=== PATIENT | male | born 1945 | race Caucasian/White ===

== ENCOUNTER 2017-10-09 13:45 | Outpatient (POV) | payer MEDICARE, OTHER, SELFPAY | END 2017-10-09 15:44 | disposition home or self-care (01) | PROVIDERS: Family Provider Family Medicine; PCP Family Medicine; Visit Provider Urology | DX: C61 Malignant neoplasm of prostate (principal) | CPT/HCPCS: 99213 ==

== ENCOUNTER → 2017-10-16 08:42 | Outpatient (CLI) | payer MEDICARE, OTHER, SELFPAY ==
[2017-10-16 09:21] LABS: Blood Urea Nitrogen 13 mg/dL (7-18); Creatinine,Serum 1.31 mg/dL (0.70-1.30); Estimated Glomerular Filt Rate 54 ml/min (>60); GFR (African American) > 60 ML/MIN (>60)
--- NOTE | 2017-10-16 09:49 | CT_ITS ---
CT ABDOMEN PELVIS W CON INDICATION: ITS.REASON: PROSTATE CANCER ORDERING PHYSICIAN: Ricardo Ortega MD PATIENT AGE: 72 years COMPARISON: 03/09/2015 TECHNIQUE: Axial images are obtained with contrast. Sagittal and coronal reformatted images are reviewed as well. FINDINGS: No acute finding in the lung bases. There has been a prior cholecystectomy. No biliary dilatation. No focal liver lesion. Spleen, adrenal glands, and pancreas have an unremarkable appearance. No obstructing renal or ureteral calculi. There is a 6 mm left renal cyst. No hydronephrosis. There is a fusiform infrarenal abdominal aortic aneurysm measuring up to 3.9 cm transverse and 3.2 cm in maximum AP dimension containing some mural thrombus beginning nearly 6 cm below the level the renal arteries and ending just above the bifurcation. No acute retroperitoneal hemorrhage evident. Compared to the previous study of aneurysm or a slightly larger previously measuring up to 3.7 cm transverse and 3 cm AP with slight increase in the amount of mural thrombus on today's exam. Prostate is slightly enlarged measuring 5.3 x 4 cm. No pelvic adenopathy. Urinary bladder has an unremarkable appearance. No acute bony anomalies. No obvious lytic or blastic lesions. IMPRESSION: 1. Mildly enlarged prostate. No definite evidence of metastasis. 2. Fusiform abdominal aortic aneurysm for a slightly larger compared to the previous study measured 3.9 cm transverse previously 3.7 cm with some increase in intramural thrombus.
--- NOTE | 2017-10-16 10:13 | XR_ITS ---
XR chest 2V HISTORY: ITS.REASON: PROSTATE CA ORDERING PHYSICIAN: Ricardo Ortega MD PATIENT AGE: 72 years COMPARISON: 12/28/2014 FINDINGS: There has been a prior median sternotomy. The cardiovascular structures are unremarkable. Surgical clips are present in the left hilar region.. The lungs are clear without infiltrates, suspicious nodules, or pleural effusions. No acute bony abnormalities. No obvious lytic or blastic bony lesions evident IMPRESSION: No change with no acute finding
== END ==
PROVIDERS: PCP Urology; Visit Provider Urology
DX: C61 Malignant neoplasm of prostate (principal)
CPT/HCPCS: 36415; 71046; 74177; 82565; 84520; Q9967

== ENCOUNTER → 2017-10-17 11:03 | Outpatient (CLI) | payer MEDICARE, OTHER, SELFPAY ==
--- NOTE | 2017-10-17 11:06 | NM_ITS ---
NM bone scan whole body CLINICAL INDICATION: ITS.REASON: PROSTATE CANCER ORDERING PHYSICIAN: Ricardo Ortega MD PATIENT AGE: 72 years DOSE: 26.3 mCi technetium MDP COMPARISON: None FINDINGS: Delayed Whole-body images obtained following the intravenous administration of 26.3 mCi technetium MDP. Degenerative activity noted in the knees and shoulders and sternoclavicular joints. There is slight decrease activity on the right at the costovertebral junction at T9, T10, and T11 likely osteoarthritic. Prominent osteophytes present at this region on the CT scan. Small focal area of increased activity is present involving the right parasymphyseal region of the mandible which may be due to prior tooth extraction or caries IMPRESSION: 1. No convincing evidence of metastatic disease. 2. Degenerative/arthritic changes
== END ==
PROVIDERS: Family Provider Family Medicine; PCP Family Medicine; Visit Provider Urology
DX: C61 Malignant neoplasm of prostate (principal)
CPT/HCPCS: 78306; A9503

== ENCOUNTER → 2017-11-26 08:40 | Outpatient (CLI) | payer MEDICARE, OTHER, SELFPAY ==
[2017-11-26 09:25] LABS: Basophils # 0.1 K/mm3 (0-0.2); Basophils % 0.6 % (0.1-2.0); Eosinophils # 0.4 K/mm3 (0.0-0.4); Eosinophils % 4.1 % (0.1-12.0); Hematocrit 46.4 % (42.0-52.0); Hemoglobin 15.8 g/dL (14.1-18.0); Lymphocytes # 2.4 K/mm3 (0.7-4.5); Lymphocytes % 26.3 K/mm3 (10-50); Mean Corpuscular HGB Conc 34.1 g/dL (31.8-35.4); Mean Corpuscular Hemoglobin 30.4 pg (27.0-31.2); Mean Corpuscular Volume 89.2 fl (80-94); Mean Platelet Volume 6.7 fl (7.4-10.4); Monocytes # 0.4 K/mm3 (0.1-1.0); Monocytes % 4.9 % (1.7-9.3); Neutrophils # 5.8 K/mm3 (1.8-7.8); Neutrophils % 64.1 % (37.0-80.0); Platelet Count 246 K/mm3 (142-424); Red Blood Count 5.21 M/mm3 (4.60-6.20); Red Cell Distribution Width 12.3 % (11.5-17.5)
[2017-11-26 10:20] LABS: Albumin Level 3.6 gm/dL (3.4-5.0); Anion Gap 11.3 mEq/L (5-15); Blood Urea Nitrogen 16 mg/dL (7-18); Calcium 9.1 mg/dL (8.5-10.1); Carbon Dioxide 33 mmol/L (21.0-32.0); Chloride 102 mmol/L (98-107); Creatinine,Serum 1.36 mg/dL (0.70-1.30); Estimated Glomerular Filt Rate 52 ml/min (>60); GFR (African American) 63 ML/MIN (>60); Glucose 143 mg/dL (74-106); Phosphorous 3.5 mg/dL (2.4-4.9); Potassium 3.3 mmoL/L (3.5-5.1); Sodium 143 mmol/L (136-145)
[2017-11-26 13:25] LABS: Appearance,Urine CLEAR (Clear); Bilirubin,Urine Negative (Negative); Blood, Urine Negative (Negative); Color,Urine YELLOW (Yellow); Glucose,Urine (UA) Negative (Negative); Ketones,Urine Negative (Negative); Leukocyte Esterase,Urine Negative (Negative); Nitrate,Urine Negative (Negative); PH,Urine 5.5 (5.0-8.5); Protein,Urine Negative (Negative); Specific Gravity, Urine >= 1.030 (1.005-1.030); Urobilinogen,Urine 0.2 EU/dl (0.2)
[2017-11-26 13:44] LABS: Bacteria,Urine Trace /lpf; Squamous Epithelial Cell,Urine Occasional #/hpf (0-5)
[2017-11-26 14:01] LABS: Creatinine,Urine Random 209 mg/dL (20-320); Total Protein,Urine Random 18.2 mg/dL (0.0-11.9)
[2017-11-26 14:12] LABS: Microscopic, Urine URINE MICROSCOPIC (MICROSCOPIC)
[2017-11-30 12:13] LABS: Parathyroid Hormone Intact 38 pg/mL (15-65); Vitamin D 25 Hydroxy 28.3 ng/mL (30.0-100.0)
== END ==
PROVIDERS: PCP Family Medicine; Visit Provider Internal Medicine Nephrology
DX: N18.3 Chronic kidney disease, stage 3 (moderate) (principal)
CPT/HCPCS: 36415; 80069; 81001; 82570; 82652; 83970; 84155; 85025

== ENCOUNTER → 2017-12-03 14:13 | Outpatient (POV) | payer MEDICARE, OTHER, SELFPAY | PROVIDERS: Family Provider Family Medicine; PCP Family Medicine; Visit Provider Internal Medicine Nephrology | DX: Z00.00 Encounter for general adult medical examination without abnormal findings (principal) ==

== ENCOUNTER 2018-03-04 09:30 | Outpatient (RCR) | payer MEDICARE, OTHER, SELFPAY ==
--- NOTE | 2018-02-21 08:35 | HMH.PTOPEV ---
Rehab Outpatient Evaluation Rehab OP Evaluation Start: 02/21/18 08:17 Freq: Status: Active Protocol: Document 02/21/18 08:17 DAYPEACE (Rec: 02/21/18 08:35 GENO [id number]) Electronically Signed By New Das, TONJA 02/21/18 08:17 Outpatient Therapy Subjective History Subjective History This is the initial Physical Therapy evaluation for Alex Stephens. PT is a 72 y/o male referred toPTf or c/o LBP and R hip, flank,thigh pain. Pt reports pain began ~ 2-3 months ago after visit to chiropractor. Chief Complaint Pain Stiff Symptom Type Ache Sharp Dull Stabbing Symptoms Relieved By Rest/Positioning Heat Ice OTC Meds Symptoms Aggravated By Sitting Standing Physical Activity Walking Prior Functional Limitations None Current Functional Limitations Housework Standing Sitting Recreation Activity Walking Level of pain today (0-10) 2 Pain scale - at its best (0-10) 2 Pain scale - at its worst (0-10) 10 Lumbopelvic Eval Posture Thoracic Spine Posture Standing Position Increased Kyphosis Lumbar Spine Posture Standing Position Flattened Assistive device Assistive Devices None / NA Palapation tenderness right thoracic spinal tenderness Yes: TTP T12 lumbar spinal tenderness Yes: TTP L1-5 paraspinal tenderness Yes Accessory Movement T12 right L2 right Range of Motion Lumbar Spine Active Flexion Range of 90 Motion (degrees) Lumbar Spine Active Extension Range of 10 w/ pain Motion (degrees) Left Lumbar Spine Lateral Flexion Active 5 w/ pain Range of Motion (degrees) Right Lumbar Spine Lateral Flexion 15 Active Range of Motion (degrees) Lumbar Spine ROM Limitations Pain Special Tests Lumbar Spine Screen Positive Forward Bending Test- Standing Negative Right Forward Bending Test- Sitting Negative Right Unilateral Straight Leg Raise (Lasegue) Positive Right Test Lumbar Spine Spring Test pos. for pain Lumbar [place] Distraction Test/Manual Positive T
== END 2018-03-04 09:31 | disposition home or self-care (01) ==
LOC: PT 09:30
PROVIDERS: Family Provider Family Medicine; PCP Family Medicine; Visit Provider Family Medicine
DX: M51.16 Intervertebral disc disorders with radiculopathy, lumbar region (principal)
CPT/HCPCS: 97010; 97012; 97014; 97110; 97163; G0283

== ENCOUNTER → 2018-03-25 08:41 | Outpatient (CLI) | payer MEDICARE, OTHER, SELFPAY ==
--- NOTE | 2018-03-25 08:42 | US_ITS ---
US aorta HISTORY: Follow-up aneurysm ITS.REASON: follow up on abdominal aortic aneurysm COMPARISON: 09/19/2017 FINDINGS: Fusiform lower abdominal aortic and there is once again noted measuring 4 cm in AP dimension with a mild amount of intramural thrombus.. Iliac arteries are unremarkable. IMPRESSION: No change 4 cm abdominal aortic aneurysm
== END ==
PROVIDERS: Family Provider Family Medicine; PCP Family Medicine; Visit Provider Internal Medicine
DX: I71.4 Abdominal aortic aneurysm, without rupture (principal)
CPT/HCPCS: 76770

== ENCOUNTER → 2018-05-08 08:03 | Outpatient (CLI) | payer MEDICARE, OTHER, SELFPAY ==
[2018-05-08 08:54] LABS: Hemoglobin A1C 6.2 % (0.0-7.0)
[2018-05-08 09:08] LABS: Alanine Aminotransferase 24 U/L (12-78); Albumin Level 3.6 gm/dL (3.4-5.0); Alkaline Phosphatase 64 U/L (46-116); Anion Gap 9.3 mEq/L (5-15); Aspartate Amino Transferase 16 U/L (15-37); Bilirubin,Direct 0.1 mg/dL (0.0-0.2); Bilirubin,Indirect 0.5 mg/dL (0.0-0.9); Bilirubin,Total 0.6 mg/dL (0.2-1.0); Blood Urea Nitrogen 17 mg/dL (7-18); Calcium 9.1 mg/dL (8.5-10.1); Carbon Dioxide 31 mmol/L (21.0-32.0); Chloride 107 mmol/L (98-107); Chol/HDL Ratio 3.4 (1-3.5); Cholesterol 155 mg/dL (140-200); Creatinine,Serum 1.37 mg/dL (0.70-1.30); Estimated Glomerular Filt Rate 51 ml/min (>60); GFR (African American) 62 ML/MIN (>60); Glucose 151 mg/dL (74-106); HDL Cholesterol 46 mg/dL (27-67); LDL Cholesterol 84 mg/dL (0-130); Potassium 4.3 mmoL/L (3.5-5.1); Sodium 143 mmol/L (136-145); Total Protein,Serum 6.7 gm/dL (6.4-8.2); Triglycerides 126 mg/dL (30-200); VLDL Cholesterol 25 mg/dL (0-40)
[2018-05-10 06:36] LABS: PSA, Free 0.61 ng/mL; Prostate Specific Ag 2.9 ng/mL (0.0-4.0)
== END ==
PROVIDERS: Visit Provider Physician Assistant
DX: Z79.899 Other long term (current) drug therapy (principal); N28.9 Disorder of kidney and ureter, unspecified; R73.03 Prediabetes; E78.5 Hyperlipidemia, unspecified; Z85.46 Personal history of malignant neoplasm of prostate
CPT/HCPCS: 36415; 80048; 80061; 80076; 83036; 84153; 84154

== ENCOUNTER → 2018-06-17 08:17 | Outpatient (CLI) | payer MEDICARE, OTHER, SELFPAY ==
[2018-06-17 08:21] LABS: Microscopic, Urine URINE MICROSCOPIC (MICROSCOPIC)
[2018-06-17 08:39] LABS: Basophils # 0.1 K/mm3 (0-0.2); Basophils % 0.9 % (0.1-2.0); Eosinophils # 0.3 K/mm3 (0.0-0.4); Eosinophils % 4.4 % (0.1-12.0); Hematocrit 46.7 % (42.0-52.0); Hemoglobin 15.5 g/dL (14.1-18.0); Lymphocytes # 1.9 K/mm3 (0.7-4.5); Lymphocytes % 24.4 K/mm3 (10-50); Mean Corpuscular HGB Conc 33.1 g/dL (31.8-35.4); Mean Corpuscular Hemoglobin 30.2 pg (27.0-31.2); Mean Platelet Volume 6.7 fl (7.4-10.4); Monocytes # 0.4 K/mm3 (0.1-1.0); Monocytes % 5.4 % (1.7-9.3); Neutrophils # 4.9 K/mm3 (1.8-7.8); Neutrophils % 64.9 % (37.0-80.0); Platelet Count 253 K/mm3 (142-424); Red Blood Count 5.13 M/mm3 (4.60-6.20); Red Cell Distribution Width 12.8 % (11.5-17.5); White Blood Count 7.6 K/mm3 (4.8-10.8)
[2018-06-17 08:43] LABS: Appearance,Urine CLEAR (Clear); Bilirubin,Urine Negative (Negative); Blood, Urine Negative (Negative); Color,Urine YELLOW (Yellow); Glucose,Urine (UA) Negative (Negative); Ketones,Urine Negative (Negative); Leukocyte Esterase,Urine Negative (Negative); Nitrate,Urine Negative (Negative); Protein,Urine Negative (Negative); Specific Gravity, Urine 1.025 (1.005-1.030); Urobilinogen,Urine 0.2 EU/dl (0.2)
[2018-06-17 09:29] LABS: Creatinine,Urine Random 159 mg/dL (20-320); Total Protein,Urine Random 16.8 mg/dL (0.0-11.9)
[2018-06-17 09:39] LABS: Bacteria,Urine Trace /lpf; Hyaline Casts,Urine Occasional #/lpf (0); Squamous Epithelial Cell,Urine Occasional #/hpf (0-5); WBC,Urine Occasional #/hpf (0-3)
[2018-06-17 09:54] LABS: Albumin Level 3.8 gm/dL (3.4-5.0); Anion Gap 11.9 mEq/L (5-15); Blood Urea Nitrogen 15 mg/dL (7-18); Calcium 9.2 mg/dL (8.5-10.1); Carbon Dioxide 33 mmol/L (21.0-32.0); Chloride 104 mmol/L (98-107); Creatinine,Serum 1.38 mg/dL (0.70-1.30); Estimated Glomerular Filt Rate 51 ml/min (>60); GFR (African American) 61 ML/MIN (>60); Glucose 141 mg/dL (74-106); Phosphorous 3.3 mg/dL (2.4-4.9); Potassium 3.9 mmoL/L (3.5-5.1); Sodium 145 mmol/L (136-145); Uric Acid 7.9 mg/dL (2.6-7.2)
[2018-06-19 10:24] LABS: Microalbumin, Urine <3.0 ug/mL (Not Estab.)
== END ==
PROVIDERS: PCP Family Medicine; Visit Provider Internal Medicine Nephrology
DX: N18.3 Chronic kidney disease, stage 3 (moderate) (principal)
CPT/HCPCS: 36415; 80069; 81001; 82043; 82570; 84155; 84550; 85025

== ENCOUNTER → 2018-06-20 13:37 | Outpatient (POV) | payer MEDICARE, OTHER, SELFPAY | PROVIDERS: Family Provider Family Medicine; PCP Family Medicine; Visit Provider Internal Medicine Nephrology | DX: Z00.00 Encounter for general adult medical examination without abnormal findings (principal) ==

== ENCOUNTER → 2018-08-07 12:19 | Outpatient (CLI) | payer MEDICARE, OTHER, SELFPAY ==
[2018-08-09 06:44] LABS: PSA, Free 0.33 ng/mL; Prostate Specific Ag 2.2 ng/mL (0.0-4.0)
== END ==
PROVIDERS: PCP Family Medicine; Visit Provider Urology
DX: C61 Malignant neoplasm of prostate (principal)
CPT/HCPCS: 36415; 84153; 84154

== ENCOUNTER → 2018-09-25 07:48 | Outpatient (CLI) | payer MEDICARE, OTHER, SELFPAY ==
--- NOTE | 2018-09-25 07:49 | US_ITS ---
US abd. aorta screening HISTORY: Follow-up abdominal aortic aneurysm ITS.REASON: z ORDERING PHYSICIAN: Jonah Cabello MD PATIENT AGE: 73 years Comparison: 10/16/2017 FINDINGS: The aorta at the level is fluid has an unremarkable appearance at 2 cm. 4 cm below the xiphoid there is fusiform dilatation of the abdominal aorta at 3.5 x 3 cm. Just proximal to the aortic bifurcation the aorta measures up to 4 cm. The proximal common iliacs are approximately 1 cm. IMPRESSION: Mid and lower abdominal aortic aneurysm measuring up to 4 cm. Previously this measured 3.2 cm. Enlarging aneurysm is considered and may be better evaluated for true enlargement with CT angiography
== END ==
PROVIDERS: PCP Family Medicine; Visit Provider Internal Medicine
DX: I71.4 Abdominal aortic aneurysm, without rupture (principal)
CPT/HCPCS: 76705

== ENCOUNTER → 2018-11-05 08:20 | Outpatient (CLI) | payer MEDICARE, OTHER, SELFPAY ==
[2018-11-06 09:33] LABS: PSA, Free 0.83 ng/mL; Prostate Specific Ag 3.1 ng/mL (0.0-4.0)
== END ==
PROVIDERS: Visit Provider Urology
DX: R97.20 Elevated prostate specific antigen [PSA] (principal)
CPT/HCPCS: 36415; 84153; 84154

== ENCOUNTER 2018-12-01 19:13 | Observation (INO) ==
--- NOTE | 2018-12-01 19:33 | Emergency Department Note ---
ED Disposition Clinical Impression: Precordial chest pain Disposition: Admitted as Observation Condition on Discharge: Good Referrals: Duncan Eastman MD [Primary Care Provider] - - Critical Care Critical Care Time: No Attestation: On , the high probability of a clinically significant, sudden or life t hreatening deterioration of the following system(s) required my full and direct attention, intervention and personal management. The time I documented below is in addition to time spent performing reported procedures but includes the following listed in this critical care notation. Medical Decision Making - [place] Inquiry Pt receiving controlled substance: No Vital Signs: 12/01/18 19:14 Temperature 99.5 F Temperature Source Oral Pulse Rate [Right Brachial] 90 Respiratory Rate 17 Blood Pressure [Right Arm] 203/101 H Blood Pressure Mean [Right Arm] 135 Blood Pressure Source [Right Arm] Automatic Cuff Blood Pressure Position [Right Arm] Sitting 02 Sat by Pulse Oximetry 97 Oxygen Delivery Method Room Air - Lab Data Lab Results 12/01/18 19:22: WBC 10.5, RBC 5.28, Hgb 16.4, Hct 47.9, MCV 90.6, MCH 31.1, MCHC 34.3, RDW 12.8, Plt Count 243, MPV 6.3 L, Neut % (Auto) 81.6 H, Lymph % (Auto) 10.4, Armstrong % (Auto) 4.7, Eos % (Auto) 2.7, Baso % (Auto) 0.5, Neut # (Auto) 8.5 H, Lymph # (Auto) 1.1, Armstrong # (Auto) 0.5, Eos # (Auto) 0.3, Baso # (Auto) 0.1 12/01/18 19:22: Sodium 139, Potassium 3.4 L, Chloride 98, Carbon Dioxide 33 H, Anion Gap 11.4, BUN 15, Creatinine 1.33 H, Estimated Creat Clear 63, Estimated GFR 53 L, Est GFR ( Amer) 64, Glucose 112 H, Calcium 9.7, Total Bilirubin 0.6, AST 26, ALT 34, Alkaline Phosphatase 70, Troponin I < 0.02, Total Protein 8.6 H D, Albumin 4.3, Globulin 4.3 H, Albumin/Globulin Ratio 1.0 L Result diagrams: 12/01/18 19:22 12/01/18 19:22 Orders (Tests/Meds): ED MEDICATIONS Generic Name Dose Route Start Last Admin Trade Name Freq PRN Reason Stop Dose Admin Sodium Chloride 10 ml 12/01/18 19:26 Saline Flush 10ml Syringe IV 12/31/18 19:25 NEEDED PRN Maintain IV Site Discontinued Medications Generic Name Dose Route Start Last Admin Trade Name Freq PRN Reason Stop Dose Admin Aspirin 324 mg 12/01/18 19:44 12/01/18 19:47 Aspirin 81mg Chewable Tablet PO 12/01/18 19:45 Not Given ONCE ONE Aspirin 243 mg 12/01/18 19:45 12/01/18 19:47 Aspirin 81mg Chewable Tablet PO 12/01/18 19:46 243 mg ONCE ONE Administration ORDERS Category Date Time Status XR chest 2V Stat Exams 12/01/18 19:25 Taken - ECG Data Tracing #1 EKG interpreted by Terrance Pham MD: Rhythm: sinus Rate: 88 [place]: normal Ectopy: none Conduction: normal ST Segment Changes: none T Wave Changes: none Q Waves: none No evidence of acute ischemia or injury Prior electrocardiagrams reviewed. No change from prior tracings. - Physician Consults Physician Consulted: Abdirahman Eastman Time: 19:57 Reason -: Admission Comment/Response: Agrees to admit the patient to the hospital. We discussed the patient's clinical information, including history, exam, laboratory and radiology results and ED course. Per hospital procedure, I will write temporary bridge inpatient orders on the patient. Specific orders requested by the admitt ing physician: Serial cardiac enzymes, cardiology consult, cardiac echo General Adult HPI - General Chief complaint: Weakness Stated complaint: bp high pain in shoulder Time Seen by Provider: 12/01/18 19:45 Mode of Arrival: Ambulatory Limitations: No Limitations Description of Symptoms (Recalled from ER Triage Doc. by RN): Woke up this morning coughing and took medication. Reports hx of HTN. States his BP is elevated 190/105, 170/100. - History of Present Illness HPI narrative: States that he awoke this morning with a runny nose. He also had some coughing. He took some Sinutab and also a generic equivalent. He used some Chloraseptic spray and his cough eventually stopped. He developed chest pain and pain in his back between his shoulder blades at about 4 PM. Nothing seems to make the pain better or worse. Says that his chest right now just feels like somebody is pushing on it. Denies shortness of breath, nausea, diaphoresis, radiation of discomfort other than his back. He has a history of coronary artery disease. Coronary artery bypass surgery in the distant past. He says he has had Dr. Cabello for an angiogram and stent placement twice in the past 4 years. Last stent was about 2 years ago. Took his blood pressure better ago and it was high. Pain is similar to his previous cardiac pain. - Related Data Home Medications Medication Instructions Recorded Confirmed aspirin 81 mg tablet,delayed 81 mg PO DAILY tab 01/22/18 12/01/18 release carvedilol 12.5 mg tablet 12.5 mg PO BID 01/22/18 12/01/18 coenzyme Q10 100 mg capsule 300 mg PO DAILY cap 01/22/18 12/01/18 omeprazole 20 mg capsule,delayed 20 mg PO DAILY cap 01/22/18 12/01/18 release vitamin B complex with vitamin C 150 mg PO DAILY 05/14/18 12/01/18 no.4 150 mg tablet Ezetimibe/Simvastatin 1 tab PO DAILY 12/01/18 12/01/18 [Ezetimibe-Simvastatin 10-40 mg] Lisinopril/Hydrochlorothiazide 1 tab PO BID 12/01/18 12/01/18 [Lisinopril-Hctz 20-12.5 mg Tab] Allergies Allergy/AdvReac Type Severity Reaction Status Date / Time prednisone Allergy Intermediate I-RASH Verified 12/01/18 19:23 azithromycin [AZITHROMYCIN] Allergy Unknown Verified 12/01/18 19:23 NSAIDS (Non-Steroidal Allergy Unknown Verified 12/01/18 19:23 Anti-Inflamma [NSAIDS (NON-STEROIDAL ANTI-INFLAMMA] nabumetone AdvReac Intermediate IRREGULAR Verified 12/01/18 19:23 HEART BEAT indomethacin AdvReac Mild DIZZINESS Verified 12/01/18 19:23 [facility] History - Hepatitis A Screen Drug use history?: No High risk sexual behaviors?: No History of sexually transmitted infection?: No Currently employed?: No Childcare worker?: No Do you have indoor plumbing?: Yes Do you have electricity?: Yes Attestation statement:: This patient has been screened for Hepatitis A risk factors. I have reviewed the patient's past medical history: Yes Medical History: Reports:: Cancer, Coronary Artery Disease, Hyperlipidemia, Hypertension, Myocardial Infarction Denies:: Diabetes Mellitus Type 1, Diabetes Mellitus Type 2, MRSA Other Medical History: Reports: Anemia, Arthritis Comment: abnormal psa,prostate biopsy,sexual dysfunction Laterality Cases: Bilateral: Other Other Surgeries: Yes: Angioplasty, Cardiac Catheterization, Cardiac Surgery, Cholecystectomy, Colostomy Amputation: No Fractures: No Comment: vasectomy,prostate biopsy,microlaryngoscopy - Social History Smoking Status: Former smoker Alcohol Intake: never Alcohol Intake Frequency:: other Substance Use Type: denies use Occupational Status: employed Household Members: spouse - Psychiatric History Expresses thoughts of harming self/others: None Suicide Plan Description: No Plan Family Hx:: No significant family history ROS Obtained: Yes All systems reviewed & no additional complaints - Constitutional Constitutional: Denies fever(s) - ENT Ears, Nose, Mouth, and Throat: Reports nasal discharge - Cardiovascular Cardiovascular: Reports chest pain, Denies diaphoresis - Respiratory Respiratory: Yes cough - Gastrointestinal Gastrointestingal: Denies: abdominal pain, vomiting Physical Exam - General General appearance: alert, in no apparent distress - Head Head exam: atraumatic, normocephalic - Eye Eye exam: Present: normal appearance, PERRL, EOMI - ENT ENT exam: Present: mucous membranes moist - Neck Neck exam: Present: normal inspection, trachea midline - Chest Chest inspection: Present: normal inspection, symmetric chest wall rise. Absent: tenderness - Respiratory Respiratory exam: Present: normal lung sounds bilaterally. Absent: respiratory distress - Cardiovascular Cardiovascular exam: Present: regular rate, normal rhythm, normal heart sounds - Abdominal Exam Abdominal exam: Present: soft. Absent: distention, tenderness, guarding - Extremities Exam Extremities exam: Present: normal inspection, full ROM. Absent: calf tenderness - Back Exam Back exam: Present: normal inspection. Absent: tenderness - Neurological Exam Neurological exam: Present: alert, oriented X3, CN II-XII intact. Absent: motor sensory deficit - Psychiatric Psychiatric exam: Present: normal affect, normal mood - Skin Skin exam: Present: warm, dry
[2018-12-01 19:36] LABS: Basophils # 0.1 K/mm3 (0-0.2); Basophils % 0.5 % (0.1-2.0); Eosinophils # 0.3 K/mm3 (0.0-0.4); Eosinophils % 2.7 % (0.1-12.0); Hematocrit 47.9 % (42.0-52.0); Hemoglobin 16.4 g/dL (14.1-18.0); Lymphocytes # 1.1 K/mm3 (0.7-4.5); Lymphocytes % 10.4 % (10-50); Mean Corpuscular HGB Conc 34.3 g/dL (31.8-35.4); Mean Corpuscular Hemoglobin 31.1 pg (27.0-31.2); Mean Corpuscular Volume 90.6 fl (80-94); Mean Platelet Volume 6.3 fl (7.4-10.4); Monocytes # 0.5 K/mm3 (0.1-1.0); Monocytes % 4.7 % (1.7-9.3); Neutrophils # 8.5 K/mm3 (1.8-7.8); Neutrophils % 81.6 % (37.0-80.0); Platelet Count 243 K/mm3 (142-424); Red Blood Count 5.28 M/mm3 (4.60-6.20); Red Cell Distribution Width 12.8 % (11.5-17.5); White Blood Count 10.5 K/mm3 (4.8-10.8)
[2018-12-01 19:48] LABS: Alanine Aminotransferase 34 U/L (12-78); Albumin Level 4.3 gm/dL (3.4-5.0); Alkaline Phosphatase 70 U/L (46-116); Anion Gap 11.4 mEq/L (5-15); Aspartate Amino Transferase 26 U/L (15-37); Bilirubin,Total 0.6 mg/dL (0.2-1.0); Blood Urea Nitrogen 15 mg/dL (7-18); Calcium 9.7 mg/dL (8.5-10.1); Carbon Dioxide 33 mmol/L (21.0-32.0); Chloride 98 mmol/L (98-107); Globulin 4.3 gm/dl (1.3-3.2); Glucose 112 mg/dL (74-106); Potassium 3.4 mmoL/L (3.5-5.1); Sodium 139 mmol/L (136-145); Total Protein,Serum 8.6 gm/dL (6.4-8.2)
--- NOTE | 2018-12-02 07:20 | H&P/Discharge Summary ---
General - General Admission date:: 12/01/18 Discharge date: 12/02/18 *Admission Date: 12/01/18 *Chief complaint: Headache/high blood pressure *History of present illness: 73-year-old male with history of coronary artery disease presented to the emergency department after developing a headache and identifying significant elevation of blood pressure at home. Patient awoke yesterday morning with symptoms of URI being the nose and my elevation of his temperature to 19.7. He is single sprays and [id number] sinus medicines to relieve his symptoms. As the afternoon progressed patient developed a headache. This triggered him to check his blood pressure which was elevated to 190 systolic. He monitor his blood pressure over a couple of hours and when it did not see coming down, nor did his headaches seem to be improving he sought treatment at the emergency department. By this time the patient had developed some discomfort in between his shoulder blades and admits he also felt a pressure-like sensation within his chest. The pressure he describes as someone pushing on his chest. It seems slightly worse with deep breathing and cough and he attributed this discomfort to his coughing. Patient was worked up in the emergency department and initial workup was negative for any acute ischemia. Patient's blood pressure was severely elevated on presentation but came down. Despite his blood pressure coming down his headache did not resolve. He tells me this morning he was about to leave AMA when his headache finally treated with some Tylenol which improved discomfort for about 2 hours. This morning his biggest complaint is his headache as his chest and back pain have both resolved. He is to the headache however [facility] History I have reviewed the patient's past medical history: Yes Medical History: Reports:: Cancer (PROSTATE), Coronary Artery Disease, Hyperlipidemia, Hypertension, Myocardial Infarction Denies:: Diabetes Mellitus Type 1, Diabetes Mellitus Type 2, MRSA *Have you ever received a pneumonia vaccine?: Yes *Have you received a flu vaccine this season?: Yes Other Medical History: Reports: Anemia, Arthritis Laterality Cases: Bilateral: Other Other Surgeries: Yes: Angioplasty, Cardiac Catheterization, Cardiac Surgery, Cholecystectomy, Colonoscopy, Colostomy, Coronary Stent Amputation: No Fractures: No - *Social History Educational Level: Completed High School Smoking Status: Former smoker Alcohol Intake: former Alcohol Intake Frequency:: a few times a week Substance Use Type: denies use *Occupational Status:: employed Housing: house Household Members: spouse *Travel in the last 8 weeks: None - Psychiatric History Expresses thoughts of harming self/others: None Suicide Plan Description: No Plan Family Hx:: No significant family history Review of Systems - Review of Systems Review of systems:: pertinent systems reviewed and negative unless documented below Exam Vital signs and Labs for Last 24 Hours: Temp Pulse Resp BP Pulse Ox 98.6 F 80 20 127/65 92 L 12/02/18 03:56 12/02/18 04:00 12/02/18 03:56 12/02/18 03:56 12/02/18 03:56 Laboratory Results - last 24 hr 12/01/18 19:22: WBC 10.5, RBC 5.28, Hgb 16.4, Hct 47.9, MCV 90.6, MCH 31.1, MCHC 34.3, RDW 12.8, Plt Count 243, MPV 6.3 L, Neut % (Auto) 81.6 H, Lymph % (Auto) 10.4, Fisher % (Auto) 4.7, Eos % (Auto) 2.7, Baso % (Auto) 0.5, Neut # (Auto) 8.5 H, Lymph # (Auto) 1.1, Fisher # (Auto) 0.5, Eos # (Auto) 0.3, Baso # (Auto) 0.1 12/01/18 19:22: Sodium 139, Potassium 3.4 L, Chloride 98, Carbon Dioxide 33 H, Anion Gap 11.4, BUN 15, Creatinine 1.33 H, Estimated Creat Clear 63, Estimated GFR 53 L, Est GFR ( Amer) 64, Glucose 112 H, Calcium 9.7, Total Bilirubin 0.6, AST 26, ALT 34, Alkaline Phosphatase 70, Troponin I < 0.02, Total Protein 8.6 H D, Albumin 4.3, Globulin 4.3 H, Albumin/Globulin Ratio 1.0 L 12/01/18 23:20: Troponin I < 0.02 12/02/18 02:15: Troponin I < 0.02 I & O for Last 24 hours: Intake & Output 11/29/18 11/30/18 12/01/18 12/02/18 11:59 11:59 11:59 11:59 Intake Total 360 / 360 Balance 360 / 360 Weight 196 lb 3 oz Narrative: Patient is awake and alert sitting up in the chair and eat breakfast. ENT exam is unremarkable. Nose without lymphadenopathy or carotid bruits. Lungs are clear to auscultation. Heart has a regular rate and rhythm. Abdomen is soft and nontender. Extremities are without edema. Neurologically there is no deficit. Hospital Course Hospital Course: Patient was admitted and ruled out for PA with serial enzymes. Chest and back discomfort had resolved prior to the patient being admitted to the floor. Headache persisted and responded intermittently to Tylenol. Headache is likely associated with a URI. On the morning of the patient was given an intravenous dose of Toradol for his headache. Cardiology had been constant by the ER. Please see their note for full details. Patient's blood pressure had returned to normal. He was discharged to home. Results Labs on day of discharge: Labs from last 24 hours 12/02/18 12/01/18 12/01/18 02:15 23:20 19:22 WBC RBC Hgb Hct MCV MCH MCHC RDW Plt Count MPV Neut % (Auto) Lymph % (Auto) Fisher % (Auto) Eos % (Auto) Baso % (Auto) Neut # (Auto) Lymph # (Auto) Fisher # (Auto) Eos # (Auto) Baso # (Auto) Sodium 139 Potassium 3.4 L Chloride 98 Carbon Dioxide 33 H Anion Gap 11.4 BUN 15 Creatinine 1.33 H Estimated Creat Clear 63 Estimated GFR 53 L Est GFR ( Amer) 64 Glucose 112 H Calcium 9.7 Total Bilirubin 0.6 AST 26 ALT 34 Alkaline Phosphatase 70 Troponin I < 0.02 < 0.02 < 0.02 Total Protein 8.6 H D Albumin 4.3 Globulin 4.3 H Albumin/Globulin Ratio 1.0 L 12/01/18 19:22 WBC 10.5 RBC 5.28 Hgb 16.4 Hct 47.9 MCV 90.6 MCH 31.1 MCHC 34.3 RDW 12.8 Plt Count 243 MPV 6.3 L Neut % (Auto) 81.6 H Lymph % (Auto) 10.4 Fisher % (Auto) 4.7 Eos % (Auto) 2.7 Baso % (Auto) 0.5 Neut # (Auto) 8.5 H Lymph # (Auto) 1.1 Fisher # (Auto) 0.5 Eos # (Auto) 0.3 Baso # (Auto) 0.1 Sodium Potassium Chloride Carbon Dioxide Anion Gap BUN Creatinine Estimated Creat Clear Estimated GFR Est GFR ( Amer) Glucose Calcium Total Bilirubin AST ALT Alkaline Phosphatase Troponin I Total Protein Albumin Globulin Albumin/Globulin Ratio DS: Diagnosis - Discharge Diagnosis (1) Upper respiratory infection Status: Acute (2) Headache Status: Acute (3) HHD (hypertensive heart disease) Status: Chronic (4) Atypical chest pain Status: Acute Discharge Medications - Medications for Discharge Home Medication List at Discharge: Continue carvedilol 12.5 mg tablet 12.5 mg PO BID aspirin 81 mg tablet,delayed release 81 mg PO DAILY tab omeprazole 20 mg capsule,delayed release 20 mg PO DAILY cap vitamin B complex with vitamin C no.4 150 mg tablet 150 mg PO DAILY coenzyme Q10 100 mg capsule 300 mg PO DAILY cap Lisinopril/Hydrochlorothiazide [Lisinopril-Hctz 20-12.5 mg Tab] 1 tab PO BID Ezetimibe/Simvastatin [Ezetimibe-Simvastatin 10-40 mg] 1 tab PO DAILY Disposition Disposition: Home, Self-Care
--- NOTE | 2018-12-02 07:21 | Pharmacy Consult Notes ---
[facility] Pharmacy VTE Monitoring - Patient Demographics Admission date: 12/01/18 Report Date: 12/02/18 Time: 07:21 Allergies/Adverse Reactions: Patient Allergies prednisone Allergy (Intermediate, Verified 12/01/18 19:23) I-RASH azithromycin [AZITHROMYCIN] Allergy (Unknown, Verified 12/01/18 19:23) NSAIDS (Non-Steroidal Anti-Inflamma [NSAIDS (NON-STEROIDAL ANTI-INFLAMMA] Allergy (Unknown, Verified 12/01/18 19:23) nabumetone Adverse Reaction (Intermediate, Verified 12/01/18 19:23) IRREGULAR HEART BEAT indomethacin Adverse Reaction (Mild, Verified 12/01/18 19:23) DIZZINESS Height: 1.75 m Weight: 88.989 kg Patient Problems: Current Active Problems Precordial chest pain (Acute) - VTE Risk Labs: VTE Related Lab Results Hgb 16.4 g/dL (14.1-18.0) 12/01/18 19:22 Hct 47.9 % (42.0-52.0) 12/01/18 19:22 Plt Count 243 K/mm3 (142-424) 12/01/18 19:22 BUN 15 mg/dL (7-18) 12/01/18 19:22 Creatinine 1.33 mg/dL (0.70-1.30) H 12/01/18 19:22 Estimated Creat Clear 63 mL/min (50-200) 12/01/18 19:22 Was VTE Risk Assessment Performed: Yes VTE Risk Level: Very Low Risk - Prophylaxis VTE Prophylaxis Ordered?: Yes Types of VTE Prophylaxis: TEDS Knee High Location of Applied Device: Bilateral Lower Extremeties - VTE Diagnosis Confirmed Treatment or plan recommended: Continue Current Treatment
== END 2018-12-02 10:20 | disposition home or self-care (01) ==
LOC: 2ND 19:13 → ER 19:13 → 2ND 20:33
PROVIDERS: ADMIT Emergency Medicine; ATTEND Family Medicine
DX: E78.5 Hyperlipidemia, unspecified; Z79.899 Other long term (current) drug therapy; Z85.9 Personal history of malignant neoplasm, unspecified; I25.2 Old myocardial infarction; I25.10 Atherosclerotic heart disease of native coronary artery without angina pectoris; Z88.8 Allergy status to other drugs, medicaments and biological substances; R51 Headache; R53.1 Weakness; J06.9 Acute upper respiratory infection, unspecified; I11.9 Hypertensive heart disease without heart failure; Z88.6 Allergy status to analgesic agent; R07.2 Precordial pain; Z86.79 Personal history of other diseases of the circulatory system; Z79.82 Long term (current) use of aspirin
CPT/HCPCS: 36415; 71020; 71046; 80053; 84484; 85025; 93005; 93306; 99284; G0378

== ENCOUNTER → 2019-01-24 11:39 | Outpatient (CLI) | payer MEDICARE, OTHER, SELFPAY ==
--- NOTE | 2019-01-24 11:45 | XR_ITS ---
XR hip RT 2-3V w/pelvis HISTORY: ITS.REASON: RT HIP PAIN ORDERING PHYSICIAN: Duncan Eastman MD PATIENT AGE: 73 years COMPARISON: None FINDINGS: An AP view of the pelvis shows mild osteoarthritic changes of both hips. No fracture or dislocation. No lytic or blastic change. Vascular calcifications are present. Metallic densities are present over the symphysis pubis and may be due to prostate seed implants. IMPRESSION: Mild osteoarthritis of the hips
--- NOTE | 2019-01-24 11:45 | XR_ITS ---
EXAM: XR lumbar spine min 4V HISTORY: Low back pain and right hip pain ITS.REASON: RT HIP PAIN ORDERING PHYSICIAN: Duncan Eastman MD PATIENT AGE: 73 years COMPARISON: None FINDINGS: There is normal alignment. No acute fracture or dislocation is evident. There is multilevel degenerative disc disease more prominent in the lower thoracic spine and at L5-S1. Multilevel anterior osteophytes are present. There is reversal of the thoracolumbar lordosis with mild wedging involving L1 and T12. This is chronic having been present on CT scan of 10/16/2017. There is an abdominal aortic aneurysm at the L4 level measuring approximately 3.8 cm in AP dimension. There is minimal retrolisthesis of L3 on L4 4 mm. Mild facet arthritic changes are present at L4-L5 and S1. IMPRESSION: 1. 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 2. 3.7 cm abdominal aortic aneurysm
== END ==
PROVIDERS: PCP Family Medicine; Visit Provider Family Medicine
DX: M54.5 Low back pain (principal); M25.551 Pain in right hip
CPT/HCPCS: 72110; 73502

== ENCOUNTER → 2019-02-03 12:19 | Outpatient (CLI) | payer MEDICARE, OTHER, SELFPAY ==
[2019-02-03 14:51] LABS: Prostate Specific Ag, Diagnost 1.17 ng/mL (0.0-4.0)
== END ==
PROVIDERS: Visit Provider Urology
DX: R97.20 Elevated prostate specific antigen [PSA] (principal)
CPT/HCPCS: 36415; 84153

== ENCOUNTER → 2019-02-27 06:08 | Outpatient (CLI) | payer MEDICARE, OTHER, SELFPAY ==
--- NOTE | 2019-02-27 06:10 | CI_ITS ---
Cerebrovascular Exam Indications: 780.2 Syncope and collapse. IMPRESSIONS 1. The bilateral vertebral arteries are patent with normal antegrade flow. 2. Study suggests 20-49% stenosis involving the right internal carotid artery and the left internal carotid artery. Carotid duplex study. Complete study and Doppler flow study including spectral analysis, color and leal scale imaging. Height: Height: 175.3cm. Height: 69in. Weight: Weight: 88.5kg. Weight: 194.6lb. Body mass index: BMI: 28.8kg/m^2. Body surface area: BSA: 2.1m^2. Location: Vascular laboratory. Patient status: Outpatient. Tables: Arterial flow: + +--------+--------+ Location V sys V ed + +--------+--------+ Right CCA - proximal 82.5cm/s 19.6cm/s + +--------+--------+ Right CCA - distal 70.7cm/s 22.8cm/s + +--------+--------+ Right ECA 106cm/s -------- + +--------+--------+ Right ICA - proximal 109cm/s 37.1cm/s + +--------+--------+ Right ICA - mid 116cm/s 41.5cm/s + +--------+--------+ Right ICA - distal 114cm/s 44cm/s + +--------+--------+ Right vertebral 45.8cm/s -------- + +--------+--------+ Left CCA - proximal 103cm/s 32.7cm/s + +--------+--------+ Left CCA - distal 76.1cm/s 24.5cm/s + +--------+--------+ Left ECA 124cm/s -------- + +--------+--------+ Left ICA - proximal 93.7cm/s 35.2cm/s + +--------+--------+ Left ICA - mid 130cm/s 47.1cm/s + +--------+--------+ Left ICA - distal 121cm/s 48.4cm/s + +--------+--------+ Left vertebral 82.3cm/s -------- + +--------+--------+ Velocity ratios: + + + + + + Right, V sys Right, V ed Left, V sys Left, V ed + + + + + + Max ICA/dist CCA 1.64 1.93 1.71 1.98 + + + + + + (Report amended ) Electronically signed by: Calos Tracy [id number]
--- NOTE | 2019-02-27 06:19 | US_ITS ---
US aorta HISTORY: Follow-up aortic aneurysm ITS.REASON: AAA COMPARISON: 03/25/2018 FINDINGS: There is a mid abdominal aortic aneurysm once again noted measuring approximately 3.5 cm AP and transverse. Not significant significantly changed. There is mild amount of mural thrombus. Proximal common iliacs are unremarkable. IMPRESSION: Overall no significant change 3.5 cm infrarenal abdominal aortic aneurysm with mural thrombus
--- NOTE | 2019-02-27 06:19 | NM_ITS ---
CARDIOLITE SPECT MYOCARDIAL PERFUSION LEXISCAN, REST AND STRESS: History: History of [place], bypass surgery, hypertension, hyperlipidemia, family history, shortness of breath Procedure: Patient received a 0.4 mg of intravenous Lexiscan, resting heart rate was 53 bpm resting blood pressure 161/87, with Lexiscan maximum heart rate achieved was 71 bpm which is less than 85% of the maximum predicted heart rate and a blood pressure was 153/81. With Lexiscan patient complained of headache and jaw discomfort. Electrocardiogram: Resting electrocardiogram showed sinus bradycardia, nonspecific ST-T changes, with Lexiscan there is less than 1.5 ST segment depression noted from the baseline EKG. The EKG portion of the Lexiscan Myoview is nondiagnostic. Cardiac stress and resting SPECT images: Cardiac stress and resting SPECT images were obtained using technetium 99 Myoview 30.2 mCi at stress and 10.3 mCi at rest. Gated SPECT further analysis of segmental wall motion and calculation of the ejection fraction also done. Cardiac stress and resting SPECT images show a mild fixed defect inferolaterally likely secondary to soft tissue correlation, no reversible ischemia seen, computer derived ejection fraction is over 65% with no regional wall motion abnormality, right ventricle is normal size. Conclusion: 1. The EKG portion of the Lexiscan Myoview is nondiagnostic. 2. No scintigraphic evidence of reversible ischemia seen, computer derived ejection fraction is over 65% with no regional wall motion abnormality, right ventricle is normal size and contractility. 3. Normal Lexiscan Myoview study.
--- NOTE | 2019-02-27 08:42 | HMH.ITSHM ---
Current Home Medications as stated by this patient Jurgen Stephens or c s s representative. [] ASA COREG LISINOPRIL/HCTZ PRILOSEC
== END ==
PROVIDERS: PCP Family Medicine; Visit Provider Urology
DX: R55 Syncope and collapse (principal); I11.9 Hypertensive heart disease without heart failure; I25.10 Atherosclerotic heart disease of native coronary artery without angina pectoris; R06.01 Orthopnea; R06.02 Shortness of breath; I71.4 Abdominal aortic aneurysm, without rupture
CPT/HCPCS: 76770; 78452; 93017; 93880; A9502; J2785

== ENCOUNTER → 2019-04-01 10:12 | Outpatient (POV) | payer MEDICARE, OTHER, SELFPAY ==
[2019-04-01 10:39] VITALS: BP 155/78; PULSE 64; RESP 18; O2SAT 98; BMI 28.8
--- NOTE | 2019-04-01 11:47 | HMH.PMCON ---
Assessment and Plan (1) Degenerative disc disease Current visit: Yes Status: Chronic Qualifiers: Spinal region: lumbar Qualified Code(s): M51.36 - Other intervertebral disc degeneration, lumbar region Category: Medical (2) Sacroiliitis Current visit: Yes Status: Chronic Category: Medical Code(s): M46.1 - Sacroiliitis, not elsewhere classified - Assessment and plan all Dx Assessment and Plan for all problems:: We will plan a right SI joint injection for the patient. I believe it would be beneficial for him given his symptomology. Therapy. He is also on anti-inflammatories and gabapentin. Patient's been instructed to call the office if he has any issues prior to his next appointment. Dr. Couch has reviewed this note and agrees with this plan of care. This note was dictated using voice recognition software and may contain errors or omissions HPI - Data of Consult Consult date: 04/01/19 Requesting Physician: Aimee Mitchell APRN Primary Care Provider: Duncan Eastman MD - Consult Narrative Reason for consult: Right hip pain History of present illness: Mr. Stephens is a 74 year old male who presents today for consultation in regards to his right hip pain. Patient also has low back pain which started in early 1999's. Patient's been seen by his PCP recently who started him on gabapentin. He states it works quite well. He is also in physical therapy and starting dry needling tomorrow. He rates his pain a 5 out of 10. Patient has extreme point tenderness over his right SI joint. 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 Patient is interested in potential injective therapy. CC: Aimee Mitchell APRN [facility] History I have reviewed the patient's past medical history: Yes Medical History: Reports:: Cancer, Coronary Artery Disease, Hyperlipidemia, Hypertension, Myocardial Infarction Denies:: Diabetes Mellitus Type 1, Diabetes Mellitus Type 2, MRSA *Have you ever received a pneumonia vaccine?: No *Have you received a flu vaccine this season?: No Other Medical History: Reports: Anemia, Arthritis Laterality Cases: Bilateral: Other Other Surgeries: Yes: Angioplasty, Cardiac Catheterization, Cardiac Surgery, Cholecystectomy, Colonoscopy, Colostomy, Coronary Stent Amputation: No Fractures: No - *Social History Smoking Status: Never smoker Alcohol Intake: never Alcohol Intake Frequency:: a few times a week Substance Use Type: denies use *Occupational Status:: other Housing: house Household Members: spouse *Travel in the last 8 weeks: None - Psychiatric History Expresses thoughts of harming self/others: None Suicide Plan Description: No Plan Family Hx:: No significant family history Review of Systems - Review of Systems ROS General: no recent weight change, no fever, no sleep disturbances Respiratory: no cough, no shortness of air, no recurring pulmonary infections Cardiovascular/Peripheral Vascular: No chest pain, No palpitations, no edema, no shortness of breath. Gastrointestinal: no incontinence, normal bowel movements reported Genitourinary: no incontinence Musculoskeletal: Right SI joint pain Psychiatric: normal mood/ affect Neurological: [denies weakness in extremities], [denies balance issues] Meds Home Medications Medication Instructions Recorded Confirmed Type aspirin 81 mg tablet,delayed 81 mg PO DAILY tab 01/22/18 03/12/19 History release carvedilol 12.5 mg tablet 12.5 mg PO BID 01/22/18 03/12/19 History coenzyme Q10 100 mg capsule 300 mg PO DAILY cap 01/22/18 03/12/19 History vitamin B complex with vitamin C 150 mg PO DAILY 05/14/18 03/12/19 History no.4 150 mg tablet Ezetimibe/Simvastatin 1 tab PO DAILY 12/01/18 03/12/19 History [Ezetimibe-Simvastatin 10-40 mg] Lisinopril/Hydrochlorothiazide 1 tab PO BID 12/01/18 03/12/19 History [Lisinopril-Hctz 20-12.5 mg Tab] omeprazole 20 mg capsule,delayed 40 mg PO DAILY cap 02/18/19
--- NOTE | 2019-04-01 11:50 | P.CONS_ITS ---
Assessment and Plan (1) Degenerative disc disease Current visit: Yes Status: Chronic Qualifiers: Spinal region: lumbar Qualified Code(s): M51.36 - Other intervertebral disc degeneration, lumbar region Category: Medical (2) Sacroiliitis Current visit: Yes Status: Chronic Category: Medical Code(s): M46.1 - Sacroiliitis, not elsewhere classified - Assessment and plan all Dx Assessment and Plan for all problems:: We will plan a right SI joint injection for the patient. I believe it would be beneficial for him given his symptomology. Therapy. He is also on anti- inflammatories and gabapentin. Patient's been instructed to call the office if he has any issues prior to his next appointment. Dr. Couch has reviewed this note and agrees with this plan of care. This note was dictated using voice recognition software and may contain errors or omissions HPI - Data of Consult Consult date: 04/01/19 Requesting Physician: Aimee Mitchell APRN Primary Care Provider: Duncan Eastman MD - Consult Narrative Reason for consult: Right hip pain History of present illness: Mr. Stephens is a 74 year old male who presents today for consultation in regards to his right hip pain. Patient also has low back pain which started in early 1999's. Patient's been seen by his PCP recently who started him on gabapentin. He states it works quite well. He is also in physical therapy and starting dry needling tomorrow. He rates his pain a 5 out of 10. Patient has extreme point tenderness over his right SI joint. 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 Patient is interested in potential injective therapy. CC: Aimee Mitchell APRN [facility] History I have reviewed the patient's past medical history: Yes Medical History: Reports:: Cancer, Coronary Artery Disease, Hyperlipidemia, Hypertension, Myocardial Infarction Denies:: Diabetes Mellitus Type 1, Diabetes Mellitus Type 2, MRSA *Have you ever received a pneumonia vaccine?: No *Have you received a flu vaccine this season?: No Other Medical History: Reports: Anemia, Arthritis Laterality Cases: Bilateral: Other Other Surgeries: Yes: Angioplasty, Cardiac Catheterization, Cardiac Surgery, Cholecystectomy, Colonoscopy, Colostomy, Coronary Stent Amputation: No Fractures: No - *Social History Smoking Status: Never smoker Alcohol Intake: never Alcohol Intake Frequency:: a few times a week Substance Use Type: denies use *Occupational Status:: other Housing: house Household Members: spouse *Travel in the last 8 weeks: None - Psychiatric History Expresses thoughts of harming self/others: None Suicide Plan Description: No Plan Family Hx:: No significant family history Review of Systems - Review of Systems ROS General: no recent weight change, no fever, no sleep disturbances Respiratory: no cough, no shortness of air, no recurring pulmonary infections Cardiovascular/Peripheral Vascular: No chest pain, No palpitations, no edema, no shortness of breath. Gastrointestinal: no incontinence, normal bowel movements reported Genitourinary: no incontinence Musculoskeletal: Right SI joint pain Psychiatric: normal mood/ affect Neurological: [denies weakness in extremities], [denies balance issues] Meds Home Medications Medication Instructions Recorded Confirmed Type aspirin 81 mg tablet,delayed 81 mg PO DAILY tab 01/22/18 03/12/19 History release carvedilol 12.5 mg tablet 12.5
== END ==
PROVIDERS: PCP Family Medicine; Visit Provider Clinical Nurse Specialist Family Health
DX: M51.36 Other intervertebral disc degeneration, lumbar region (principal); M46.1 Sacroiliitis, not elsewhere classified
CPT/HCPCS: 99202

== ENCOUNTER 2019-04-04 14:11 | Day surgery (SDC) | payer MEDICARE, OTHER, SELFPAY ==
[2019-04-04 14:34] VITALS: BP 131/73; PULSE 66; RESP 16; O2SAT 95; BMI 28.8
[2019-04-04 14:40] VITALS: BP 179/80; RESP 18; O2SAT 98
--- NOTE | 2019-04-04 14:42 | P.PCN_ITS ---
- Procedure Date: 04/04/19 Time: 14:40 Anesthesiologist:: Hesham Couch MD Complications:: None Pre-procedure Diagnosis:: Sacroiliitis Post-procedure Diagnosis:: Same Indications for Procedure:: This patient is a pleasant 74-year-old white male who we are treating for low back pain and right-sided hip pain. He is tender over the right SI joint. He does have a positive SI joint compression test. He also has a positive Abbey's test on the right side. We will plan on a right SI joint injection under fluoroscopy today. Procedure Details:: Right SI joint injection under fluoroscopy Informed consent was obtained and the risks and benefits of the procedure was going to the patient. Patient was taken to the procedure room. Patient was placed prone on the procedure table. The right hip was prepped using ChloraPrep. The skin and subcutaneous tissues were anesthetized using lidocaine. I placed a 22-gauge spinal needle into the inferior aspect of the r ight SI joint. Needle placement was confirmed with dye. After this we injected 5 mL bupivacaine 0.25% and Depo-Medrol 40 mg into the right SI joint. The patient tolerated the procedure well with no complication. Plan and Disposition:: We will follow-up with him in 2 weeks. Will reevaluate symptoms at that time.
[2019-04-04 14:47] VITALS: BP 174/78; PULSE 67; RESP 18; O2SAT 98
[2019-04-04 14:55] VITALS: BP 163/88; PULSE 64; RESP 18; O2SAT 95
== END 2019-04-04 14:55 | disposition home health service (06) ==
LOC: SC.PAINP 14:12
PROVIDERS: PCP Family Medicine; Visit Provider Anesthesiology
DX: M46.1 Sacroiliitis, not elsewhere classified (principal)
CPT/HCPCS: 27096; G0260; J1040; Q9966

== ENCOUNTER → 2019-04-28 13:38 | Outpatient (POV) | payer MEDICARE, OTHER, SELFPAY ==
[2019-04-28 13:55] VITALS: BP 139/91; PULSE 66; RESP 18; O2SAT 98; BMI 28.8
--- NOTE | 2019-04-28 14:31 | HMH.PAINSOAP ---
[facility] Pain Management SOAP Note Subjective:: Patient is a pleasant 74-year-old white male who presents today for follow-up after right SI joint injection. Patient says he had 80% relief with the injection. He rates his pain a 2 out of 10 today. He does feel as though the pain is starting to return however, to his right groin area and into his right buttock. Patient is continuing a home stretching program, along with anti-inflammatories. He would like to proceed with another right SI joint injection. 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 He feels as though this is what has increased his pain after the injection. Review of Systems General: No recent weight changes, no fever, no sleep disturbances Respiratory: No cough, no shortness of air, no recurring pulmonary infections Cardiovascular/peripheral vascular: No chest pain, no palpitations, no edema, no shortness of breath Gastrointestinal: No new onset incontinence, normal bowel movements reported Genitourinary: No new onset incontinence Musculoskeletal: Right buttock pain, right groin pain Psychiatric: Normal mood/affect Neurological: [Denies weakness in extremities], [denies balance issues] Objective:: Physical exam General: Alert and oriented x3, no acute distress, pleasant and cooperative, Lungs: Respirations even and unlabored, symmetrical chest expansion Eyes: PERRL Musculoskeletal: Movement of right buttock and right groin somewhat guarded secondary to pain, deep tendon reflexes normal, strength in upper and lower extremities [5/5], [abnormal gait noted], positive human's test, positive Abbey's test, positive distraction test Neurological: Speech clear, corn 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 The patient will continue a home stretching program, along with anti-inflammatories. We will see him back after the procedure and reassess his symptoms at that time. He is been instructed to call the office if he has any concerns prior to his next appointment. Dr. Couch has reviewed this note and agrees with this plan of care. This note was dictated using voice recognition software and make contain errors or omissions.
--- NOTE | 2019-04-28 14:34 | P.CONS_ITS ---
[facility] Pain Management SOAP Note Subjective:: Patient is a pleasant 74-year-old white male who presents today for follow-up after right SI joint injection. Patient says he had 80% relief with the injection. He rates his pain a 2 out of 10 today. He does feel as though the pain is starting to return however, to his right groin area and into his right buttock. Patient is continuing a home stretching program, along with anti- inflammatories. He would like to proceed with another right SI joint injection. 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 He feels as though this is what has increased his pain after the injection. Review of Systems General: No recent weight changes, no fever, no sleep disturbances Respiratory: No cough, no shortness of air, no recurring pulmonary infections Cardiovascular/peripheral vascular: No chest pain, no palpitations, no edema, no shortness of breath Gastrointestinal: No new onset incontinence, normal bowel movements reported Genitourinary: No new onset incontinence Musculoskeletal: Right buttock pain, right groin pain Psychiatric: Normal mood/affect Neurological: [Denies weakness in extremities], [denies balance issues] Objective:: Physical exam General: Alert and oriented x3, no acute distress, pleasant and cooperative, Lungs: Respirations even and unlabored, symmetrical chest expansion Eyes: PERRL Musculoskeletal: Movement of right buttock and right groin somewhat guarded secondary to pain, deep tendon reflexes normal, strength in upper and lower extremities [5/5], [abnormal gait noted], positive human's test, positive Abbey's test, positive distraction test Neurological: 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 The patient will continue a home stretching program, along with anti-inflammatories. We will see him back after the procedure and reassess his symptoms at that time. He is been instructed to call the office if he has any concerns prior to his next appointment. Dr. Couch has reviewed this note and agrees with this plan of care. This note was dictated using voice recognition software and make contain errors or omissions.
== END ==
PROVIDERS: PCP Family Medicine; Visit Provider Clinical Nurse Specialist Family Health
DX: M46.1 Sacroiliitis, not elsewhere classified (principal)
CPT/HCPCS: 99212

== ENCOUNTER 2019-04-30 08:30 | Outpatient (RCR) | payer MEDICARE, OTHER, SELFPAY ==
--- NOTE | 2019-03-31 14:54 | HMH.PTOPEV ---
PT Outpatient Evaluation Rehab PT Outpatient Evaluation Start: 03/31/19 13:47 Freq: Status: Active Protocol: Document 03/31/19 14:01 DAYPEACE (Rec: 03/31/19 14:54 GENO [id number]) Electronically Signed By New Das, TONJA 03/31/19 14:01 Outpatient Therapy Subjective History Subjective History This is the initial Physical Therapy evaluation for Jurgen Stephens. Pt is a 74 y/o male referred to PT for c/o LBP and B hip pain. Pt has long history of LBP, but reports 6 weeks ago insidious significant increase in pain. Pt reports pain began into B hips. Pt reports he does not take pain pills but has noticed gabapentin has helped pain. Chief Complaint Pain,Stiff Symptom Type Ache,Throb,Sharp,Dull,Shooting Symptoms Relieved By Ice,Brace/Support,OTC Meds, Prescription Meds Symptoms Aggravated By Sitting,Physical Activity, Walking Prior Functional Limitations None Current Functional Limitations Housework,Sleeping,Standing, Recreation Activity,Walking Symptom Description Intermittent Level of pain today (0-10) 2 Pain scale - at its best (0-10) 0 Pain scale - at its worst (0-10) 9 Lumbopelvic Eval Posture Thoracic Spine Posture Standing Position Increased Kyphosis Lumbar Spine Posture Standing Position Flattened Assistive device Assistive Devices None / NA Gait Observation General Gait Pattern Observation Shuffling Step Palapation tenderness bilateral lumbar spinal tenderness Yes paraspinal tenderness Yes Lumbar/Sacral Palpation Findings Tenderness,Trigger Point, Muscle Guarding Accessory Movement T-spine Vertebrae Accessory Movements Central P/A [place] that Elicit Symptoms T11 bilateral T12 bilateral L-spine Vertebrae Accessory Movements Central P/A [place] that Elicit Symptoms L2 bilateral L3 bilateral L4 bilateral L5 bilateral Range of Motion Lumbar Spine Active Flexion Range of 40 Motion (degrees) Lumbar Spine Active Extension Range of 0 Motion (degrees) Left Lumbar Spine Lateral Flexion Active 10 Range of Motion (degrees) Right Lumbar Spine Lateral Flexion 10 Active Range of Motion
== END 2019-04-30 08:35 | disposition home or self-care (01) ==
LOC: PT 08:30
PROVIDERS: Visit Provider Family Medicine
DX: M54.16 Radiculopathy, lumbar region (principal); M48.061 Spinal stenosis, lumbar region without neurogenic claudication; M47.816 Spondylosis without myelopathy or radiculopathy, lumbar region
CPT/HCPCS: 97010; 97014; 97110; 97163; G0283

== ENCOUNTER → 2019-09-02 13:23 | Outpatient (CLI) | payer MEDICARE, OTHER, SELFPAY ==
[2019-09-02 15:53] LABS: Prostate Specific Ag, Diagnost 1.15 ng/mL (0.0-4.0)
== END ==
PROVIDERS: Visit Provider Urology
DX: C61 Malignant neoplasm of prostate (principal)
CPT/HCPCS: 36415; 84153

== ENCOUNTER → 2019-09-15 07:55 | Outpatient (CLI) | payer MEDICARE, OTHER, SELFPAY ==
--- NOTE | 2019-09-15 07:57 | US_ITS ---
PROCEDURE: US AORTA CLINICAL INDICATION: AAA 6 month follow up COMPARISON: AORTA US aorta from 02/27/2019 FINDINGS: Mid abdominal aortic aneurysm once again noted measuring approximately 3.6 x 3.2 cm. This appears similar compared to the previous exam. This could be more accurately demonstrated with CT if clinically desired. There is a mild amount of mural thrombus suspected. Proximal common iliacs are unremarkable. IMPRESSION: No change sonographically in the 3.6 x 3.2 cm mid abdominal aortic aneurysm Dictated by: Calos Tracy MD 09/16/2019 08:26 Electronically signed by Calos Tracy MD in [place] 09/16/2019 08:26
--- NOTE | 2019-09-15 08:28 | CA_ITS ---
APPROVED REPORT Supply Chain Planner: THOMAS Laterality: Bilateral Study Quality: Good Indications: stenosis Doppler Spectral Velocity Analysis dICA (R) 111.50/41.20 cm/s dICA (L) 108.00/35.30 cm/s Kristin (R) 103.30/37.40 cm/s Kristin (L) 147.60/34.20 cm/s pICA (R) 110.70/34.40 cm/s pICA (L) 154.00/43.80 cm/s dCCA (R) 66.30/18.70 cm/s dCCA (L) 71.80/18.00 cm/s pCCA (R) 82.90/20.90 cm/s pCCA (L) 66.60/14.20 cm/s Vert (R) 41.90/7.50 cm/s Vert (L) 55.60/17.10 cm/s ICA/CCA 1.68 ICA/CCA 2.14 Conclusion Duplex evaluation demonstrates stenosis of the right proximal internal carotid artery in the range of 20-49% with PSV <140 cm/sec, EDV <100 cm/sec, and IC/CC Ratio <4.0.Duplex evaluation demonstrates stenosis of the left proximal internal carotid artery in the range of 20-49% with PSV <140 cm/sec, EDV <100 cm/sec, and IC/CC Ratio <4.0.Antegrade flow seen bilateral vertebral arteries. No significant change from study of 02/27/19 Electronically signed by : Calos Tracy MD 09/17/2019 18:43:34
== END ==
PROVIDERS: PCP Family Medicine; Visit Provider Physician Assistant
DX: I71.4 Abdominal aortic aneurysm, without rupture (principal); R09.89 Other specified symptoms and signs involving the circulatory and respiratory systems; I65.23 Occlusion and stenosis of bilateral carotid arteries
CPT/HCPCS: 76770; 93880

== ENCOUNTER → 2019-12-01 07:46 | Outpatient (CLI) | payer MEDICARE, OTHER, SELFPAY ==
--- NOTE | 2019-12-01 07:49 | MR_ITS ---
PROCEDURE: MR LUMBAR SPINE WO CON CLINICAL INDICATION: RIGHT LUMBAR RADICULOPATHY COMPARISON: No exams were available for comparison TECHNIQUE: Standard multiplanar multiecho sequences are performed without contrast. 3-D MIP and myelographic images are also rendered and reviewed FINDINGS: There is no acute fracture or dislocation. Slight decreased anterior vertebral body height at L1 is noted with loss of less than 1/4 of the height. No malignant bone marrow signal is apparent. There is desiccation of all intervertebral discs from T12-L1 to L5-S1. At L1-2 there is mild disc bulge with mild extradural mass effect on the thecal sac. At L2-3 there is disc bulge with ligamentum flavum and facet hypertrophy. There is mild mass effect on the thecal sac without central canal stenosis. Slight encroachment of left neural foramen without high-grade stenosis is apparent. At L3-4 there is mild disc bulge with mild mass effect on the thecal sac and encroachment of bilateral neural foramina. At L4-5 there is broad-based disc bulge with ligamentum flavum and facet hypertrophy with mild mass effect on the thecal sac and mild bilateral foraminal stenosis. At L5-S1 there is disc bulge with marginal osteophyte with bilateral foraminal stenoses right greater than left. Impingement of the right L5 nerve root sleeve should be considered clinically and this may be responsible for the patient's clinical findings. No herniated disc is evident. IMPRESSION: Multilevel degenerative disc and facet disease with greatest neural impingement appearing to be right foraminal stenosis at L5-S1 with probable impingement right L5 nerve root sleeve. Dictated by: Enzo Sylvester 12/01/2019 10:29 Electronically signed by Enzo Sylvester in [place] 12/01/2019 10:29
== END ==
PROVIDERS: PCP Family Medicine; Visit Provider Family Medicine
DX: M54.16 Radiculopathy, lumbar region (principal); M53.3 Sacrococcygeal disorders, not elsewhere classified
CPT/HCPCS: 72148; 76376

== ENCOUNTER → 2019-12-08 14:32 | Outpatient (POV) | payer MEDICARE, OTHER, SELFPAY ==
[2019-12-08 15:26] VITALS: BP 151/92; PULSE 77; RESP 18; O2SAT 98; BMI 29.5
--- NOTE | 2019-12-09 09:00 | HMH.PAINSOAP ---
[facility] Pain Management SOAP Note Subjective:: Patient is a pleasant 74-year-old white male who presents today for a follow-up. Patient had SI joint injections in the past and did well with this however his symptoms have evolved into a new set of symptoms. Patient has a lot of difficulty with standing and walking he has noted that he has to lean forward to get relief. Patient has tried and failed physical therapy, gabapentin, chiropractors, massage therapy. He is done this religiously for several months with no real relief. Patient also has obvious right SI joint dysfunction with a positive Kristine sign SI joint compression test and Elan's test on the right side. Patient has an updated MRI showing ligamentum flavum hypertrophy. We discussed an epidural and an epidurogram to begin with he is interested in pursuing this. He is not on any anticoagulation therapy. He is complete continuing his physical therapy and chiropractic therapy. He rates his pain today a 8 out of 10 ROS General: no recent weight change, no fever, no sleep disturbances Respiratory: no cough, no shortness of air, no recurring pulmonary infections Cardiovascular/Peripheral Vascular: No chest pain, No palpitations, no edema, no shortness of breath. Gastrointestinal: no new onset incontinence, normal bowel movements reported Genitourinary: no new onset incontinence Musculoskeletal: Back pain, leg pain Psychiatric: normal mood/ affect, Neurological: Leg weakness when standing and walking [denies new onset balance issues] Objective:: Physical Exam General: Alert and oriented x3, no acute distress, pleasant and cooperative, [on room air] Lungs: Resps E/U, Symmetrical chest expansion, Eyes: PERRL Musculoskeletal: Flexion and extension of lumbar spine somewhat guarded secondary to pain, deep tendon reflexes normal, strength in upper and lower extremities [5/5], antalgic gait noted Neurological: speech clear, shearing machine feeder equal, no gross sensory deficits Assessment:: Degenerative disc disease lumbar spine with lumbar radiculopathy, ligamentum flavum hypertrophy, spinal stenosis with neurogenic claudication, sacroiliitis Plan:: We will schedule a L4-L5 lumbar epidurogram and epidural injection. I believe this will help with both his symptomology and determine if he is a mild candidate. We will then start working on his SI joint hip after a mild procedure if he is a candidate. Patient's been instructed to call the office if he has any issues prior to his next appointment. Dr. Couch has reviewed this note and agrees with this plan of care. This note was dictated using voice recognition software and may contain errors or omissions [facility] History I have reviewed the patient's past medical history: Yes Medical History: Reports:: Cancer, Coronary Artery Disease, Hyperlipidemia, Hypertension, Myocardial Infarction Denies:: Diabetes Mellitus Type 1, Diabetes Mellitus Type 2, MRSA *Have you ever received a pneumonia vaccine?: Yes *Have you received a flu vaccine this season?: Yes Other Medical History: Reports: Anemia, Arthritis Laterality Cases: Bilateral: Other Other Surgeries: Yes: Angioplasty, Cardiac Catheterization, Cardiac Surgery, Cholecystectomy, Colonoscopy, Colostomy, Coronary Stent Amputation: No Fractures: No - *Social History Smoking Status: Never smoker Alcohol Intake: never Alcohol Intake Frequency:: a few times a week Substance Use Type: denies use *Occupational Status:: other Housing: house Household Members: spouse *Travel in the last 8 weeks: None Family Hx:: No significant family history
== END ==
PROVIDERS: PCP Family Medicine; Visit Provider Clinical Nurse Specialist Family Health
DX: M51.16 Intervertebral disc disorders with radiculopathy, lumbar region (principal); M46.06 Spinal enthesopathy, lumbar region; M48.062 Spinal stenosis, lumbar region with neurogenic claudication; M46.1 Sacroiliitis, not elsewhere classified
CPT/HCPCS: 99212

== ENCOUNTER → 2020-02-16 09:01 | Outpatient (CLI) | payer MEDICARE, OTHER, SELFPAY ==
[2020-02-16 09:53] LABS: Basophils # 0.1 K/mm3 (0-0.2); Basophils % 0.9 % (0.1-2.0); Eosinophils # 0.4 K/mm3 (0.0-0.4); Hematocrit 39.6 % (42.0-52.0); Lymphocytes # 1.9 K/mm3 (0.7-4.5); Lymphocytes % 25.1 % (10-50); Mean Corpuscular HGB Conc 35.4 g/dL (31.8-35.4); Mean Corpuscular Hemoglobin 31.7 pg (27.0-31.2); Mean Corpuscular Volume 89.8 fl (80-94); Mean Platelet Volume 7.4 fl (7.4-10.4); Monocytes # 0.5 K/mm3 (0.1-1.0); Monocytes % 6.4 % (1.7-9.3); Neutrophils # 4.7 K/mm3 (1.8-7.8); Neutrophils % 62.7 % (37.0-80.0); Platelet Count 249 K/mm3 (142-424); Red Blood Count 4.41 M/mm3 (4.60-6.20); Red Cell Distribution Width 13.2 % (11.5-17.5); White Blood Count 7.5 K/mm3 (4.8-10.8)
[2020-02-16 10:41] LABS: Anion Gap 10.4 mEq/L (5-15); Blood Urea Nitrogen 13 mg/dl (9-20); Calcium 9.7 mg/dl (8.4-10.2); Carbon Dioxide 32 mmol/L (22.0-30.0); Chloride 97 mmol/L (98-107); Estimated Glomerular Filt Rate 66 ml/min (>60); GFR (African American) 79 ML/MIN (>60); Glucose 196 mg/dl (74-100); Potassium 3.4 mmoL/L (3.5-5.1); Sodium 136 mmol/L (136-145)
[2020-02-17 08:58] LABS: Covid-19 Nasal PCR Sendout Lex NOT DETECTED
--- NOTE | 2020-02-17 09:47 | PC.NURSE ---
Notified pt of negative covid results. MARIANN Sherman notified in surgery department.
== END ==
PROVIDERS: Visit Provider Anesthesiology
DX: Z01.818 Encounter for other preprocedural examination (principal)
CPT/HCPCS: 36415; 80048; 85025; U0003

== ENCOUNTER 2020-02-18 06:09 | Day surgery (SDC) | payer MEDICARE, OTHER, SELFPAY ==
--- NOTE | 2020-02-13 13:33 | SUR.PREOP ---
02/13/20 @ 7360--PHONE CALL MADE TO PATIENT. PATIENT UNDERSTANDS THAT LAB WORK AND COVID-19 TESTING NEEDS TO BE COMPLETED @ 0900 ON 02/16/20. PATIENT UNDERSTANDS IF LAB WORK AND COVID-19 TESTS ARE NOT COMPLETED BY 12PM ON THAT DATE, THE SURGERY SCHEDULED WILL BE CANCELLED AND RESCHEDULED FOR ANOTHER TIME.
[2020-02-17 10:10] VITALS: BMI 29.5
[2020-02-18 06:27] VITALS: BP 164/76; PULSE 65; RESP 18; TEMP 36.3; O2SAT 98
--- NOTE | 2020-02-18 07:02 | P.PN_ITS ---
[facility] Anesthesia Checklist - Patient Identification Patient Identification: Arm Band, Verbal (Name & ) - Structural Data Admitted From: Home Planned Operative Procedure/s: Minimally invasive lumbar decompression L3-5 Consent for Planned Operative Procedure(s) Verified: Yes Verified Documents: Surgical Consent, History and Physical - NPO Status Verified Time NPO: 00:00 - Chart Verification Results Verified: CBC, BMP (Negative Covid-19) - Additional verifications Anesthesia Reactions: No Hx Blood Transfusions: No Blood Transfusion Reaction: No - Airway Assessment C-Spine Mobility Assessed: Yes TMJ Mobility Assessed: Yes Dentition: Good Dentition (missing posterior tooth) - Neurological Assessment Level of Consciousness: Awake, Alert, Appropriate, Follows Commands Hx Seizures: No Numbness or tingling in extremities: Yes (Right leg) - Anesthesia Plan Anesthesia Risk discussed: Yes Anesthesia Plan: Verified ASA Class: III Anesthesia Type: MAC [facility] History I have reviewed the patient's past medical history: Yes Medical History: Reports:: Cancer (prostate 2018), Coronary Artery Disease, Gastroesophageal Reflux Disease(GERD) (uncontrolled), Hyperlipidemia, Hypertension, Myocardial Infarction Denies:: Diabetes Mellitus Type 1, Diabetes Mellitus Type 2, Internal Pacemaker, MRSA, Seizures *Have you ever received a pneumonia vaccine?: Yes *Have you received a flu vaccine this season?: Yes Other Medical History: Reports: Anemia, Arthritis. Denies: Blood Transfusion Reaction Comment:: CBP, right leg neuropathy Anesthesia experience/problems:: no prior complications Laterality Cases: Bilateral: Other Other Surgeries: Yes: Angioplasty, Cardiac Catheterization, Cardiac Surgery, Cholecystectomy, Colonoscopy, Colostomy, Coronary Stent. No: Pacemaker Amputation: No Fractures: No - *Social History Educational Level: Attended College Smoking Status: Never smoker Alcohol Intake: never Alcohol Intake Frequency:: a few times a week Substance Use Type: denies use *Occupational Status:: retired Housing: house Household Members: spouse *Travel in the last 8 weeks: None Family Hx:: No significant family history
--- NOTE | 2020-02-18 08:10 | HMH.OPNOTE ---
Date of procedure: 02/18/20 Pre-op Diagnosis:: Degenerative disc disease of lumbar spine with lumbar radiculopathy symptoms and spinal stenosis with neurogenic claudication symptoms Post-op Diagnosis:: Same Procedure performed:: Minimally invasive lumbar decompression of L3-L4 and L4-L5 bilaterally Surgeon:: Hesham Couch MD [employer] PRECASTER:: Michael Jim Anesthesia: MAC Estimated blood loss (mL): 5 Clinical Note:: This patient is a pleasant 74-year-old white male who we are treating for low back pain with lumbar radicular symptoms and spinal stenosis with neurogenic claudication symptoms. He does have significant pain while standing and walking. Most of his pain is down his right side. He did get some benefit from epidural steroid injections however has increased pain with increased activity standing and walking. He cannot stand very long or walk very far. He says he can only stand a couple minutes and then can only walk approximately 15 to 20 feet. He does have ligamentum flavum hypertrophy based on MRI at L3-L4 and L4-L5. We will do minimally invasive lumbar decompression of L3-4 and L4-L5 today. Operative findings:: None Operative note:: Informed consent was obtained and the risk and benefits of the procedure was explained to the patient. The patient was taken to the operating room and placed prone on the procedure table. The patient was prepped and draped in sterile fashion. C-arm fluoroscopy was used to view the lumbar spine. Lines were drawn at the spinous process and medial border of the pedicles bilaterally. The skin and subcutaneous tissues were anesthetized using lidocaine. A epidural needle was inserted and advanced into the through L3-L4 interspace. After confirmation of needle placement in the epidural space, dye was injected. There was an epidurogram seen at L3-L4 and L4-L5. Significant stenosis was seen at L3-L4 and L4-L5. Most of this patient's symptoms were on the right. The skin and subcutaneous tissues again were anesthetized using lidocaine. An incision was made and a access trocar was inserted and advanced to contact at the superior aspect of the L4 lamina on the left side. And a contralateral oblique view the side was viewed. Using a bone rongeur and tissue sculptor we debulked bone from the L3-L4 and L4-L5 interspace on the left side. We then used the tissue sculptor to debulk ligament at the L3-L4 and L4-L5 interspace on the left side. We then moved over to the right side and debulked bone and ligament from L3-L4 and L4-L5 on the right side. A total of 3 mL's of dye was used. There is good spread of dye above and below this level as well. The epidural needle was removed and dressings were placed. This encounter for exam is for normal comparison and control in a clinical research program Patient was taken to recovery in stable condition. Patient was discharged home neurologically intact and with good relief of pain symptoms. Plan and disposition: We will follow-up with this patient in 2 weeks. Will reevaluate symptoms at that time. Condition: stable Disposition: PACU Complications:: None
--- NOTE | 2020-02-18 09:11 | XR_ITS ---
PROCEDURE: XR LUMBAR SPINE 2-3V CLINICAL INDICATION: LUMBAR DECOMPRESSION COMPARISON: [id number] XR lumbar spine min 4V from 01/24/2019 FINDINGS: Fluoroscopy time: 8 minutes and 58 seconds A single images submitted showing a needle in place overlying the mid aspect of the L4 vertebral body IMPRESSION: Fluoro utilized for lumbar procedure Dictated by: Calos Tracy MD 02/18/2020 19:05 Electronically signed by Calos Tracy MD in [place] 02/18/2020 19:05
[2020-02-18 09:15] VITALS: BP 140/78; PULSE 71; RESP 16; TEMP 36.2; O2SAT 92
[2020-02-18 09:30] VITALS: BP 152/79; PULSE 69; RESP 16; O2SAT 96
[2020-02-18 09:45] VITALS: BP 147/81; PULSE 70; RESP 16; O2SAT 96
[2020-02-18 10:00] VITALS: BP 139/70; PULSE 67; RESP 16; O2SAT 97
[2020-02-18 10:15] VITALS: BP 142/87; PULSE 70; RESP 16; O2SAT 96
== END 2020-02-18 10:15 | disposition home or self-care (01) ==
LOC: OR 06:11
PROVIDERS: PCP Family Medicine; Visit Provider Anesthesiology
DX: M48.062 Spinal stenosis, lumbar region with neurogenic claudication (principal); Z00.6 Encounter for examination for normal comparison and control in clinical research program; M51.16 Intervertebral disc disorders with radiculopathy, lumbar region
CPT/HCPCS: 0275T; 72100; 76000; 96372; 96374; C1889; J1040; J3370; Q9967

== ENCOUNTER → 2020-03-09 08:54 | Outpatient (POV) | payer MEDICARE, OTHER, SELFPAY ==
[2020-03-09 09:16] VITALS: BP 133/70; PULSE 66; RESP 18; TEMP 36.8; BMI 29.5
--- NOTE | 2020-03-09 12:23 | HMH.PAINSOAP ---
[facility] Pain Management SOAP Note Subjective:: Patient is a pleasant 75-year-old white male who presents today for follow-up after his minimally invasive lumbar decompression of L3-L4 L4-L5 bilaterally. He is doing extremely well rating his pain a 0 out of 10. Patient states he is able to stand longer and stand up straight and walk better. Patient is not having to take any of his gabapentin anymore. He is continuing physical therapy at home however it was all doing extremely well ROS General: no recent weight change, no fever, no sleep disturbances Respiratory: no cough, no shortness of air, no recurring pulmonary infections Cardiovascular/Peripheral Vascular: No chest pain, No palpitations, no edema, no shortness of breath. Gastrointestinal: no new onset incontinence, normal bowel movements reported Genitourinary: no new onset incontinence Musculoskeletal: Back pain, leg pain at times Psychiatric: normal mood/ affect Neurological: [denies new onset weakness in extremities], [denies new onset balance issues] Objective:: Physical Exam General: Alert and oriented x3, no acute distress, pleasant and cooperative, [on room air] Lungs: Resps E/U, Symmetrical chest expansion, Eyes: PERRL Musculoskeletal: Flexion and extension of lumbar spine somewhat guarded secondary to pain, deep tendon reflexes normal, strength in upper and lower extremities [5/5], normal gait noted Neurological: speech clear, long wall mining machine tender equal, no gross sensory deficits Assessment:: Spinal stenosis with neurogenic claudication Plan:: We will see the patient back in 2 months reassess his symptoms at that time he has been instructed to call the office if he has any issues prior to his next appointment. Dr. Couch has reviewed this note and agrees with this plan of care. This note was dictated using voice recognition software and may contain errors or omissions [facility] History I have reviewed the patient's past medical history: Yes Medical History: Reports:: Cancer (prostate 2018), Coronary Artery Disease, Gastroesophageal Reflux Disease(GERD) (uncontrolled), Hyperlipidemia, Hypertension, Myocardial Infarction Denies:: Diabetes Mellitus Type 1, Diabetes Mellitus Type 2, Internal Pacemaker, MRSA, Seizures *Have you ever received a pneumonia vaccine?: Yes *Have you received a flu vaccine this season?: Yes Other Medical History: Reports: Anemia, Arthritis. Denies: Blood Transfusion Reaction Laterality Cases: Bilateral: Other Other Surgeries: Yes: Angioplasty, Cardiac Catheterization, Cardiac Surgery, Cholecystectomy, Colonoscopy, Colostomy, Coronary Stent. No: Pacemaker Amputation: No Fractures: No - *Social History Smoking Status: Never smoker Alcohol Intake: never Alcohol Intake Frequency:: a few times a week Substance Use Type: denies use *Occupational Status:: other Housing: house Household Members: spouse *Travel in the last 8 weeks: None Family Hx:: No significant family history
== END ==
PROVIDERS: PCP Family Medicine; Visit Provider Clinical Nurse Specialist Family Health
DX: M48.062 Spinal stenosis, lumbar region with neurogenic claudication (principal)
CPT/HCPCS: 99212

== ENCOUNTER → 2020-04-01 07:39 | Outpatient (CLI) | payer MEDICARE, OTHER, SELFPAY ==
--- NOTE | 2020-04-01 07:39 | US_ITS ---
PROCEDURE: US ABD. AORTA SCREENING CLINICAL INDICATION: aaa Follow-up aneurysm COMPARISON: AAA US abd. aorta screening from 09/25/2018 FINDINGS: Focal fusiform dilatation involves the abdominal aorta near the level of the umbilicus measuring up to 3.4 cm. There is mild dilatation of proximal common iliacs at 1.41.6 cm. IMPRESSION: No change 3.4 cm abdominal aortic aneurysm Dictated by: Calos Tracy MD 04/01/2020 17:59 Electronically signed by Calos Tracy MD in [place] 04/01/2020 17:59
--- NOTE | 2020-04-01 08:06 | CA_ITS ---
APPROVED REPORT Laser Beam Machine Operator: NANCY Laterality: Bilateral Indications: emani Risk Factors Hypertension: Hyperlipidemia CAD, Doppler Spectral Velocity Analysis ECA (R) 171.70/26.90 cm/s ECA (L) 198.10/24.00 cm/s dICA (R) 118.20/44.60 cm/s dICA (L) 92.00/34.20 cm/s Kristin (R) 119.10/46.30 cm/s Kristin (L) 177.10/36.00 cm/s pICA (R) 96.00/29.10 cm/s pICA (L) 220.60/58.10 cm/s dCCA (R) 80.30/25.70 cm/s dCCA (L) 82.30/16.30 cm/s pCCA (R) 98.20/19.90 cm/s pCCA (L) 118.20/37.70 cm/s Vert (R) 54.80/14.60 cm/s Vert (L) 58.30/19.70 cm/s ICA/CCA 1.48 ICA/CCA 2.68 Findings Duplex evaluation demonstrates stenosis of the right proximal internal carotid artery in the range of 20-49% with PSV <140 cm/sec, EDV <100 cm/sec, and IC/CC Ratio <4.0. Duplex evaluation demonstrates stenosis of the left proximal internal carotid artery in the range of 50-69% with PSV =140 cm/sec, EDV <100 cm/sec, and IC/CC Ratio <4.0(disease progression since last exam 09/15/19) Conclusion Duplex evaluation demonstrates stenosis of the right proximal internal carotid artery in the range of 20-49% with PSV <140 cm/sec, EDV <100 cm/sec, and IC/CC Ratio <4.0. Duplex evaluation demonstrates stenosis of the left proximal internal carotid artery in the range of 50-69% with PSV =140 cm/sec, EDV <100 cm/sec, and IC/CC Ratio <4.0(disease progression since last exam 09/15/19) Electronically signed by : Calos Tracy MD 04/02/2020 08:54:29
== END ==
PROVIDERS: PCP Family Medicine; Visit Provider Urology
DX: E78.5 Hyperlipidemia, unspecified (principal); I11.9 Hypertensive heart disease without heart failure; I25.10 Atherosclerotic heart disease of native coronary artery without angina pectoris; I71.4 Abdominal aortic aneurysm, without rupture; R09.89 Other specified symptoms and signs involving the circulatory and respiratory systems; I65.23 Occlusion and stenosis of bilateral carotid arteries
CPT/HCPCS: 76705; 93306; 93880

== ENCOUNTER 2020-04-05 09:23 | Emergency (ER) | payer MEDICARE, OTHER, SELFPAY ==
[2020-04-05 09:25] VITALS: BP 159/89; PULSE 59; RESP 16; TEMP 36.8; O2SAT 98; BMI 33.3
--- NOTE | 2020-04-05 09:36 | ECG_ITS ---
APPROVED REPORT Exam: Resting ECG HR:67 bpm ECG Measurements Heart Rate 67 AXES IN 172 P 28 QRSd 94 QRS -17 QT 398 T 17 QTc 420 <Conclusion> Sinus rhythm with fusion complexes Low voltage QRS Incomplete right bundle branch block Inferior infarct, age undetermined ST & T wave abnormality, consider anterior ischemia Abnormal ECG Electronically signed by : Duncan Thomson, 04/05/2020 17:26:58
[2020-04-05 09:38] VITALS: BMI 33.3
--- NOTE | 2020-04-05 09:40 | CT_ITS ---
PROCEDURE: CT ANGIO CHEST CLINCIAL INDICATION: numbness L arm COMPARISON: No exams were available for comparison TECHNIQUE: IV Contrast: 70ML OPTIRAY 350 Axial images obtained with sagittal and coronal reformats. All CT scans at the facility use one or more dose reduction, viz: automated exposure control, ma/kV adjustment per patient size (including targeted exams where dose is matched to indication, i.e. head), or iterative reconstruction technique. FINDINGS: Patient is status post CABG. Tracheobronchial tree is intact and the lung logan are clear. There are coronary artery calcifications. There is no significant mediastinal adenopathy. There is no CT evidence of pulmonary emboli. Partially visualized thyroid is unremarkable. There is a small hiatal hernia. Adrenal glands, soft tissues, and the bony structures are unremarkable. IMPRESSION: Status post CABG, no CT evidence of pulmonary emboli Dictated by: Sam Plata 04/05/2020 11:44 Electronically signed by Sam Plata in [place] 04/05/2020 11:44
--- NOTE | 2020-04-05 09:40 | CT_ITS ---
PROCEDURE: CT HEAD/BRAIN WO CON CLINICAL INDICATION: numbness L arm COMPARISON: No exams were available for comparison TECHNIQUE: Axial images obtained. All CT scans at the facility use one or more dose reduction, viz: automated exposure control, ma/kV adjustment per patient size (including targeted exams where dose is matched to indication, i.e. head), or iterative reconstruction technique. FINDINGS: The brain parenchyma and ventricles are unremarkable for mass lesions, hemorrhage, or stroke. There are dense vascular calcifications. Mild cortical atrophy is present. The sinuses are intact. There is a partially lytic defect within the left frontal calvarium. There is no prior history of surgery. IMPRESSION: Cortical atrophy, lytic left frontal calvarial defect. No: If a subtle CVA is suspected an MR scan recommended. Dictated by: Sam Plata 04/05/2020 11:51 Electronically signed by Sam Plata in [place] 04/05/2020 11:51
[2020-04-05 09:49] LABS: Basophils # 0.1 K/mm3 (0-0.2); Basophils % 0.7 % (0.1-2.0); Eosinophils # 0.4 K/mm3 (0.0-0.4); Hematocrit 41.7 % (42.0-52.0); Hemoglobin 15.1 g/dL (14.1-18.0); Lymphocytes % 27.7 % (10-50); Mean Corpuscular HGB Conc 36.3 g/dL (31.8-35.4); Mean Corpuscular Hemoglobin 33.3 pg (27.0-31.2); Mean Corpuscular Volume 91.7 fl (80-94); Mean Platelet Volume 7.2 fl (7.4-10.4); Monocytes # 0.3 K/mm3 (0.1-1.0); Monocytes % 4.5 % (1.7-9.3); Neutrophils # 4.5 K/mm3 (1.8-7.8); Platelet Count 260 K/mm3 (142-424); Red Blood Count 4.55 M/mm3 (4.60-6.20); Red Cell Distribution Width 13.3 % (11.5-17.5); White Blood Count 7.3 K/mm3 (4.8-10.8)
[2020-04-05 09:52] LABS: Chloride 99 mmol/L (98-107); Sodium 138 mmol/L (136-145)
[2020-04-05 09:53] LABS: Potassium 3.3 mmoL/L (3.5-5.1)
[2020-04-05 09:55] LABS: Blood Urea Nitrogen 13 mg/dl (9-20); Creatinine Clearance Estimated 69 mL/min (50-200); Estimated Glomerular Filt Rate 59 ml/min (>60); GFR (African American) 72 ML/MIN (>60)
[2020-04-05 09:56] LABS: Anion Gap 9.3 mEq/L (5-15); Carbon Dioxide 33 mmol/L (22.0-30.0); Glucose 191 mg/dl (74-100)
[2020-04-05 10:11] LABS: Troponin I < 0.01 ng/ml (0.00-0.034)
[2020-04-05 10:25] VITALS: BP 115/74; PULSE 74; RESP 20; O2SAT 97
--- NOTE | 2020-04-05 11:29 | PC.NURSE ---
pt is in CT
[2020-04-05 11:49] LABS: Microscopic, Urine URINE MICROSCOPIC (MICROSCOPIC)
[2020-04-05 11:50] LABS: Appearance,Urine CLEAR (Clear); Bilirubin,Urine Negative (Negative); Blood, Urine Negative (Negative); Color,Urine YELLOW (Yellow); Glucose,Urine (UA) Negative (Negative); Ketones,Urine Negative (Negative); Leukocyte Esterase,Urine Negative (Negative); Nitrate,Urine Negative (Negative); Protein,Urine Negative (Negative); Urobilinogen,Urine 0.2 EU/dl (0.2)
[2020-04-05 11:58] VITALS: BP 100/65; PULSE 68; RESP 20; O2SAT 98
--- NOTE | 2020-04-05 12:54 | MR_ITS ---
PROCEDURE: MR HEAD/BRAIN WO CON CLINICAL INDICATION: STROKE COMPARISON: CT HEAD/BRAIN WO CON from 04/05/2020 TECHNIQUE: Standard unenhanced MRI brain protocol FINDINGS: There is no restricted diffusion abnormalities. Mild cortical atrophy is noted. The basilar vascular flow voids, 7th and 8th nerves, orbits and sinuses are unremarkable. There are scattered foci of T2 prolongation within the subcortical and periventricular white matter. There is no definite hemorrhage. There is a thin-walled cystic lesion within the suprasellar cistern extending into the hypothalamus and base of the 3rd ventricle measuring height of 16.9 millimeters, width 10.8 millimeters, AP diameter of 14.4 millimeters. IMPRESSION: Mild cortical atrophy, supratentorial micro ischemia, suprasellar/hypothalamic cystic lesion. 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 Enhanced MRI brain and pituitary protocol recommended. Dictated by: Sam Plata 04/05/2020 14:12 Electronically signed by Sam Plata in [facility] 04/05/2020 14:12
--- NOTE | 2020-04-05 12:55 | PC.NURSE ---
Pt left for MRI
[2020-04-05 14:03] VITALS: BP 109/71; PULSE 60; RESP 18; O2SAT 98
--- NOTE | 2020-04-05 14:05 | PC.NURSE ---
pt still gone to mri
--- NOTE | 2020-04-05 14:12 | PC.NURSE ---
pt sitting in chair
[2020-04-05 14:30] VITALS: BP 110/67; PULSE 59; RESP 18; O2SAT 96
--- NOTE | 2020-04-05 14:53 | HMH.EDEXTP ---
ED Disposition Clinical Impression: TIA (transient ischemic attack) Disposition: Home, Self-Care Condition on Discharge: Good Referrals: Duncan Eastman MD [Primary Care Provider] - - Critical Care Critical Care Time: No Attestation: On 04/05/20, the high probability of a clinically significant, sudden or life threatening deterioration of the following system(s) required my full and direct attention, intervention and personal management. The time I documented below is in addition to time spent performing reported procedures but includes the following listed in this critical care notation. Medical Decision Making - Medical Records Medical records reviewed: Yes: I reviewed the patient's medical records. - [place] Inquiry Pt receiving controlled substance: No Vital Signs: 04/05/20 09:25 04/05/20 10:25 04/05/20 11:58 Temperature 98.2 F Temperature Source Oral Pulse Rate [Left Radial] 59 L 74 68 Respiratory Rate 16 20 20 Blood Pressure [Right Arm] 159/89 H 115/74 100/65 L Blood Pressure Mean [Right Arm] 112 87 76 Blood Pressure Source [Right Arm] Automatic Cuff Automatic Cuff Blood Pressure Position [Right Arm] Sitting Sitting Sitting 02 Sat by Pulse Oximetry 98 97 98 Oxygen Delivery Method Room Air Room Air Room Air 04/05/20 14:03 04/05/20 14:30 Temperature Temperature Source Pulse Rate [Left Radial] 60 59 L Respiratory Rate 18 18 Blood Pressure [Right Arm] 109/71 L 110/67 Blood Pressure Mean [Right Arm] 83 81 Blood Pressure Source [Right Arm] Automatic Cuff Automatic Cuff Blood Pressure Position [Right Arm] Supine Sitting 02 Sat by Pulse Oximetry 98 96 Oxygen Delivery Method Room Air - Lab Data Lab results reviewed: Yes: I reviewed the patient's lab results. Lab Results 04/05/20 09:40: WBC 7.3, RBC 4.55 L, Hgb 15.1, Hct 41.7 L, MCV 91.7, MCH 33.3 H, MCHC 36.3 H, RDW 13.3, Plt Count 260, MPV 7.2 L, Neut % (Auto) 62.0, Lymph % (Auto) 27.7, [place] % (Auto) 4.5, Eos % (Auto) 5.0, Baso % (Auto) 0.7, Neut # (Auto) 4.5, Lymph # (Auto) 2.0, [place] # (Auto) 0.3, Eos # (Auto) 0.4, Baso # (Auto) 0.1 04/05/20 09:40: Troponin I < 0.01 04/05/20 09:40: Sodium 138, Potassium 3.3 L, Chloride 99, Carbon Dioxide 33 H, Anion Gap 9.3, BUN 13, Creatinine 1.20, Estimated Creat Clear 69, Estimated GFR 59, Est GFR ( Amer) 72, Glucose 191 H, Calcium 9.0 04/05/20 11:40: Urine Color Yellow, Urine Appearance Clear, Urine pH 6.0, Ur Specific [place] 1.020, Urine Protein Negative, Urine Glucose (UA) Negative, Urine Ketones Negative, Urine Blood Negative, Urine Nitrate Negative, Urine Bilirubin Negative, Urine Urobilinogen 0.2, Ur Leukocyte Esterase Negative, Urine RBC None, Urine WBC 3-5, Ur Squamous Epith Cells None, Urine Bacteria None Result diagrams: 04/05/20 09:40 04/05/20 09:40 Orders (Tests/Meds): ED MEDICATIONS Discontinued Medications Generic Name Dose Route Start Last Admin Trade Name Vaughn PRN Reason Stop Dose Admin Aspirin 243 mg 04/05/20 09:39 04/05/20 09:41 Aspirin 81mg Chewable Tablet PO 04/05/20 09:40 243 mg ONCE ONE Administration Enoxaparin Sodium 90 mg 04/05/20 12:49 04/05/20 12:51 Lovenox 100mg/Ml Syringe SQ 04/05/20 12:50 90 mg ONCE ONE Administration Sodium Chloride 1,000 mls @ 999 mls/hr 04/05/20 12:15 04/05/20 12:14 Sod Chlor 0.9% 1000ml Bag IV 04/05/20 13:15 999 mls/hr .Q1H1M PAMELA Administration Ioversol 70 ml 04/05/20 11:29 04/05/20 11:30 Rad-Optiray 350 100ml Vial IV 04/05/20 11:30 70 ml ONCE ONE Administration Protocol Nitroglycerin 0.5 gm 04/05/20 09:43 04/05/20 09:48 Nitroglycerin 1 Inch Oint Udp TD 04/05/20 09:44 0.5 gm ONCE ONE Administration Sodium Chloride 50 ml 04/05/20 11:29 04/05/20 11:30 Rad-Ns 50ml Vial IV 04/05/20 11:30 50 ml ONCE ONE Administration Sodium Chloride 10 ml 04/05/20 11:29 04/05/20 11:30 Rad-Saline Flush 10ml Syringe IV 04/05/20 11:30 10 ml ONCE ONE Administration OR
[2020-04-05 15:28] LABS: Troponin I < 0.01 ng/ml (0.00-0.034)
[2020-04-05 16:02] VITALS: BP 109/74; PULSE 78; RESP 16; TEMP 36.6; O2SAT 98
== END 2020-04-05 16:04 | disposition home or self-care (01) ==
PROVIDERS: Emergency Provider Family Medicine; PCP Family Medicine
DX: G45.8 Other transient cerebral ischemic attacks and related syndromes (principal); K21.9 Gastro-esophageal reflux disease without esophagitis; E78.5 Hyperlipidemia, unspecified; I10 Essential (primary) hypertension; I25.2 Old myocardial infarction; I25.10 Atherosclerotic heart disease of native coronary artery without angina pectoris; Z85.46 Personal history of malignant neoplasm of prostate; Z88.1 Allergy status to other antibiotic agents; Z88.8 Allergy status to other drugs, medicaments and biological substances
CPT/HCPCS: 36415; 70450; 70551; 71275; 80048; 81001; 84484; 85025; 93005; 96365; 99284; Q9967

== ENCOUNTER → 2020-05-10 10:09 | Outpatient (POV) | payer MEDICARE, OTHER, SELFPAY ==
--- NOTE | 2020-05-10 10:28 | HMH.PAINSOAP ---
[facility] Pain Management SOAP Note Subjective:: Patient is a pleasant 75-year-old white male who presents today for follow-up after a minimally invasive lumbar decompression procedure at L3-L4 L4-L5 bilaterally. Patient rates his pain a 0 out of 10 to his lower extremities. He says this is helped a great deal with his heaviness and weakness in his lower extremities. He is complaining, however, of tenderness to his bilateral SI joints. He says that they feel bruised area. He also has positive Kristine, Abbey's, distraction test. Patient would like to schedule bilateral SI injections to see if he gets relief. He does say physical therapy has helped him in the past. Is currently taking Aleve and Tylenol when his pain is worse throughout the day. Says his pain is primarily in his low back radiating into bilateral hips. Review of Systems General: No recent weight changes, no fever, no sleep disturbances Respiratory: No cough, no shortness of air, no recurring pulmonary infections Cardiovascular/peripheral vascular: No chest pain, no palpitations, no edema, no shortness of breath Gastrointestinal: No new onset incontinence, normal bowel movements reported Genitourinary: No new onset incontinence Musculoskeletal: Low back pain, bilateral hip pain Psychiatric: Normal mood/affect Neurological: [Denies weakness in extremities], [denies balance issues] Objective:: Physical exam General: Alert and oriented x3, no acute distress, pleasant and cooperative, [on room air] Lungs: Respirations even and unlabored, symmetrical chest expansion Eyes: PERRL Musculoskeletal: Flexion and extension of lumbar spine somewhat guarded secondary to pain, deep tendon reflexes normal, strength in upper and lower extremities [5/5], [abnormal gait noted], positive Brocton's test, positive Abbey's test, positive distraction test Neurological: Speech clear, entertainment lawyer equal, no gross sensory deficit Assessment:: Degenerative disc disease lumbar spine with lumbar radiculopathy symptoms, spinal stenosis with neurogenic claudication symptoms, bilateral sacroiliitis Plan:: Overall, the patient has improved with his lower extremity heaviness and weakness. He is having some SI joint issues at this time. We will schedule him for bilateral SI joint injections. He is got tenderness over his bilateral SI joints as well as a positive Kristine, Abbey's, distraction test. We will send him for physical therapy and we will proceed with SI injections. We will see him back in the clinic after his injections to reassess his symptoms. Patient has been instructed to contact the clinic if he has any concerns before his next appointment. Virus education and [facility] History I have reviewed the patient's past medical history: Yes Medical History: Reports:: Cancer, Coronary Artery Disease, Gastroesophageal Reflux Disease(GERD), Hyperlipidemia, Hypertension, Myocardial Infarction, Transient Ischemic Attacks (TIA) Denies:: Diabetes Mellitus Type 1, Diabetes Mellitus Type 2, Internal Pacemaker, MRSA, Seizures *Have you ever received a pneumonia vaccine?: No *Have you received a flu vaccine this season?: Yes Other Medical History: Reports: Anemia, Arthritis. Denies: Blood Transfusion Reaction Laterality Cases: Bilateral: Other Other Surgeries: Yes: Angioplasty, Cardiac Catheterization, Cardiac Surgery, Cholecystectomy, Colonoscopy, Colostomy, Coronary Stent. No: Pacemaker Amputation: No Fractures: No - *Social History Smoking Status: Never smoker Alcohol Intake: never Alcohol Intake Frequency:: a few times a week Substance Use Type: denies use *Occupational Status:: other Housing: other Household Members: other *Travel in the last 8 weeks: Inside the [facility] Family Hx:: No significant family history
[2020-05-10 10:32] VITALS: BP 142/88; PULSE 79; RESP 18; TEMP 36.6; O2SAT 98; BMI 29.5
== END ==
PROVIDERS: PCP Family Medicine; Visit Provider Clinical Nurse Specialist Family Health
DX: M51.16 Intervertebral disc disorders with radiculopathy, lumbar region (principal); M48.062 Spinal stenosis, lumbar region with neurogenic claudication; M46.1 Sacroiliitis, not elsewhere classified
CPT/HCPCS: 99212

== ENCOUNTER 2020-05-17 09:41 | Outpatient (RCR) | payer MEDICARE, OTHER, SELFPAY ==
--- NOTE | 2020-05-17 10:50 | HMH.PTOPEV ---
PT Outpatient Evaluation Rehab PT Outpatient Evaluation Start: 05/17/20 09:54 Freq: Status: Active Protocol: Document 05/17/20 10:11 GERHARD (Rec: 05/17/20 10:49 GERHARD [id number]) Electronically Signed By Jigar Aguilera, PT 05/17/20 10:11 Outpatient Therapy Subjective History Subjective History Pt reports h/o chronic LBP since . Pt reports imaging studies of lumbar spine have revealed 'issues at every level'. Pt reports midline LBP with intermittent R sacral/ glu area referred pain. Pt reports previous skilled P.T. sessions 'have not been successful'. Chief Complaint Pain,Stiff Symptom Type Ache,Sharp,Dull Symptoms Relieved By Rest/Positioning,Heat Symptoms Aggravated By Standing,Walking Prior Functional Limitations Standing,Walking Current Functional Limitations Standing,Walking Symptom Description Constant but Variable Level of pain today (0-10) 4 Pain scale - at its best (0-10) 3 Pain scale - at its worst (0-10) 8 Lumbopelvic Eval Posture Thoracic Spine Posture Standing Position Flattened Lumbar Spine Posture Standing Position Flattened Assistive device Assistive Devices None / NA Palapation tenderness bilateral lumbar spinal tenderness Yes: 2/4 paraspinal tenderness Yes: 3/4 buttock tenderness Yes: 2-3/4 Lumbar/Sacral Palpation Findings Tenderness Accessory Movement T-spine Vertebrae Accessory Movements Central P/A [place] that Elicit Symptoms T12 bilateral L-spine Vertebrae Accessory Movements Central P/A [place] that [place]it Symptoms L2 bilateral L3 bilateral Range of Motion Lumbar Spine Active Flexion Range of 0-10 Motion (degrees) Lumbar Spine Active Extension Range of 0-15 Motion (degrees) Left Lumbar Spine Lateral Flexion Active 0-20 Range of Motion (degrees) Right Lumbar Spine Lateral Flexion 0-20 Active Range of Motion (degrees) Lumbar Spine ROM Limitations Soft Tissue Tightness,Pain Manual Muscle Test Bilateral Knee Extension Strength Grade 4 Good Knee Flexion Strength Grade 4 Good Hip Flexion Strength Grade 4 Good Extensor Hallucis Longus Strength Grade 5 Normal Ankle Dorsiflexion Strength Grade 5 Normal Gastronemius/Soleus Strength Grade 5 Normal DTR Rt Patellar 1+ Lt Patellar 1+ Rt Gastroc/Soleus 1+ Lt Gastroc/Soleus 1+
== END 2020-05-17 10:56 | disposition home or self-care (01) ==
LOC: PT 09:41
PROVIDERS: PCP Family Medicine; Visit Provider Clinical Nurse Specialist Family Health
DX: M54.5 Low back pain (principal); M79.605 Pain in left leg; M79.604 Pain in right leg
CPT/HCPCS: 97010; 97012; 97014; 97163; G0283

== ENCOUNTER 2020-05-28 13:06 | Day surgery (SDC) | payer MEDICARE, OTHER, SELFPAY ==
[2020-05-28 13:37] VITALS: BP 153/87; PULSE 74; RESP 18; TEMP 36.7; O2SAT 97; BMI 29.5
[2020-05-28 14:19] VITALS: BP 141/78; PULSE 85; RESP 18
[2020-05-28 14:20] VITALS: BP 147/79; PULSE 85; RESP 18; O2SAT 99
--- NOTE | 2020-05-28 14:24 | HMH.PMPROC ---
- Procedure Date: 05/28/20 Time: 14:24 Anesthesiologist:: Hesham Couch MD Complications:: None Pre-procedure Diagnosis:: Sacroiliitis Post-procedure Diagnosis:: Same Indications for Procedure:: This patient is a pleasant 35-year-old white male who we are treating for bilateral hip pain. He is tender over both SI joints. Is positive Abbey's test bilaterally. He is positive Kristine test bilaterally. Is positive SI joint compression test bilaterally. We will do bilateral SI joint injections today to help him with his pain symptoms. Procedure Details:: B/L SI joint injection under fluoroscopy Informed consent was obtained and the risks and benefits of the procedure was explained to the patient. The patient was taken to the procedure room and placed prone on the procedure table. The patient was prepped using ChloraPrep. The skin and subcutaneous tissues overlying the SI joints were anesthetized using lidocaine. I placed a 22-gauge needle first in the left SI joint and second in the right SI joint. Needle placement was confirmed with dye. After this we injected 5 mL bupivacaine 0.25% and Depo-Medrol 40 mg into each SI joint. Patient tolerated the procedure well with no complication. Plan and Disposition:: We will follow-up with him in 2 weeks. Will reevaluate symptoms at that time.
[2020-05-28 14:32] VITALS: BP 166/81; PULSE 59; RESP 18; O2SAT 97
== END 2020-05-28 14:33 | disposition home or self-care (01) ==
LOC: SC.PAINP 13:07
PROVIDERS: PCP Family Medicine; Visit Provider Anesthesiology
DX: M46.1 Sacroiliitis, not elsewhere classified (principal); E78.5 Hyperlipidemia, unspecified; I25.10 Atherosclerotic heart disease of native coronary artery without angina pectoris; I10 Essential (primary) hypertension; I71.4 Abdominal aortic aneurysm, without rupture; G45.9 Transient cerebral ischemic attack, unspecified; I65.29 Occlusion and stenosis of unspecified carotid artery; Z88.1 Allergy status to other antibiotic agents; Z88.8 Allergy status to other drugs, medicaments and biological substances; Z79.82 Long term (current) use of aspirin; Z79.899 Other long term (current) drug therapy
CPT/HCPCS: 27096; G0260; J1030; Q9966

== ENCOUNTER → 2020-06-17 10:51 | Outpatient (POV) | payer MEDICARE, OTHER, SELFPAY ==
[2020-06-17 11:34] VITALS: BP 136/77; PULSE 63; RESP 18; TEMP 36.8; O2SAT 98; BMI 29.5
--- NOTE | 2020-06-17 12:33 | HMH.PAINSOAP ---
[facility] Pain Management SOAP Note Subjective:: Patient is a pleasant 75-year-old white male who presents today for follow-up after bilateral SI joint injections. Patient does have chronic low back pain with radiation into bilateral hips. Patient says that he did not get much relief after the injections. He says he got approximately 30% relief for about 2 to 3 days. Patient says that his pain is worse with standing and walking as well as with prolonged sitting. He says he does have to reposition often. He also says he has difficulty laying flat in the bed. He does take [id number] Aleve with Tylenol which she says does give him relief. Patient says he does not tolerate prednisone or worse steroids very well. He says he ends up feeling worse after taking steroid injections. At this time, patient says he would like to continue with his [id number]-yndsoea medications and follow-up with us in 3 months to see how he is doing. Does rate his pain a 6 out of 10 today. Review of Systems General: No recent weight changes, no fever, no sleep disturbances Respiratory: No cough, no shortness of air, no recurring pulmonary infections Cardiovascular/peripheral vascular: No chest pain, no palpitations, no edema, no shortness of breath Gastrointestinal: No new onset incontinence, normal bowel movements reported Genitourinary: No new onset incontinence Musculoskeletal: Low back pain, bilateral hip pain Psychiatric: Normal mood/affect Neurological: [Denies weakness in extremities], [denies balance issues] Objective:: Physical exam General: Alert and oriented x3, no acute distress, pleasant and cooperative, [on room air] Lungs: Respirations even and unlabored, symmetrical chest expansion Eyes: PERRL Musculoskeletal: Flexion and extension of lumbar spine somewhat guarded secondary to pain, deep tendon reflexes normal, strength in upper and lower extremities [5/5], [abnormal gait noted] Neurological: Speech clear, counter supply worker equal, no gross sensory deficit Assessment:: Sacroiliitis, low back pain, bilateral hip pain Plan:: Patient would like to follow-up with us in 3 months. For now he will continue with his oral medications [id number]. He has not gotten any relief with the injections. Patient says his pain is tolerable at this time. He says that he may change his mind and may want to undergo therapy in the future. We will follow-up with him in 3 months to reassess his symptoms. He has been instructed to contact clinic if he has any concerns before his next appointment. The patient and I specifically discussed risk factors for COVID19. These risks include, but are not limited to age greater than 60, heart or lung disease, diabetes, immunosuppression, and travel. We also discussed NSAIDs may worsen COVID19 infection or symptoms. Patient should not use NSAIDs to treat COVID19 signs or symptoms. Patient was also informed that any type of corticosteroid of any form (oral or injection) will decrease the patient's immune system response and may increase the likelihood of COVID19 infection [address] symptoms[address] Couch has reviewed this note and agrees with this plan of care. This note was dictated using voice recognition software and make contain errors or omissions. [facility] History I have reviewed the patient's past medical history: Yes Medical History: Reports:: Cancer ([place]), Coronary Artery Disease, Gastroesophageal Reflux Disease(GERD), Hyperlipidemia, Hypertension, Myocardial Infarction, Transient Ischemic Attacks (TIA) Denies:: Diabetes Mellitus Type 1, Diabetes Mellitus Type 2, Internal Pacemaker, MRSA, Seizures *Have you ever received a pneumonia vaccine?: Yes *Have you received a flu vaccine this season?: Yes Other Medical History: Reports: Anemia, Arthritis. Denies: Blood Transfusion Reaction Laterality Cases: Bilateral: Other Other Surgeries: Yes: Angioplasty, Cardiac Catheterization, Cardiac Surgery, Cholecystectomy, Colonoscopy, Colostomy,
== END ==
PROVIDERS: PCP Family Medicine; Visit Provider Clinical Nurse Specialist Family Health
DX: M46.1 Sacroiliitis, not elsewhere classified (principal); M54.5 Low back pain; M25.551 Pain in right hip; M25.552 Pain in left hip
CPT/HCPCS: 99212

== ENCOUNTER → 2020-08-05 11:34 | Outpatient (CLI) | payer MEDICARE, OTHER, SELFPAY ==
[2020-08-05 13:48] LABS: Chloride 95 mmol/L (98-107); Potassium 3.8 mmoL/L (3.5-5.1); Sodium 140 mmol/L (136-145)
[2020-08-05 13:50] LABS: Alanine Aminotransferase 47 U/L (12-78); Anion Gap 13.8 mEq/L (5-15); Aspartate Amino Transferase 48 U/L (17-59); Bilirubin,Unconjugated 0.5 mg/dL (0.0-1.1); Blood Urea Nitrogen 13 mg/dl (9-20); Carbon Dioxide 35 mmol/L (22.0-30.0); Estimated Glomerular Filt Rate 65 ml/min (>60); GFR (African American) 79 ML/MIN (>60)
[2020-08-05 13:51] LABS: Albumin Level 4.7 g/dl (3.5-5.0); Alkaline Phosphatase 50 U/L (38-126); Bilirubin,Indirect 0.6 mg/dL (0.0-0.9); Bilirubin,Total 0.6 mg/dl (0.2-1.3); Calcium 10.3 mg/dl (8.4-10.2); Chol/HDL Ratio 3.5 (1-3.5); Cholesterol 180 mg/dl (140-200); Glucose 143 mg/dl (74-100); HDL Cholesterol 51 mg/dl (40-60); Total Protein,Serum 7.6 g/dl (6.3-8.2); Triglycerides 241 mg/dl (30-150); VLDL Cholesterol 48 mg/dL (0-40)
[2020-08-05 13:59] LABS: NT Pro Brain Natriuretic Pep. 69.4 pg/mL (0-125)
== END ==
PROVIDERS: Visit Provider Internal Medicine Cardiovascular Disease
DX: R06.00 Dyspnea, unspecified; E78.5 Hyperlipidemia, unspecified; G45.9 Transient cerebral ischemic attack, unspecified; I11.9 Hypertensive heart disease without heart failure; I25.10 Atherosclerotic heart disease of native coronary artery without angina pectoris; I71.4 Abdominal aortic aneurysm, without rupture
CPT/HCPCS: 36415; 80048; 80061; 80076; 83880

== ENCOUNTER → 2020-09-16 10:59 | Outpatient (POV) | payer MEDICARE, OTHER, SELFPAY ==
[2020-09-16 11:24] VITALS: BP 132/72; PULSE 74; RESP 18; TEMP 36.8; O2SAT 98; BMI 29.5
--- NOTE | 2020-09-16 11:40 | HMH.PAINSOAP ---
[facility] Pain Management SOAP Note Subjective:: Patient is a 75-year-old white male who presents today for her follow-up after bilateral SI joint injections. Patient says that he has 0 out of 10 pain to his bilateral SI joints since having the injection. He is still continuing to get relief since the injection. Patient complains of bilateral foot pain, however. He says he has had chronic foot pain for many years. He has tried many modalities of therapy. He says he has pain from the balls of the foot to all toes . He says the pain is worse with standing and walking on the feet. He also says that he has a history of gout into the right foot. He says that he feels this pain is different than to pain. He has seen podiatry in the past as well as massage therapy and physical therapy. He did not get any long-term relief with these therapies. He denies any trauma to his feet. Patient says that he is wondering if the pain could be coming from his back. He does report a history of bulging disks of his lumbar spine. Patient was prescribed gabapentin in the past by his primary care provider. He has stopped taking that in November, however, he does have some leftover gabapentin that he is taking 100 mg 1 tablet p.o. 3 times daily. Patient has asked if he can try taking this medication for relief. Patient says from what he can remember he did get relief of his foot pain bilaterally when he was taking gabapentin. Review of Systems General: No recent weight changes, no fever, no sleep disturbances Respiratory: No cough, no shortness of air, no recurring pulmonary infections Cardiovascular/peripheral vascular: No chest pain, no palpitations, no edema, no shortness of breath Gastrointestinal: No new onset incontinence, normal bowel movements reported Genitourinary: No new onset incontinence Musculoskeletal: Bilateral foot pain Psychiatric: Normal mood/affect Neurological: [Denies weakness in extremities], [denies balance issues] Objective:: Physical exam General: Alert and oriented x3, no acute distress, pleasant and cooperative, [on room air] Lungs: Respirations even and unlabored, symmetrical chest expansion Eyes: PERRL Musculoskeletal: Flexion and extension of bilateral feet somewhat guarded secondary to pain, deep tendon reflexes normal, strength in upper and lower extremities [5/5], [abnormal gait noted] Neurological: Speech clear, medical accounting clerk equal, no gross sensory deficit Assessment:: Bilateral foot pain Plan:: Patient and I did discuss that his bilateral foot pain could be radicular pain from his lumbar spine. He will start taking the gabapentin again on the medicine that he currently has and see if this gives him relief If it does give him relief., He will continue with gabapentin. If it does not give him any relief, he and will discuss possible injection therapy to his lumbar spine. We will see him back in 2 weeks to reassess his symptoms. He has been instructed to contact clinic if he has any concerns before his next appointment. The patient and I specifically discussed risk factors for COVID19. These risks include, but are not limited to age greater than 60, heart or lung disease, diabetes, immunosuppression, and travel. We also discussed NSAIDs may worsen COVID19 infection or symptoms. Patient should not use NSAIDs to treat COVID19 signs or symptoms. Patient was also informed that any type of corticosteroid of any form (oral or injection) will decrease the patient's immune system response and may increase the likelihood of COVID19 [address] Couch has reviewed this note and agrees with this plan of care. This note was dictated using voice recognition software and make contain errors or omissions. [facility] History I have reviewed the patient's past medical history: Yes Medical History: Reports:: Cancer ([place]), Coronary Artery Disease, Gastroesophageal Reflux Disease(GERD), Hyperlipidemia, Hypertension, Myocardi
== END ==
PROVIDERS: Visit Provider Clinical Nurse Specialist Family Health
DX: M79.672 Pain in left foot; M79.671 Pain in right foot
CPT/HCPCS: 99212

== ENCOUNTER → 2020-09-27 09:19 | Outpatient (POV) | payer MEDICARE, OTHER, SELFPAY ==
[2020-09-27 10:06] VITALS: BP 162/92; PULSE 60; RESP 18; TEMP 36.8; O2SAT 98; BMI 29.5
--- NOTE | 2020-09-27 10:15 | P.CONS_ITS ---
[facility] Pain Management SOAP Note Subjective:: Pleasant 75-year-old white male who presents today for follow-up. Patient is doing very well rating his back pain a 0 out of 10 his only pain is in his feet which is alleviated by [id number]-[id number] Aleve. Patient would like to just move forward with taking his Aleve at this time. ROS General: no recent weight change, no fever, no sleep disturbances Respiratory: no cough, no shortness of air, no recurring pulmonary infections Cardiovascular/Peripheral Vascular: No chest pain, No palpitations, no edema, no shortness of breath. Gastrointestinal: no new onset incontinence, normal bowel movements reported Genitourinary: no new onset incontinence Musculoskeletal: Back pain at times, foot pain Psychiatric: normal mood/ affect, [denies depression], [denies anxiety] Neurological: [denies new onset weakness in extremities], [denies new onset balance issues] Objective:: Physical Exam General: Alert and oriented x3, no acute distress, pleasant and cooperative, [on room air] Lungs: Resps E/U, Symmetrical chest expansion, Eyes: PERRL Musculoskeletal: Flexion and extension of lumbar spine somewhat guarded secondary to pain, deep tendon reflexes normal, strength in upper and lower extremities [5/5], slightly antalgic gait noted Neurological: speech clear, pest control service technician equal, no gross sensory deficits Assessment:: Bilateral foot pain, back pain Plan:: Follow-up with the patient in 2 months reassess his symptoms at that time he has been instructed to call the office if he has any issues prior to his next appointment. Dr. Couch has reviewed this note and agrees with this plan of care. This note was dictated using voice recognition software and may contain errors or omissions [facility] History I have reviewed the patient's past medical history: Yes Medical History: Reports:: Cancer ([place]), Coronary Artery Disease, Gastroesophageal Reflux Disease(GERD), Hyperlipidemia, Hypertension, Myocardial Infarction, Transient Ischemic Attacks (TIA) Denies:: Diabetes Mellitus Type 1, Diabetes Mellitus Type 2, Internal Pacemaker, MRSA, Seizures *Have you ever received a pneumonia vaccine?: Yes *Have you received a flu vaccine this season?: Yes Other Medical History: Reports: Anemia, Arthritis. Denies: Blood Transfusion Reaction Laterality Cases: Bilateral: Other Other Surgeries: Yes: Angioplasty, Cardiac Catheterization, Cardiac Surgery, Cholecystectomy, Colonoscopy, Colostomy, Coronary Stent. No: Pacemaker Amputation: No Fractures: No - *Social History Smoking Status: Never smoker Alcohol Intake: never Alcohol Intake Frequency:: a few times a week Substance Use Type: denies use *Occupational Status:: other Housing: other Household Members: other *Travel in the last 8 weeks: None Family Hx:: No significant family history
== END ==
PROVIDERS: PCP Family Medicine; Visit Provider Clinical Nurse Specialist Family Health
DX: M54.9 Dorsalgia, unspecified (principal); M79.671 Pain in right foot; M79.672 Pain in left foot
CPT/HCPCS: 99212

== ENCOUNTER → 2021-01-06 14:03 | Outpatient (CLI) | payer MEDICARE, OTHER, SELFPAY ==
--- NOTE | 2021-01-06 14:40 | XR_ITS ---
PROCEDURE: XR FOOT WT BEARING LT 3V CLINICAL INDICATION: foot pain COMPARISON: No exams were available for comparison FINDINGS: No fracture or dislocation. No lytic or blastic change. There is normal mineralization. There are minimal osteoarthritic changes at the 1st metatarsophalangeal joint. There is mild pes planus. Vascular calcification is also noted in there is a small calcaneal spur. Other findings:None. 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 Dictated by: Calos Tracy MD 01/06/2021 16:46 Calos Tracy MD in [place] 01/06/2021 16:46
--- NOTE | 2021-01-06 14:40 | XR_ITS ---
PROCEDURE: XR FOOT WT BEARING RT 3V CLINICAL INDICATION: pain COMPARISON: CR FTR3 FOOT-RT-3 VIEWS from 11/02/2015 CR FTL3 FOOT-LT-3 VIEWS from 06/12/2017 CR FTR3 FOOT-RT-3 VIEWS from 06/12/2017 FINDINGS: No fracture or dislocation. No lytic or blastic change. There is normal mineralization. There are mild osteoarthritic changes at the 1st MTP joint with bony hypertrophy consistent bunion formation at the distal aspect of the 1st metatarsal. Overall no significant change from 06/12/2017. Other findings:None. IMPRESSION: Mild osteoarthritis with bony hypertrophy at the 1st metatarsophalangeal Dictated by: Calos Tracy MD 01/06/2021 16:47 Calos Tracy MD in [place] 01/06/2021 16:47
[2021-01-06 14:41] LABS: Basophils # 0.1 K/mm3 (0-0.2); Basophils % 0.9 % (0.1-2.0); Eosinophils # 0.4 K/mm3 (0.0-0.4); Eosinophils % 4.9 % (0.1-12.0); Hematocrit 41.5 % (42.0-52.0); Hemoglobin 14.4 g/dL (14.1-18.0); Lymphocytes # 2.9 K/mm3 (0.7-4.5); Lymphocytes % 34.1 % (10-50); Mean Corpuscular HGB Conc 34.8 g/dL (31.8-35.4); Mean Corpuscular Hemoglobin 31.3 pg (27.0-31.2); Mean Corpuscular Volume 89.9 fl (80-94); Mean Platelet Volume 7.2 fl (7.4-10.4); Monocytes # 0.5 K/mm3 (0.1-1.0); Monocytes % 5.5 % (1.7-9.3); Neutrophils # 4.7 K/mm3 (1.8-7.8); Neutrophils % 54.6 % (37.0-80.0); Platelet Count 281 K/mm3 (142-424); Red Blood Count 4.62 M/mm3 (4.60-6.20); Red Cell Distribution Width 13.2 % (11.5-17.5); White Blood Count 8.5 K/mm3 (4.8-10.8)
[2021-01-06 14:52] LABS: Hemoglobin A1C 7.5 % (4.0-6.0)
[2021-01-06 15:11] LABS: Erythrocyte Sedimentation Rate 20 mm/hr (0-20)
[2021-01-06 15:36] LABS: Chol/HDL Ratio 4.2 (1-3.5); Cholesterol 194 mg/dl (140-200); HDL Cholesterol 46 mg/dl (40-60); Uric Acid 7.6 mg/dl (3.5-8.5)
[2021-01-06 15:45] LABS: Triglycerides 414 mg/dl (30-150)
[2021-01-06 15:47] LABS: C-Reactive Protein 5.3 mg/L (0-4); Direct LDL Cholesterol 98.09 mg/dL (100-129)
== END ==
PROVIDERS: PCP Family Medicine; Visit Provider Nurse Practitioner
DX: E11.9 Type 2 diabetes mellitus without complications (principal); G45.9 Transient cerebral ischemic attack, unspecified; M79.672 Pain in left foot; M79.671 Pain in right foot
CPT/HCPCS: 36415; 73630; 80061; 83036; 84550; 85025; 85651; 86140

== ENCOUNTER → 2021-02-03 09:15 | Outpatient (CLI) | payer MEDICARE, OTHER, SELFPAY ==
--- NOTE | 2021-02-03 09:16 | US_ITS ---
PROCEDURE: US ABD. AORTA SCREENING CLINICAL INDICATION: aaa Follow-up abdominal aortic aneurysm COMPARISON: US US ABD. AORTA SCREENING from 04/01/[address] ANGIO CHEST from 04/05/2020 FINDINGS: Mid abdominal aortic aneurysm is present fusiform in nature measuring 3 cm in maximum AP dimension and 3 cm transverse. This appears similar compared to the previous exam. Proximal common iliacs are unremarkable. IMPRESSION: No change 3 cm abdominal aortic aneurysm Dictated by: Calos Tracy MD 02/03/2021 16:40 Calos Tracy MD in [place] 02/03/2021 16:40
--- NOTE | 2021-02-03 09:41 | CA_ITS ---
APPROVED REPORT Rn Interventional: Marilyn Bunch RVT Laterality: Bilateral Study Quality: Good Indications: Carotid stenosis Risk Factors Hypertension: Hyperlipidemia CAD Doppler Spectral Velocity Analysis ECA (R) 161.50/24.60 cm/s ECA (L) 211.90/19.30 cm/s dICA (R) 117.60/39.60 cm/s dICA (L) 129.10/44.30 cm/s Kristin (R) 110.10/35.30 cm/s Kristin (L) 175.30/48.20 cm/s pICA (R) 109.10/32.10 cm/s pICA (L) 287.00/80.90 cm/s dCCA (R) 75.90/19.20 cm/s dCCA (L) 72.70/20.30 cm/s pCCA (R) 77.70/17.20 cm/s pCCA (L) 94.10/18.20 cm/s Vert (R) 42.80/11.80 cm/s Vert (L) 55.10/14.10 cm/s ICA/CCA 1.55 ICA/CCA 3.95 Findings Study 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 Study [id number]% stenosis of the left internal cartoid artery. Antegrade flow seen bilateral vertebral arteries. 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 Antegrade flow seen bilateral vertebral arteries. Electronically signed by : Calos Tracy MD 02/03/2021 16:58:42
== END ==
PROVIDERS: PCP Family Medicine; Visit Provider Urology
DX: I25.10 Atherosclerotic heart disease of native coronary artery without angina pectoris; I71.4 Abdominal aortic aneurysm, without rupture; I11.9 Hypertensive heart disease without heart failure; I65.23 Occlusion and stenosis of bilateral carotid arteries; E78.5 Hyperlipidemia, unspecified
CPT/HCPCS: 76705; 93880

== ENCOUNTER → 2021-02-07 07:15 | Outpatient (CLI) | payer MEDICARE, OTHER, SELFPAY ==
--- NOTE | 2021-02-07 07:16 | NM_ITS ---
APPROVED REPORT Exam: Nuclear Stress Test Indication: CAD, Hx of DC, CABG, HTN, High cholesterol, Family history, Chest pain, Fatigue Patient Location: Outpatient Stress Tech: Jocelyn Loyola [place] Tech:Elizabeth Shea, ARRT, RT (R)(N) Ht: 5 ft 9 in Wt: 200 lbs HR: 60 bpm BP: 141/68 mmHg BSA: 2.07 m2 BMI: 29.5 History: CAD, Hx of DC, CABG, HTN, High cholesterol, Family history, Chest pain, Fatigue Procedure: Patient received a 0.4 mg of intravenous Lexiscan, resting heart rate 60 bpm, resting blood pressure 141/68 mmHg, with Lexiscan maximum heart rate achived was 72 bpm which is Less than 85 % of the maximum predicted heart rate and blood pressure was 114/63 mmHg. With Lexiscan, patient denied any complaint of chest pain. Electrocardiogram Resting electrocardiogram showed sinus rhythm right ventricular conduction delay, with Lexiscan there is less than 1.[address] segment depression noted from the baseline EKG. The EKG portion of the Lexiscan is nondiagnostic. Cardiac Stress and Resting SPECT Images: Cardiac Stress and Resting SPECT images were obtained using technetium 99m Myoview 30.7 mCi stress and 10.11 mCi at rest. Gated SPECT for analysis of segmental wall motion and calculation of the ejection fraction also done, prone images were also obtained. Cardiac stress and resting SPECT images show uniform myocardial activity without segmental perfusion abnormality, computer derived ejection fraction is 61% with no regional wall motion abnormality, right ventricle is normal size and contractility. Conclusion: 1. The EKG portion of the Lexiscan is nondiagnostic. 2. No scintigraphic evidence of reversible ischemia seen, computer derived ejection fraction is 61% with no regional wall motion abnormality, right ventricle is normal size and contractility. 3. Normal Lexiscan Myoview study. Electronically signed by : Ethan Durán, 02/07/2021 19:30:58
--- NOTE | 2021-02-07 09:20 | HMH.ITSHM ---
Current Home Medications as stated by this patient Jurgen Stephens or circulation representative. []ROSUVASTATIN OMEPRAZOLE LISINOPRIL CARVEDILOL ASA
--- NOTE | 2021-02-07 10:37 | CA_ITS ---
APPROVED REPORT Exam: Pharmacologic Technologist: Floyd Marshall, Ht: 5 ft 9 in Wt: 200 lbs BSA: 2.07 m2 HR: 60 bpm BP: 141/68 mmHg Medical History Medications: Aspirin,,,,, Carvedilol,,,,, Crestor,,,,, OmeprazLE,,,,, Lisinopri/HCTZ,,,,, Stress Test Details Test: LEXISCAN HR Resting HR: 60 bpm Max Heart Rate (APMHR): 146 bpm Max HR Achieved: 72 bpm Target HR (85% APMHR): 124 bpm % of APMHR: 49 Recovery HR: 69 bpm BP Resting BP: 141/68 mmHg Max BP: 141/68 mmHg Recovery BP: 128.0/67.0 mmHg ECG Clinical Exercise duration: 04:02 min Highest Stage Achieved: Exercise capacity: 1.0 METs Stress ECG Conclusion Symptoms: None Arrythmias/Ectopy: None ST-T Changes: <1.5mm ST segment changes. Electronically signed by : Ethan Durán, 02/07/2021 19:24:25
== END ==
PROVIDERS: PCP Family Medicine; Visit Provider Urology
DX: I71.4 Abdominal aortic aneurysm, without rupture; I25.10 Atherosclerotic heart disease of native coronary artery without angina pectoris; I11.9 Hypertensive heart disease without heart failure; E78.5 Hyperlipidemia, unspecified; G45.9 Transient cerebral ischemic attack, unspecified
CPT/HCPCS: 78452; 93017; A9502; J2785

== ENCOUNTER → 2021-07-22 09:34 | Outpatient (CLI) | payer MEDICARE, OTHER, SELFPAY ==
--- NOTE | 2021-07-22 09:37 | US_ITS ---
PROCEDURE: US ABDOMEN COMPLETE CLINICAL INDICATION: WEIGHT LOSS,EARLY SATIETY COMPARISON: US US ABD. AORTA SCREENING from 02/03/2021 FINDINGS: PANCREAS: Unremarkable. No obvious mass or abnormal fluid collection. No ductal dilatation LIVER: No focal liver lesions demonstrated. Homogeneous echogenicity. No intrahepatic biliary ductal dilatation evident. There is appropriate direction of blood flow within a non dilated portal vein RIGHT KIDNEY: Mild cortical thinning. No hydronephrosis or mass LEFT KIDNEY: Mild cortical thinning. No hydronephrosis or mass. There is a small left renal cyst at 9 mm. GALLBLADDER: Prior cholecystectomy. No biliary dilatation. Common bile duct measures 3 mm. AORTA: Mild dilatation the mid to lower abdominal aorta at 3 cm. SPLEEN: Unremarkable. Normal size and echogenicity ASCITES: None demonstrated. IMPRESSION: No acute finding. Prior cholecystectomy without biliary dilatation. Small left renal cyst with mild bilateral renal cortical thinning. Dictated by: Calos Tracy MD 07/25/2021 09:40 Calos Tracy MD in OV 07/25/2021 09:40
== END ==
PROVIDERS: PCP Family Medicine; Visit Provider Family Medicine
DX: R63.4 Abnormal weight loss (principal); R68.81 Early satiety; Z68.28 Body mass index [BMI] 28.0-28.9, adult
CPT/HCPCS: 76700

== ENCOUNTER → 2022-01-11 12:00 | Outpatient (CLI) | payer MEDICARE, OTHER, SELFPAY ==
[2022-01-11 13:12] LABS: Blood Urea Nitrogen 17 mg/dl (9-20); Estimated Glomerular Filt Rate 54 ml/min (>60); GFR (African American) 65 ML/MIN (>60)
== END ==
PROVIDERS: PCP Nurse Practitioner Family; Visit Provider Physician Assistant
DX: I25.10 Atherosclerotic heart disease of native coronary artery without angina pectoris; I11.9 Hypertensive heart disease without heart failure; E78.49 Other hyperlipidemia; I65.23 Occlusion and stenosis of bilateral carotid arteries; I71.4 Abdominal aortic aneurysm, without rupture
CPT/HCPCS: 36415; 82565; 84520

== ENCOUNTER → 2022-01-17 08:12 | Outpatient (CLI) | payer MEDICARE, OTHER, SELFPAY ==
--- NOTE | 2022-01-17 08:13 | US_ITS ---
FINAL REPORT CLINICAL HISTORY: history of aaa 3 cm COMPARISON: February 03, 2021 FINDINGS: Sonographic images were obtained of the abdominal aorta. The abdominal aorta measures up to 3.3 cm in greatest dimensions. The common iliac arteries are within normal limits. IMPRESSION: Mild ectasia of the abdominal aorta at 3.3 cm. This is visually not significantly changed from the prior exam. Reviewed, Interpreted and Dictated by Willy Kellogg III, MD Transcribed by Jorge Washington Authenticated by Willy Kellogg III, MD on 01/17/2022 10:38:[address] [facility]
--- NOTE | 2022-01-17 08:42 | CA_ITS ---
FINAL REPORT TECHNIQUE: Color Doppler, duplex Doppler and leal scale sonography of the bilateral neck arterial vasculature was performed. Velocities were measured in the carotid arteries. Stenosis evaluation based on the validated velocity criteria. CLINICAL HISTORY: emani/ Left endarterectomy 06/05 FINDINGS: The peak systolic velocity of the right common carotid artery is 57 cm/s. The peak systolic velocity of the right internal carotid artery is 86 cm/s and end diastolic velocity 32 cm/s. The ICA/CCA ratio is 1.9. A small amount of plaque is present. The right external carotid artery is patent. The right vertebral artery is patent with antegrade flow. The peak systolic velocity of the left common carotid artery is 119 cm/s. The peak systolic velocity of the left internal carotid artery is 103 cm/s and end diastolic velocity 41 cm/s. The ICA/CCA ratio is 1.2. A small amount of plaque is present. The left external carotid artery is patent.The left vertebral artery is patent with antegrade flow. IMPRESSION: Less than 50% bilateral carotid stenoses. Bilateral patent vertebral arteries with antegrade flow. If indicated, CTA or MRA could further evaluate. Reviewed, Interpreted and Dictated by Willy Kellogg III, MD Transcribed by Delaney Watters Authenticated by Willy Kellogg III, MD on 01/17/2022 11:29:[address] [facility]
== END ==
PROVIDERS: PCP Nurse Practitioner Family; Visit Provider Physician Assistant
DX: E78.5 Hyperlipidemia, unspecified (principal); I11.9 Hypertensive heart disease without heart failure; I20.8 Other forms of angina pectoris; I65.29 Occlusion and stenosis of unspecified carotid artery; I71.4 Abdominal aortic aneurysm, without rupture; R06.00 Dyspnea, unspecified; R09.89 Other specified symptoms and signs involving the circulatory and respiratory systems
CPT/HCPCS: 76705; 93880

== ENCOUNTER → 2022-01-19 09:08 | Outpatient (CLI) | payer MEDICARE, OTHER, SELFPAY ==
--- NOTE | 2022-01-19 09:09 | MR_ITS ---
FINAL REPORT CLINICAL HISTORY: dizziness. [id number] ago headache lasted 3days. dizziness during headache. hx prostate cancer. 17ml prohance given. COMPARISON: 04/05/2020 FINDINGS: Multiplanar MR imaging of the brain was performed without and with contrast. There is mild age-appropriate atrophy. Scattered foci of increased T2 signal are seen in the cerebral white matter that have a nonspecific appearance but likely represent mild chronic ischemic/gliotic changes. There is no evidence of intracranial hemorrhage. No abnormal ventricular dilatation is identified. There is no evidence of shift of the midline structures. No abnormal extra-axial fluid collection is seen. No area of abnormal restricted diffusion is identified. The posterior fossa and brainstem have an unremarkable appearance. Normal major vessel vascular flow voids are seen. There is significant interval improvement in in the cystic lesion centered in the suprasellar region/pituitary infundibulum which now measures 4 mm, previously measured 14 mm. No new mass or abnormal contrast enhancement is identified. IMPRESSION: Mild atrophy and chronic ischemic/gliotic changes. Interval improvement in the cystic lesion, may represent with represent Rathke's cleft cyst or other cystic mass. Reviewed, Interpreted and Dictated by Willy Kellogg III, MD Transcribed by Delaney Watters Authenticated by Willy Kellogg III, MD on 01/19/2022 12:15:21 PM [facility]
== END ==
PROVIDERS: PCP Nurse Practitioner Family; Visit Provider Physician Assistant
DX: R42 Dizziness and giddiness
CPT/HCPCS: 70553; A9576

== ENCOUNTER → 2022-04-19 13:06 | Outpatient (CLI) | payer MEDICARE, OTHER, SELFPAY ==
[2022-04-19 15:26] LABS: Prostate Specific Ag, Diagnost 0.338 ng/ml (0.0-4.0)
== END ==
PROVIDERS: PCP Nurse Practitioner Family; Visit Provider Urology
DX: C61 Malignant neoplasm of prostate (principal)
CPT/HCPCS: 36415; 84153

== ENCOUNTER 2022-07-27 08:10 | Emergency (ER) | payer MEDICARE, OTHER, SELFPAY ==
[2022-07-27 08:11] VITALS: BP 139/89; PULSE 72; RESP 18; TEMP 36.9; O2SAT 98; BMI 27.7
--- NOTE | 2022-07-27 08:32 | PC.NURSE ---
DR. DOMINGUEZ AT BEDSIDE FOR EVALUATION
--- NOTE | 2022-07-27 08:36 | ECG_ITS ---
APPROVED REPORT Exam: Resting ECG HR:57 bpm ECG Measurements Heart Rate 57 AXES NH 166 P 122 QRSd 94 QRS -14 QT 416 T 14 QTc 411 Conclusion SINUS BRADYCARDIA INDETERMINATE AXIS LOW QRS VOLTAGE IN PRECORDIAL LEADS [QRS DEFLECTION < 1.0 mV IN CHEST LEADS] INCOMPLETE RIGHT BUNDLE BRANCH BLOCK [90+ ms QRS DURATION, TERMINAL R IN V1/V2, 40+ ms S IN I/aVL/V4/V5/V6] POSSIBLE ANTERIOR MYOCARDIAL INFARCTION , OF INDETERMINATE AGE [30 ms Q WAVE IN V3/V4, OR R < 0.2 mV IN V4] ABNORMAL ECG UNCONFIRMED REPORT Electronically signed by : Duncan Thomson MD 07/27/2022 20:05:31
--- NOTE | 2022-07-27 08:36 | CT_ITS ---
FINAL REPORT TECHNIQUE: Axial CT images were performed through the head. Coronal reformatted images were submitted. This study was performed with techniques to keep radiation doses as low as reasonably achievable (ALARA). Individualized dose reduction techniques using automated exposure control or adjustment of mA and/or kV according to the patient's size were employed. CLINICAL HISTORY: c/o tingling of left arm FINDINGS: Moderate atrophy. Minimal physiologic calcification in the basal ganglia. The ventricles are normal in size. There is no evidence of hemorrhage. There is no mass or edema identified. There is no abnormal extra-axial fluid seen. The sinuses are well aerated. IMPRESSION: No acute intracranial process. Reviewed, Interpreted and Dictated by Everton Berman MD Transcribed by Jorge Washington Authenticated and [facility]
--- NOTE | 2022-07-27 08:39 | HMH.EDGENADL ---
Discharge Plan Disposition Patient Disposition: Home, Self-Care Condition: Good Prescriptions Prescriptions: New prednisone 20 mg tablet 20 mg PO DAILY 3 Days Qty: 5 0RF No Action coenzyme Q10 100 mg capsule 300 mg PO DAILY cholecalciferol (vitamin D3) 50 mcg (2,000 unit) capsule 50 mcg PO DAILY aspirin [Adult Low Dose Aspirin] 81 mg tablet,delayed release (DR/EC) 81 mg PO DAILY omeprazole 20 mg capsule,delayed release(DR/EC) 40 mg PO DAILY fexofenadine [Fernanda Allergy] 60 mg tablet 60 mg PO DAILY PRN rosuvastatin [Crestor] 20 mg tablet 20 mg PO DAILY Qty: 90 3RF clopidogrel [Plavix] 75 mg tablet 75 mg PO DAILY Qty: 90 3RF carvedilol 12.5 mg tablet 12.5 mg PO BID Qty: 180 3RF lisinopril-hydrochlorothiazide 20-12.5 mg tablet 1 tab PO BID Qty: 180 2RF Referrals Follow up/Referrals: Jeanette Au APRN [Primary Care Provider] - See instructions Activity Restrictions/Add. Instructions Additional Instructions/Restrictions: Follow-up with your primary care provider if symptoms do not resolve for consideration of outpatient physical therapy Clinical Impressions Clinical Impression: Cervical radiculopathy due to degenerative joint disease of spine Discharge ED Provider: Juan Carlos Chatterjee General Adult HPI General Chief complaint: Extremity Problem,Nontraumatic Stated complaint: LT arm pain Time Seen by Provider: 07/27/22 08:31 Mode of Arrival: Wheelchair Source of Information: Patient Limitations: No Limitations Description of Symptoms (Recalled from ER Triage Doc. by RN): PT REPORTS INTERMITTENT NUMBNESS AND TINGLING TO LEFT ARM THIS WEEK. History of Present Illness HPI narrative: Patient presents complaining of left arm tingling with which he woke at approximately 530 this morning. He describes symptoms as moderate and without exacerbating or alleviating factors. He denies numbness or weakness to the remainder of the extremities as well as to the trunk. He states that similar symptoms a few years ago at which time he believes he may have had a TIA. He denies headache or chest pain at this time. Related Data Home Medications Medication Instructions Recorded Confirmed aspirin 81 mg tablet,delayed 81 mg PO DAILY heart 01/22/18 04/25/22 release (Adult Low Dose Aspirin) omeprazole 20 mg capsule,delayed 40 mg PO DAILY GERD 05/07/19 07/12/22 release fexofenadine 60 mg tablet (Fernanda 60 mg PO DAILY PRN 01/10/22 04/25/22 Allergy) cholecalciferol (vitamin D3) 50 50 mcg PO DAILY 04/25/22 04/25/22 mcg (2,000 unit) capsule coenzyme Q10 100 mg capsule 300 mg PO DAILY 04/25/22 04/25/22 Previous Rx's Medication Instructions Recorded rosuvastatin 20 mg tablet (Crestor) 20 mg PO DAILY #90 tabs 01/16/22 clopidogrel 75 mg tablet (Plavix) 75 mg PO DAILY #90 tabs 04/10/22 carvedilol 12.5 mg tablet 12.5 mg PO BID High blood pressure 05/24/22 #180 tabs lisinopril 20 1 tab PO BID #180 tabs 07/07/22 mg-hydrochlorothiazide 12.5 mg tablet prednisone 20 mg tablet 20 mg PO DAILY 3 days #5 tabs 07/27/22 Allergies Allergy/AdvReac Type Severity Reaction Status Date / Time prednisone Allergy Intermediate I-RASH Verified 04/25/22 13:41 azithromycin [AZITHROMYCIN] Allergy Unknown Verified 04/25/22 13:41 NSAIDS (Non-Steroidal Allergy Unknown Verified 04/25/22 13:41 Anti-Inflamma [NSAIDS (NON-STEROIDAL ANTI-INFLAMMA] nabumetone AdvReac Intermediate IRREGULAR Verified 04/25/22 13:41 HEART BEAT indomethacin AdvReac Mild DIZZINESS Verified 04/25/22 13:41 [facility] Medical History (Updated 07/27/22 @ 13:43 by Juan Carlos Chatterjee MD) AAA (abdominal aortic aneurysm) Atypical angina CAD (coronary artery disease) Dyspnea Encounter for pre-operative cardiovascular clearance HHD (hypertensive heart disease) HLD (hyperlipidemia) Surgical History (Updated 07/27/22 @ 08:35 by Sussy Burt RN) H/O carotid endarterectomy History
--- NOTE | 2022-07-27 08:54 | CT_ITS ---
FINAL REPORT TECHNIQUE: Axial images were obtained of the cervical spine by computed tomography. Coronal and sagittal reconstruction process performed. This study was performed with techniques to keep radiation doses as low as reasonably achievable (ALARA). Individualized dose reduction techniques using automated exposure control or adjustment of mA and/or kV according to the patient''s size were employed. CLINICAL HISTORY: c/o tingling of left arm FINDINGS: Cervical vertebrae show normal height. [id number] anterior osteophyte formation at C4-5, C5-6, and C6-7. Posterior osteophytes at C5-6 with mild compromise on the spinal canal. There is no malalignment. The facets are properly aligned. IMPRESSION: No fracture. Posterior osteophytes at C5-6 result in mild compromise on the spinal canal. Reviewed, Interpreted and Dictated by Everton Berman MD Transcribed by Jorge Washington Authenticated and [facility]
--- NOTE | 2022-07-27 08:56 | PC.NURSE ---
PT TO CT AT THIS TIME
[2022-07-27 09:07] LABS: Basophils # 0.1 K/mm3 (0-0.2); Basophils % 1.4 % (0.1-2.0); Eosinophils # 0.4 K/mm3 (0.0-0.4); Eosinophils % 5.1 % (0.1-12.0); Hematocrit 43.5 % (42.0-52.0); Hemoglobin 14.7 g/dL (14.1-18.0); Lymphocytes % 25.7 % (10-50); Mean Corpuscular HGB Conc 33.8 g/dL (31.8-35.4); Mean Corpuscular Hemoglobin 31.5 pg (27.0-31.2); Mean Corpuscular Volume 93.4 fl (80-94); Mean Platelet Volume 7.3 fl (7.4-10.4); Monocytes # 0.4 K/mm3 (0.1-1.0); Monocytes % 5.5 % (1.7-9.3); Neutrophils # 4.9 K/mm3 (1.8-7.8); Neutrophils % 62.3 % (37.0-80.0); Platelet Count 278 K/mm3 (142-424); Red Blood Count 4.66 M/mm3 (4.60-6.20); Red Cell Distribution Width 12.9 % (11.5-17.5); White Blood Count 7.9 K/mm3 (4.8-10.8)
--- NOTE | 2022-07-27 09:16 | PC.NURSE ---
PT RETURNED FROM CT
[2022-07-27 09:27] LABS: Chloride 93 mmol/L (98-107); Potassium 4.2 mmoL/L (3.5-5.1); Sodium 137 mmol/L (136-145)
[2022-07-27 09:30] LABS: Alanine Aminotransferase 26 U/L (12-78); Albumin Level 4.5 g/dl (3.5-5.0); Albumin/Globulin Ratio 1.5 (1.1-1.8); Alkaline Phosphatase 47 U/L (38-126); Anion Gap 12.2 mEq/L (5-15); Aspartate Amino Transferase 47 U/L (17-59); Bilirubin,Total 0.7 mg/dl (0.2-1.3); Blood Urea Nitrogen 14 mg/dl (9-20); Carbon Dioxide 36 mmol/L (22.0-30.0); Creatinine Clearance Estimated 63 mL/min (50-200); Estimated Glomerular Filt Rate 59 ml/min (>60); GFR (African American) 71 ML/MIN (>60); Globulin 3.1 g/dL (1.3-3.2); INR 0.97 (0.9-1.1); Prothrombin Time 10.5 seconds (10.1-12.5); Total Protein,Serum 7.6 g/dl (6.3-8.2)
[2022-07-27 09:31] LABS: Glucose 174 mg/dl (74-100)
--- NOTE | 2022-07-27 09:54 | PC.NURSE ---
SPOKE WITH SYL IN CARE MANAGEMENT , SHE SAID WE WERE GOOD FOR THE MRI . SPOKE DEVAN IN MRI THEY ARE AWARE WILL BE HERE IN APPROX 30 MIN TO GET PT
--- NOTE | 2022-07-27 09:58 | MR_ITS ---
FINAL REPORT CLINICAL HISTORY: RULE OUT STROKE. tingling left arm FINDINGS: Multi planar MR imaging was obtained through the brain without contrast. There is a 1.3 cm rounded signal abnormality in the 3rd ventricle favoring a colloid cyst. There is no evidence of Chiari malformation. On T2 and flair axial images there are small scattered foci of abnormal signal in the deep white matter bilaterally. On diffusion-weighted images there is no evidence of restricted diffusion. The visualized paranasal sinuses demonstrate normal signal voids. The seventh and eighth nerve root complexes are intact. IMPRESSION: No acute intracranial process. [id number] changes of chronic microvascular ischemia. 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 Reviewed, Interpreted and Dictated by Everton Berman MD Transcribed by Jorge Washington Authenticated and [facility]
--- NOTE | 2022-07-27 10:04 | PC.NURSE ---
dietary notified for breakfast tray
--- NOTE | 2022-07-27 10:11 | PC.NURSE ---
REGULAR BREAKFAST TRAY SET-UP FOR PT, NO FURTHER NEEDS AT THIS TIME
--- NOTE | 2022-07-27 10:28 | PC.NURSE ---
Pt to MRI via wheelchair.
--- NOTE | 2022-07-27 11:17 | PC.NURSE ---
Pt returned from MRI.
[2022-07-27 11:20] VITALS: BP 127/95; PULSE 61; O2SAT 98
--- NOTE | 2022-07-27 11:20 | PC.NURSE ---
Provided pt with warm blanket. No needs voiced at this time.
[2022-07-27 11:30] VITALS: BP 113/62; PULSE 60; RESP 18; O2SAT 97
[2022-07-27 12:00] VITALS: BP 104/61; PULSE 61; RESP 20; O2SAT 98
--- NOTE | 2022-07-27 12:30 | PC.NURSE ---
PT UPDATED ON POC, AWAITING MRI RESULTS. NO NEEDS AT THIS TIME
[2022-07-27 13:54] VITALS: BP 155/74; PULSE 62; RESP 18; TEMP 36.7; O2SAT 98
== END 2022-07-27 13:55 | disposition home or self-care (01) ==
PROVIDERS: Emergency Provider Emergency Medicine; PCP Nurse Practitioner Family
DX: M50.10 Cervical disc disorder with radiculopathy, unspecified cervical region (principal); Z79.82 Long term (current) use of aspirin; Z79.899 Other long term (current) drug therapy; K21.9 Gastro-esophageal reflux disease without esophagitis; I25.10 Atherosclerotic heart disease of native coronary artery without angina pectoris; E78.5 Hyperlipidemia, unspecified; I10 Essential (primary) hypertension; I71.40 Abdominal aortic aneurysm, without rupture, unspecified; Z95.5 Presence of coronary angioplasty implant and graft; I65.29 Occlusion and stenosis of unspecified carotid artery
CPT/HCPCS: 70450; 70551; 72125; 80053; 85025; 85610; 93005; 99285

== ENCOUNTER 2022-08-03 12:49 | Outpatient (RCR) | payer MEDICARE, OTHER, SELFPAY | END 2022-08-03 12:50 | disposition home or self-care (01) | LOC: PT 12:49 | PROVIDERS: PCP Nurse Practitioner Family; Visit Provider Nurse Practitioner Family | DX: M54.50 Low back pain, unspecified (principal); M54.9 Dorsalgia, unspecified; M25.512 Pain in left shoulder | CPT/HCPCS: 97010; 97012; 97014; 97163; G0283 ==

== ENCOUNTER → 2023-02-06 07:50 | Outpatient (CLI) | payer MEDICARE, OTHER, SELFPAY ==
--- NOTE | 2023-02-06 07:50 | US_ITS ---
FINAL REPORT CLINICAL HISTORY: AAA COMPARISON: 02/03/2021 FINDINGS: Limited sonographic images were obtained of the abdomen to evaluate the abdominal aorta and iliac arteries. The abdominal aorta measures up to 2.6 cm in greatest dimension and previously measured 3 cm. Differences are likely due to imaging/measuring variation. The iliac arteries are within normal limits. IMPRESSION: 2.6 cm abdominal aorta. Reviewed, Interpreted and Dictated by Willy Kellogg III, MD Transcribed by Maryanne Taylor Authenticated and [facility]
--- NOTE | 2023-02-06 08:17 | CA_ITS ---
FINAL REPORT CLINICAL HISTORY: FARIHA, HTN, HLD, TIA, Left April 2021 FINDINGS: An ultrasound of the carotid arteries was performed. Duplex Doppler evaluation with spectral analysis was performed. The peak systolic velocity of the right common carotid artery is 70 cm/s. The peak systolic velocity of the right internal carotid artery is 133 cm/s and end diastolic velocity 42 cm/s. A mild amount of plaque is present. The right external carotid artery is patent. The right vertebral artery is patent with antegrade flow. ICA/CCA ratio: 2.1 The peak systolic velocity of the left common carotid artery is 98 cm/s. The peak systolic velocity of the left internal carotid artery is 117 cm/s and end diastolic velocity 38 cm/s. A mild amount of plaque is present. The left external carotid artery is patent. The left vertebral artery is patent with antegrade flow. ICA/CCA ratio: 1.5 Bilateral patent vertebral arteries with antegrade flow. IMPRESSION: Less than 50% bilateral carotid stenosis. Reviewed, Interpreted and Dictated by Willy Kellogg III, MD Transcribed by Jorge Washington Authenticated and [facility]
== END ==
PROVIDERS: PCP Nurse Practitioner Family; Visit Provider Physician Assistant
DX: I11.9 Hypertensive heart disease without heart failure; I25.10 Atherosclerotic heart disease of native coronary artery without angina pectoris; R09.89 Other specified symptoms and signs involving the circulatory and respiratory systems; E78.49 Other hyperlipidemia; I65.23 Occlusion and stenosis of bilateral carotid arteries; I71.40 Abdominal aortic aneurysm, without rupture, unspecified
CPT/HCPCS: 76770; 93880

== ENCOUNTER → 2023-08-16 13:55 | Outpatient (CLI) | payer MEDICARE, OTHER, SELFPAY ==
--- NOTE | 2023-08-16 13:55 | CA_ITS ---
APPROVED REPORT EXAM: Comprehensive 2D, Doppler, and color-flow Echocardiogram Pie Icer Machine: Jane Mckeon RCS, RVS Ht: 5 ft 9 in Wt: 193lbs BSA: 2.03 BP: 131/104 mmHg Rhythm: Bradycardia Indications: CABGx 2, CAD, AAA, ABN EKG Echo Enhancing Agent Comments: Limited apical windows due to body habitus-OHS 2D Dimensions Aortic Root 3.52 cm Left Atrium 3.24 cm LVOT 1.93 cm (M/F) 1.5-2.5 M-Mode Dimensions RVDd 2.64 cm (0.9-2.6) LA Diam 4.35 cm (1.9-4.0) LVDd 4.64 cm (3.5-5.7) Ao Diam 3.51 cm (2.0-3.7) LVDs 2.91 cm (3.5-5.7) IVSd 1.00 cm (0.6-1.1) PWd 0.87 cm (0.6-1.1) EF (Teich) 67.30% EPSs 1.14 cm FS 37.30% EDV (Teich) 99.30 mL TAPSE 2.13 (<1.7) ESV (Teich) 32.50 mL LV Diastology E Decel Time 203.00 (160-240 msec) E/A Ratio 0.83 MED E' 5.20 (< 7 cm/sec) MED A' 6.90 cm/s E'/MED E' Ratio 15.92 (>14) LAT E' 5.80 (<10 cm/sec) LAT A' 8.30 cm/s E/LAT E' Ratio 14.28 (>14) Aortic Valve LVOT Max 80.00 (70-110 cm/s) LVOT VTI 16.97 cm AoV Peak Chase. 107.00 (50-130 cm/s) AO Peak GR. 4.60 mmHg AO Mean GR. 2.30 (<5 mmHg) AO VTI 23.89 (18-25 cm) ASHLEY (VTI) 2.08 (2.5-4.5 cm2) Mitral Valve MV A Velocity 100.00 (40-130 cm/s) E/A Ratio 0.83 MV Decel. Time 203.00 (160-240 ms) Pulmonary Valve UT End VMAX 178.00 cm/s Tricuspid Valve TR P. Velocity 227.00 cm/s RAP Estimate 10.00 mmHg RVSP 30.50 mmHg Left Ventricle The left ventricle is normal size. The left ventricular systolic function is normal. The left ventricular ejection fraction is within the normal range. There is increased LV wall thickness. There is normal LV segmental wall motion. The left ventricular diastolic function is normal. LVEF is 60%. Right Ventricle The right ventricle is normal size. The right ventricular systolic function is normal. Atria The left atrium size is normal. The right atrium size is normal. There is no Doppler evidence of interatrial shunt. Aortic Valve The aortic valve is mildly thickened. There is no aortic valvular stenosis. Trace aortic regurgitation. Mitral Valve The mitral valve leaflets are mildly thickened. Trace mitral regurgitation. Tricuspid Valve The tricuspid valve leaflets are thin and pliable. Mild tricuspid regurgitation. RVSP is 20-25 mmHg. Pulmonic Valve The pulmonary valve is normal in structure. Mild pulmonic regurgitation. Great Vessels The aortic root is normal in size. The ascending aorta is normal in size. IVC is normal in size and collapses >50% with inspiration. Pericardium There is no pericardial effusion. Other Information Study Quality: Fair Conclusion Normal biventricular systolic function. No significant valvular stenosis or regurgitation. Electronically signed by : Piper Qureshi MD 08/19/2023 21:30:28
== END ==
PROVIDERS: PCP Nurse Practitioner Psychiatric/Mental Health; Visit Provider Physician Assistant
DX: I11.9 Hypertensive heart disease without heart failure (principal); I25.10 Atherosclerotic heart disease of native coronary artery without angina pectoris; E78.5 Hyperlipidemia, unspecified; Z87.891 Personal history of nicotine dependence
CPT/HCPCS: 93306

== ENCOUNTER → 2023-08-24 23:54 | Outpatient (CLI) | payer MEDICARE, OTHER, SELFPAY ==
[2023-08-24 12:46] LABS: Basophils # 0.1 K/mm3 (0-0.2); Basophils % 0.7 % (0.1-2.0); Eosinophils # 0.6 K/mm3 (0.0-0.4); Eosinophils % 5.7 % (0.1-12.0); Hematocrit 42.5 % (42.0-52.0); Hemoglobin 15.1 g/dL (14.1-18.0); Lymphocytes # 2.2 K/mm3 (0.7-4.5); Lymphocytes % 22.8 % (10-50); Mean Corpuscular HGB Conc 35.4 g/dL (31.8-35.4); Mean Corpuscular Hemoglobin 33.1 pg (27.0-31.2); Mean Corpuscular Volume 93.3 fl (80-94); Mean Platelet Volume 7.6 fl (7.4-10.4); Monocytes # 0.6 K/mm3 (0.1-1.0); Monocytes % 6.3 % (1.7-9.3); Neutrophils # 6.2 K/mm3 (1.8-7.8); Neutrophils % 64.5 % (37.0-80.0); Platelet Count 284 K/mm3 (142-424); Red Blood Count 4.56 M/mm3 (4.60-6.20); Red Cell Distribution Width 13.1 % (11.5-17.5); White Blood Count 9.6 K/mm3 (4.8-10.8)
[2023-08-24 13:03] LABS: Alanine Aminotransferase 28 U/L (12-78); Albumin Level 4.6 g/dl (3.5-5.0); Albumin/Globulin Ratio 1.6 (1.1-1.8); Alkaline Phosphatase 45 U/L (38-126); Anion Gap 14.5 mEq/L (5-15); Aspartate Amino Transferase 42 U/L (17-59); Bilirubin,Total 0.8 mg/dl (0.2-1.3); Blood Urea Nitrogen 13 mg/dl (9-20); Calcium 9.8 mg/dl (8.4-10.2); Carbon Dioxide 33 mmol/L (22.0-30.0); Chloride 88 mmol/L (98-107); Cholesterol 171 mg/dl (140-200); Estimated Glomerular Filt Rate 65 ml/min (>60); GFR (African American) 79 ML/MIN (>60); Globulin 2.9 g/dL (1.3-3.2); Glucose 138 mg/dl (74-100); HDL Cholesterol 43 mg/dl (40-60); Potassium 4.5 mmoL/L (3.5-5.1); Sodium 131 mmol/L (136-145); Total Protein,Serum 7.5 g/dl (6.3-8.2); Triglycerides 198 mg/dl (30-150); VLDL Cholesterol 40 mg/dL (0-40)
[2023-08-24 13:15] LABS: C-Reactive Protein 2.5 mg/L (0-4); Direct LDL Cholesterol 95.43 mg/dL (100-129)
[2023-08-24 13:35] LABS: Prostate Specific Ag, Diagnost 0.213 ng/ml (0.0-4.0); Thyroid Stimulating Hormone 1.21 uIU/mL (0.465-4.68)
[2023-08-24 13:38] LABS: Erythrocyte Sedimentation Rate 17 mm/hr (0-20)
== END ==
PROVIDERS: PCP Nurse Practitioner Family; Visit Provider Nurse Practitioner Family
DX: E78.5 Hyperlipidemia, unspecified (principal); R51.9 Headache, unspecified; C61 Malignant neoplasm of prostate; I65.23 Occlusion and stenosis of bilateral carotid arteries; R60.0 Localized edema
CPT/HCPCS: 80053; 80061; 84153; 84443; 85025; 85651; 86140

== ENCOUNTER → 2023-09-20 12:00 | Outpatient (CLI) | payer MEDICARE, OTHER, SELFPAY ==
--- NOTE | 2023-09-20 12:00 | MR_ITS ---
FINAL REPORT CLINICAL HISTORY: recurrent temporal headaches COMPARISON: 07/27/2022 FINDINGS: Multiplanar MR imaging of the brain was performed without contrast. There is moderate age-appropriate atrophy. There are scattered foci of increased T2 signal in the cerebral white matter that have a nonspecific appearance but likely represent moderate chronic ischemic/gliotic changes. There is a colloid cyst in the anterior aspect of the third ventricle seen on the prior MRI. The colloid cyst has enlarged slightly since the prior exam, now measuring 16 x 14 mm, was 13 x 12 mm. No abnormal ventricular dilatation is identified. No abnormal extra-axial fluid collection is seen. No abnormality is seen on the diffusion weighted images. The posterior fossa and brainstem are unremarkable. Normal major vessel vascular flow voids are seen. IMPRESSION: Previously identified colloid cyst in the anterior aspect of the third ventricle has enlarged slightly since the prior MRI examination of July 2022. The colloid cyst now measures 16 x 14 mm in size, was previously 13 x 12 mm in size. No significant ventricular enlargement is seen. Moderate changes of atrophy and ischemic microvascular disease, stable. Reviewed, Interpreted and Dictated by Willy Kellogg III, MD Transcribed by Sonya Barker Authenticated and [facility]
== END ==
PROVIDERS: PCP Nurse Practitioner Family; Visit Provider Nurse Practitioner Family
DX: R51.9 Headache, unspecified (principal)
CPT/HCPCS: 70551

== ENCOUNTER 2023-11-27 14:37 | Outpatient (POV) | payer MEDICARE, OTHER, SELFPAY | END 2023-11-27 23:59 | disposition home or self-care (01) | LOC: SC 14:37 | PROVIDERS: PCP Nurse Practitioner Family; Visit Provider Dermatology | DX: Z00.00 Encounter for general adult medical examination without abnormal findings (principal) ==

== ENCOUNTER 2024-03-14 12:39 | Outpatient (CLI) | payer MEDICARE, OTHER, SELFPAY ==
[2024-03-14 13:08] LABS: Basophils # 0.1 K/mm3 (0-0.2); Basophils % 0.9 % (0.1-2.0); Eosinophils # 0.5 K/mm3 (0.0-0.4); Eosinophils % 4.8 % (0.1-12.0); Hematocrit 42.9 % (42.0-52.0); Hemoglobin 14.8 g/dL (14.1-18.0); Lymphocytes # 2.4 K/mm3 (0.7-4.5); Lymphocytes % 24.6 % (10-50); Mean Corpuscular HGB Conc 34.5 g/dL (31.8-35.4); Mean Corpuscular Hemoglobin 31.7 pg (27.0-31.2); Mean Corpuscular Volume 91.7 fl (80-94); Mean Platelet Volume 7.4 fl (7.4-10.4); Monocytes # 0.5 K/mm3 (0.1-1.0); Monocytes % 5.6 % (1.7-9.3); Neutrophils # 6.2 K/mm3 (1.8-7.8); Neutrophils % 64.1 % (37.0-80.0); Platelet Count 355 K/mm3 (142-424); Red Blood Count 4.68 M/mm3 (4.60-6.20); Red Cell Distribution Width 13.3 % (11.5-17.5); White Blood Count 9.7 K/mm3 (4.8-10.8)
[2024-03-14 13:57] LABS: Alanine Aminotransferase 23 U/L (12-78); Albumin Level 4.6 g/dl (3.5-5.0); Albumin/Globulin Ratio 1.4 (1.1-1.8); Alkaline Phosphatase 47 U/L (38-126); Anion Gap 16.2 mEq/L (5-15); Aspartate Amino Transferase 41 U/L (17-59); Bilirubin,Total 0.9 mg/dl (0.2-1.3); Blood Urea Nitrogen 15 mg/dl (9-20); Calcium 10.1 mg/dl (8.4-10.2); Carbon Dioxide 34 mmol/L (22.0-30.0); Chloride 87 mmol/L (98-107); Cholesterol 189 mg/dl (140-200); Estimated Glomerular Filt Rate 65 ml/min (>60); GFR (African American) 78 ML/MIN (>60); Globulin 3.2 g/dL (1.3-3.2); Glucose 143 mg/dl (74-100); HDL Cholesterol 62 mg/dl (40-60); Potassium 4.2 mmoL/L (3.5-5.1); Sodium 133 mmol/L (136-145); Total Protein,Serum 7.8 g/dl (6.3-8.2); Triglycerides 305 mg/dl (30-150); VLDL Cholesterol 61 mg/dL (0-40)
[2024-03-14 14:08] LABS: Direct LDL Cholesterol 98.94 mg/dL (100-129)
[2024-03-14 14:15] LABS: 25-OH Vitamin D, Total 54.1 ng/mL (30-100)
[2024-03-14 14:27] LABS: Thyroid Stimulating Hormone 1.24 uIU/mL (0.465-4.68)
[2024-03-14 14:46] LABS: Vitamin B12 485 pg/mL (239-931)
[2024-03-14 15:12] LABS: Ferritin 63.3 ng/ml (17.9-464)
== END 2024-03-14 23:59 | disposition home or self-care (01) ==
LOC: LAB.DROPOF 12:43
PROVIDERS: PCP Nurse Practitioner Family; Visit Provider Nurse Practitioner Family
DX: I11.9 Hypertensive heart disease without heart failure; E55.9 Vitamin D deficiency, unspecified; R79.89 Other specified abnormal findings of blood chemistry; D64.9 Anemia, unspecified; R53.83 Other fatigue; E78.5 Hyperlipidemia, unspecified; E78.49 Other hyperlipidemia; Z79.899 Other long term (current) drug therapy
CPT/HCPCS: 80053; 80061; 82306; 82607; 82728; 84443; 85025

== ENCOUNTER 2024-03-27 06:21 | Emergency (ER) | payer MEDICARE, OTHER, SELFPAY ==
[2024-03-27 06:22] VITALS: BP 220/100; PULSE 68; RESP 20; TEMP 36.6; O2SAT 97; BMI 27.4
--- NOTE | 2024-03-27 06:34 | XR_ITS ---
FINAL REPORT CLINICAL HISTORY: hypertension COMPARISON: None FINDINGS: A single portable view of the chest was obtained. The heart size and pulmonary vascularity are within normal limits. Prior median sternotomy. No acute pulmonary abnormality is identified. The bony thorax is intact. IMPRESSION: No active cardiopulmonary disease. Reviewed, Interpreted and Dictated by Willy Kellogg III, MD Transcribed by Miroslava Vieyra Authenticated and [facility]
--- NOTE | 2024-03-27 06:37 | ED_ITS ---
Discharge Plan Disposition Chief Complaint: Recheck/Abnormal Lab/Rx Prescriptions Prescriptions: No Action carvedilol 12.5 mg tablet 12.5 mg PO BID Patient Comments: TAKE 1 TABLET BY MOUTH TWICE DAILY FOR HIGH BLOOD PRESSURE clopidogrel 75 mg tablet 75 mg PO DAILY omeprazole 20 mg capsule,delayed release(DR/EC) 40 mg PO DAILY Patient Comments: TAKE 2 CAPSULES BY MOUTH DAILY FOR GERD rosuvastatin 20 mg tablet 20 mg PO DAILY Patient Comments: TAKE 1 TABLET BY MOUTH DAILY lisinopril 10 mg tablet 10 mg PO DAILY Patient Comments: TAKE 1 TABLET BY MOUTH DAILY hydrochlorothiazide 12.5 mg Tablet 12.5 mg PO DAILY aspirin 81 mg Tablet 81 mg PO DAILY cholecalciferol (vitamin D3) 50 mcg (2,000 unit) Tablet 50 mcg PO DAILY coenzyme Q10 400 mg Capsule 400 mg PO DAILY Referrals Follow up/Referrals: Jeanette Au APRN [Primary Care Provider] - See instructions Discharge ED Provider: Sharona [facility] HPI General Chief complaint: Recheck/Abnormal Lab/Rx Stated complaint: high bp 191/110 Time Seen by Provider: 03/27/24 06:34 History of Present Illness HPI narrative: Patient is a 79-year-old male with past medical history CAD status post PCI on Plavix, hyperlipidemia, AAA, depression presenting with hypertension. Patient states that 2 weeks ago he was seen by his primary care provider and was concerned about low blood pressure and they therefore discontinued the HCTZ he was taking in half to his lisinopril but since that time feels like his blood pressure has kept freezing and felt like his feet and legs have been swelling. He saw his PCP yesterday and they added back the lisinopril HCTZ at half the dose he had originally been taking but this morning when he awoke he noted some mild headache which he has had over the past week and his blood pressure was 192 systolic prompting his presentation. He denies any chest pain, shortness of breath, abdominal pain, nausea, vomiting, numbness, tingling, weakness. Related Data Home Medications Medication Instructions Recorded Confirmed aspirin 81 mg tablet 81 mg PO DAILY 03/27/24 03/27/24 carvedilol 12.5 mg tablet 12.5 mg PO BID 03/27/24 03/27/24 cholecalciferol (vitamin D3) 50 50 mcg PO DAILY 03/27/24 03/27/24 mcg (2,000 unit) tablet clopidogrel 75 mg tablet 75 mg PO DAILY 03/27/24 03/27/24 coenzyme Q10 400 mg capsule 400 mg PO DAILY 03/27/24 03/27/24 hydrochlorothiazide 12.5 mg tablet 12.5 mg PO DAILY 03/27/24 03/27/24 lisinopril 10 mg tablet 10 mg PO DAILY 03/27/24 03/27/24 omeprazole 20 mg capsule,delayed 40 mg PO DAILY 03/27/24 03/27/24 release rosuvastatin 20 mg tablet 20 mg PO DAILY 03/27/24 03/27/24 Allergies Allergy/AdvReac Type Severity Reaction Status Date / Time prednisone Allergy Intermediate I-RASH Verified 03/26/24 11:19 azithromycin [AZITHROMYCIN] Allergy Unknown Verified 03/26/24 11:19 NSAIDS (Non-Steroidal Allergy Unknown Verified 03/26/24 11:19 Anti-Inflamma [NSAIDS (NON-STEROIDAL ANTI-INFLAMMA] nabumetone AdvReac Intermediate IRREGULAR Verified 03/26/24 11:19 HEART BEAT indomethacin AdvReac Mild DIZZINESS Verified 03/26/24 11:19 [facility] Disclaimer: The information contained in this section may have been updated after the patient was seen, as this information can be updated by other users. Medical History Major depressive disorder Encounter for pre-operative cardiovascular clearance Dyspnea Atypical angina HLD (hyperlipidemia) HHD (hypertensive heart disease) CAD (coronary artery disease) AAA (abdominal aortic aneurysm) Surgical History H/O carotid endarterectomy Hx of cardiac cath S/P CABG x 2 History of cholecystectomy Family History Other No significant family history Social History Smoking Status: Never smoker alcohol intake: never substance use type: denies use current occupational status: other Travel in the last 8 weeks: None household members: other housing: other current occupational exposures/hazards: No caffeine: Yes ROS Obtained: Yes Systems reviewed as appropriate & no additional complaints except as documented Physical Exam General General appearance: alert and in no apparent distress Head Head exam: atraumatic and normocephalic Neck Neck exam: Present normal inspection Chest Chest inspection: Present normal inspection and symmetric chest wall rise Respiratory Respiratory exam: Present normal lung sounds bilaterally; Absent respiratory distress Cardiovascular Cardiovascular exam: Present regular rate, normal rhythm and other (pulses equal BUE, trace pitting edema bilateral ankles) Abdominal Exam Abdominal exam: Present soft; Absent tenderness Extremities Exam Extremities exam: Present normal inspection Neurological Exam Neurological exam: Present alert and oriented X3 Skin Skin exam: Present warm and dry Medical Decision Making Medical Records Medical records reviewed: Yes I reviewed the patient's medical records. Cody Inquiry Pt receiving controlled substance: No Vital Signs: 03/27/24 06:22 Temperature 97.8 F Temperature Source Oral Pulse Rate [Right Radial] 68 Respiratory Rate 20 Blood Pressure [Left Arm] 220/100 H Blood Pressure Mean [Left Arm] 140 Blood Pressure Source [Left Arm] Automatic Cuff Blood Pressure Position [Left Arm] Sitting 02 Sat by Pulse Oximetry 97 Oxygen Delivery Method Room Air Lab Data Lab Results 03/27/24 06:44: WBC 6.2, RBC 4.67, Hgb 14.5, Hct 44.6, MCV 95.4 H, MCH 31.1, MCHC 32.6, RDW 13.4, Plt Count 262, MPV 7.3 L, Neut % (Auto) 52.0, Lymph % (Auto) 32.2, O'Brien % (Auto) 5.6, Eos % (Auto) 8.6, Baso % (Auto) 1.6, Neut # (Auto) 3.2, Lymph # (Auto) 2.0, O'Brien # (Auto) 0.4, Eos # (Auto) 0.5 H, Baso # (Auto) 0.1, Sodium 136, Potassium 3.9, Chloride 97 L, Carbon Dioxide 33 H, Anion Gap 9.9, BUN 9, Creatinine 1.10, Estimated Creat Clear 66, Estimated GFR 65, Est GFR ( Amer) 78, Glucose 147 H, Calcium 9.9, Total Bilirubin 0.6, AST 36, ALT 24, Alkaline Phosphatase 45, Total Protein 7.7, Albumin 4.4, Globulin 3.3 H, Albumin/Globulin Ratio 1.3 03/27/24 06:44 03/27/24 06:44 Orders (Tests/Meds): ED MEDICATIONS Generic Name Dose Route Start Last Admin Trade Name Vaughn PRN Reason Stop Dose Admin Sodium Chloride 10 ml 03/27/24 06:34 Sodium Chloride 0.9% 10ml Flush Syringe IV 04/26/24 06:33 NEEDED PRN Maintain IV Site Discontinued Medications Generic Name Dose Route Start Last Admin Trade Name Vaughn PRN Reason Stop Dose Admin Acetaminophen 1,000 mg 03/27/24 06:36 Acetaminophen 500mg Tab PO 03/27/24 06:37 ONCE ONE ORDERS Category Date Time Status XR chest portable Stat Exams 03/27/24 06:34 Taken Complete Blood Count Auto Diff Stat Lab 03/27/24 06:44 Completed Comprehensive Metabolic Panel Stat Lab 03/27/24 06:44 Results Troponin I Q3H Lab 03/27/24 09:45 Ordered Troponin I Q3H Lab 03/27/24 12:45 Ordered Troponin I Stat Lab 03/27/24 06:44 Results ECG Data Tracing #1: I reviewed this ECG and interpreted as documented below: EKG without acute ischemia or infarction showing sinus bradycardia with normal intervals ECG initial impression date: 03/27/24 ECG initial impression time: 06:46 Medical Decision Narrative: Patient is a 79-year-old male with past medical history anemia, depression, CAD status post PCI on Plavix, hyperlipidemia, hypertension, AAA presenting with high blood pressure. Has recently had medication adjustments including discontinuation of HCTZ and halfing dose of lisinopril though he does continue to take Coreg daily now with hypertension worsening with some associated headache that he has had intermittently over the past week. He did not take his blood pressure medications immediately prior to arrival after taking his blood pressure this morning and this did include 10 mg of lisinopril and 12.5 mg HCTZ. He does have a history of a AAA that has been stable and monitored every 6 months and he has no complaint of abdominal pain, no pulsatile abdominal mass and no new weakness, numbness or tingling. His blood pressure is equal in the bilateral upper extremities though hypertensive to 220s. Otherwise hemodynamically stable. Will obtain blood work and continue to monitor blood pressure and if blood pressure does not begin to lower once patient settled in room will give antihypertensive medications. EKG was without acute ischemia or infarction. Blood pressure did notably decrease on repeat to 183, will defer antihypertensive medication administration at this time. Lab work is pending and patient care transferred to [facility] physician Dr. Jade. Critical Care Critical Care Time Critical Care Time: No
--- NOTE | 2024-03-27 06:42 | ECG_ITS ---
APPROVED REPORT Exam: Resting ECG HR:59 bpm ECG Measurements Heart Rate 59 AXES [place] 202 P 37 QRSd 91 QRS -62 QT 434 T 71 QTc 432 Conclusion SINUS BRADYCARDIA LOW QRS VOLTAGE IN PRECORDIAL LEADS INCOMPLETE RIGHT BUNDLE BRANCH BLOCK ANTERIOR MYOCARDIAL INFARCTION , PROBABLY OLD INFERIOR MYOCARDIAL INFARCTION , PROBABLY OLD Electronically signed by : JENNA COSME, 03/27/2024 06:48:35
--- NOTE | 2024-03-27 06:53 | PC.NURSE ---
pt refused tylenol at this time
[2024-03-27 06:58] LABS: Basophils # 0.1 K/mm3 (0-0.2); Basophils % 1.6 % (0.1-2.0); Chloride 97 mmol/L (98-107); Eosinophils # 0.5 K/mm3 (0.0-0.4); Eosinophils % 8.6 % (0.1-12.0); Hematocrit 44.6 % (42.0-52.0); Hemoglobin 14.5 g/dL (14.1-18.0); Lymphocytes % 32.2 % (10-50); Mean Corpuscular HGB Conc 32.6 g/dL (31.8-35.4); Mean Corpuscular Hemoglobin 31.1 pg (27.0-31.2); Mean Corpuscular Volume 95.4 fl (80-94); Mean Platelet Volume 7.3 fl (7.4-10.4); Monocytes # 0.4 K/mm3 (0.1-1.0); Monocytes % 5.6 % (1.7-9.3); Neutrophils # 3.2 K/mm3 (1.8-7.8); Platelet Count 262 K/mm3 (142-424); Potassium 3.9 mmoL/L (3.5-5.1); Red Blood Count 4.67 M/mm3 (4.60-6.20); Red Cell Distribution Width 13.4 % (11.5-17.5); Sodium 136 mmol/L (136-145); White Blood Count 6.2 K/mm3 (4.8-10.8)
[2024-03-27 07:00] VITALS: BP 183/89; PULSE 59; RESP 16; O2SAT 96
[2024-03-27 07:01] LABS: Alanine Aminotransferase 24 U/L (12-78); Albumin Level 4.4 g/dl (3.5-5.0); Albumin/Globulin Ratio 1.3 (1.1-1.8); Alkaline Phosphatase 45 U/L (38-126); Anion Gap 9.9 mEq/L (5-15); Aspartate Amino Transferase 36 U/L (17-59); Bilirubin,Total 0.6 mg/dl (0.2-1.3); Blood Urea Nitrogen 9 mg/dl (9-20); Carbon Dioxide 33 mmol/L (22.0-30.0); Creatinine Clearance Estimated 66 mL/min (50-200); Estimated Glomerular Filt Rate 65 ml/min (>60); GFR (African American) 78 ML/MIN (>60); Globulin 3.3 g/dL (1.3-3.2); Total Protein,Serum 7.7 g/dl (6.3-8.2)
[2024-03-27 07:02] LABS: Calcium 9.9 mg/dl (8.4-10.2); Glucose 147 mg/dl (74-100)
[2024-03-27 07:15] LABS: Troponin I < 0.01 ng/ml (0.00-0.034)
--- NOTE | 2024-03-27 07:32 | PC.NURSE ---
Assisted patient to Restroom at this time.
[2024-03-27 07:36] VITALS: BP 195/93; PULSE 63; O2SAT 95
[2024-03-27 08:00] VITALS: BP 191/88; PULSE 56; RESP 18; O2SAT 97
[2024-03-27 08:24] VITALS: BP 191/88; PULSE 56; RESP 18; TEMP 36.6
== END 2024-03-27 08:25 | disposition home or self-care (01) ==
PROVIDERS: Emergency Provider Emergency Medicine; PCP Nurse Practitioner Family
DX: R51.9 Headache, unspecified (principal); I11.9 Hypertensive heart disease without heart failure; R00.1 Bradycardia, unspecified; E78.5 Hyperlipidemia, unspecified; I25.119 Atherosclerotic heart disease of native coronary artery with unspecified angina pectoris; Z95.1 Presence of aortocoronary bypass graft; Z79.01 Long term (current) use of anticoagulants
CPT/HCPCS: 71045; 80053; 84484; 85025; 93005; 99284

== ENCOUNTER 2024-04-04 10:29 | Outpatient (CLI) | payer MEDICARE, OTHER, SELFPAY ==
[2024-04-04 17:21] LABS: Basophils # 0.1 K/mm3 (0-0.2); Basophils % 1.1 % (0.1-2.0); Eosinophils # 0.4 K/mm3 (0.0-0.4); Eosinophils % 4.9 % (0.1-12.0); Hematocrit 40.9 % (42.0-52.0); Hemoglobin 14.1 g/dL (14.1-18.0); Lymphocytes # 3.2 K/mm3 (0.7-4.5); Lymphocytes % 35.4 % (10-50); Mean Corpuscular HGB Conc 34.6 g/dL (31.8-35.4); Mean Corpuscular Hemoglobin 32.4 pg (27.0-31.2); Mean Corpuscular Volume 93.7 fl (80-94); Mean Platelet Volume 7.6 fl (7.4-10.4); Monocytes # 0.7 K/mm3 (0.1-1.0); Monocytes % 7.9 % (1.7-9.3); Neutrophils # 4.6 K/mm3 (1.8-7.8); Neutrophils % 50.7 % (37.0-80.0); Platelet Count 329 K/mm3 (142-424); Red Blood Count 4.36 M/mm3 (4.60-6.20); Red Cell Distribution Width 13.6 % (11.5-17.5)
[2024-04-04 17:51] LABS: Alanine Aminotransferase 26 U/L (12-78); Albumin Level 5.1 g/dl (3.5-5.0); Albumin/Globulin Ratio 1.5 (1.1-1.8); Alkaline Phosphatase 48 U/L (38-126); Anion Gap 15.7 mEq/L (5-15); Aspartate Amino Transferase 42 U/L (17-59); Bilirubin,Total 0.7 mg/dl (0.2-1.3); Blood Urea Nitrogen 18 mg/dl (9-20); Calcium 10.3 mg/dl (8.4-10.2); Carbon Dioxide 34 mmol/L (22.0-30.0); Chloride 89 mmol/L (98-107); Estimated Glomerular Filt Rate 59 ml/min (>60); GFR (African American) 71 ML/MIN (>60); Globulin 3.4 g/dL (1.3-3.2); Glucose 104 mg/dl (74-100); Magnesium 1.8 mg/dl (1.6-2.3); Potassium 3.7 mmoL/L (3.5-5.1); Sodium 135 mmol/L (136-145); Total Protein,Serum 8.5 g/dl (6.3-8.2)
== END 2024-04-04 23:59 | disposition home or self-care (01) ==
LOC: LAB.DROPOF 04-07 10:29
PROVIDERS: PCP Nurse Practitioner Family; Visit Provider Nurse Practitioner Family
DX: I10 Essential (primary) hypertension; R26.81 Unsteadiness on feet; E78.49 Other hyperlipidemia
CPT/HCPCS: 80053; 83735; 84443; 85025

== ENCOUNTER 2024-04-09 07:51 | Outpatient (CLI) | payer MEDICARE, OTHER, SELFPAY ==
--- NOTE | 2024-04-09 07:52 | CT_ITS ---
FINAL REPORT TECHNIQUE: Axial CT of the abdomen and pelvis, without and with IV contrast. Coronal and sagittal reformats were obtained and reviewed. This study was performed with techniques to keep radiation doses as low as reasonably achievable, (ALARA). Individualized dose reduction techniques using automated exposure control or adjustment of mA and/or kV according to the patient's size were employed. CLINICAL HISTORY: AAA, no appetite, weight loss- unintentional COMPARISON: None FINDINGS: Abdomen: Lung bases are clear. Liver has an unremarkable CT appearance. The spleen, pancreas and adrenal glands are unremarkable. Status postcholecystectomy. An infrarenal abdominal aortic aneurysm is noted measuring up to 37 mm terminating at the aortic bifurcation. However, dense calcified plaque disease at the aortic bifurcation likely resulting in bilateral common iliac artery stenoses. Precontrast imaging shows no renal stone disease. Postcontrast imaging of the kidneys shows a few hypodense lesions in both kidneys, probably representing cyst. Size limits characterization of these lesions. No bowel obstruction or fluid collection is seen. Pelvis: The appendix is normal. Pelvic bowel loops are unremarkable. There is no free fluid. Mild prostate enlargement. Small bilateral inguinal hernias containing fat are noted. IMPRESSION: Infrarenal abdominal aortic aneurysm measuring up to 3.7 cm with calcified plaque disease resulting in bilateral common iliac artery stenoses. No acute findings. Reviewed, Interpreted and Dictated by Torrey Batista MD Transcribed by Miroslava Vieyra Authenticated and [facility]
--- NOTE | 2024-04-09 07:52 | CT_ITS ---
FINAL REPORT TECHNIQUE: The patient was injected with IV contrast. Axial images were obtained of the chest by computed tomography. Precontrast images were also obtained. This study was performed with techniques to keep radiation doses as low as reasonably achievable (ALARA). Individualized dose reduction techniques using automated exposure control or adjustment of mA and/or kV according to the patient's size were employed. CLINICAL HISTORY: AAA, no appetite, weight loss- unintentional COMPARISON: CTA chest 04/05/2020 FINDINGS: CT OF THE CHEST WITH AND WITHOUT CONTRAST: There is no axillary adenopathy. There is no mediastinal or hilar adenopathy. Heart size is normal. The thoracic aorta demonstrates no evidence of dissection or aneurysm. Major branch vessels are widely patent. There are scattered calcified plaque disease of the coronary vessels. There is no pericardial or pleural effusion identified. There is no suspicious pulmonary nodule or infiltrate identified. IMPRESSION: No acute findings. Reviewed, Interpreted and Dictated by Torrey Batista MD Transcribed by Miroslava Vieyra Authenticated and [facility]
[2024-04-09] MEDS: IOPAMIDOL-370 (76%);100ML BOTTLE 75 ML IV (08:34)
[2024-04-09] MEDS: SODIUM CHLORIDE 0.9% 10ML SYR (RAD ONLY) 10 ML IV (08:34)
== END 2024-04-09 23:59 | disposition home or self-care (01) ==
LOC: RAD 07:52
PROVIDERS: PCP Nurse Practitioner Family; Visit Provider Physician Assistant
DX: R63.4 Abnormal weight loss (principal); R63.0 Anorexia; I71.40 Abdominal aortic aneurysm, without rupture, unspecified; Z68.26 Body mass index [BMI] 26.0-26.9, adult
CPT/HCPCS: 71270; 74178; Q9967

== ENCOUNTER 2024-04-25 06:38 | Emergency (ER) | payer MEDICARE, OTHER, SELFPAY ==
[2024-04-25] VITALS (11 sets, daily range): BP systolic 100–191; BP diastolic 50–98; PULSE 57–70; RESP 16–20; TEMP 36.6; O2SAT 90–97; BMI 24.3
--- NOTE | 2024-04-25 06:41 | CT_ITS ---
FINAL REPORT CLINICAL HISTORY: posterior CARROLL, HTN COMPARISON: 07/27/2022 FINDINGS: Axial images of the head were obtained without contrast. Coronal reformatted images were also obtained. This study was performed with techniques to keep radiation doses as low as reasonably achievable (ALARA). Individualized dose reduction techniques using automated exposure control or adjustment of mA and/or kV according to the patient's size were employed. There is generalized age-appropriate atrophy. Periventricular low-attenuation areas are seen consistent with mild chronic ischemic changes. There is no evidence of intracranial hemorrhage or mass. There is no evidence of acute infarct. There is no evidence of shift of the midline structures. There are postoperative changes in the left frontal skull. IMPRESSION: Atrophy and mild periventricular chronic ischemic changes. No acute intracranial abnormality identified. Reviewed, Interpreted and Dictated by Willy Kellogg III, MD Transcribed by Delaney Watters Authenticated and [facility]
--- NOTE | 2024-04-25 06:47 | ED_ITS ---
Discharge Plan Prescriptions Prescriptions: No Action lisinopril 10 mg tablet 10 mg PO DAILY Qty: 90 3RF lisinopril-hydrochlorothiazide 10-12.5 mg tablet 1 tab PO DAILY Qty: 30 3RF carvedilol 12.5 mg tablet 12.5 mg PO BID Patient Comments: TAKE 1 TABLET BY MOUTH TWICE DAILY FOR HIGH BLOOD PRESSURE clopidogrel 75 mg tablet 75 mg PO DAILY omeprazole 20 mg capsule,delayed release(DR/EC) 40 mg PO DAILY Patient Comments: TAKE 2 CAPSULES BY MOUTH DAILY FOR GERD rosuvastatin 20 mg tablet 20 mg PO DAILY Patient Comments: TAKE 1 TABLET BY MOUTH DAILY aspirin 81 mg Tablet 81 mg PO DAILY cholecalciferol (vitamin D3) 50 mcg (2,000 unit) Tablet 50 mcg PO DAILY coenzyme Q10 400 mg Capsule 400 mg PO DAILY Referrals Follow up/Referrals: Jeanette Au APRN [Primary Care Provider] - See instructions Discharge ED Provider: Jennyfer [facility] Adult HPI General Stated complaint: high bp, dryheaving, lynn Time Seen by Provider: 04/25/24 06:41 History of Present Illness HPI narrative: 79-year-old male with a history of hypertension, known AAA, previous prostate cancer, hyperlipidemia, CAD presents to the ER for concerns of headache, nausea, high blood pressure. Patient states he had headache overnight and this morning started having nausea and dry heaving. He states this morning he woke up and took his blood pressure medications like he normally would. Around that time he took his blood pressure at home and it was 195. Patient reports he had an appointment with cardiology yesterday. I reviewed this note which demonstrates they plan to repeat imaging on his AAA in 4 months. Patient does report increased unsteadiness and headaches recently. He denies any chest pain or shor tness of breath associated with his symptoms today. He denies any abdominal pain. No fevers but does report feeling cold. Related Data Home Medications Medication Instructions Recorded Confirmed aspirin 81 mg tablet 81 mg PO DAILY 03/27/24 04/24/24 carvedilol 12.5 mg tablet 12.5 mg PO BID 03/27/24 04/24/24 cholecalciferol (vitamin D3) 50 50 mcg PO DAILY 03/27/24 04/24/24 mcg (2,000 unit) tablet clopidogrel 75 mg tablet 75 mg PO DAILY 03/27/24 04/24/24 coenzyme Q10 400 mg capsule 400 mg PO DAILY 03/27/24 04/24/24 omeprazole 20 mg capsule,delayed 40 mg PO DAILY 03/27/24 04/24/24 release rosuvastatin 20 mg tablet 20 mg PO DAILY 03/27/24 04/24/24 Previous Rx's Medication Instructions Recorded lisinopril 10 mg tablet 10 mg PO DAILY #90 tabs 04/24/24 lisinopril 10 1 tab PO DAILY #30 tabs 04/24/24 mg-hydrochlorothiazide 12.5 mg tablet Allergies Allergy/AdvReac Type Severity Reaction Status Date / Time prednisone Allergy Intermediate I-RASH Verified 04/24/24 14:49 azithromycin [AZITHROMYCIN] Allergy Unknown Verified 04/24/24 14:49 NSAIDS (Non-Steroidal Allergy Unknown Verified 04/24/24 14:49 Anti-Inflamma [NSAIDS (NON-STEROIDAL ANTI-INFLAMMA] nabumetone AdvReac Intermediate IRREGULAR Verified 04/24/24 14:49 HEART BEAT indomethacin AdvReac Mild DIZZINESS Verified 04/24/24 14:49 PFSH PFS Disclaimer: The information contained in this section may have been updated after the patient was seen, as this information can be updated by other users. Medical History (Updated 04/24/24 @ 15:08 by Carie Anand RN) Infrarenal abdominal aortic aneurysm (AAA) without rupture Weight loss, unintentional No appetite Major depressive disorder Encounter for pre-operative cardiovascular clearance Dyspnea Atypical angina HLD (hyperlipidemia) HHD (hypertensive heart disease) CAD (coronary artery disease) AAA (abdominal aortic aneurysm) Surgical History H/O carotid endarterectomy Hx of cardiac cath S/P CABG x 2 History of cholecystectomy Family History Other No significant family history Social History Smoking Status: Never smoker alcohol intake: never substance use type: denies use current occupational status: other Travel in the last 8 weeks: None household members: other housing: other current occupational exposures/hazards: No caffeine: Yes ROS Obtained: Yes All systems reviewed & no additional complaints except as documented Constitutional Constitutional: Reports chills, Denies fever(s), Reports headache(s) and Denies weakness Eyes Eyes: Denies change in vision ENT Ears, Nose, Mouth, and Throat: Reports dizziness (Described as unsteadiness), Reports headache(s), Denies nasal congestion and Denies sore throat Cardiovascular Cardiovascular: Denies chest pain, Denies dyspnea and Denies leg edema Respiratory Respiratory: Denies cough and Denies dyspnea Gastrointestinal Gastrointestingal: Reports nausea; Denies abdominal pain, constipation, diarrhea or vomiting Genitourinary Male Genitourinary: Denies difficulty urinating Musculoskeletal Musculoskeletal: Denies arthralgias, Denies myalgias, Denies numbness and Denies tingling Integumentary/Breasts Skin/Breast: Denies change in pigmentation Neurologic Neurologic: Reports dizziness (Described as unsteadiness), Reports headache(s), Denies numbness, Denies tingling and Denies weakness Physical Exam General General appearance: alert and in no apparent distress Head Head exam: atraumatic and normocephalic Eye Eye exam: Present PERRL and EOMI; Absent nystagmus ENT ENT exam: Present mucous membranes moist Neck Neck exam: Present normal inspection and full ROM Chest Chest inspection: Present symmetric chest wall rise Respiratory Respiratory exam: Present normal lung sounds bilaterally; Absent respiratory distress, wheezes or stridor Cardiovascular Cardiovascular exam: Present regular rate and normal rhythm Abdominal Exam Abdominal exam: Present soft; Absent distention, tenderness, guarding or rebound Extremities Exam Extremities exam: Present full ROM Neurological Exam Neurological exam: Present alert, oriented X3, normal gait (Gait is slow but not wide-based or specifically unsteady) and other (Normal finger-nose and [id number]); Absent CN II-XII intact or motor sensory deficit Psychiatric Psychiatric exam: Present normal affect and normal mood Skin Skin exam: Present warm and dry Medical Decision Making Medical Records Medical records reviewed: Yes I reviewed the patient's medical records. MR Comment: See HPI Cody Inquiry Pt receiving controlled substance: No Orders (Tests/Meds): ORDERS Category Date Time Status CT abdomen pelvis w con Stat Cat Scan 04/25/24 06:[address] head/brain wo con Stat Cat Scan 04/25/24 06:41 Ordered CBC w/Auto Diff [Complete Blood Count Auto Diff] Stat Lab 04/25/24 06:41 Ordered CMP [Comprehensive Metabolic Panel] Stat Lab 04/25/24 06:41 Ordered PT INR [Prothrombin Time INR] Stat Lab 04/25/24 06:41 Ordered Trop I [Troponin I] Stat Lab 04/25/24 06:41 Ordered Troponin I Q3H Lab 04/25/24 09:45 Ordered Troponin I Q3H Lab 04/25/24 12:45 Ordered Medical Decision Narrative: In summary, this 79-year-old male presents to the emergency department today with headache, unsteadiness, dry heaves, hypertension. On initial evaluation patient is hypertensive however his blood pressure here is improved compared to what he reported from home, he has had dry heaves but no vomiting in the ER, abdomen is soft, nontender, nondistended, GCS 15, no localizing neurologic deficits, no nystagmus, ambulatory on arrival. Differential diagnosis includes but is not limited to viral syndrome, headache, migraine, hypertensive urgency/emergency, organ dysfunction, I have low suspicion for ACS though I did consider this, change in abdominal aortic aneurysm. Based on these concerns, I ordered broad workup including CT angiography and serum labs. ECG personally interpreted demonstrates first-degree AV block with slightly prolonged CA interval, rate 62, normal axis, incomplete bundle branch block, no STEMI. Stable compared to previous ECG which I also reviewed. Patient received Zofran for treatment. At this time I am not administering antihypertensives given his blood pressure has already improved significantly since he took his home medications. Patient handed off to Dr. Escalante at physician shift change for further management disposition pending laboratory and imaging workup. Critical Care Critical Care Time Critical Care Time: No
--- NOTE | 2024-04-25 06:48 | ECG_ITS ---
APPROVED REPORT Exam: Resting ECG HR:62 bpm ECG Measurements Heart Rate 62 AXES [place] 207 P 76 QRSd 97 QRS -62 QT 403 T 62 QTc 409 Conclusion SINUS RHYTHM INCOMPLETE RIGHT BUNDLE BRANCH BLOCK [90+ ms QRS DURATION, TERMINAL R IN V1/V2, 40+ ms S IN I/aVL/V4/V5/V6] INFERIOR MYOCARDIAL INFARCTION , PROBABLY OLD [40+ ms Q WAVE AND/OR ST/T ABNORMALITY IN II/aVF] ABNORMAL ECG UNCONFIRMED REPORT Electronically signed by : ELIEL HILLIARD, 04/25/2024 16:26:53
--- NOTE | 2024-04-25 06:51 | CT_ITS ---
FINAL REPORT TECHNIQUE: Thin section axial CT with IV contrast supplemented with multiplanar reconstruction under CT angiogram protocol. 3-D reconstructions were performed. This study was performed with techniques to keep radiation doses as low as reasonably achievable (ALARA). Individualized dose reduction techniques using automated exposure control or adjustment of mA and/or kV according to the patient''s size were employed. CLINICAL HISTORY: unsteadiness, CARROLL FINDINGS: The distal vertebral, basilar and distal internal carotid arteries have an unremarkable appearance. No aneurysm is seen. Major intracranial vessels are patent without significant stenosis. IMPRESSION: No evidence of aneurysm or major branch occlusion. Reviewed, Interpreted and Dictated by Willy Kellogg III, MD Transcribed by Delaney Watters Authenticated and [facility]
--- NOTE | 2024-04-25 06:51 | CT_ITS ---
FINAL REPORT TECHNIQUE: Thin section axial CT with IV contrast supplemented with multiplanar reconstruction under CT angiogram protocol. This study was performed with techniques to keep radiation doses as low as reasonably achievable (ALARA). Individualized dose reduction techniques using automated exposure control or adjustment of mA and/or kV according to the patient''s size were employed. NASCET criteria was utilized during interpretation. CLINICAL HISTORY: unsteadiness, CARROLL FINDINGS: Aortic arch: There is mild stenosis at the origin of the brachiocephalic artery. Right carotid: There is calcified plaque at the right carotid bulb without significant stenosis. Left carotid: No significant stenosis is seen of the cervical common or internal carotid artery. There are postoperative changes at the left neck. Vertebral: Left vertebral artery is dominant. No significant stenosis is present. IMPRESSION: No evidence of significant stenosis. Reviewed, Interpreted and Dictated by Willy Kellogg III, MD Transcribed by Delaney Watters Authenticated and [facility]
--- NOTE | 2024-04-25 06:55 | CT_ITS ---
FINAL REPORT CLINICAL HISTORY: nausea, HTN, known AAA COMPARISON: CT chest dated 04/09/2024 FINDINGS: Thin section axial CT images of the chest were obtained with contrast. 3D reformatted images were also obtained. This study was performed with techniques to keep radiation doses as low as reasonably achievable (ALARA). Individualized dose reduction techniques using automated exposure control or adjustment of mA and/or kV according to the patient's size were employed. The patient has undergone a prior midline sternotomy. There is no evidence of pulmonary embolism. There is no evidence of thoracic aortic aneurysm or dissection. There is no evidence of mediastinal or hilar mass or adenopathy. There is no evidence of pulmonary mass or nodule. No localized inflammatory process is seen within the lungs. Mild changes of emphysema are present as well as mild atelectasis. IMPRESSION: No evidence of pulmonary embolism, thoracic aortic aneurysm, or thoracic dissection. Mild changes of emphysema and mild atelectasis. Reviewed, Interpreted and Dictated by Willy Kellogg III, MD Transcribed by Sonya Bakrer Authenticated and [facility]
--- NOTE | 2024-04-25 06:55 | CT_ITS ---
FINAL REPORT TECHNIQUE: Pre-and postcontrast images of the abdomen and pelvis were performed by computed tomography. Extensive 3-D reconstruction images were performed. A CTA was performed. This study was performed with techniques to keep radiation doses as low as reasonably achievable (ALARA). Individualized dose reduction techniques using automated exposure control or adjustment of mA and/or kV according to the patient's size were employed. CLINICAL HISTORY: nausea, HTN, known AAA COMPARISON: CT abdomen and pelvis dated 04/09/2024 FINDINGS: ABDOMEN: Precontrast images demonstrate no evidence of nephrolithiasis. No adrenal masses are identified. The liver, spleen and pancreas are unremarkable. Multiple small renal cysts are present, as well as left renal parapelvic cysts. The gallbladder has been surgically resected. The appendix is normal in appearance. There is a small umbilical hernia containing fat. CTA: There is ectasia of the upper abdominal aorta. The infrarenal abdominal aorta is 38 mm in greatest diameter, with moderate mural thrombus, and extends to the iliac bifurcation, stable when compared to the prior exam of April 09. No evidence of dissection is seen. The SMA, celiac axis, and LISET are patent. There is less than 50% stenosis of the origin of the superior mesenteric artery. The renal arteries are patent bilaterally. There is significant plaque at the origin of the common iliac arteries, more prominent on the left side than the right. There is probable moderate approximately 50% stenosis of the left common iliac origin. The common and internal iliac arteries are patent to the level of the common femoral arteries bilaterally. IMPRESSION: The infrarenal abdominal aorta is 38 mm in greatest diameter, with moderate mural thrombus, and extends to the iliac bifurcation, stable when compared to the prior CT of April 09. Less than 50% stenosis of the origin of the superior mesenteric artery with a normal-appearing celiac axis and a patent LISET. Significant plaque at the origin of the common iliac arteries, more prominent on the left than on the right as described above. No significant stenosis is0 noted in the single renal arteries bilaterally. Reviewed, Interpreted and Dictated by Willy Kellogg III, MD Transcribed by Sonya Barker Authenticated and [facility]
[2024-04-25] MEDS: ACETAMINOPHEN 1,000MG/100ML VIAL 1000 MG IV (07:00)
[2024-04-25] MEDS: ONDANSETRON 4MG/2ML VIAL 4 MG IV (07:01)
[2024-04-25 07:03] LABS: Basophils # 0.1 K/mm3 (0-0.2); Basophils % 1.3 % (0.1-2.0); Eosinophils # 0.4 K/mm3 (0.0-0.4); Eosinophils % 5.5 % (0.1-12.0); Hematocrit 42.6 % (42.0-52.0); Hemoglobin 14.5 g/dL (14.1-18.0); Lymphocytes # 2.7 K/mm3 (0.7-4.5); Lymphocytes % 35.6 % (10-50); Mean Corpuscular HGB Conc 34.1 g/dL (31.8-35.4); Mean Corpuscular Hemoglobin 31.6 pg (27.0-31.2); Mean Corpuscular Volume 92.5 fl (80-94); Mean Platelet Volume 6.9 fl (7.4-10.4); Monocytes # 0.4 K/mm3 (0.1-1.0); Monocytes % 5.2 % (1.7-9.3); Neutrophils # 3.9 K/mm3 (1.8-7.8); Neutrophils % 52.3 % (37.0-80.0); Platelet Count 315 K/mm3 (142-424); Red Cell Distribution Width 13.2 % (11.5-17.5); White Blood Count 7.5 K/mm3 (4.8-10.8)
[2024-04-25 07:20] LABS: Alanine Aminotransferase 24 U/L (12-78); Albumin Level 4.6 g/dl (3.5-5.0); Albumin/Globulin Ratio 1.4 (1.1-1.8); Alkaline Phosphatase 48 U/L (38-126); Anion Gap 10.7 mEq/L (5-15); Aspartate Amino Transferase 39 U/L (17-59); Bilirubin,Total 0.7 mg/dl (0.2-1.3); Blood Urea Nitrogen 14 mg/dl (9-20); Carbon Dioxide 35 mmol/L (22.0-30.0); Chloride 91 mmol/L (98-107); Creatinine Clearance Estimated 64 mL/min (50-200); Estimated Glomerular Filt Rate 72 ml/min (>60); GFR (African American) 87 ML/MIN (>60); Globulin 3.4 g/dL (1.3-3.2); Glucose 162 mg/dl (74-100); INR 0.93 (0.9-1.1); Potassium 3.7 mmoL/L (3.5-5.1); Prothrombin Time 10.5 seconds (10.1-12.5); Sodium 133 mmol/L (136-145)
[2024-04-25 07:53] LABS: Troponin I < 0.01 ng/ml (0.00-0.034)
--- NOTE | 2024-04-25 07:53 | PC.NURSE ---
Called lab to check on status of CMP, states it is complete and they will result shortly
--- NOTE | 2024-04-25 07:55 | PC.NURSE ---
Called radiology to let them know the chemistry has resulted and is ready for CT scan
--- NOTE | 2024-04-25 08:04 | PC.NURSE ---
Pt is reporting that his headache is unchanged and states I thought they were going to give me something else for it . I notified Dr. corrales of this, states he is waitin for ct scans to be completed before giving anything else.
--- NOTE | 2024-04-25 08:07 | PC.NURSE ---
patient gone to CT at this time.
[2024-04-25] MEDS: 0.9 % SODIUM CHLORIDE 50 ML VIAL 100 ML IV (08:15)
[2024-04-25] MEDS: IOPAMIDOL-370 (76%);100ML BOTTLE 200 ML IV (08:15)
[2024-04-25] MEDS: SODIUM CHLORIDE 0.9% 10ML SYR (RAD ONLY) 10 ML IV (08:15)
--- NOTE | 2024-04-25 08:21 | PC.NURSE ---
pt back to room from ct scans
--- NOTE | 2024-04-25 08:35 | PC.NURSE ---
Rounded on Patient, warm blanket given at this time.
[2024-04-25] MEDS: KETOROLAC 30MG/ML VIAL 15 MG IV (09:24)
== END 2024-04-25 10:35 | disposition home or self-care (01) ==
PROVIDERS: Emergency Medicine; Emergency Provider Emergency Medicine; PCP Nurse Practitioner Family
DX: R51.9 Headache, unspecified (principal); I10 Essential (primary) hypertension; R11.0 Nausea; I44.0 Atrioventricular block, first degree; I11.9 Hypertensive heart disease without heart failure; I25.119 Atherosclerotic heart disease of native coronary artery with unspecified angina pectoris; E78.5 Hyperlipidemia, unspecified; Z95.1 Presence of aortocoronary bypass graft; I71.43 Infrarenal abdominal aortic aneurysm, without rupture
CPT/HCPCS: 70450; 70496; 70498; 71275; 74174; 80053; 84484; 85025; 85610; 93005; 96374; 96375; 99285; J0131; J1885; J2405; Q9967

== ENCOUNTER 2024-06-02 15:58 | Outpatient (CLI) | payer MEDICARE, OTHER, SELFPAY ==
[2024-06-02 17:40] LABS: Hemoglobin A1C 6.5 % (4.0-6.0)
[2024-06-02 17:50] LABS: Alanine Aminotransferase 19 U/L (12-78); Albumin Level 4.2 g/dl (3.5-5.0); Albumin/Globulin Ratio 1.2 (1.1-1.8); Alkaline Phosphatase 53 U/L (38-126); Anion Gap 9.9 mEq/L (5-15); Aspartate Amino Transferase 35 U/L (17-59); Bilirubin,Total 0.5 mg/dl (0.2-1.3); Blood Urea Nitrogen 11 mg/dl (9-20); Calcium 9.8 mg/dl (8.4-10.2); Carbon Dioxide 35 mmol/L (22.0-30.0); Chloride 94 mmol/L (98-107); Cholesterol 184 mg/dl (140-200); Estimated Glomerular Filt Rate 72 ml/min (>60); GFR (African American) 87 ML/MIN (>60); Globulin 3.4 g/dL (1.3-3.2); Glucose 119 mg/dl (74-100); HDL Cholesterol 46 mg/dl (40-60); Potassium 3.9 mmoL/L (3.5-5.1); Sodium 135 mmol/L (136-145); Total Protein,Serum 7.6 g/dl (6.3-8.2); Triglycerides 271 mg/dl (30-150); VLDL Cholesterol 54 mg/dL (0-40)
[2024-06-02 18:02] LABS: Direct LDL Cholesterol 94.78 mg/dL (100-129)
[2024-06-02 18:21] LABS: Prostate Specific Ag Screen < 0.1 ng/ml (0.0-4.0)
[2024-06-02 18:24] LABS: Thyroid Stimulating Hormone 1.57 uIU/mL (0.465-4.68)
== END 2024-06-02 23:59 | disposition home or self-care (01) ==
LOC: LAB.DROPOF 06-03 09:02
PROVIDERS: PCP Nurse Practitioner Family; Visit Provider Nurse Practitioner Family
DX: Z12.5 Encounter for screening for malignant neoplasm of prostate (principal); R63.4 Abnormal weight loss; I25.10 Atherosclerotic heart disease of native coronary artery without angina pectoris; R73.09 Other abnormal glucose; R11.0 Nausea; Z68.26 Body mass index [BMI] 26.0-26.9, adult; E78.49 Other hyperlipidemia
CPT/HCPCS: 80053; 80061; 83036; 84443; G0103

== ENCOUNTER 2024-06-24 14:19 | Outpatient (POV) | payer MEDICARE, OTHER, SELFPAY | END 2024-06-24 23:59 | disposition home or self-care (01) | LOC: SC 14:19 | PROVIDERS: PCP Nurse Practitioner Family; Visit Provider Dermatology | DX: Z00.00 Encounter for general adult medical examination without abnormal findings (principal) ==

== ENCOUNTER 2024-08-01 12:15 | Outpatient (CLI) | payer MEDICARE, OTHER, SELFPAY ==
[2024-08-01 12:32] LABS: Basophils # 0.1 K/mm3 (0-0.2); Basophils % 1.3 % (0.1-2.0); Eosinophils # 0.7 K/mm3 (0.0-0.4); Eosinophils % 8.5 % (0.1-12.0); Hematocrit 39.6 % (42.0-52.0); Hemoglobin 14.1 g/dL (14.1-18.0); Lymphocytes # 2.2 K/mm3 (0.7-4.5); Mean Corpuscular HGB Conc 35.5 g/dL (31.8-35.4); Mean Corpuscular Hemoglobin 31.4 pg (27.0-31.2); Mean Corpuscular Volume 88.3 fl (80-94); Mean Platelet Volume 7.2 fl (7.4-10.4); Monocytes # 0.4 K/mm3 (0.1-1.0); Monocytes % 5.2 % (1.7-9.3); Neutrophils # 4.5 K/mm3 (1.8-7.8); Neutrophils % 56.9 % (37.0-80.0); Platelet Count 257 K/mm3 (142-424); Red Blood Count 4.49 M/mm3 (4.60-6.20); Red Cell Distribution Width 13.2 % (11.5-17.5); White Blood Count 7.9 K/mm3 (4.8-10.8)
[2024-08-01 13:30] LABS: Albumin Level 4.4 g/dl (3.5-5.0)
[2024-08-01 13:32] LABS: Alanine Aminotransferase 20 U/L (12-78); Albumin/Globulin Ratio 1.5 (1.1-1.8); Alkaline Phosphatase 37 U/L (38-126); Aspartate Amino Transferase 36 U/L (17-59); Bilirubin,Total 0.7 mg/dl (0.2-1.3); Blood Urea Nitrogen 13 mg/dl (9-20); Chloride 100 mmol/L (98-107); Estimated Glomerular Filt Rate 72 ml/min (>60); GFR (African American) 87 ML/MIN (>60); Globulin 2.9 g/dL (1.3-3.2); Glucose 108 mg/dl (74-100); Potassium 4.2 mmoL/L (3.5-5.1); Sodium 139 mmol/L (136-145); Total Protein,Serum 7.3 g/dl (6.3-8.2); Uric Acid 3.7 mg/dl (3.5-8.5)
[2024-08-01 13:33] LABS: Anion Gap 8.2 mEq/L (5-15); Carbon Dioxide 35 mmol/L (22.0-30.0)
== END 2024-08-01 23:59 | disposition home or self-care (01) ==
LOC: LAB 12:16
PROVIDERS: PCP Nurse Practitioner Family; Visit Provider Nurse Practitioner Family
DX: I10 Essential (primary) hypertension (principal); R60.9 Edema, unspecified; M10.9 Gout, unspecified
CPT/HCPCS: 36415; 80053; 84550; 85025

== ENCOUNTER 2024-08-06 13:17 | Outpatient (CLI) | payer MEDICARE, OTHER, SELFPAY ==
--- NOTE | 2024-08-06 13:22 | XR_ITS ---
PROCEDURE INFORMATION: Exam: XR Cervical Spine Exam date and time: 08/06/2024 1:30 PM Age: 79 years old Clinical indication: Neck pain; Patient HX: Limited range of motion; Additional info: Cervical neck pain, unsteadiness with hyperextension TECHNIQUE: Imaging protocol: Radiologic exam of the cervical spine. Views: 4 or 5 views. COMPARISON: CT CERVICAL SPINE WO CON 07/27/2022 8:54 AM FINDINGS: Bones/joints: No acute fracture of the cervical spine. No subluxation or dislocation of the cervical spine. Intervertebral disc space narrowing C5 through C7 may represent degenerative disc disease.. Anterior osteophyte formation C5 through C7. Posterior osteophyte formation C5 through C7. Degenerative changes in the facets at multiple levels. Degenerative changes at C1/C2 Soft tissues: Unremarkable. IMPRESSION: 1. No acute fracture of the cervical spine. 2. No subluxation or dislocation of the cervical spine. 3. Intervertebral disc space narrowing C5 through C7 may represent degenerative disc disease..
== END 2024-08-06 23:59 | disposition home or self-care (01) ==
LOC: RAD 13:17
PROVIDERS: PCP Nurse Practitioner Family; Visit Provider Nurse Practitioner Family
DX: M54.2 Cervicalgia (principal); R26.81 Unsteadiness on feet
CPT/HCPCS: 72050

== ENCOUNTER 2024-08-11 08:04 | Outpatient (CLI) | payer MEDICARE, OTHER, SELFPAY ==
--- NOTE | 2024-08-11 08:04 | MR_ITS ---
PROCEDURE INFORMATION: Exam: MR Cervical Spine Without Contrast Exam date and time: 08/11/2024 8:30 AM Age: 79 years old Clinical indication: Neck pain; Additional info: Neck pain, unsteadiness with hyperextension of nec TECHNIQUE: Imaging protocol: Magnetic resonance imaging of the cervical spine without contrast. COMPARISON: CT CERVICAL SPINE WO CON 07/27/2022 8:54 AM FINDINGS: Bones/joints: Anatomic alignment. No acute fracture seen. Spinal cord: Normal signal. Disc desiccation throughout. Disc height loss and spondylosis is mild at C5-C6. Mild spondylosis elsewhere without disc height loss. No evidence of epidural hematoma. C2-C3: A subtle central disc protrusion does not contribute to central spinal canal stenosis. Mild left uncovertebral and facet arthropathy not contributing to significant central spinal canal stenosis. C3-C4: A 4-5 mm central disc protrusion abuts the ventral cord. No cord myelopathy. Central spinal canal stenosis is mild. Uncovertebral and facet arthropathy causing mild bilateral neural foraminal stenoses. C4-C5: Mild disc osteophyte complex and ligamentum flavum buckling. Central spinal canal stenosis is mild. Uncovertebral and facet arthropathy causing moderate left and mild right neural foraminal stenosis. C5-C6: Mild disc osteophyte complex and ligamentum flavum buckling. A 2 mm central disc protrusion. Central spinal canal stenosis is mild. Uncovertebral and facet arthropathy causing moderate left and mild right neural foraminal stenoses. C6-C7: A 2 mm central disc protrusion and mild ligamentum flavum buckling. The central spinal canal remains patent. Uncovertebral and facet arthropathy causing mild bilateral neural foraminal stenoses. C7-T1: Moderate left and [id number] right facet arthropathy. The central spinal canal remains patent. Mild bilateral neural foraminal stenoses. Soft tissues: No discrete full-thickness ligamentous injury identified. There is trace prevertebral fluid around C4-C5 level. A subtle partial tear or strain of the anterior longitudinal ligament is possible (or healing subacute strain/tear). Please note, if the patient has sustained a neck injury and this imaging is not performed in the acute stage, sensitivity of the study for detection of ligamentous injuries is limited. Pharynx: An 8-9 mm circumscribed T2 hyperintense lesion in the posteroinferior left vallecular space, probably a mucosal retention cyst. Vasculature: Not well assessed on this protocol. IMPRESSION: 1. Trace prevertebral edema around C4-C5 level. If there is history of trauma, a subtle ligamentous tear is possible. 2. Fglp-[id number] stenoses are detailed above.
== END 2024-08-11 23:59 | disposition home or self-care (01) ==
LOC: RAD 08:04
PROVIDERS: PCP Nurse Practitioner Family; Visit Provider Nurse Practitioner Family
DX: M54.2 Cervicalgia (principal); R26.81 Unsteadiness on feet
CPT/HCPCS: 72141

== ENCOUNTER 2024-09-02 14:00 | Outpatient (RCR) | payer MEDICARE, OTHER, SELFPAY ==
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
== END 2024-09-02 23:59 | disposition home or self-care (01) ==
LOC: PT 14:00
PROVIDERS: Visit Provider Nurse Practitioner Family
DX: M54.2 Cervicalgia (principal); R26.81 Unsteadiness on feet
CPT/HCPCS: 97014; 97110; 97140; 97163; G0283

== ENCOUNTER 2024-09-05 12:53 | Outpatient (CLI) | payer MEDICARE, OTHER, SELFPAY ==
[2024-09-05 13:07] LABS: Basophils # 0.1 K/mm3 (0-0.2); Basophils % 1.3 % (0.1-2.0); Eosinophils # 0.4 K/mm3 (0.0-0.4); Eosinophils % 6.2 % (0.1-12.0); Hemoglobin 14.2 g/dL (14.1-18.0); Lymphocytes % 31.3 % (10-50); Mean Corpuscular HGB Conc 35.5 g/dL (31.8-35.4); Mean Corpuscular Hemoglobin 31.3 pg (27.0-31.2); Mean Corpuscular Volume 88.3 fl (80-94); Mean Platelet Volume 6.6 fl (7.4-10.4); Monocytes # 0.4 K/mm3 (0.1-1.0); Monocytes % 5.6 % (1.7-9.3); Neutrophils # 3.6 K/mm3 (1.8-7.8); Neutrophils % 55.7 % (37.0-80.0); Platelet Count 252 K/mm3 (142-424); Red Blood Count 4.53 M/mm3 (4.60-6.20); Red Cell Distribution Width 13.1 % (11.5-17.5); White Blood Count 6.4 K/mm3 (4.8-10.8)
[2024-09-05 13:47] LABS: Alanine Aminotransferase 16 U/L (12-78); Albumin Level 4.5 g/dl (3.5-5.0); Albumin/Globulin Ratio 1.6 (1.1-1.8); Alkaline Phosphatase 36 U/L (38-126); Amylase 126 U/L (30-110); Anion Gap 11.5 mEq/L (5-15); Aspartate Amino Transferase 37 U/L (17-59); Bilirubin,Total 0.8 mg/dl (0.2-1.3); Blood Urea Nitrogen 9 mg/dl (9-20); Calcium 9.6 mg/dl (8.4-10.2); Carbon Dioxide 34 mmol/L (22.0-30.0); Chloride 93 mmol/L (98-107); Estimated Glomerular Filt Rate 82 ml/min (>60); GFR (African American) 99 ML/MIN (>60); Globulin 2.9 g/dL (1.3-3.2); Glucose 103 mg/dl (74-100); Lipase 539 U/L (23-300); Magnesium 1.8 mg/dl (1.6-2.3); Potassium 4.5 mmoL/L (3.5-5.1); Sodium 134 mmol/L (136-145); Total Protein,Serum 7.4 g/dl (6.3-8.2)
[2024-09-05 14:37] LABS: Vitamin B12 535 pg/mL (239-931)
== END 2024-09-05 23:59 | disposition home or self-care (01) ==
LOC: LAB.DROPOF 12:54
PROVIDERS: PCP Nurse Practitioner Family; Visit Provider Nurse Practitioner Family
DX: R63.0 Anorexia (principal); R79.89 Other specified abnormal findings of blood chemistry; E55.9 Vitamin D deficiency, unspecified; R11.2 Nausea with vomiting, unspecified; R26.89 Other abnormalities of gait and mobility
CPT/HCPCS: 80053; 82150; 82306; 82607; 83690; 83735; 85025

== ENCOUNTER 2024-09-12 08:06 | Outpatient (CLI) | payer MEDICARE, OTHER, SELFPAY ==
--- NOTE | 2024-09-12 08:08 | CT_ITS ---
FINAL REPORT TECHNIQUE: Thin section axial images were obtained through the abdomen after intravenous contrast. Reconstruction images were obtained from the axial data. Exam was performed using dose reduction techniques. CLINICAL HISTORY: Elevated lipase, nausea and vomiting x 3 weeks COMPARISON: 04/09/2024 FINDINGS: There is a 4 mm right lower lobe pulmonary nodule, unchanged from prior chest CT in April. There is fatty infiltration of the liver. The gallbladder is absent. The spleen, adrenal glands, and pancreas are unremarkable. Infrarenal abdominal aortic aneurysm measures 4.1 cm, unchanged. There is a left renal cyst. There are very small bilateral hypodense lesions which are stable but too small to characterize. Abdominal GI tract is without acute abnormality. There is no abdominal lymphadenopathy or ascites. The pelvic solid organs are unremarkable. There is a moderate amount of retained stool throughout the colon. Bilateral fat-containing inguinal hernias are identified. Radiation markers are seen in the prostate. The pelvic portions of the GI tract, including the appendix, are without acute abnormality. There is no pelvic lymphadenopathy or ascites. No acute osseous abnormalities identified. IMPRESSION: No acute abnormality in the abdomen or pelvis. Stable chronic findings. Reviewed, Interpreted and Dictated by Dunia Car MD Transcribed by Delaney Watters Authenticated and . [facility]
[2024-09-12] MEDS: SODIUM CHLORIDE 0.9% 10ML SYR (RAD ONLY) 10 ML IV (08:58)
[2024-09-12] MEDS: IOPAMIDOL-370 (76%);100ML BOTTLE 75 ML IV (08:58)
== END 2024-09-12 23:59 | disposition home or self-care (01) ==
LOC: RAD 08:08
PROVIDERS: PCP Nurse Practitioner Family; Visit Provider Nurse Practitioner Family
DX: R11.2 Nausea with vomiting, unspecified (principal); R74.8 Abnormal levels of other serum enzymes
CPT/HCPCS: 74177; Q9967

== ENCOUNTER 2024-11-20 13:51 | Outpatient (CLI) | payer MEDICARE, OTHER, SELFPAY ==
--- NOTE | 2024-11-20 13:57 | XR_ITS ---
FINAL REPORT CLINICAL HISTORY: right shoulder pain COMPARISON: None FINDINGS: RIGHT SHOULDER 2 views demonstrate no acute fracture or dislocation. The visualized joint spaces are normally aligned. The soft tissues are unremarkable. IMPRESSION: No acute bony abnormality. Reviewed, Interpreted and Dictated by Everton Berman MD Transcribed by Cheryl Cordero Authenticated and [facility]
--- NOTE | 2024-11-20 13:57 | XR_ITS ---
FINAL REPORT CLINICAL HISTORY: left shoulder pain COMPARISON: None FINDINGS: LEFT SHOULDER 2 views of the left shoulder were obtained. There is no acute fracture or dislocation. Visualized joint spaces are normally aligned. Soft tissues are unremarkable. IMPRESSION: No acute bony abnormality. Reviewed, Interpreted and Dictated by Everton Berman MD Transcribed by Cheryl Cordero Authenticated and [facility]
== END 2024-11-20 23:59 | disposition home or self-care (01) ==
LOC: RAD 13:53
PROVIDERS: PCP Nurse Practitioner Family; Visit Provider Physician Assistant
DX: M25.512 Pain in left shoulder (principal); M25.511 Pain in right shoulder
CPT/HCPCS: 73030

== ENCOUNTER 2024-12-09 08:00 | Outpatient (RCR) | payer MEDICARE, OTHER, SELFPAY ==
--- NOTE | 2024-11-28 09:03 | HMH.PTOPEV ---
PT Outpatient Evaluation Rehab PT Outpatient Evaluation Start: 11/28/24 08:45 Freq: Status: Active Protocol: Document 11/28/24 08:45 EMMANUEL (Rec: 11/28/24 09:03 EMMANUEL [id number]) E-signed By Addi Samuel, PT Outpatient Therapy Subjective History Subjective History Pt is a 79 yom who is referred to [facility] outpatient Physical Therapy with complaints of neck pain, mid-low back pain and balance issues. The pt reports that he has been having neck and back pain for 10-15 years, which has not changed much in that time frame. He reports that his neck pain is mostly an ache and his neck feels stiff into almost all directions. He reports that his back pain is the worst when he straightens up. He reports that he is only able to stand for a couple of minutes at a time before he is required to sit down due to the pain. He reports that he is incapable of lying on his back. He also reports that his balance has gotten significantly worse in the past year. He reports that he has had 7 falls in the past 2 months. He reports that he sometimes uses a cane for mobility. Medical History: Major depressive disorder, Encounter for pre-operative cardiovascular clearance, Dyspnea, Atypical angina, HLD (hyperlipidemia), HHD ( hypertensive heart disease), CAD (coronary artery disease), AAA (abdominal aortic aneurysm), lumbar decompression surgery in 2019 New diagnosis of cancer in past 12 No months? Chief Complaint Pain,Weakness Symptom Type Ache Symptoms Relieved By Heat,OTC Meds,Prescription Meds Symptoms Aggravated By Supine,Standing,Walking Prior Functional Limitations None Current Functional Limitations Lifting,Housework,Dressing, Driving,Sleeping,Standing, Sitting,Squatting,Walking, Stairs,Balance Symptom Description Constant but Variable Level of pain today (0-10) 1 Pain scale - at its best (0-10) 1 Pain scale - at its worst (0-10) 6 Cervical Eval Palpation Cervical Muscles R Cervical Paraspinal,L Cervical Paraspinal,R Upper Trapezius,L Upper Trapezius Posture Head/C-Spine Posture Sitting Position Neutral Position Head/C-Spine Posture Standing Position Neutral Position Flexibility Deficits Upper Trapezius Muscle Length (R) Moderate Tightness,(L) Moderate Tightness AROM Cervical Spine Extension Active Range of 30 Motion (degrees) Cervical Spine Flexion Active Range of 15 Motion (degrees) Cervical Spine Right Lateral Flexion 15 Active Range of Motion (degrees) Cervical Spine Left Lateral Flexion 25 Active Range of Motion (degrees) MMT Bilateral Deltoid (C5) 2+ Poor+ Biceps Brachii Strength Grade 4 Good Wrist Extension Strength Grade 4 Good Triceps Brachii Strength Grade 4 Good Wrist Flexion Strength Grade 5 Normal Extensor Pollicis Longus Strength Grade 5 Normal Finger Abduction Strength Grade 5 Normal DTR Rt Biceps 2+ Lt Biceps 2+ Rt Brachioradialis 2+ Lt Brachioradialis 2+ Rt Triceps 1+ Lt Triceps 1+ Special Test C-Spine Foraminal Compression ([place]) Negative Left,Negative Right Test C-spine Verterbral Accessory Movements Central P/A [place] that Elicit Symptoms Lumbopelvic Eval Posture Thoracic Spine Posture Standing Position Increased Kyphosis Lumbar Spine Posture Standing Position Flattened Assistive device Assistive Devices None / NA Palapation tenderness bilateral lumbar spinal tenderness Yes: 3/4 to with central PAs to L1-L3 Accessory Movement L-spine Vertebrae Accessory Movements Central P/A [place] that Elicit Symptoms L2 bilateral L3 bilateral L4 bilateral Manual Muscle Test Bilateral Knee Extension Strength Grade 4 Good Knee Flexion Strength Grade 4 Good Hip Flexion Strength Grade 2+ Poor+ Hip Abduction Strength Grade 2+ Poor+ Hip Adduction Strength Grade 2+ Poor+ Hip Extension Strength Grade 3- Fair- Ankle Dorsiflexion Strength Grade 5 Normal DTR Rt Patellar 2+ Lt Patellar 2+ Rt Gastroc/Soleus 1+ Lt Gastroc/Soleus 1+ Dynamic Gait Index Test Protocol Gait Level Surface Moderate Impairement Query Text: Instructions: Walk at your normal speed from here to the next susanne (20'). Grading: Susanne the lowest category that applies. Change in Gait Speed Moderate Impairment Query Text: Instructions: Begin walking at your normal pace (for 5'), when I tell you go , walk as fast as you can (for 5'). When I tell you slow , walk as slowly as you can (for 5'). Grading: Susanne the lowest category that applies. Gait with Horizontal Head Turns Moderate Impairment Query Text: Instructions: Begin walking at your normal pace. When I tell you to look right , keep walking straight, but turn you head to the right. Keep looking to the right unit I tell you look left , then keep walking straight and turn your head to the left. Keep your head to the left until I tell you look straight , then keep walking straight, but return you head to the center. Grading: Susanne the lowest category that applies. Gait with Vertical Head Turns Moderate Impairment Query Text: Instructions: Begin walking at your normal pace. When I tell you to look up , keep walking staight, but tip your head up. Keep looking up until I tell you to look down , then keep walking straight and tip your head down. Keep your head down until I tell you look straight , then keep walking straight, but return your head to the center. Grading: Susanne the lowest category that applies. Gait and Pivot Turn Moderate Impairment Query Text: Instructions: Begin walking at your normal pace. When I tell you turn and stop , turn as quickly as you can to face the opposite direction and stop. Grading: Susanne the lowest category that applies. Step Over Obstacle Moderate Impairment Query Text: Instructions: Begin walking at your normal speed. When you come to the shoebox, step over it, not around it and keep walking. Grading: Susanne the lowest category that applies. Step Around Obstacles Mild Impairment Query Text: Instructions: Begin walking at normal speed. When you come to the first cone (about 6' away), walk around the right side of it. When you come to the second cone (6' past first cone), walk around it to the left. Grading: Susanne the lowest category that applies. Steps Moderate Impairment Query Text: Instructions: Walk up these stairs as you would at home. At the top, turn around and walk down. Grading: Susanne the lowest category that applies. Scoring Dynamic Gait Index Score 9 Neck Disability Index Neck Disability Index Section 1: Pain Intensity The pain is moderate at the moment Section 2: Personal Care (washing, I can look after myself dressing, etc.) normally without causing extra pain Section 3: Lifting I cannot lift or carry anything Section 4: Reading I can read as much as I want to with no pain in my neck Section 5: Headaches I have moderate headaches, which come infrequently Section 6: Concentration I can concentrate fully when I want to with slight difficulty Section 7: Work I cannot do my usual work Section 8: Driving I can drive my car without any neck pain Section 9: Sleeping My sleep is greatly disturbed (3-5 hrs sleepless) Section 10: Recreation I can hardly do any recreation activities because of pain in my neck NDI Score 21 Miscellaneous Dx PT Eval Objective Objective TUs Outpatient Therapy Assessment Impairments Problems/Impairmments Palpation Tenderness,Impaired Range of Motion,Impaired Strength,Impaired Gait Pattern ,Impaired Walking,Impaired Standing,Impaired Lifting, Impaired Household Care, Impaired Squatting,Impaired Balance,Impaired DGI Score, Impaired TUG Time,Subjective C /O Pain Prognosis Rehab Potential Fair Comment w HEP compliance Clinical Impression Consistent with Diagnosis Yes Consistent with General Weakness Additional details: The pt presents with both neck and low back pain, presently. However, the pt is a significant fall risk at this time, evidenced by above TUG time, DGI score, LE strength and reported falls. The pt would benefit from skilled PT to address his above impairments, prevent further falls/injury and to return to his PLOF. Short Term Goals Number of Weeks 4 Decreased Palpation Tenderness Yes: 1-2/4 to TTP assessment above Increase Range of Motion Yes: 50-75% WNL of active CROM Increase Strength Yes: 4/5 to B shoulders Increase Ability to Stand Yes: 10 minutes without increasing pain Increase DGI Score Yes: to 14 Improve Neck Disability Index Score Yes: to 16 Decrease TUG Time Yes: 18s Decrease Subjective C/O Pain Yes: 3-10 with above activities Patient to be Ind w/ HEP Yes Tow Motor Mechanic Goals Number of Weeks 8 Decreased Palpation Tenderness Yes: 0-1/4 to TTP assessment above Increase Range of Motion Yes: 75-100% WNL active CROM Increase Strength Yes: 4/5 to B hips/knees Increase Ability to Stand Yes: 20 minutes without increasing pain Increase DGI Score Yes: to 19 Improve Neck Disability Index Score Yes: to 11 Decrease TUG Time Yes: 14s Decrease Subjective C/O Pain Yes: 1-11/24 with above activities Patient to be Ind w/ Advanced HEP Yes Outpatient Therapy Plan of Care Treatment Plan May Include Therapeutic Exercise Including Home Yes Exercise Program Manual Therapy Techniques Yes Neuromuscular Re-education Yes Therapeutic Activities to Return to Yes Previous Functional/Work Level Gait Training Yes ADL/Self Care Education Yes Mechanical Traction Yes Dry Needling Yes Thermal Modalities Yes Electrical Stimulation Yes Ultrasound/Phonophoresis Yes Manual Lymphatic Drainage Yes Eval/Re-Eval Yes Frequency Times per week 2 Duration Number of Weeks 8 Addendums This patient is a candidate for social No or vocational rehab? Patient/Guardian verbally acknowledges Yes understanding of treatment program and consents to further treatment? Patient/Guardian verbally acknowledges Yes understanding of diagnosis, prognosis and goals for treatment? Eval Complexity PT Charges 32932 - High Complexity Shoulder/Elbow Eval Shoulder Objective Measurements Elbow Objective Measurements PHYSICIAN CERTIFICATION: I certify the specified therapy services for Jurgen Stephens are required, authorized, and reviewed every 30 days.
== END 2024-12-09 23:59 | disposition home or self-care (01) ==
LOC: PT 08:00
PROVIDERS: PCP Nurse Practitioner Family; Visit Provider Nurse Practitioner Family
DX: M19.071 Primary osteoarthritis, right ankle and foot (principal); M47.22 Other spondylosis with radiculopathy, cervical region; M51.369 Other intervertebral disc degeneration, lumbar region without mention of lumbar back pain or lower extremity pain; R26.81 Unsteadiness on feet
CPT/HCPCS: 97110; 97163; 97530

== ENCOUNTER 2024-12-18 09:00 | Outpatient (RCR) | payer MEDICARE, OTHER, SELFPAY | END 2024-12-18 23:59 | disposition home or self-care (01) | LOC: PT 09:00 | PROVIDERS: PCP Nurse Practitioner Family; Visit Provider Nurse Practitioner Family | DX: R26.81 Unsteadiness on feet (principal); M51.369 Other intervertebral disc degeneration, lumbar region without mention of lumbar back pain or lower extremity pain; M19.071 Primary osteoarthritis, right ankle and foot; M47.22 Other spondylosis with radiculopathy, cervical region | CPT/HCPCS: 97110; 97530 ==

== ENCOUNTER 2024-12-24 06:24 | Outpatient (CLI) | payer MEDICARE, OTHER, SELFPAY ==
--- NOTE | 2024-12-24 | CA_ITS ---
APPROVED REPORT Exam: Pharmacologic Technologist: Jocelyn Loyola Ht: 5 ft 9 in Wt: 176 lbs BSA: 1.96 m2 HR: 52 bpm BP: 192/92 mmHg Medical History Medical History: HTN, Hyperlipidemia, Smoking Medications: Aspirin, Carvedilol, Vit D3, Clopidogrel, Coenzyme Q10, Lisinopril, Lisinopril-Hydrochlorothiazide, Multivitamin, Ondansetron, Rosuvastatin Allergies: Prednisone, Azithromycin, NSAIDS, Nabumetone, Indomethacin Cardiac Risk Factors: HTN, Hyperlipidemia, Smoking Stress Test Details Test: Lexiscan HR Resting HR: 52 bpm Max Heart Rate (APMHR): 142 bpm Target HR (85% APMHR): 121 bpm Recovery HR: 66 bpm BP Resting BP: 192.0/92.0 mmHg Max BP: 192.0/92.0 mmHg Recovery BP: 129.0/84.0 mmHg ECG Stress ECG Conclusion Pt had chest pressure and nausea Occasional PAC, PVC EKG non diagnostic - Lexiscan Electronically signed by : Piper Qureshi MD 12/28/2024 20:49:19
--- NOTE | 2024-12-24 06:28 | NM_ITS ---
APPROVED REPORT Exam: Nuclear Stress Test Indication: cad, htn, hyperlipidemia, fm hx., fatigue, abn. ekg Patient Location: Outpatient Stress Tech: Jocelyn Loyola ME Tech:Carie Alberto OMARI RT (R)(N)(M) Ht: 5 ft 7 in Wt: 170 lbs HR: 52 bpm BP: 192/96 mmHg BSA: 1.89 m2 TID: 1.16 BMI: 26.6 History: cad, htn, hyperlipidemia, fm hx., fatigue, abn. ekg Patient could not lay on stomach for prone images. Procedure: Patient received 0.4 mg of intravenous Lexiscan, resting heart rate 52 bpm, resting blood pressure 192/96 mmHg, with Lexiscan maximum heart rate achieved was 64 bpm which is % of the maximum predicted heart rate and blood pressure was 123/65 mmHg. Patient had chest pressure with lexiscan. Cardiac Stress and Resting SPECT Images: Cardiac Stress and Resting SPECT images were obtained using technetium 99m Myoview 31.2 mCi stress and 10.39 mCi at rest. The patient was unable to lie on his abdomen. Therefore, prone stress imaging could not be performed. This may affect the diagnostic interpretation of the study findings. Resting and stress imaging in supine positions demonstrate a medium sized, moderate, partially reversible perfusion defect in the basal inferior and inferolateral LV wall. Gated imaging demonstrates normal global LV systolic function. There is mild hypokinesis of the basal inferior LV wall. LVEF is calculated at 57%. Conclusion: Medium sized, moderate, partially reversible perfusion defect in the basal inferior and inferolateral LV wall. Findings are suggestive of partial reversible ischemia. Gated imaging demonstrates normal global LV systolic function. There is mild hypokinesis of the basal inferior LV wall. LVEF is calculated at 57%. Electronically signed by : Piper Qureshi MD 12/28/2024 19:27:21
[2024-12-24] MEDS: SODIUM CHLORIDE 0.9% 10ML SYR (RAD ONLY) 10 ML IV ×2 (06:40→08:30)
--- NOTE | 2024-12-24 07:48 | CA_ITS ---
FINAL REPORT TECHNIQUE: Color Doppler, duplex Doppler and leal scale sonography of the bilateral neck vasculature was performed. Velocities were measured in the carotid arteries. Stenosis evaluation based on velocity criteria. CLINICAL HISTORY: FARIHA Hx- Left CEA COMPARISON: 02/06/2023 FINDINGS: The peak systolic velocity of the right common carotid artery is 40 cm/sec and internal carotid artery 113 cm/sec. The diastolic velocity in the internal carotid artery is 29 cm/sec. The ICA/CCA ratio is 3.4. Visually, a moderate amount of plaque is seen. These findings are consistent with less than 50% stenosis. The external carotid artery is patent. The right vertebral artery is patent with antegrade flow. The peak systolic velocity of the left common carotid artery is 57 cm/sec and internal carotid artery 100 cm/sec. The diastolic velocity in the internal carotid artery is 29 cm/sec. The ICA/CCA ratio is 1.7. Visually, no significant plaque is seen. These findings are consistent with less than 50% stenosis. The external carotid artery is patent. The left vertebral artery is patent with antegrade flow. IMPRESSION: No evidence of significant carotid stenosis. Bilateral patent vertebral arteries. If indicated, CTA or MRA could further evaluate. Reviewed, Interpreted and Dictated by Everton Berman MD Transcribed by Sonya Barker Authenticated and [facility]
[2024-12-24] MEDS: REGADENOSON 0.4MG/5ML SYRINGE 0.4 MG IV (08:30)
[2024-12-24] MEDS: ISOTOPE MYOVIEW (PER STUDY) 1 DOSE IV (09:58)
== END 2024-12-24 23:59 | disposition home or self-care (01) ==
LOC: RAD 06:25
PROVIDERS: PCP Nurse Practitioner Family; Visit Provider Physician Assistant
DX: R94.31 Abnormal electrocardiogram [ECG] [EKG] (principal); I10 Essential (primary) hypertension; I71.43 Infrarenal abdominal aortic aneurysm, without rupture; I65.23 Occlusion and stenosis of bilateral carotid arteries; I11.9 Hypertensive heart disease without heart failure; I25.10 Atherosclerotic heart disease of native coronary artery without angina pectoris
CPT/HCPCS: 78452; 93017; 93018; 93880; A9502; J2785

== ENCOUNTER 2025-01-01 08:26 | Day surgery (SDC) | payer MEDICARE, OTHER, SELFPAY ==
[2024-12-31 15:52] VITALS: BMI 26.6
[2025-01-01 09:21] VITALS: BP 174/92; PULSE 52; RESP 18; TEMP 36.1; O2SAT 98
[2025-01-01] MEDS: LACTATED RINGERS 1000ML 1,000 ML 50 ML IV (09:39)
--- NOTE | 2025-01-01 09:43 | EXP.ANES.CKL ---
[facility] Disclaimer: The information contained in this section may have been updated after the patient was seen, as this information can be updated by other users. Medical History Infrarenal abdominal aortic aneurysm (AAA) without rupture Weight loss, unintentional No appetite Major depressive disorder Encounter for pre-operative cardiovascular clearance Dyspnea Atypical angina HLD (hyperlipidemia) HHD (hypertensive heart disease) CAD (coronary artery disease) AAA (abdominal aortic aneurysm) Surgical History H/O carotid endarterectomy Hx of cardiac cath S/P CABG x 2 History of cholecystectomy Family History Other No significant family history Social History Smoking Status: Former smoker alcohol intake: never substance use type: denies use current occupational status: retired Travel in the last 8 weeks: None housing: other current occupational exposures/hazards: No caffeine: Yes Have you lived/traveled outside [place] in past 30 days?: No Contact w/someone who lives/traveled outside [place] past 30 days?: No Exposure to someone with infectious disease in past 14 days?: No Do you have a fever (greater than 100.4 F or 38 C)?: No Have you tested positive for COVID-19: No Exposed to someone with COVID-19 in past 14 days?: No Do you have a sore throat?: No Do you have a cough?: No Do you have any weakness?: No Do you have any diarrhea?: No Are you experiencing any unusual bleeding?: No Do you have any muscle aches/pain?: No Do you have any abdominal pain?: No Are you experiencing loss of taste or smell?: No [facility] Anesthesia Checklist Patient Identification Patient Identification: Arm Band Structural Data Admitted From: Home Planned Operative Procedure/s: EGD Consent for Planned Operative Procedure(s) Verified: Yes Verified Documents: Surgical Consent and History and Physical NPO Status Verified Time NPO: 00:00 Additional verifications Anesthesia Reactions: No Hx Blood Transfusions: No Blood Transfusion Reaction: No Airway Assessment Mallampati Score:: Class II C-Spine Mobility Assessed: Yes TMJ Mobility Assessed: Yes Dentition: Good Dentition Neurological Assessment Level of Consciousness: Awake, Alert and Appropriate Anesthesia Plan Anesthesia Risk discussed: Yes Anesthesia Plan: Verified ASA Class: III Anesthesia Type: MAC
--- NOTE | 2025-01-01 09:55 | EXP.HP ---
History of Present Illness *Admission Date: 01/01/25 *Reason for visit:: Intractable constipation/30 pound weight loss *History of present illness: Mr. Stephens is a 79-year-old gentleman who is here for diagnostic colonoscopy secondary to intractable constipation requiring manual disimpaction at least once. He also has had nausea, loss of appetite and weight loss. The examination is deemed medically necessary for diagnostic colonoscopy. The patient has been seen, interviewed and examined prior to the procedure by both myself and the anesthesia provider. [facility] Disclaimer: The information contained in this section may have been updated after the patient was seen, as this information can be updated by other users. Medical History Infrarenal abdominal aortic aneurysm (AAA) without rupture Weight loss, unintentional No appetite Major depressive disorder Encounter for pre-operative cardiovascular clearance Dyspnea Atypical angina HLD (hyperlipidemia) HHD (hypertensive heart disease) CAD (coronary artery disease) AAA (abdominal aortic aneurysm) Surgical History H/O carotid endarterectomy Hx of cardiac cath S/P CABG x 2 History of cholecystectomy Family History Other No significant family history Social History Smoking Status: Former smoker alcohol intake: never substance use type: denies use current occupational status: retired Travel in the last 8 weeks: None housing: other current occupational exposures/hazards: No caffeine: Yes Have you lived/traveled outside [place] in past 30 days?: No Contact w/someone who lives/traveled outside [place] past 30 days?: No Exposure to someone with infectious disease in past 14 days?: No Do you have a fever (greater than 100.4 F or 38 C)?: No Have you tested positive for COVID-19: No Exposed to someone with COVID-19 in past 14 days?: No Do you have a sore throat?: No Do you have a cough?: No Do you have any weakness?: No Do you have any diarrhea?: No Are you experiencing any unusual bleeding?: No Do you have any muscle aches/pain?: No Do you have any abdominal pain?: No Are you experiencing loss of taste or smell?: No Other Medical History Have you received the Flu Vaccine for this season: Yes Have you received the Pneumonia Vaccine: No Review of Systems Review of Systems Review of systems (narrative): Negative *Cardiovascular Comments: Negative *Gastrointestinal Comments: Negative *Genitourinary Comments: Negative *Musculoskeletal Comments: Negative *Neurologic Comments: Negative Meds Home Medications and Allergies Home Medications ?Medication ?Instructions ?Recorded ?Confirmed ?Type aspirin 81 mg tablet 81 mg PO DAILY 03/27/24 12/29/24 History cholecalciferol (vitamin D3) 50 50 mcg PO DAILY 03/27/24 12/29/24 History mcg (2,000 unit) tablet clopidogrel 75 mg tablet 75 mg PO DAILY 03/27/24 12/29/24 History coenzyme Q10 400 mg capsule 400 mg PO DAILY 03/27/24 12/29/24 History rosuvastatin 20 mg tablet 20 mg PO DAILY 03/27/24 12/29/24 History lisinopril 10 mg tablet 10 mg PO HS #90 tabs 07/08/24 12/29/24 Rx multivitamin 1 tab PO DAILY 11/17/24 12/29/24 History carvedilol 12.5 mg tablet 12.5 mg PO BID #180 tabs 12/02/24 12/29/24 Rx lisinopril 20 See Rx Instructions .Route 12/15/24 12/29/24 Rx mg-hydrochlorothiazide 12.5 mg .COMPLEX #180 tabs tablet dicyclomine 20 mg tablet 20 mg PO TID PRN abdominal 12/26/24 12/29/24 Rx pain/cramps #30 tabs ondansetron 4 mg disintegrating 8 mg (2 x 4 mg) PO Q8H PRN nausea 12/26/24 12/29/24 Rx tablet and vomiting #30 tabs New Prescriptions to Start Prescriptions: Allergies Allergy/AdvReac Type Severity Reaction Status Date / Time prednisone Allergy Intermediate I-RASH Verified 01/01/25 09:17 azithromycin (AZITHROMYCIN) Allergy Unknown Rash Verified 01/01/25 09:17 NSAIDS (Non-Steroidal Allergy Unknown Rash Verified 01/01/25 09:17 Anti-Inflamma (NSAIDS (NON-STEROIDAL ANTI-INFLAMMA) nabumetone AdvReac Intermediate IRREGULAR Verified 01/01/25 09:17 HEART BEAT indomethacin AdvReac Mild DIZZINESS Verified 01/01/25 09:17 Exam Data for Last 24 hours Vital signs and Labs for Last 24 Hours: Temp Pulse Resp BP Pulse Ox O2 Del Method 97.0 F L 52 L 18 174/92 H 98 Room Air 01/01/25 09:21 01/01/25 09:21 01/01/25 09:21 01/01/25 09:21 01/01/25 09:21 01/01/25 09:21 I & O for Last 24 hours: Intake & Output 12/29/24 12/30/24 12/31/24 01/01/25 23:59 23:59 23:59 23:59 Weight 170 lb *Routine HEENT Exam Head: Present normocephalic Eye: Present EOMI and PERRL ENT: Present mucous membranes moist *Routine Neck Exam Neck: Present supple *Routine Respiratory Exam Respiratory: Present CTA bilaterally *Routine Cardiovascular Exam Cardiovascular: Present RRR *Routine Abdominal Exam Abdominal: Present soft and normoactive bowel sounds; Absent tenderness *Routine Rectal Exam Rectal:: deferred *Routine Genitalia Exam Genitalia:: deferred *Routine Extremities Exam Extremities: Absent cyanosis, clubbing or edema *Routine Skin Exam Skin: Present warm; Absent rash *Routine Neurological Exam Neurological: Present alert and oriented X3 Assessment and Plan *Assessment and plan (1) Weight loss: Status: Acute Category: Medical Code(s): R63.4 - Abnormal weight loss (2) Constipation: Status: Acute Category: Medical Code(s): K59.00 - Constipation, unspecified (3) Change in bowel habits: Status: Acute Category: Medical Code(s): R19.4 - Change in bowel habit Plan A/P: 1. Change in bowel habits with intractable constipation and weight loss is the preprocedural diagnosis. The patient will be anesthetized/sedated using MAC sedation. The patient has been seen and examined. Cardiac and lung assessment prior to the examination is stable. Proceed with planned diagnostic colonoscopy
[2025-01-01 10:05] VITALS: O2SAT 100
--- NOTE | 2025-01-01 10:20 | HMH.PROCNOTE ---
[facility] Procedure Note Date: 01/01/25 Time: 10:20 Procedure Note:: Upper Endoscopy Procedure Report: Esophagogastroduodenoscopy with cold biopsies Endoscopost: Mark Cee II, MD Referring Physician: YAN Conteh Date of Procedure: January 01, 2025 Equipment: Olympus GIF 190 standard upper endoscope Sedation: MAC sedation Indications: Mr. Stephens is a 79-year-old gentleman who is here for diagnostic upper endoscopy secondary to loss of appetite, nausea and 30 pound weight loss. He has lost energy. He has been struggling with constipation for the last few months and has had to manually disimpact himself. He was using Metamucil and Colace but nothing was helping. He has improved with the addition of MiraLAX to Metamucil. He did have a colonoscopy with dc in 2016 and had 6 polyps removed. He had a repeat colonoscopy in [place] in 2021 and no polyps were identified. He did have a CAT scan of the abdomen and pelvis in August with fecal retention but no other abnormalities. The patient did have an elevated lipase level of 539 but no findings of pancreatitis on imaging. He is not having any significant abdominal pain. He reports no bloating, gassiness, belching or early satiety. He reports no dysphagia. His last EGD was more than 10 years ago. Procedure: Prior to the procedure, a history and physical exam was performed, and patient's medications and allergies were reviewed. The risks, benefits and alternatives of the sedation and procedure were discussed with the patient. All questions were answered and informed consent was obtained. The patient was brought to the procedure room. Patient identification and proposed procedure were verified by the physician and the nurse. The patient was placed in a left lateral decubitus position and the scope was passed under direct vision. Throughout the procedure, the patient's blood pressure, pulse, and oxygen saturations were monitored continuously. The upper GI endoscopy was accomplished without difficulty. The patient tolerated the procedure well. Findings: The scope was passed directly into the upper esophagus and advanced to the third portion of the duodenum. The post bulbar duodenum, ampulla and duodenal bulb were normal with normal mucosa and conniventes. The scope was withdrawn through a normal duodenal bulb and pylorus into the stomach. There was some linear gastropathy with erosion of the antrum. There was mild atrophy of the body and fundus. Biopsies were taken from the antrum and body of the stomach. Upon retroflexion there was a small 2 cm hiatal hernia. The scope was then withdrawn into the esophagus. There was no evidence of reflux esophagitis or Singh's. The remainder of the esophageal mucosa was normal. Impression: 1. Mild linear gastropathy of prepyloric antrum 2. Mild gastric atrophy 3. Small sliding 2 cm hiatal hernia Plan: I will follow-up the biopsies. Given his marked weight loss, I would consider an interval imaging study/CAT scan of the abdomen pelvis especially with his prior mild escalation of pancreatic enzymes/lipase. We will discuss additional treatment options and possibly even an appetite stimulant.
[2025-01-01 10:23] VITALS: BP 164/80; PULSE 57; RESP 16; TEMP 36.1; O2SAT 99
[2025-01-01 10:33] VITALS: BP 140/76; PULSE 56; RESP 18; O2SAT 98
[2025-01-01 10:43] VITALS: BP 140/84; PULSE 56; RESP 18; O2SAT 99
[2025-01-01 10:53] VITALS: BP 164/67; PULSE 57; RESP 18; O2SAT 99
== END 2025-01-01 11:00 | disposition home or self-care (01) ==
PROVIDERS: PCP Nurse Practitioner Family; Visit Provider Internal Medicine Gastroenterology
PROC: 0DJ08ZZ Inspection of Upper Intestinal Tract, Via Natural or Artificial Opening Endoscopic (ICD-10-PCS; CPT 43239; principal; 2025-01-01 10:00)
DX: K31.9 Disease of stomach and duodenum, unspecified (principal); K44.9 Diaphragmatic hernia without obstruction or gangrene; K29.40 Chronic atrophic gastritis without bleeding; R63.4 Abnormal weight loss; K59.00 Constipation, unspecified; Z86.0100 Personal history of colon polyps, unspecified
CPT/HCPCS: 43239; J7120

== ENCOUNTER 2025-01-20 08:01 | Day surgery (SDC) | payer MEDICARE, OTHER, SELFPAY ==
[2025-01-20] VITALS (18 sets, daily range): BP systolic 142–202; BP diastolic 45–100; PULSE 57–80; RESP 16–18; O2SAT 90–98; BMI 25.8
--- NOTE | 2025-01-20 07:05 | IR_ITS ---
APPROVED REPORT Patient Location: Outpatient PROCEDURES Left heart catheterization Left ventriculogram Selective coronary angiogram Left internal mammary angiography Selective engagement of the saphenous vein graft to the right coronary artery Bilateral selective renal angiography INDICATION Coronary artery disease, History of coronary bypass surgery, Abnormal Myoview, Worsening angina pectoris, Suspected renal artery stenosis with poorly controlled hypertension, Renovascular hypertension Informed consent was obtained prior to the procedure. COMPLICATIONS NONE Estimated Blood Loss: LESS THAN 10 ML TECHNIQUE One percent lidocaine used to anesthetize the right groin. The right femoral artery was accessed via the Seldinger technique and a 5 Yakut sheath was placed in the right femoral artery. A JL 4, JR4 catheter were used to perform left heart catheterization, left ventriculogram selective coronary angiography as well as selective engagement of the solitary vein graft supplying the right coronary artery and the left internal mammary artery. Because of patient's poorly controlled blood pressure and angina with Martha vascular disease the JR4 catheter was used to perform bilateral selective renal angiography at the end of the procedure the patient was transferred to the postop holding area in stable condition for sheath removal. ANGIOGRAPHIC RESULTS The left main artery Normal The left anterior descending artery Is proximally patent with a 30% stenosis and gives rise to a medium sized first diagonal artery which has diffuse proximal and mid vessel 50 and 70% stenoses. The vessel is less than 2 mm in diameter. The LAD is then occluded after septal strategic communications manager The circumflex artery Small nondominant and proximally subtotally occluded The right coronary artery Proximally occluded The LIMON ventriculogram reveals Normal 65% The left ventricular end-diastolic pressure 10 mmHg CHAUHAN to LAD patent Saphenous to large posterior descending artery patent Left renal artery singular has a proximal 30% concentric stenosis Right renal artery singular normal IMPRESSION Coronary artery disease as described above Poorly controlled hypertension which is likely contributing to patient's angina Normal ejection fraction Normal LVEDP Nonflow limiting left renal artery stenosis PLAN 1. Recommend tighter control of hypertension 2. Risk factor modification 3. Maximize antianginal medications Electronically signed by : Jonah Cabello MD 01/20/2025 13:20:40
[2025-01-20 08:37] LABS: Basophils # 0.1 K/mm3 (0-0.2); Basophils % 0.7 % (0.1-2.0); Eosinophils # 0.5 K/mm3 (0.0-0.4); Eosinophils % 7.1 % (0.1-12.0); Hematocrit 40.9 % (42.0-52.0); Hemoglobin 14.6 g/dL (14.1-18.0); Lymphocytes # 2.4 K/mm3 (0.7-4.5); Lymphocytes % 34.1 % (10-50); Mean Corpuscular HGB Conc 35.7 g/dL (31.8-35.4); Mean Corpuscular Hemoglobin 31.4 pg (27.0-31.2); Mean Platelet Volume 8.3 fl (7.4-10.4); Monocytes # 0.5 K/mm3 (0.1-1.0); Monocytes % 6.8 % (1.7-9.3); Neutrophils # 3.6 K/mm3 (1.8-7.8); Neutrophils % 51.2 % (37.0-80.0); Platelet Count 229 K/mm3 (142-424); Red Blood Count 4.65 M/mm3 (4.60-6.20); Red Cell Distribution Width 12.2 % (11.5-17.5)
[2025-01-20 09:17] LABS: Chloride 92 mmol/L (98-107); Potassium 3.7 mmoL/L (3.5-5.1); Sodium 134 mmol/L (136-145)
[2025-01-20 09:19] LABS: Blood Urea Nitrogen 9 mg/dl (9-20); Creatinine Clearance Estimated 68 mL/min (50-200); Estimated Glomerular Filt Rate 82 ml/min (>60); GFR (African American) 99 ML/MIN (>60)
[2025-01-20 09:20] LABS: Anion Gap 11.7 mEq/L (5-15); Calcium 9.5 mg/dl (8.4-10.2); Carbon Dioxide 34 mmol/L (22.0-30.0); Glucose 128 mg/dl (74-100)
[2025-01-20] MEDS: diphenhydrAMINE 50MG/ML VIAL 50 MG IV (10:39)
[2025-01-20] MEDS: LIDOCAINE 1% 10ML MDV 20 ML IJ (10:40)
[2025-01-20] MEDS: HEPARIN 1,000 UNITS/500ML NS (CATH LAB) 3000 UNIT IV (10:40)
[2025-01-20] MEDS: 0.9 % SODIUM CHLORIDE 500 ML 25 ML IV (10:40)
[2025-01-20] MEDS: FENTANYL 100MCG/2ML VIAL 50 MCG IV (11:01)
[2025-01-20] MEDS: MIDAZOLAM HCL 1MG/ML 5ML VIAL 1 MG IV (11:01)
[2025-01-20] MEDS: LABETALOL 20MG/4ML SYRINGE 20 MG IV (11:03)
[2025-01-20] MEDS: IOPAMIDOL-370 (76%);100ML BOTTLE 60 ML IV (13:53)
== END 2025-01-20 14:25 | disposition home or self-care (01) ==
LOC: CATHLAB 08:02
PROVIDERS: PCP Nurse Practitioner Family; Visit Provider Internal Medicine
DX: I25.118 Atherosclerotic heart disease of native coronary artery with other forms of angina pectoris (principal); R94.39 Abnormal result of other cardiovascular function study; R94.31 Abnormal electrocardiogram [ECG] [EKG]; R07.89 Other chest pain; E78.5 Hyperlipidemia, unspecified; I10 Essential (primary) hypertension; Z95.1 Presence of aortocoronary bypass graft; I70.1 Atherosclerosis of renal artery; I15.0 Renovascular hypertension; Z87.891 Personal history of nicotine dependence; I71.40 Abdominal aortic aneurysm, without rupture, unspecified; I65.23 Occlusion and stenosis of bilateral carotid arteries; Z79.899 Other long term (current) drug therapy
CPT/HCPCS: 36252; 80048; 85025; 93459; 99152; C1725; C1769; C1894; J1200; J1644; J1920; J3010; Q9967

== ENCOUNTER 2025-02-11 08:53 | Emergency (ER) | payer MEDICARE, OTHER, SELFPAY ==
[2025-02-11 08:58] VITALS: BP 129/77; PULSE 63; O2SAT 98
[2025-02-11 09:00] VITALS: BP 137/83; PULSE 62; O2SAT 98
[2025-02-11 09:03] VITALS: BP 129/77; PULSE 61; RESP 18; TEMP 36.6; O2SAT 98; BMI 25.9
--- NOTE | 2025-02-11 09:14 | XR_ITS ---
FINAL REPORT CLINICAL HISTORY: Fall, posteromedial chest wall pain with swelling Fall Sunday, c/o posterior right sided pain COMPARISON: None FINDINGS: RIGHT RIBS WITH CHEST A single PA view of the chest and three views of the right ribs were obtained. The heart is within normal limits. Multiple median sternotomy wires are noted. The lungs are clear. There is no pneumothorax. There is no acute displaced rib fracture. IMPRESSION: No acute cardiopulmonary process. No displaced rib fracture with no pneumothorax Reviewed, Interpreted and Dictated by Everton Berman MD Transcribed by Cheryl Cordero Authenticated and [facility]
--- NOTE | 2025-02-11 09:17 | ED_ITS ---
Discharge Plan Disposition Patient Disposition: Home, Self-Care Prescriptions Prescriptions: No Action carvedilol 12.5 mg tablet 12.5 mg PO BID Qty: 180 3RF multivitamin Tablet 1 tab PO DAILY lisinopril-hydrochlorothiazide 20-12.5 mg tablet 1 tab PO DAILY omeprazole 40 mg capsule,delayed release(DR/EC) 40 mg PO DAILY lisinopril 10 mg tablet 10 mg PO HS dicyclomine 20 mg tablet 20 mg PO TID PRN (Reason: abdominal pain/cramps) Qty: 30 1RF ondansetron 4 mg tablet,disintegrating 8 mg PO Q8H PRN (Reason: nausea and vomiting) Qty: 30 1RF Rx Instructions: 1-2 tablets as needed for nausea rosuvastatin 20 mg tablet 20 mg PO DAILY Qty: 90 3RF clopidogrel 75 mg tablet 75 mg PO DAILY aspirin 81 mg Tablet 81 mg PO DAILY cholecalciferol (vitamin D3) 50 mcg (2,000 unit) Tablet 50 mcg PO DAILY coenzyme Q10 400 mg Capsule 400 mg PO DAILY amlodipine [Norvasc] 5 mg Tablet 5 mg PO DAILY Qty: 30 3RF Referrals Follow up/Referrals: Jeanette Au APRN [Primary Care Provider] - See instructions Activity Restrictions/Add. Instructions Additional Instructions/Restrictions: Call your family doctor to establish care for this visit to the emergency department and schedule follow-up within 48 hours to ensure improvement. If you have any worsening of your condition or any other concerning signs or symptoms, return to the emergency department or your primary care doctor for further evaluation. Take Tylenol 1000 mg every 6 hours (4 times daily) and ibuprofen 400 mg every 6 hours (4 times daily) as needed with food and water to prevent GI upset and kidney damage. Clinical Impressions Clinical Impression: Back pain Instructions Patient Instructions: DI for Low Back Pain Print Language Print Language: Tuvaluan Discharge ED Provider: Juan Carlos Gray General Adult HPI General Chief complaint: Back Pain/Injury Stated complaint: AO-02/06/25-Fall, Pain and knot middle back Time Seen by Provider: 02/11/25 09:05 Mode of Arrival: Ambulatory Source of Information: Patient Description of Symptoms (Recalled from ER Triage Doc. by RN): patient states he has been falling often latley, on tuesday 02/06 he fell off last step and landed on grass landing on his right side, he reports after he fell he developed a knot on his right side of middle back that was bothering him causing a dull pain 5/10. he reports a history of chronic back pain History of Present Illness HPI narrative: Please note that above description of symptoms, in this electronic medical record under categorization of recalled from ER triage doctor by RN are reflective of an initial nursing assessment, however, is not reflective of my full history and physical exam that was personally taken and clarified. Consequentially, this preceding description of symptoms, which may include the patient's categorized chief complaint in the EMR, do not reflect my personal clinical impression, and the ultimate description of history of present illness and patient stated complaints should be deferred to this section of the note. Unless stated otherwise or congruent with this section of the note, additional signs, symptoms, or incongruence should be interpreted as inaccurate with my clinical impression. Related Data Home Medications ?Medication ?Instructions ?Recorded ?Confirmed aspirin 81 mg tablet 81 mg PO DAILY 03/27/24 01/27/25 cholecalciferol (vitamin D3) 50 50 mcg PO DAILY 03/27/24 01/27/25 mcg (2,000 unit) tablet clopidogrel 75 mg tablet 75 mg PO DAILY 03/27/24 01/27/25 coenzyme Q10 400 mg capsule 400 mg PO DAILY 03/27/24 01/27/25 multivitamin 1 tab PO DAILY 11/17/24 01/27/25 lisinopril 10 mg tablet 10 mg PO HS 01/27/25 01/27/25 lisinopril 20 1 tab PO DAILY 01/27/25 01/27/25 mg-hydrochlorothiazide 12.5 mg tablet omeprazole 40 mg capsule,delayed 40 mg PO DAILY 01/27/25 01/27/25 release Previous Rx's ?Medication ?Instructions ?Recorded carvedilol 12.5 mg tablet 12.5 mg PO BID #180 tabs 12/02/24 dicyclomine 20 mg tablet 20 mg PO TID PRN abdominal 12/26/24 pain/cramps #30 tabs ondansetron 4 mg disintegrating 8 mg (2 x 4 mg) PO Q8H PRN nausea 12/26/24 tablet and vomiting #30 tabs amlodipine 5 mg tablet (Norvasc) 5 mg PO DAILY #30 tabs 01/20/25 rosuvastatin 20 mg tablet 20 mg PO DAILY #90 tabs 01/23/25 Allergies Allergy/AdvReac Type Severity Reaction Status Date / Time prednisone Allergy Intermediate I-RASH Verified 01/27/25 09:57 azithromycin (AZITHROMYCIN) Allergy Unknown Rash Verified 01/27/25 09:57 NSAIDS (Non-Steroidal Allergy Unknown Rash Verified 01/27/25 09:57 Anti-Inflamma (NSAIDS (NON-STEROIDAL ANTI-INFLAMMA) nabumetone AdvReac Intermediate IRREGULAR Verified 01/27/25 09:57 HEART BEAT indomethacin AdvReac Mild DIZZINESS Verified 01/27/25 09:57 PFSH [facility] Disclaimer: The information contained in this section may have been updated after the patient was seen, as this information can be updated by other users. Medical History Infrarenal abdominal aortic aneurysm (AAA) without rupture Weight loss, unintentional No appetite Major depressive disorder Encounter for pre-operative cardiovascular clearance Dyspnea Atypical angina HLD (hyperlipidemia) HHD (hypertensive heart disease) CAD (coronary artery disease) AAA (abdominal aortic aneurysm) Surgical History H/O carotid endarterectomy Hx of cardiac cath S/P CABG x 2 History of cholecystectomy Family History Other No significant family history Social History Smoking Status: Never smoker alcohol intake: never substance use type: denies use current occupational status: retired Travel in the last 8 weeks?: Inside the [place] housing: other current occupational exposures/hazards: No caffeine: Yes Have you lived/traveled outside US in past 30 days?: No Contact w/someone who lives/traveled outside US past 30 days?: No Exposure to someone with infectious disease in past 14 days?: No Do you have a fever (greater than 100.4 F or 38 C)?: No Have you tested positive for COVID-19?: No Exposed to someone with COVID-19 in past 14 days?: No Do you have a sore throat?: No Do you have a cough?: No Do you have any weakness?: No Do you have any diarrhea?: No Are you experiencing any unusual bleeding?: No Do you have any muscle aches/pain?: No Do you have any abdominal pain?: No Are you experiencing loss of taste or smell?: No Other Medical History Have you received the Flu Vaccine for this season: Yes Have you received the Pneumonia Vaccine: No ROS Obtained: Yes All systems reviewed & no additional complaints except as documented Physical Exam General General appearance: alert and in no apparent distress Head Head exam: atraumatic and normocephalic Eye Eye exam: Present normal appearance, PERRL and EOMI Neck Neck exam: Present normal inspection, full ROM and trachea midline Chest Chest inspection: Present tenderness (Posterolateral chest wall on the right) Respiratory Respiratory exam: Absent respiratory distress, wheezes, stridor, accessory muscle use or prolonged expiratory phase Cardiovascular Cardiovascular exam: Present other (Pulses equal symmetric in upper and lower extremities) Abdominal Exam Abdominal exam: Present soft; Absent distention, tenderness or pulsatile mass Extremities Exam Extremities exam: Absent edema Back Exam Back 1 view image: 2 1. swelling, pain Neurological Exam Neurological exam: Present alert, oriented X3 and CN II-XII intact; Absent motor sensory deficit Skin Skin exam: Present warm and dry; Absent diaphoresis or erythema Medical Decision Making Medical Records Medical records reviewed: Yes I reviewed the patient's medical records. Screening: Per USPSTF and CDC recommendations, given the prevalence of disease in our region, it is our hospital?s policy to screen for HIV and viral Hepatitis for all patients aged 18 and over and those with ongoing risk factors. Cody Inquiry Pt receiving controlled substance: No Cody was queried for this patient: No Vital Signs: 02/11/25 08:58 02/11/25 09:00 02/11/25 09:03 Temperature 98 F Temperature Source Oral Pulse Rate 63 62 Pulse Rate [Right Radial] 61 Respiratory Rate 18 Blood Pressure 129/77 137/83 Blood Pressure [Right Arm] 129/77 Blood Pressure Mean [Right Arm] 94 Blood Pressure Source [Right Arm] Automatic Cuff Blood Pressure Position [Right Arm] Sitting 02 Sat by Pulse Oximetry 98 98 98 Oxygen Delivery Method Room Air Room Air Room Air 02/11/25 10:01 Temperature Temperature Source Pulse Rate 51 L Pulse Rate [Right Radial] Respiratory Rate Blood Pressure 104/63 L Blood Pressure [Right Arm] Blood Pressure Mean [Right Arm] Blood Pressure Source [Right Arm] Blood Pressure Position [Right Arm] 02 Sat by Pulse Oximetry 95 Oxygen Delivery Method Room Air Orders (Tests/Meds): ED MEDICATIONS Discontinued Medications Generic Name Dose Route Start Last Admin Trade Name Vaughn PRN Reason Stop Dose Admin Lidocaine 1 each 02/11/25 09:14 02/11/25 09:21 Lidocaine 5% Transdermal Patch TD 02/11/25 09:15 1 each ONCE ONE Administration ORDERS Category Date Time Status XR ribs RT min 3V w CXR1V Stat Exams 02/11/25 09:14 Taken HIV Combo Stat Lab 02/11/25 09:12 Ordered Hepatitis C Ab Qual. W/ RFX Stat Lab 02/11/25 09:12 Ordered Medical Decision Narrative: This is a 79-year-old male presenting with back/posterior chest wall pain. He states that Sunday, approximately 5 days prior to this, he fell. States that he fell directly onto his right side while holding a basket. Did not lose consciousness. Since that time, he has had a knot, in his back that he noticed more yesterday, 02/10 when he was massaging himself with a hand-held massager. Because he had point tenderness over that 1 spot that was also swollen, per his , he came in for further evaluation. Has been taking Tylenol and Motrin, this seems to help quite a bit. Minimal pain unless putting direct pressure on it. History obtained with patient. On arrival, very clinically well. He does have swelling and area of point tenderness overlying ribs on the right just inferior to his scapula. Bilateral breath sounds are normal. No outward signs of redness or warmth. Differential includes fracture muscle spasm, knot, benign growth, cancerous growth, among others. Patient was given lidocaine patch. Rib series ordered. On independent interpretation, no acute bony abnormality, no pneumothorax. Because patient at baseline without signs or symptoms of clinical decompensation, deemed appropriate for discharge. Results were relayed to patient who voiced understanding and were agreeable to outpatient management and follow up. I discussed my clinical impression with patient and answered all questions. At this time, the evidence for any other entities in the differential is insufficient to warrant any further testing or ED observation. This was explained as well. Advisory was given that persistent or worsening symptoms require further evaluation. I confirmed the understanding of this discussion. Unemployment Inspector disclaimer Much of this encounter note is an electronic watch crystal grinder spoken language to printed text. Electronic watch crystal grinder of the spoken language may permit errors. Although I have reviewed the note, some errors may still exist. Critical Care Critical Care Time Critical Care Time: No
[2025-02-11] MEDS: LIDOCAINE 5% TRANSDERMAL PATCH 1 EACH TD (09:21)
[2025-02-11 10:01] VITALS: BP 104/63; PULSE 51; O2SAT 95
[2025-02-11 11:11] VITALS: BP 115/72; PULSE 64; RESP 17; TEMP 36.7; O2SAT 98
== END 2025-02-11 11:13 | disposition home or self-care (01) ==
PROVIDERS: Emergency Provider Emergency Medicine; PCP Nurse Practitioner Family
DX: M54.6 Pain in thoracic spine (principal); W10.8XXA Fall (on) (from) other stairs and steps, initial encounter
CPT/HCPCS: 71101; 99283

== ENCOUNTER 2025-02-18 06:40 | Outpatient (CLI) | payer MEDICARE, OTHER, SELFPAY ==
--- NOTE | 2025-02-18 07:00 | CT_ITS ---
FINAL REPORT TECHNIQUE: Thin section axial images were obtained through the abdomen and pelvis after contrast injection per CT angiogram protocol. Multiplanar reconstruction images were obtained from the axial data. This exam was performed with techniques to keep radiation dose as low as reasonably achievable. This includes automated exposure control, adjustment of the MA and KVP, and iterative reconstruction technique. CLINICAL HISTORY: Look at AAA COMPARISON: 09/12/2024 FINDINGS: CTA: An infrarenal abdominal aortic aneurysm is once again noted, measuring 40 mm in diameter, was previously 41 mm, stable. 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 The inferior mesenteric artery and renal arteries are patent without significant stenosis. The stenoses and calcification of the origin of the common iliac arteries bilaterally remain present, and are not significantly changed since the prior CT. The internal and external iliac arteries are patent bilaterally. NONVASCULAR: The gallbladder has been surgically resected. The solid abdominal organs are without acute abnormality. The GI tract is without acute abnormality, with a normal appendix. No lymphadenopathy or free fluid. A fat-containing left inguinal hernia is noted. IMPRESSION: No significant change in size or appearance of the infrarenal abdominal aortic aneurysm when compared with the most recent examination of 09/12/2024. 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 Dense calcifications are again noted at the origin of the common iliac arteries bilaterally, with stable stenosis. Reviewed, Interpreted and Dictated by Dunia Car MD Transcribed by Sonya Barker Authenticated and [facility]
[2025-02-18] MEDS: SODIUM CHLORIDE 0.9% 10ML SYR (RAD ONLY) 10 ML IV (07:21)
[2025-02-18] MEDS: 0.9 % SODIUM CHLORIDE 50 ML VIAL IV (07:21)
[2025-02-18] MEDS: IOPAMIDOL-370 (76%);100ML BOTTLE 100 ML IV (07:21)
== END 2025-02-18 23:59 | disposition home or self-care (01) ==
LOC: RAD 06:41
PROVIDERS: PCP Nurse Practitioner Family; Visit Provider Physician Assistant
DX: I71.40 Abdominal aortic aneurysm, without rupture, unspecified (principal)
CPT/HCPCS: 74174; Q9967

== ENCOUNTER 2025-03-31 14:41 | Outpatient (CLI) | payer MEDICARE, OTHER, SELFPAY ==
--- NOTE | 2025-03-31 14:30 | CT_ITS ---
FINAL REPORT TECHNIQUE: Axial CT images were performed through the head. Coronal reformatted images were submitted. This study was performed with techniques to keep radiation doses as low as reasonably achievable (ALARA). Individualized dose reduction techniques using automated exposure control or adjustment of mA and/or kV according to the patient's size were employed. CLINICAL HISTORY: new onset headache, dizziness COMPARISON: 04/25/2024 FINDINGS: There is mild to moderate atrophy. 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 There is a small focus of underlying encephalomalacia in the left frontal cortex. Findings are stable since prior. The ventricles are normal in size. There is no evidence of hemorrhage. There is no mass or edema identified. There is no abnormal extra-axial fluid seen. The sinuses are well aerated. IMPRESSION: Degenerative and chronic appearing findings. No acute intracranial abnormality. Reviewed, Interpreted and Dictated by Everton Berman MD Transcribed by Delaney Watters Authenticated and [facility]
[2025-03-31 14:32] LABS: Basophils # 0.1 K/mm3 (0-0.2); Basophils % 0.8 % (0.1-2.0); Eosinophils # 0.4 Kmm3 (0.0-0.4); Eosinophils % 6.5 % (0.1-12.0); Hematocrit 36.2 % (42.0-52.0); Hemoglobin 13.3 g/dL (14.1-18.0); Immature Granulocytes # 0.02 10^3uL; Immature Granulocytes % 0.3 %; Lymphocytes # 2.2 K/mm3 (0.7-4.5); Mean Corpuscular HGB Conc 36.7 g/dL (31.8-35.4); Mean Corpuscular Hemoglobin 31.1 pg (27.0-31.2); Mean Corpuscular Volume 84.8 fl (80-94); Mean Platelet Volume 8.4 fl (7.4-10.4); Monocytes # 0.4 K/mm3 (0.1-1.0); Monocytes % 6.5 % (1.7-9.3); Neutrophils % 48.9 % (37.0-80.0); Nucleated Red Blood Cells # 0 10^3/uL; Nucleated Red Blood Cells % 0 %; Platelet Count 253 K/mm3 (142-424); Red Blood Count 4.27 M/mm3 (4.60-6.20); Red Cell Distribution Width 11.8 % (11.5-17.5)
--- OUTSIDE RECORDS SUMMARY | 2025-03-31 14:45 | XMS_ITS | Clinical Summary ---
Author Organization [facility] Address [address] [place] [address] Care Team Providers Care Senior Cognos Developer Name Role Phone Duncan Eastman MD Primary Care Provider [phone] Jonah Cabello MD Unavailable [phone] Allergies Active Allergy Reactions Criticality Noted Date Comments Azithromycin Hives,Unknown - Shahla ent states they do not know rxn details Medium 11/01/2017 Indomethacin Dizziness,Unknown - Patient states they do not know rxn details Low 06/03/2015 Nabumetone Palpitations,Unknown - Patient states they do not know rxn details Low 12/08/2013 Nsaids Other - please docum ent in the comment field Low 11/26/2017 Blackouts Prednisone Hives,Rash High 06/03/2015 Medications carvedilol (Coreg) 12.5 MG tablet Take 12.5 mg by mouth 2 (two) times a day with meals. Active rosuvastatin (Crestor) 20 MG tablet Take 20 mg by mouth 1 (one) time each day. Active omeprazole (PriLOSEC) [address] capsule Take 40 mg by mouth 1 (one) time each day. Do not crush or chew. Active Coenzyme Q10 (Co Q 10) 10 MG capsule TAKE DIRECTED. 1 Active MULTIPLE MINERALS-VITAM INS PO Take by mouth. Activ e Triamcinolone Acetonide (NASACORT AQ NA) Nasacort Two times a day 5 Active clotrimazole-b etamethasone (Lotrisone) cream APPLY TOPICALLY TO THE AFFECTED AREA TWICE DAILY 1 Active fluticasone (Flonase) 50 MCG/ACT nasal spray fluticasone propionate 50 mcg/actuation nasal spray,suspension 7 Active Influenza Vac A&B SA Adj Quad (Fluad Quadrivalent) 0.5 ML prefilled syringe Fluad Quad (65yr up)(PF) 60 mcg (15 mcg x 4)/0.5mL IM syringe Active triamcinolone (Kenalog) 0.1 % cream triamcinolone acetonide 0.1 % topical cream APPLY A THIN LAYER TO THE AFFECTED AREA OF RASH ON THE RIGHT LOWER ABDOMEN TWICE DAILY FOR UP TO 2 WEEKS Active lisinopril-hyd roCHLOROthiazi de 20-12.5 MG tablet Take 1 tablet by mouth 2 (two) times a day. Active montelukast (Singulair) 10 MG tablet Take 1 tablet (10 mg total) by mouth 1 (one) time each day. 30 tablet 11 Active Active Problems Problem Noted Date Diagnosed Date History of percutaneous coronary intervention History of prostate cancer 06/10/2021 Persistent hoarseness 05/19/2021 Essential hypertension 03/25/2021 Overview (03/30/2021): - SBP goal <120 - Weaned off NTG drip - Restarted home meds High cholesterol 03/25/2021 Overview (03/30/2021): - Statin restarted Carotid artery stenosis 03/25/2021 Overview (03/29/2021): - s/p carotid endarterectomy (03/29) TIA (transient ischemic attack) 03/25/2021 Overview (03/29/2021): - Neurochecks per protocol History of coronary artery bypass graft 03/25/20 21 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 Dysphonia 03/17/2021 Overweight (BMI 25.0-29.9) 02/15/2021 Coronary artery disease 02/14/2021 GERD (gastroesophageal reflux disease) Abdominal aortic aneurysm 02/14/2021 Carotid artery disease 02/14/2021 Hyperlipidemia 02/14/2021 Benign essential hypertension 12/24/2017 Resolved Problems Problem Noted Date Diagnosed Date Resolved Date CKD (chronic kidney disease) stage 3, GFR 30-59 ml/min 06/10/2021 06/10/2021 Dyspnea on exertion 03/25/2021 04/14/20 21 RI (myocardial infarction) 03/25/2021 0 04/14/2021 Carcinoma of prostate 03/25/20212020 Prostate cancer 11/01/2017 04/14/2021 Immunizations Immunization Administration Dates Next Due Influenza, Unspecified 07/22/2020 Influenza, high-dose, quadrivalent 07/20/2016 Influenza, live, intranasal, quadrivalent 2016 Influenza, trivalent, adjuvanted 06/26/2017 Moderna COVID-19 Vaccine (Sourcing Analyst) 12+ years 06/2021,10/26/2020 Pneumococcal, Unspecified 07/20/2016 Family History Medical History Relation Name Comments Kidney cancer Mother Anesthesia problems Neg Hx Malig Hyperthermia Neg Hx Relation Name Status Comments Mother Social History Tobacco Use Types Packs/Day Years Used Date Smoking Tobacco: Former Cigarettes Q uit: 1994 Smokeless Tobacco: Never Alcohol Use Standard Drinks/Week Comments Not Currently 0 (1 standard drink = 0.6 oz pure alcohol) Alcoholic Drinks/day: History of alcohol use Sex and Gender Information Value Date Recorded Sex Assigned at Not on file Legal Sex Male 5:56 PM EDT Gender Identity Not on file Sexual Orientation Not on file Last Filed Vital Signs Vital Sign Reading Time Taken Comments Blood Pressure 149/85 07/21/2021 2:02 PM EDT Pulse 67 07/21/2021 2:02 PM EDT Temperature 36.5 C (97.7 F) 06/22/2021 11:30 AM EDT Respiratory Rate 18 06/22/2021 11:45 AM EDT Oxygen Saturation 93% 06/22/2021 12:00 PM EDT Inhaled Oxygen Concentration - - Weight 82.6 kg (182 lb) 07/21/2021 2:02 PM EDT Height 175.3 cm (5' 9 ) 07/21/2021 2:02 PM EDT Body Mass Index 26.88 07/21/2021 2:02 PM EDT Plan of Treatment Health Maintenance Due Date Last Done Comments [facility]-Depression Screening 1945 [facility]-/Child/Adol SDOH Screenings 1945 [facility]- SDOH Screenings 1964 [facility]-Adult SDOH Screenings 1964 [facility]-DTaP,Tdap,and Td Vaccines (1 - Tdap) 1965 [facility]-Pneumococcal Vaccine: 50+ Years (1 of 1 - PCV) 1996 07/20/2016 [facility]-Zoster Vaccines (1 of 2) 1996 [facility]-RSV Vaccine: 60+ Years or (1 - 1-dose 75+ series) 2021 [id number] Vaccine ( - season) 2024 11/23/2020, 10/26/2020 [facility]-Influenza Vaccine (Season Ended) 2025 07/22/2020, 07/16/2017, 06/26/2017, Additional history exists HPV Vaccines Aged Out No longer eligi ble based on patient's age to complete this topic [facility]-HIB Vaccines Aged Out No longer e ligible based on patient's age to complete this topic [facility]-Hepatitis A Vaccines Aged Out No longer eligible based on patient's age to complete this topic [facility]-IPV Vaccines Aged Out No longer e ligible based on patient's age to complete this topic [facility]-Rotavirus Vaccines Aged Out No lo nger eligible based on patient's age to complete this topic Medical Devices Implanted Type Area Water Aerobics Instructor Device Identifier Shelf Expiration Date Model / Serial / Lot Patch Pericardial 1x10cm - [id number] Implanted:Qty: 1 on 03/29/20[id number] 12/12/2021 [id number] [employer] - [id number] Implanted:Qty: 1 on 06/22/2021 by Mor Rogers MD at [facility] N/A: Vocal [employer]-[id number] 01/24/2023 08-015-04- V04 / / [id number] Description:Part Number: [id number] [facility] Voice - [id number] Implanted:Qty: 1 on 06/22/2021 by Mor Rogers MD at [facility] N/A: [employer]-[id number] 03/19/2023 08-015-04- V04 / / [id number] Description:Part Number: [id number] Insurance MEDICARE [facility] Advance Directives * Full Code (Latest Code Status on File) Date Activated Date Inactivated Comments 03/29/2021 11:59 AM 04/01/2021 4:54 PM Question Answer Comments Patient has decision-making capacity? Yes Care Teams Senior Cognos Developer Relationship Specialty Start Date End Date Duncan Eastman MD [address] [place] [id number] PCP - General 02/25/21 Jonah Cabello MD [address] [address] [place] [address] Referring Physician Cardiology 04/06/21
[2025-03-31 14:50] LABS: Anion Gap 6.8 mEq/L (5-15); Blood Urea Nitrogen 13 mg/dl (9-20); Carbon Dioxide 34 mmol/L (22.0-30.0); Chloride 84 mmol/L (98-107); Estimated Glomerular Filt Rate 65 ml/min (>60); GFR (African American) 78 ML/MIN (>60); Potassium 3.8 mmoL/L (3.5-5.1); Sodium 121 mmol/L (136-145)
[2025-03-31 14:51] LABS: Alanine Aminotransferase 14 U/L (12-78); Albumin Level 4.4 g/dl (3.5-5.0); Albumin/Globulin Ratio 1.4 (1.1-1.8); Alkaline Phosphatase 47 U/L (38-126); Amylase 119 U/L (30-110); Aspartate Amino Transferase 32 U/L (17-59); Bilirubin,Total 0.6 mg/dl (0.2-1.3); Calcium 10.4 mg/dl (8.4-10.2); Globulin 3.2 g/dL (1.3-3.2); Glucose 120 mg/dl (74-100); Total Protein,Serum 7.6 g/dl (6.3-8.2)
[2025-03-31 14:54] LABS: Lipase 887 U/L (23-300)
[2025-03-31 14:55] LABS: D-Dimer 1.18 ug/mL (0.0-0.5)
[2025-03-31 14:56] LABS: Magnesium 1.7 mg/dl (1.6-2.3)
[2025-03-31 15:12] LABS: Troponin I < 0.01 ng/ml (0.00-0.034)
== END 2025-03-31 23:59 | disposition home or self-care (01) ==
LOC: RAD 14:43
PROVIDERS: PCP Nurse Practitioner Family; Visit Provider Nurse Practitioner Family
DX: G31.89 Other specified degenerative diseases of nervous system (principal); R51.9 Headache, unspecified; R42 Dizziness and giddiness; R11.0 Nausea; R00.1 Bradycardia, unspecified
CPT/HCPCS: 70450; 80053; 82150; 83690; 83735; 84484; 85025; 85378

== ENCOUNTER 2025-03-31 15:41 | Emergency (ER) | payer MEDICARE, OTHER, SELFPAY ==
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
--- NOTE | 2025-03-31 15:50 | CT_ITS ---
PROCEDURE INFORMATION: Exam: CT Abdomen And Pelvis With Contrast Exam date and time: 03/31/2025 5:28 PM Age: 80 years old Clinical indication: Nausea and vomiting; Additional info: Nausea vomiting for a week TECHNIQUE: Imaging protocol: Computed tomography of the abdomen and pelvis with contrast. 3D rendering (Not supervised by radiologist): MIP and/or 3D reconstructed images were created by the technologist. Radiation optimization: All CT scans at this facility use at least one of these dose optimization techniques: automated exposure control; mA and/or kV adjustment per patient size (includes targeted exams where dose is matched to clinical indication); or iterative reconstruction. Contrast material: ISOVUE; Contrast volume: 75 ml; Contrast route: IV; COMPARISON: CT ANGIO ABDOMEN PELVIS 02/18/2025 7:07 AM FINDINGS: Liver: Fatty liver Gallbladder and biliary ducts: Cholecystectomy Pancreas: Normal. No ductal dilation. Spleen: Normal. No splenomegaly. Adrenal glands: Normal. No mass. Kidneys and ureters: Multiple parapelvic cysts in the left kidney . No obstructive uropathy Stomach and bowel: Unremarkable. No obstruction. No mucosal thickening. Appendix: Appendix normal Intraperitoneal space: Unremarkable. No free air. No significant fluid collection. Vasculature: Fusiform infrarenal abdominal aortic aneurysm measuring 4 cm without rupture . is a tiny filling defect in the intrahepatic left branch of the portal vein series 3, image number 122 which could reflect a tiny clot. Lymph nodes: Unremarkable. No enlarged lymph nodes. Urinary bladder: Unremarkable as visualized. Reproductive: Unremarkable as visualized. Bones/joints: Unremarkable. No acute fracture. Soft tissues: Small bilateral inguinal hernias with fat IMPRESSION: 1. Tiny nonocclusive clot in the portal vein. 2. 4 cm infrarenal abdominal aortic aneurysm without rupture 3. No GI tract obstruction inflammation 4. No obstructive uropathy COMMENTS: Consistent with the [place] [employer]'s Incidental Findings Committee white paper (J Am Jamal Radiol 2018): Any incidental renal lesion less than 1 cm or classified as too small to characterize, or any incidental cystic renal lesion characterized as simple-appearing, is likely benign. No follow-up imaging is recommended for these lesions per consensus recommendations based on imaging criteria.
[2025-03-31 15:51] VITALS: BP 184/85; PULSE 57; RESP 18; TEMP 36.6; O2SAT 100; BMI 25.9
--- NOTE | 2025-03-31 15:52 | ED_ITS ---
Discharge Plan Disposition Patient Disposition: Home, Self-Care Condition: Good Prescriptions Prescriptions: New ondansetron 4 mg tablet,disintegrating 4 mg PO QID PRN (Reason: nausea and vomiting) Qty: 10 0RF sodium chloride 1,000 mg tablet,soluble 1,000 mg PO BID Qty: 14 0RF No Action multivitamin Tablet 1 tab PO DAILY lisinopril-hydrochlorothiazide 20-12.5 mg tablet 1 tab PO DAILY lisinopril 10 mg tablet 10 mg PO HS ondansetron 4 mg tablet,disintegrating 8 mg PO Q8H PRN (Reason: nausea and vomiting) Qty: 30 1RF Rx Instructions: 1-2 tablets as needed for nausea rosuvastatin 20 mg tablet 20 mg PO DAILY Qty: 90 3RF clopidogrel 75 mg tablet See Rx Instructions .ROUTE .COMPLEX Qty: 90 1RF Dose Instruction: TAKE 1 TABLET BY MOUTH DAILY Rx Instructions: TAKE 1 TABLET BY MOUTH DAILY carvedilol 6.25 mg tablet 12.5 mg PO BID aspirin 81 mg Tablet 81 mg PO DAILY cholecalciferol (vitamin D3) 50 mcg (2,000 unit) Tablet 50 mcg PO DAILY coenzyme Q10 400 mg Capsule 400 mg PO DAILY amlodipine [Norvasc] 5 mg Tablet 5 mg PO DAILY Qty: 30 3RF Referrals Follow up/Referrals: Jeanette Au APRN [Primary Care Provider, Medical] - See instructions Activity Restrictions/Add. Instructions Additional Instructions/Restrictions: As we discussed I have sent in salt tablets to your pharmacy. Please start them in the morning. Of 1000 mg twice a day for 7 days. Please follow-up with your PCP within 48 hours for recheck of your sodium. If you have any persistent new or worsening signs or symptoms return to the ER as needed. Clinical Impressions Clinical Impression: Elevated lipase, Hyponatremia Vomiting Qualifiers: Vomiting type: unspecified Nausea presence: with nausea Qualified Code(s): R11.2 - Nausea with vomiting, unspecified Print Language Print Language: Dutch Discharge ED Provider: Juan Carlos Gray General Adult HPI <SHARATH Hale - Last Filed: 03/31/25 18:58> General Chief complaint: Weakness Stated complaint: Elevated D Dimer,possible pancreatitis Time Seen by Provider: 03/31/25 15:52 History of Present Illness HPI narrative: Patient presents from clinic because of his PCP for elevated lipase and D-dimer. Patient gives a history of 5 days of vomiting. He denies any shortness of breath fever chills hemoptysis hematochezia melena diarrhea he has had a bowel movement has no abdominal pain is not a drinker and is not on a GLP-1. He is also not a diabetic. Patient's blood pressure at the office was reported as 93 systolic. However on arrival here his blood pressure is 184/85 and he is bradycardic at 57. Patient's lipase done at his PCPs office was 887. Patient is status post cholecystectomy. Related Data Home Medications ?Medication ?Instructions ?Recorded ?Confirmed aspirin 81 mg tablet 81 mg PO DAILY 03/27/2403/15 cholecalciferol (vitamin D3) 50 50 mcg PO DAILY 03/31/25 mcg (2,000 unit) tablet coenzyme Q10 400 mg capsule 400 mg PO DAILY 03/27/24 0 03/31/25 multivitamin 1 tab PO DAILY 11/17/2403/15 lisinopril 10 mg tablet 10 mg PO HS 01/27/25 5 lisinopril 20 1 tab PO DAILY 01/27/2503/15 mg-hydrochlorothiazide 12.5 mg tablet carvedilol 6.25 mg tablet 12.5 mg PO BID 03/31/2503/15 Previous Rx's ?Medication ?Instructions ?Recorded amlodipine 5 mg tablet (Norvasc) 5 mg PO DAILY #30 tab s 01/20/25 rosuvastatin 20 mg tablet 20 mg PO DAILY #90 tabs 01/13 11/08 clopidogrel 75 mg tablet See Rx Instructions .Route 0 03/23/25 .COMPLEX #90 tabs ondansetron 4 mg disintegrating 4 mg PO QID PRN nausea and 03/31/25 tablet vomiting #10 tabs ondansetron 4 mg disintegrating 8 mg (2 x 4 mg) PO Q8H PRN nausea 03/31/25 tablet and vomiting #30 tabs sodium chloride 1,000 mg soluble 1,000 mg PO BID #14 t abs 03/31/25 tablet Allergies Allergy/AdvReac Type Severity Reaction Status Date / Time prednisone Allergy Intermediate I-RASH Verified 03/31/25 13:06 azithromycin (AZITHROMYCIN) Allergy Unknown Rash Verified 03/31/25 13:06 NSAIDS (Non-Steroidal Allergy Unknown Rash Verified 03/31/25 13:06 Anti-Inflamma (NSAIDS (NON-STEROIDAL ANTI-INFLAMMA) nabumetone AdvReac Intermediate IRREGULAR Verified 03/31/25 13:06 HEART BEAT indomethacin AdvReac Mild DIZZINESS Verified 03/31/25 13:06 PFS <SHARATH Hale - Last Filed: 03/31/25 18:58> [facility] Disclaimer: The information contained in this section may have been updated after the patient was seen, as this information can be updated by other users. Medical History Infrarenal abdominal aortic aneurysm (AAA) without rupture Weight loss, unintentional No appetite Major depressive disorder Encounter for pre-operative cardiovascular clearance Dyspnea Atypical angina HLD (hyperlipidemia) HHD (hypertensive heart disease) CAD (coronary artery disease) AAA (abdominal aortic aneurysm) Surgical History H/O carotid endarterectomy Hx of cardiac cath S/P CABG x 2 History of cholecystectomy Family History Other No significant family history Social History Smoking Status: Never smoker alcohol intake: never substance use type: denies use current occupational status: retired Travel in the last 8 weeks?: Inside the [facility] housing: other current occupational exposures/hazards: No caffeine: Yes Have you lived/traveled outside US in past 30 days?: No Contact w/someone who lives/traveled outside US past 30 days?: No Exposure to someone with infectious disease in past 14 days?: No Do you have a fever (greater than 100.4 F or 38 C)?: No Have you tested positive for COVID-19?: No Exposed to someone with COVID-19 in past 14 days?: No Do you have a sore throat?: No Do you have a cough?: No Do you have any weakness?: No Do you have any diarrhea?: No Are you experiencing any unusual bleeding?: No Do you have any muscle aches/pain?: No Do you have any abdominal pain?: No Are you experiencing loss of taste or smell?: No Other Medical History Have you received the Flu Vaccine for this season: Yes Have you received the Pneumonia Vaccine: No <SHARATH Hale - Last Filed: 03/31/25 18:58> ROS Obtained: Yes Systems reviewed as appropriate & no additional complaints except as documented Physical Exam <SHARATH Hale - Last Filed: 03/31/25 18:58> General General appearance: alert and in no apparent distress Respiratory Respiratory exam: Present normal lung sounds bilaterally Cardiovascular Cardiovascular exam: Present bradycardia Neurological Exam Neurological exam: Present alert and oriented X3 Medical Decision Making <SHARATH Hale - Last Filed: 03/31/25 18:58> Medical Records Medical records reviewed: Yes I reviewed the patient's medical records. Screening: Per USPSTF and CDC recommendations, given the prevalence of disease in our region, it is our hospital?s policy to screen for HIV and viral Hepatitis for all patients aged 18 and over and those with ongoing risk factors. Cody Inquiry Pt receiving controlled substance: No Vital Signs: 03/31/25 15:51 03/31/25 19:00 Temperature 97.8 F 97.9 F Temperature Source Oral Oral Pulse Rate 64 Pulse Rate [Apical] 57 L Respiratory Rate 18 18 Blood Pressure 133/71 Blood Pressure [Right Arm] 184/85 H Blood Pressure Mean [Right Arm] 118 Blood Pressure Source Automatic Cuff Blood Pressure Source [Right Arm] Automatic Cuff Blood Pressure Position Sitting Blood Pressure Position [Right Arm] Sitting 02 Sat by Pulse Oximetry 100 Oxygen Delivery Method Room Air Room Air Lab Data Lab results reviewed: Yes I reviewed the patient's lab results. Lab Results 03/31/25 16:30: PT 11.0, INR 0.99, Lactate 0.9, Magnesium 1.7, Procalcitonin 0.060, HCV Ab MING w/Rflx PCR Qn Negative, HIV Ag/Ab Combo Qual Negative 03/31/25 17:30: Urine Color Yellow, Urine Appearance Clear, Urine pH 6.0, Ur Specific [place] 1.010, Urine Protein Negative, Urine Glucose (UA) Negative, Urine Ketones Negative, Urine Blood Negative, Urine Nitrate Negative, Urine Bilirubin Negative, Urine Urobilinogen 0.2, Ur Leukocyte Esterase Negative, Urine RBC Occasional, Urine WBC Occasional, Ur Squamous Epith Cells 3-5, Urine Bacteria 1+, Urine Mucus 1+ Orders (Tests/Meds): ED MEDICATIONS Discontinued Medications Generic Name Dose Route Start Last Admin Trade Name Vaughn PRN Reason Stop Dose Admin Acetaminophen 1,000 mg 03/31/25 15:50 03/31/25 16:17 Acetaminophen 1,000mg/100ml Vial IV 03/31/25 15:51 1,000 mg ONCE ONE Administration Sodium Chloride 1,000 mls @ 999 mls/hr 03/31/25 15:50 03/31/25 16:17 Sod Chlor 0.9% 1000ml Bag IV 03/31/25 16:50 999 mls/hr .Q1H1M ONE Administration Iopamidol 70 ml 03/31/25 17:35 03/31/25 17:36 Iopamidol-370 (76%);100ml Bottle IV 03/31/25 17:36 70 ml ONCE ONE Administration Ondansetron HCl 4 mg 03/31/25 15:50 03/31/25 16:17 Ondansetron 4mg/2ml Vial IV 03/31/25 15:51 4 mg ONCE ONE Administration Sodium Chloride 50 ml 03/31/25 17:35 03/31/25 17:36 0.9 % Sodium Chloride 50 Ml Vial IV 03/31/25 17:36 50 ml ONCE ONE Administration Sodium Chloride 10 ml 03/31/25 17:35 03/31/25 17:36 Sodium Chloride 0.9% 10ml Syr (Rad Only) IV 03/31/25 17:36 10 ml ONCE ONE Administration ORDERS Category Date Time Status CT abdomen pelvis w con Stat Cat Scan 03/31/25 15:[address] angio chest PE protocol Stat Cat Scan 03/31/25 15:50 Completed HIV Combo Stat Lab 03/31/25 16:30 Completed Hepatitis C Ab Qual. W/ RFX Stat Lab 03/31/25 16:30 Completed INR [Prothrombin Time INR] Stat Lab 03/31/25 16:30 Completed Lactic Acid Stat Lab 03/31/25 16:30 Completed Magnesium Stat Lab 03/31/25 16:30 Completed Procalcitonin Stat Lab 03/31/25 16:30 Completed UA [Urinalysis and Microscopic] Stat Lab 03/31/25 17:30 Completed Medical Decision Narrative: In summary patient is a 80-year-old male who presents to the emergency department for evaluation of 5 days of vomiting elevated lipase and D-dimer. Patient is hypertensive on arrival here with a blood pressure 184/85 with a pulse of 57 with sinus bradycardia on the bedside monitor breathing 18 times a minute satting at 100% room air upon arrival, afebrile at 97.8. Physical exam reveals clear breath sounds with no increased work of breathing or adventitious sounds, abdomen is soft nontender no rebound no guarding no rigidity with normal bowel sounds.. Differential diagnosis includes pancreatitis versus gastroenteritis versus constipation versus PE although unlikely patient cannot be excluded by years criteria.. Initial workup will be conducted with further hematologic labs CT scan PE protocol and CT of the abdomen pelvis with contrast. Initial interventions include crystalloid bolus and Zofran for now. Initial workup reviewed by me shows patient white count is 6 hemoglobin hematocrit 13.3 and 36.2 respectively absolute neutrophil count is 3.0 INR 0.99 D-dimer was 1.18 sodium was 121 potassium 3.8 chloride 84 CO2 is 34 anion gap is 6.8 BUN is 13 creatinine is 1.1 glucose is 128 lactate 0.9 total calcium is 10.4 magnesium is 1.7 total bilirubin 0.6 transaminases are normal troponin is undetectable albumin is 4.4 amylase was 119 lipase was 887 procalcitonin is 0.060 urinalysis is bland. My informal interpretation of his CT scan PE protocol and abdomen pelvis with contrast shows no acute thrombus or acute intrathoracic problem and does not show any acute intra-abdominal problem but does redemonstrate his stable a abdominal aortic aneurysm prior to radiology read. Please see final read for formal interpretation.. Upon repeat evaluation patient is now actually able to tolerate oral intake and has had no episodes of vomiting here.. Given this I had a shared decision-making discussion with the patient given the fact that his sodium is low and patient would like to try to go home and replete his sodium. Given this we will give him a prescription for 7 days of salt tablets with close follow-up with his PCP within 48 hours for recheck of his sodium. Patient given strict return precautions. <Jua nCarlos Gray MD - Last Filed: 03/31/25 19:04> Vital Signs: 03/31/25 15:51 03/31/25 19:00 Temperature 97.8 F 97.9 F Temperature Source Oral Oral Pulse Rate 64 Pulse Rate [Apical] 57 L Respiratory Rate 18 18 Blood Pressure 133/71 Blood Pressure [Right Arm] 184/85 H Blood Pressure Mean [Right Arm] 118 Blood Pressure Source Automatic Cuff Blood Pressure Source [Right Arm] Automatic Cuff Blood Pressure Position Sitting Blood Pressure Position [Right Arm] Sitting 02 Sat by Pulse Oximetry 100 Oxygen Delivery Method Room Air Room Air Lab Data Lab Results 03/31/25 16:30: PT 11.0, INR 0.99, Lactate 0.9, Magnesium 1.7, Procalcitonin 0.060, HCV Ab MING w/Rflx PCR Qn Negative, HIV Ag/Ab Combo Qual Negative 03/31/25 17:30: Urine Color Yellow, Urine Appearance Clear, Urine pH 6.0, Ur Specific [place] 1.010, Urine Protein Negative, Urine Glucose (UA) Negative, Urine Ketones Negative, Urine Blood Negative, Urine Nitrate Negative, Urine Bilirubin Negative, Urine Urobilinogen 0.2, Ur Leukocyte Esterase Negative, Urine RBC Occasional, Urine WBC Occasional, Ur Squamous Epith Cells 3-5, Urine Bacteria 1+, Urine Mucus 1+ Orders (Tests/Meds): ED MEDICATIONS Discontinued Medications Generic Name Dose Route Start Last Admin Trade Name Freq PRN Reason Stop Dose Admin Acetaminophen 1,000 mg 03/31/25 15:50 03/31/25 16:17 Acetaminophen 1,000mg/100ml Vial IV 03/31/25 15:51 1,000 mg ONCE ONE Administration Sodium Chloride 1,000 mls @ 999 mls/hr 03/31/25 15:50 03/31/25 16:17 Sod Chlor 0.9% 1000ml Bag IV 03/31/25 16:50 999 mls/hr .Q1H1M ONE Administration Iopamidol 70 ml 03/31/25 17:35 03/31/25 17:36 Iopamidol-370 (76%);100ml Bottle IV 03/31/25 17:36 70 ml ONCE ONE Administration Ondansetron HCl 4 mg 03/31/25 15:50 03/31/25 16:17 Ondansetron 4mg/2ml Vial IV 03/31/25 15:51 4 mg ONCE ONE Administration Sodium Chloride 50 ml 03/31/25 17:35 03/31/25 17:36 0.9 % Sodium Chloride 50 Ml Vial IV 03/31/25 17:36 50 ml ONCE ONE Administration Sodium Chloride 10 ml 03/31/25 17:35 03/31/25 17:36 Sodium Chloride 0.9% 10ml Syr (Rad Only) IV 03/31/25 17:36 10 ml ONCE ONE Administration ORDERS Category Date Time Status CT abdomen pelvis w con Stat Cat Scan 03/31/25 15:[address] angio chest PE protocol Stat Cat Scan 03/31/25 15:50 Completed HIV Combo Stat Lab 03/31/25 16:30 Completed Hepatitis C Ab Qual. W/ RFX Stat Lab 03/31/25 16:30 Completed INR [Prothrombin Time INR] Stat Lab 03/31/25 16:30 Completed Lactic Acid Stat Lab 03/31/25 16:30 Completed Magnesium Stat Lab 03/31/25 16:30 Completed Procalcitonin Stat Lab 03/31/25 16:30 Completed UA [Urinalysis and Microscopic] Stat Lab 03/31/25 17:30 Completed Medical Decision Narrative: In summary patient is a 80-year-old male who presents to the emergency department for evaluation of 5 days of vomiting elevated lipase and D-dimer. Patient is hypertensive on arrival here with a blood pressure 184/85 with a pulse of 57 with sinus bradycardia on the bedside monitor breathing 18 times a minute satting at 100% room air upon arrival, afebrile at 97.8. Physical exam reveals clear breath sounds with no increased work of breathing or adventitious sounds, abdomen is soft nontender no rebound no guarding no rigidity with normal bowel sounds.. Differential diagnosis includes pancreatitis versus gastroenteritis versus constipation versus PE although unlikely patient cannot be excluded by years criteria.. Initial workup will be conducted with further hematologic labs CT scan PE protocol and CT of the abdomen pelvis with contrast. Initial interventions include crystalloid bolus and Zofran for now. Initial workup reviewed by me shows patient white count is 6 hemoglobin hematocrit 13.3 and 36.2 respectively absolute neutrophil count is 3.0 INR 0.99 D-dimer was 1.18 sodium was 121 potassium 3.8 chloride 84 CO2 is 34 anion gap is 6.8 BUN is 13 creatinine is 1.1 glucose is 128 lactate 0.9 total calcium is 10.4 magnesium is 1.7 total bilirubin 0.6 transaminases are normal troponin is undetectable albumin is 4.4 amylase was 119 lipase was 887 procalcitonin is 0.060 urinalysis is bland. My informal interpretation of his CT scan PE protocol and abdomen pelvis with contrast shows no acute thrombus or acute intrathoracic problem and does not show any acute intra-abdominal problem but does redemonstrate his stable a abdominal aortic aneurysm prior to radiology read. Please see final read for formal interpretation.. Upon repeat evaluation patient is now actually able to tolerate oral intake and has had no episodes of vomiting here.. Given this I had a shared decision-making discussion with the patient given the fact that his sodium is low and patient would like to try to go home and replete his sodium. Given this we will give him a prescription for 7 days of salt tablets with close follow-up with his PCP within 48 hours for recheck of his sodium. Patient given strict return precautions. EKG independently interpreted. Sinus bradycardia 58 bpm with prolonged ID at 20 7, QRS 162, QTc 471 mildly prolonged. Patient has right bundle branch block morphology with repolarization abnormality, but no obvious acute ischemic change. I was consulted by the BYRON, and we discussed the complexity of the problems being addressed. I approved the treatment and management plan for this patient's care in the Emergency Department, thus performing a substantive portion of the medical decision making. Juan Carlos Gray MD Critical Care <SHARATH Hale - Last Filed: 03/31/25 18:58> Critical Care Time Critical Care Time: Yes Attestation: On 03/31/25, the high probability of a clinically significant, sudden or life threatening deterioration of the following system(s) required my full and direct attention, intervention and personal management. The time I documented below is in addition to time spent performing reported procedures but includes the f kimani listed in this critical care notation. Total Time Total Critical Care Time: 30
--- OUTSIDE RECORDS SUMMARY | 2025-03-31 16:00 | XMS_ITS | Clinical Summary ---
Author Organization [facility] Address [address] [place] [address] Care Team Providers Care Tire Mounter Name Role Phone Duncan Eastman MD Primary Care Provider [phone] Jonah Cabello MD Unavailable [phone] Allergies Active Allergy Reactions Criticality Noted Date [...] 06/10/2021 Dyspnea on exertion 03/25/2021 04/14/20 21 DE (myocardial infarction) 03/25/2021 0 04/14/2021 Carcinoma of prostate 03/25/20212020 Prostate cancer 11/01/2017 04/14/2021 Immunizations Immunization Administration Dates Next Due Influenza, Unspecified 07/22/2020 Influenza, high-dose, quadrivalent 07/20/2016 Influenza, live, intranasal, quadrivalent 2016 Influenza, trivalent, adjuvanted 06/26/2017 Moderna COVID-19 Vaccine (Combination Welder Apprentice) 12+ years 06/2021,10/26/2020 Pneumococcal, Unspecified 07/20/2016 Family [...] or (1 - 1-dose 75+ series) 2021 [id number] Vaccine ( - season) 2024 11/23/2020, 10/26/2020 [...] this topic Medical Devices Implanted Type Area Strainer Cleaner Device Identifier Shelf Expiration Date Model / Serial / Lot Patch Pericardial 1x10cm - [id number] Implanted:Qty: 1 on 03/29/2021 [id number] 12/12/2021 [id number]-[id number] [employer] - [id number] Implanted:Qty: 1 on 06/22/2021 by Mor Rogers MD at [facility] N/A: Vocal Cord [employer]-[id number] 01/24/2023 08-015-04- V04 / / [id number] Description:Part Number: [id number] [facility] Voice - [id number] Implanted:Qty: 1 on 06/22/2021 by Mor Rogers MD at [facility] N/A: V[employer]-[id number] 03/19/2023 08-015-04- V04 / / [id number] Description:Part Number: [id number] Insurance MEDICARE [facility] Advance Directives * Full Code (Latest Code Status on File) Date Activated Date Inactivated Comments 03/29/2021 11:59 AM 04/01/2021 4:54 PM Question Answer Comments Patient has decision-making capacity? Yes Care Teams Tire Mounter Relationship Specialty Start Date End Date Duncan Eastman MD [address] [place] [id number] PCP - General 02/25/21 Jonah Cabello MD [address] [facility] [address] [place] [address] Referring Physician Cardiology 04/06/21
[2025-03-31] MEDS: ONDANSETRON 4MG/2ML VIAL 4 MG IV (16:17)
[2025-03-31] MEDS: ACETAMINOPHEN 1,000MG/100ML VIAL 1000 MG IV (16:17)
[2025-03-31] MEDS: 0.9 % SODIUM CHLORIDE 1000ML 1,000 ML 999 ML IV (16:17)
--- NOTE | 2025-03-31 16:37 | ECG_ITS ---
APPROVED REPORT Exam: Resting ECG HR:58 bpm ECG Measurements Heart Rate 58 AXES [place] 207 P 79 QRSd 162 QRS -46 QT 474 T -21 QTc 471 Conclusion Sinus bradycardia PVCs Right bundle branch block morphology No AOMI Electronically signed by : ALFIE TESFAYE, 04/07/2025 07:35:00
--- NOTE | 2025-03-31 16:39 | PC.NURSE ---
ROUNDED ON PT, UPDATED ON POC. WARM BLANKET PROVIDED. NO NEEDS AT THIS TIME. CALL LIGHT WITHIN REACH
--- NOTE | 2025-03-31 16:51 | PC.NURSE ---
PT PROVIDED ICE CHIPS
[2025-03-31 17:00] LABS: Lactic Acid 0.9 mmol/L (0.7-2.1); Magnesium 1.7 mg/dl (1.6-2.3)
[2025-03-31 17:08] LABS: INR 0.99 (0.9-1.1)
--- NOTE | 2025-03-31 17:20 | PC.NURSE ---
PT TO CT
[2025-03-31 17:35] LABS: Microscopic, Urine URINE MICROSCOPIC (MICROSCOPIC)
[2025-03-31] MEDS: IOPAMIDOL-370 (76%);100ML BOTTLE 70 ML IV (17:36)
[2025-03-31] MEDS: 0.9 % SODIUM CHLORIDE 50 ML VIAL IV (17:36)
[2025-03-31] MEDS: SODIUM CHLORIDE 0.9% 10ML SYR (RAD ONLY) 10 ML IV (17:36)
[2025-03-31 17:40] LABS: Appearance,Urine CLEAR (Clear); Bilirubin,Urine Negative (Negative); Blood, Urine Negative (Negative); Color,Urine YELLOW (Yellow); Glucose,Urine (UA) Negative (Negative); Ketones,Urine Negative (Negative); Leukocyte Esterase,Urine Negative (Negative); Nitrate,Urine Negative (Negative); Protein,Urine Negative (Negative); Urobilinogen,Urine 0.2 EU/dl (0.2)
--- NOTE | 2025-03-31 17:45 | PC.NURSE ---
PT RETURNED FROM CT
[2025-03-31 18:06] LABS: RBC,Urine Occasional #/hpf (0-3); WBC,Urine Occasional #/hpf (0-3)
[2025-03-31 18:07] LABS: Bacteria,Urine 1+ /lpf; Mucus,Urine 1+ /lpf
[2025-03-31 18:12] LABS: HIV Combo NEGATIVE (Negative)
[2025-03-31 18:21] LABS: Hepatitis C Ab Qual. W/ RFX NEGATIVE (Negative)
--- NOTE | 2025-03-31 18:46 | PC.NURSE ---
PT TOLERATING SANDWICH, NO NEEDS AT THIS TIME
--- NOTE | 2025-03-31 18:57 | PC.NURSE ---
600MLS URINE OUTPUT
[2025-03-31 19:00] VITALS: BP 133/71; PULSE 64; RESP 18; TEMP 36.6; O2SAT 98
== END 2025-03-31 19:07 | disposition home or self-care (01) ==
PROVIDERS: Physician Assistant; Emergency Provider Emergency Medicine; PCP Nurse Practitioner Family
DX: E87.1 Hypo-osmolality and hyponatremia (principal); R00.1 Bradycardia, unspecified; I45.10 Unspecified right bundle-branch block; R74.8 Abnormal levels of other serum enzymes; R11.2 Nausea with vomiting, unspecified; G31.89 Other specified degenerative diseases of nervous system; R51.9 Headache, unspecified; R42 Dizziness and giddiness; R11.0 Nausea
CPT/HCPCS: 71275; 74177; 81001; 83605; 83735; 84145; 85610; 86803; 87389; 93005; 96361; 96374; 96375; 99285; J0131; J2405; J7030; Q9967

== ENCOUNTER 2025-04-06 08:53 | Outpatient (POV) | payer MEDICARE, OTHER, SELFPAY ==
--- OUTSIDE RECORDS SUMMARY | 2025-04-06 09:05 | XMS_ITS | Clinical Summary ---
Author Organization [facility] Address [address] [place] [address] Care Team Providers Care Crown Presser Name Role Phone Duncan Eastman MD Primary Care Provider [phone] Jonah Cabello MD Unavailable [phone] Allergies Active Allergy Reactions Criticality Noted Date [...] 06/10/2021 Dyspnea on exertion 03/25/2021 04/14/20 21 GA (myocardial infarction) 03/25/2021 0 04/14/2021 Carcinoma of prostate 03/25/20212020 Prostate cancer 11/01/2017 04/14/2021 Immunizations Immunization Administration Dates Next Due Influenza, Unspecified 07/22/2020 Influenza, high-dose, quadrivalent 07/20/2016 Influenza, live, intranasal, quadrivalent 2016 Influenza, trivalent, adjuvanted 06/26/2017 Moderna COVID-19 Vaccine (Ux Manager) 12+ years 06/2021,10/26/2020 Pneumococcal, Unspecified 07/20/2016 Family [...] or (1 - 1-dose 75+ series) 2021 [id number] Vaccine ( - season) 2024 11/23/2020, 10/26/2020 [...] this topic Medical Devices Implanted Type Area Gold Buyer Device Identifier Shelf Expiration Date Model / Serial / Lot Patch Pericardial 1x10cm - [id number] Implanted:Qty: 1 on 03/29/20[id number] 12/12/2021 [id number]-[id number] [employer] - [id number] Implanted:Qty: 1 on 06/22/2021 by Mor Rogers MD at [facility] N/A: Vocal Cord [employer]-[id number] 01/24/2023 08-015-04- V04 / / [id number] Description:Part Number: [id number] [facility] Voice - [id number] Implanted:Qty: 1 on 06/22/2021 by Mor Rogers MD at [facility] N/A: [employer]-[id number] 03/19/2023 08-015-04- V04 / / [id number] Description:Part Number: [id number] Insurance MEDICARE [facility] Advance Directives * Full Code (Latest Code Status on File) Date Activated Date Inactivated Comments 03/29/2021 11:59 AM 04/01/2021 4:54 PM Question Answer Comments Patient has decision-making capacity? Yes Care Teams Crown Presser Relationship Specialty Start Date End Date Duncan Eastman MD [address] [place] [id number] PCP - General 02/25/21 Jonah Cabello MD [address] [facility] [address] [place] [address] Referring Physician Cardiology 04/06/21
[2025-04-06 09:18] VITALS: BP 95/53; PULSE 57; RESP 18; O2SAT 95; BMI 25.9
--- NOTE | 2025-04-06 09:39 | EXP.PAIN.OV ---
HPI Data of Consult Patient: new to practice Consult date: 04/06/25 Requesting Physician: Rain Alva APRN Primary Care Provider: Jeanette Au APRN Reason for consult: Low back pain History of present illness: Mr. Stephens is a 80 year old male who presents today as a new patient. He is a referral from Fredi Au. Today he does rate his pain at 2 out of 10 however does state it is more when he is up standing or walking that it gets much more painful. He states that it has been going on for years and progressively worsening. Patient does state the pain interferes with his ability perform activities of daily living such as cooking and cleaning. Patient does state that he did actually see our office before back around 2019 and did even have a surgical procedure of the lumbar decompression and it really did improve his leg symptoms. Patient states that he is not having any radiating symptoms that it just states that his low back and with increased activity it will radiate up his mid back to his neck area in between his shoulders. Patient states that he does help take care of his and it is very bothersome. Patient did try epidurals in the past before and states that they did help but would frequently be very temporary. Patient does use Tylenol and Advil and is tried heat and ice and topicals with minimal changes. He is also used a TENS unit at home with no improvement. Patient states that he has been to the chiropractor weekly and then even did deep tissue massage every 2 weeks however it was not producing any additional improvement. Patient denies any other surgical procedures on his back. His Cody has been reviewed and is appropriate. Pain at rest (0-10 scale): 2 Has patient had previous pain injection?: No Conservative treatment options previously tried: Home exercise plan (Longer than 12 weeks) and Chiropractor (No improvement) cc:: CC: Rain Alva APRN [facility] Disclaimer: The information contained in this section may have been updated after the patient was seen, as this information can be updated by other users. Medical History Infrarenal abdominal aortic aneurysm (AAA) without rupture Weight loss, unintentional No appetite Major depressive disorder Encounter for pre-operative cardiovascular clearance Dyspnea Atypical angina HLD (hyperlipidemia) HHD (hypertensive heart disease) CAD (coronary artery disease) AAA (abdominal aortic aneurysm) Surgical History H/O carotid endarterectomy Hx of cardiac cath S/P CABG x 2 History of cholecystectomy Family History Other No significant family history Social History (Updated 04/06/25 @ 09:19 by Denisa Elliott RN) Smoking Status: Never smoker alcohol intake: never substance use type: denies use current occupational status: retired Travel in the last 8 weeks?: None housing: other current occupational exposures/hazards: No caffeine: Yes Review of Systems Review of Systems Review of systems:: pertinent systems reviewed and negative unless documented below Review of systems (narrative): Review of Systems: General: No recent weight changes, no fever, no sleep disturbances Respiratory: No cough, no shortness of air, no recurring pulmonary infections Cardiovascular/peripheral vascular: No chest pain, no palpitations, no edema, no shortness of breath Gastrointestinal: No new onset incontinence, normal bowel movements reported Genitourinary: No new onset incontinence Musculoskeletal: Low back pain Psychiatric: [Normal mood/affect] Neurological: [Denies weakness in extremities], [denies balance issues] Meds Home Medications and Allergies Home Medications ?Medication ?Instructions ?Recorded ?Confirmed ?Type aspirin 81 mg tablet 81 mg PO DAILY 03/27/24 04/06/25 History cholecalciferol (vitamin D3) 50 50 mcg PO DAILY 03/27/24 04/06/25 History mcg (2,000 unit) tablet coenzyme Q10 400 mg capsule 400 mg PO DAILY 03/27/24 04/06/25 History multivitamin 1 tab PO DAILY 11/17/24 04/06/25 History amlodipine 5 mg tablet (Norvasc) 5 mg PO DAILY #30 tabs 01/20/25 04/06/25 Rx rosuvastatin 20 mg tablet 20 mg PO DAILY #90 tabs 01/23/25 04/06/25 Rx lisinopril 10 mg tablet 10 mg PO HS 01/27/25 04/06/25 History lisinopril 20 1 tab PO DAILY 01/27/25 04/06/25 History mg-hydrochlorothiazide 12.5 mg tablet clopidogrel 75 mg tablet See Rx Instructions .Route 03/23/25 04/06/25 Rx .COMPLEX #90 tabs carvedilol 6.25 mg tablet 12.5 mg PO BID 03/31/25 04/06/25 History ondansetron 4 mg disintegrating 4 mg PO QID PRN nausea and 03/31/25 04/06/25 Rx tablet vomiting #10 tabs ondansetron 4 mg disintegrating 8 mg (2 x 4 mg) PO Q8H PRN nausea 03/31/25 04/06/25 Rx tablet and vomiting #30 tabs sodium chloride 1,000 mg soluble 1,000 mg PO BID #14 tabs 03/31/25 04/06/25 Rx tablet New Prescriptions to Start Prescriptions: Allergies Allergy/AdvReac Type Severity Reaction Status Date / Time prednisone Allergy Intermediate I-RASH Verified 03/31/25 13:06 azithromycin (AZITHROMYCIN) Allergy Unknown Rash Verified 03/31/25 13:06 NSAIDS (Non-Steroidal Allergy Unknown Rash Verified 03/31/25 13:06 Anti-Inflamma (NSAIDS (NON-STEROIDAL ANTI-INFLAMMA) nabumetone AdvReac Intermediate IRREGULAR Verified 03/31/25 13:06 HEART BEAT indomethacin AdvReac Mild DIZZINESS Verified 03/31/25 13:06 Objective Vital signs: Pulse Resp BP Pulse Ox O2 Del Method 57 L 18 95/53 L 95 Room Air 04/06/25 09:18 04/06/25 09:18 04/06/25 09:18 04/06/25 09:18 04/06/25 09:18 Narrative: Physical Exam: General: Alert and oriented x3, no acute distress, pleasant and cooperative Lungs: Respirations even and unlabored, symmetrical chest expansion Eyes: PERRL Musculoskeletal: Flexion and extension of lumbar [spine] somewhat guarded secondary to pain, [antalgic gait noted] Neurological: Speech clear, no gross sensory deficit Assessment and Plan *Assessment and plan (1) Chronic back pain: Status: Acute Category: Medical Code(s): M54.9 - Dorsalgia, unspecified; G89.29 - Other chronic pain Plan We did discuss over the possibility of injections to help with his low back however due to the fact in the past that have been very temporary he was interested in other options. I did discuss with him that I do believe his symptoms are consistent with being a potential candidate of a intrathecal pain pump trial. Risk and benefits and educational handouts were given. He does state that he would be very interested in this option. I will order a psychological evaluation and if he is deemed an appropriate candidate we will proceed forward with a trial at a later date. I will also order x-ray imaging and MRI without contrast of his lumbar spine as it has been since 2019 his last advanced imaging. Patient was also discussed that we would plan on sending him to neurosurgery at a later date. Patient will return to clinic in 1 month for reevaluation of symptoms and plan of care. Patient has been instructed to contact the clinic with any concerns before the next appointment. Dr. Couch has reviewed this note and agrees with this plan of care. This note was dictated using voice recognition software and make contain errors or omissions. All injections are used with Lidocaine, Bupivacaine and dexamethasone. Occasionally urine drug screen is needed to verify patient's compliance with our office pain contract. This is ordered based off specific treatments related to chronic pain with the potential to abuse certain medications.
--- NOTE | 2025-04-06 09:45 | XR_ITS ---
FINAL REPORT CLINICAL HISTORY: Low back pain COMPARISON: None FINDINGS: Three views of the lumbosacral spine were obtained. No fracture is identified. There is mild diffuse degenerative disc disease and spondylosis. Retrolisthesis of L3 on L4 measures 4 mm and of L2 on L3 measures 3 mm. IMPRESSION: Degenerative changes as above. Reviewed, Interpreted and Dictated by Torrey Batista MD Transcribed by Miroslava Vieyra Authenticated and . [facility]
== END 2025-04-06 23:59 | disposition home or self-care (01) ==
PROVIDERS: PCP Nurse Practitioner Family; Visit Provider Nurse Practitioner Family
DX: M54.9 Dorsalgia, unspecified (principal); G89.29 Other chronic pain; Z79.1 Long term (current) use of non-steroidal anti-inflammatories (NSAID)
CPT/HCPCS: 72100; 99202; G0463

== ENCOUNTER 2025-04-13 08:21 | Inpatient (IN) | payer MEDICARE, OTHER, SELFPAY ==
[2025-04-13] VITALS (12 sets, daily range): BP systolic 104–171; BP diastolic 60–89; PULSE 50–62; RESP 16–19; TEMP 36.6–36.7; O2SAT 93–100; BMI 25.9; BMI 26.5
--- NOTE | 2025-04-13 08:29 | ECG_ITS ---
APPROVED REPORT Exam: Resting ECG HR:58 bpm ECG Measurements Heart Rate 58 AXES QRSd 158 QRS -65 QT 470 T 52 QTc 467 Conclusion UNCERTAIN IRREGULAR RHYTHM INDETERMINATE AXIS RIGHT BUNDLE BRANCH BLOCK [120+ ms QRS DURATION, UPRIGHT V1, 40+ ms S IN I/aVL/V4/V5/V6] POSSIBLE ANTERIOR MYOCARDIAL INFARCTION , OF INDETERMINATE AGE [30 ms Q WAVE IN V3/V4, OR R < 0.2 mV IN V4] No STEMI Electronically signed by : MILLIE MORRISON, 04/14/2025 02:30:04
--- OUTSIDE RECORDS SUMMARY | 2025-04-13 08:38 | XMS_ITS | Clinical Summary ---
Author Organization [facility] Address [address] [place] [address] Care Team Providers Care Molybdenum Steamer Operator Name Role Phone Duncan Eastman MD Primary Care Provider [phone] Jonah Cabello MD Unavailable [phone] Allergies Active Allergy Reactions Criticality Noted Date [...] 06/10/2021 Dyspnea on exertion 03/25/2021 04/14/20 21 ID (myocardial infarction) 03/25/2021 0 04/14/2021 Carcinoma of prostate 03/25/20212020 Prostate cancer 11/01/2017 04/14/2021 Immunizations Immunization Administration Dates Next Due Influenza, Unspecified 07/22/2020 Influenza, high-dose, quadrivalent 07/20/2016 Influenza, live, intranasal, quadrivalent 2016 Influenza, trivalent, adjuvanted 06/26/2017 Moderna COVID-19 Vaccine (Alteration Workroom Supervisor) 12+ years 06/2021,10/26/2020 Pneumococcal, Unspecified 07/20/2016 Family [...] or (1 - 1-dose 75+ series) 2021 [id number] Vaccine ( - season) 2024 11/23/2020, 10/26/2020 [...] this topic Medical Devices Implanted Type Area Sueding Machine Operator Device Identifier Shelf Expiration Date Model / Serial / Lot Patch Pericardial 1x10cm - [id number] Implanted:Qty: 1 on 03/29/2021 [id number] 12/12/2021 [id number] [employer] - [id number] Implanted:Qty: 1 on 06/22/2021 by Mor Rogers MD at [facility] N/A: Vocal [employer]-[id number] 01/24/2023 08-015-04- V04 / / [id number] Description:Part Number: [id number] [facility] Voice - [id number] Implanted:Qty: 1 on 06/22/2021 by Mor Rogers MD at [facility] N/A: [employer]-[id number] 03/19/2023 08-015-04- V04 / / [id number] Description:Part Number: [id number] Insurance MEDICARE [facility] [place] Advance Directives * Full Code (Latest Code Status on File) Date Activated Date Inactivated Comments 03/29/2021 11:59 AM 04/01/2021 4:54 PM Question Answer Comments Patient has decision-making capacity? Yes Care Teams Molybdenum Steamer Operator Relationship Specialty Start Date End Date Duncan Eastman MD [address] [place] [id number] PCP - General 02/25/21 Jonah Cabello MD [address] [facility] [address] [place] [address] Referring Physician Cardiology 04/06/21
--- NOTE | 2025-04-13 08:40 | HMH.EDGENADL ---
Discharge Plan Disposition Patient Disposition: Home, Self-Care Prescriptions Prescriptions: No Action multivitamin Tablet 1 tab PO DAILY lisinopril-hydrochlorothiazide 20-12.5 mg tablet 1 tab PO DAILY lisinopril 10 mg tablet 10 mg PO HS ondansetron 4 mg tablet,disintegrating 8 mg PO Q8H PRN (Reason: nausea and vomiting) Qty: 30 1RF Rx Instructions: 1-2 tablets as needed for nausea rosuvastatin 20 mg tablet 20 mg PO DAILY Qty: 90 3RF clopidogrel 75 mg tablet See Rx Instructions .ROUTE .COMPLEX Qty: 90 1RF Dose Instruction: TAKE 1 TABLET BY MOUTH DAILY Rx Instructions: TAKE 1 TABLET BY MOUTH DAILY carvedilol 6.25 mg tablet 12.5 mg PO BID ondansetron 4 mg tablet,disintegrating 4 mg PO QID PRN (Reason: nausea and vomiting) Qty: 10 0RF sodium chloride 1,000 mg tablet,soluble 1,000 mg PO BID Qty: 14 0RF aspirin 81 mg Tablet 81 mg PO DAILY cholecalciferol (vitamin D3) 50 mcg (2,000 unit) Tablet 50 mcg PO DAILY coenzyme Q10 400 mg Capsule 400 mg PO DAILY Referrals Follow up/Referrals: Jeanette Au APRN [Primary Care Provider, Medical] - See instructions Clinical Impressions Clinical Impression: Hyponatremia, Hypochloremia, Adult failure to thrive Print Language Print Language: Thai Discharge ED Provider: Ralph Roa General Adult HPI General Chief complaint: Dizziness Stated complaint: Nausea; Dryheaving; Lightheaded; Back Pain Time Seen by Provider: 04/13/25 08:29 History of Present Illness HPI narrative: Patient is a 80-year-old with past medical history of previously elevated lipase, chronic back pain pending implantable device, diabetes, hypertension, infrarenal AAA who presents to the emergency department for evaluation of vomiting. He states that this has been going on for a couple of years occurs at least 1 day a week with intractable retching, no specific triggers to his knowledge. 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 He is status post cholecystectomy a decade ago. He was seen in the emergency department recently with an elevated lipase and hyponatremia and was discharged home with salt tablets and close outpatient follow-up. No chest pain or melena reported. He has abdominal discomfort but does not have discrete abdominal pain. No other acute complaints at this time. Related Data Home Medications ?Medication ?Instructions ?Recorded ?Confirmed aspirin 81 mg tablet 81 mg PO DAILY 03/27/24 04/06/25 cholecalciferol (vitamin D3) 50 50 mcg PO DAILY 03/27/24 04/06/25 mcg (2,000 unit) tablet coenzyme Q10 400 mg capsule 400 mg PO DAILY 03/27/24 04/06/25 multivitamin 1 tab PO DAILY 11/17/24 04/06/25 lisinopril 10 mg tablet 10 mg PO HS 01/27/25 04/06/25 lisinopril 20 1 tab PO DAILY 01/27/25 04/06/25 mg-hydrochlorothiazide 12.5 mg tablet carvedilol 6.25 mg tablet 12.5 mg PO BID 03/31/25 04/06/25 Previous Rx's ?Medication ?Instructions ?Recorded rosuvastatin 20 mg tablet 20 mg PO DAILY #90 tabs 01/23/25 clopidogrel 75 mg tablet See Rx Instructions .Route 03/23/25 .COMPLEX #90 tabs ondansetron 4 mg disintegrating 4 mg PO QID PRN nausea and 03/31/25 tablet vomiting #10 tabs ondansetron 4 mg disintegrating 8 mg (2 x 4 mg) PO Q8H PRN nausea 03/31/25 tablet and vomiting #30 tabs sodium chloride 1,000 mg soluble 1,000 mg PO BID #14 tabs 03/31/25 tablet Allergies Allergy/AdvReac Type Severity Reaction Status Date / Time prednisone Allergy Intermediate I-RASH Verified 04/13/25 08:40 azithromycin (AZITHROMYCIN) Allergy Unknown Rash Verified 04/13/25 08:40 NSAIDS (Non-Steroidal Allergy Unknown Rash Verified 04/13/25 08:40 Anti-Inflamma (NSAIDS (NON-STEROIDAL ANTI-INFLAMMA) nabumetone AdvReac Intermediate IRREGULAR Verified 04/13/25 08:40 HEART BEAT indomethacin AdvReac Mild DIZZINESS Verified 04/13/25 08:40 PFSH PFSH Disclaimer: The information contained in this section may have been updated after the patient was seen, as this information can be updated by other users. Medical History Infrarenal abdominal aortic aneurysm (AAA) without rupture Weight loss, unintentional No appetite Major depressive disorder Encounter for pre-operative cardiovascular clearance Dyspnea Atypical angina HLD (hyperlipidemia) HHD (hypertensive heart disease) CAD (coronary artery disease) AAA (abdominal aortic aneurysm) Surgical History H/O carotid endarterectomy Hx of cardiac cath S/P CABG x 2 History of cholecystectomy Family History Other No significant family history Social History Smoking Status: Former smoker alcohol intake: never substance use type: denies use current occupational status: retired Travel in the last 8 weeks?: None housing: other current occupational exposures/hazards: No caffeine: Yes Have you lived/traveled outside US in past 30 days?: No Contact w/someone who lives/traveled outside US past 30 days?: No Exposure to someone with infectious disease in past 14 days?: No Do you have a fever (greater than 100.4 F or 38 C)?: No Have you tested positive for COVID-19?: No Exposed to someone with COVID-19 in past 14 days?: No Do you have a sore throat?: No Do you have a cough?: No Do you have any weakness?: Yes Do you have any diarrhea?: No Are you experiencing any unusual bleeding?: No Do you have any muscle aches/pain?: Yes Do you have any abdominal pain?: No Are you experiencing loss of taste or smell?: No Other Medical History Have you received the Flu Vaccine for this season: No Have you received the Pneumonia Vaccine: Yes ROS Obtained: Yes Systems reviewed as appropriate & no additional complaints except as documented Physical Exam General General appearance: alert and in no apparent distress Head Head exam: atraumatic and normocephalic Eye Eye exam: Present PERRL and EOMI ENT ENT exam: Present mucous membranes moist Neck Neck exam: Present normal inspection Chest Chest inspection: Present normal inspection and symmetric chest wall rise Respiratory Respiratory exam: Present normal lung sounds bilaterally; Absent respiratory distress Cardiovascular Cardiovascular exam: Present regular rate and normal rhythm Abdominal Exam Abdominal exam: Present soft; Absent tenderness, guarding or rebound Extremities Exam Extremities exam: Present normal inspection Neurological Exam Neurological exam: Present alert Psychiatric Psychiatric exam: Present normal affect Skin Skin exam: Present warm and dry Medical Decision Making Medical Records Screening: Per USPSTF and CDC recommendations, given the prevalence of disease in our region, it is our hospital?s policy to screen for HIV and viral Hepatitis for all patients aged 18 and over and those with ongoing risk factors. Cody Inquiry Pt receiving controlled substance: No Vital Signs: 04/13/25 08:30 04/13/25 08:34 04/13/25 09:00 Temperature 97.9 F Temperature Source Oral Pulse Rate 52 L 50 L Pulse Rate [Apical] 51 L Respiratory Rate 17 16 Blood Pressure 150/77 H 146/71 H Blood Pressure [Right Arm] 153/80 H Blood Pressure Mean 105 Blood Pressure Mean [Right Arm] 104 Blood Pressure Source [Right Arm] Automatic Cuff 02 Sat by Pulse Oximetry 100 98 96 Oxygen Delivery Method Room Air 04/13/25 09:40 Temperature Temperature Source Pulse Rate 61 Pulse Rate [Apical] Respiratory Rate 18 Blood Pressure 171/83 H Blood Pressure [Right Arm] Blood Pressure Mean 112 Blood Pressure Mean [Right Arm] Blood Pressure Source [Right Arm] 02 Sat by Pulse Oximetry 100 Oxygen Delivery Method Lab Data Lab Results 04/13/25 08:40: WBC 6.7, RBC 4.08 L, Hgb 12.7 L, Hct 35.0 L, MCV 85.8, MCH 31.1, MCHC 36.3 H, RDW 11.9, Plt Count 223, MPV 8.4, Neut % (Auto) 47.1, Lymph % (Auto) 35.3, Slope % (Auto) 9.3, Eos % (Auto) 6.9, Baso % (Auto) 1.0, Neut # (Auto) 3.1, Lymph # (Auto) 2.4, Slope # (Auto) 0.6, Eos # (Auto) 0.5 H, Baso # (Auto) 0.1, Sodium 125 L, Potassium 3.9, Chloride 86 L, Carbon Dioxide 31 H, Anion Gap 11.9, BUN 10, Creatinine 1.00, Estimated Creat Clear 64, Estimated GFR 72, Est GFR ( Amer) 87, Glucose 144 H, Calcium 9.4, Total Bilirubin 0.5, AST 39, ALT 18, Alkaline Phosphatase 50, Troponin I < 0.01, Total Protein 7.6, Albumin 4.5, Globulin 3.1, Albumin/Globulin Ratio 1.5, Lipase 223 04/13/25 09:36: Urine Color Yellow, Urine Appearance Clear, Urine pH 6.5, Ur Specific [place] <= 1.005, Urine Protein Negative, Urine Glucose (UA) Negative, Urine Ketones Negative, Urine Blood Negative, Urine Nitrate Negative, Urine Bilirubin Negative, Urine Urobilinogen 0.2, Ur Leukocyte Esterase Negative, Urine RBC None, Urine WBC Occasional, Ur Squamous Epith Cells None, Urine Bacteria Trace 04/13/25 08:40 04/13/25 08:40 Orders (Tests/Meds): ED MEDICATIONS Discontinued Medications Generic Name Dose Route Start Last Admin Trade Name Freq PRN Reason Stop Dose Admin Lactated Ringer's 500 mls @ 999 mls/hr 04/13/25 08:40 04/13/25 09:00 Lactated Ringer's 500ml IV 04/13/25 09:10 999 mls/hr .Q31M ONE Administration Promethazine HCl 25 mg 04/13/25 08:39 04/13/25 09:00 Promethazine Hcl 25mg/Ml 1ml Vial IV 04/13/25 08:40 25 mg ONCE ONE Administration Sodium Chloride 25 ml 04/13/25 08:39 04/13/25 09:00 Sodium Chloride 0.9% 25ml Bag IV 04/13/25 08:40 25 ml ONCE ONE Administration ORDERS Category Date Time Status CBC w/Auto Diff [Complete Blood Count Auto Diff] Stat Lab 04/13/25 08:40 Completed CMP [Comprehensive Metabolic Panel] Stat Lab 04/13/25 08:40 Completed Lipase Stat Lab 04/13/25 08:40 Completed Trop I [Troponin I] Stat Lab 04/13/25 08:40 Completed UA [Urinalysis and Microscopic] Stat Lab 04/13/25 09:36 Completed ECG Data Tracing #1: Independently inter by me rate is 58, rhythm is irregular, no ST elevation in anatomical contiguous leads, low voltages, QTc 467. Medical Decision Narrative: In summary patient is a 80-year-old male with past medical history described above who presents emergency department for evaluation of acute on chronic vomiting. Patient is hemodynamically stable nontoxic-appearing upon arrival, afebrile. Differential includes chronic pancreatitis, among others. Workup will be conducted with hematologic labs. Given his history of elevated lipase and hyponatremia in the setting of vomiting that is relatively painless but is uncomfortable I suspect his pancreas is still at play. Initial workup reviewed by me, no significant leukocytosis no transfusable anemia, hyponatremia and hypochloremia consistent with his vomiting. No MICHAEL initial troponin undetectably low lipase is 223. I discussed case with Dr. Cee regarding management tiny clot in the portal vein without longstanding evidence of cirrhosis nothing to do at this point. I confirm with patient that he does not have any postprandial pain making SMA stenosis a less likely culprit for his abdominal discomfort and vomiting. However given the patient has persistent hyponatremia and hypochloremia with decreased p.o. intake inpatient management is warranted at this time and he will consult. Case discussed with hospital medicine regarding management they will meet the patient to their service for continued evaluation at this time. Real Estate Office Manager disclaimer Much of this encounter note is an electronic counter tender spoken language to printed text. Electronic counter tender of the spoken language may permit errors. Although I have reviewed the note, some errors may still exist. Critical Care Critical Care Time Critical Care Time: No
[2025-04-13 08:51] LABS: Albumin Level 4.5 g/dl (3.5-5.0); Chloride 86 mmol/L (98-107); Potassium 3.9 mmoL/L (3.5-5.1); Sodium 125 mmol/L (136-145)
[2025-04-13 08:53] LABS: Hematocrit 35.0 % (42.0-52.0); Hemoglobin 12.7 g/dL (14.1-18.0); Immature Granulocytes % 0.4 %; Mean Corpuscular HGB Conc 36.3 g/dL (31.8-35.4); Mean Corpuscular Hemoglobin 31.1 pg (27.0-31.2); Mean Corpuscular Volume 85.8 fl (80-94); Nucleated Red Blood Cells % 0 %; Platelet Count 223 K/mm3 (142-424); Red Blood Count 4.08 M/mm3 (4.60-6.20); Red Cell Distribution Width-SD 37.4 fL; White Blood Count 6.7 K/mm3 (4.8-10.8)
[2025-04-13 08:54] LABS: Alanine Aminotransferase 18 U/L (12-78); Albumin/Globulin Ratio 1.5 (1.1-1.8); Alkaline Phosphatase 50 U/L (38-126); Anion Gap 11.9 mEq/L (5-15); Aspartate Amino Transferase 39 U/L (17-59); Bilirubin,Total 0.5 mg/dl (0.2-1.3); Blood Urea Nitrogen 10 mg/dl (9-20); Carbon Dioxide 31 mmol/L (22.0-30.0); Creatinine Clearance Estimated 64 mL/min (50-200); Creatinine,Serum 1.00 mg/dl (0.66-1.25); Estimated Glomerular Filt Rate 72 ml/min (>60); GFR (African American) 87 ML/MIN (>60); Globulin 3.1 g/dL (1.3-3.2); Lipase 223 U/L (23-300); Total Protein,Serum 7.6 g/dl (6.3-8.2)
[2025-04-13 08:55] LABS: Calcium 9.4 mg/dl (8.4-10.2); Glucose 144 mg/dl (74-100)
[2025-04-13] MEDS: SODIUM CHLORIDE 0.9% 25ML BAG 25 ML IV (09:00)
[2025-04-13] MEDS: RINGERS SOLUTION,LACTATED 500 ML 999 ML IV (09:00)
[2025-04-13] MEDS: PROMETHAZINE HCL 25MG/ML 1ML VIAL 25 MG IV (09:00)
[2025-04-13 09:14] LABS: Troponin I < 0.01 ng/ml (0.00-0.034)
[2025-04-13 09:41] LABS: Microscopic, Urine URINE MICROSCOPIC (MICROSCOPIC)
[2025-04-13 09:42] LABS: Bilirubin,Urine Negative (Negative); Color,Urine YELLOW (Yellow); Glucose,Urine (UA) Negative (Negative); Ketones,Urine Negative (Negative); Leukocyte Esterase,Urine Negative (Negative); PH,Urine 6.5 (5.0-8.5); Protein,Urine Negative (Negative); Specific Gravity, Urine <= 1.005 (1.005-1.030); Urobilinogen,Urine 0.2 EU/dl (0.2)
[2025-04-13 09:54] LABS: Bacteria,Urine Trace /lpf; WBC,Urine Occasional #/hpf (0-3)
--- NOTE | 2025-04-13 10:01 | PC.NURSE ---
Pt assisted w/ urinal by staff. UA sent to lab. Repositioned in stretcher and warm blanket given. No further needs @ this time
--- NOTE | 2025-04-13 10:57 | PC.NURSE ---
consulted who suggests admission.
--- NOTE | 2025-04-13 11:02 | PC.NURSE ---
Dr. Roa speaking w/ Dr. Levine @ this time
--- NOTE | 2025-04-13 11:05 | PC.NURSE ---
call made to house for bed admission
--- NOTE | 2025-04-13 11:08 | EXP.HP ---
History of Present Illness *Admission Date: 04/13/25 *Reason for visit:: Abdominal pain, nausea *History of present illness: Mr. Stephens is a 80-year-old male with past history of elevated lipase, chronic back pain, chronic constipation, diabetes, CAD, infrarenal AAA. He has had unintentional weight loss over the past year. Being worked up by GI as an outpatient. Presented to the ER due to nausea and vomiting today after bowel movement. States he felt nauseous after having a small bowel movement this morning. Presented to the ER and had a large bowel movement that made his abdomen feel better. On workup in the ER found to have low sodium with level of 125. Kidney function normal. Lipase normal at 223. Given his pain, weight loss, hyponatremia, medicine consulted for evaluation and further management. Gastroenterology consulted to assist with care On evaluation after arriving to the floor, patient states he has been dealing with abdominal pain for quite some time. Has had EGDs performed with polyps in his stomach but no other abnormalities identified. Previous episodes of elevated lipase. Weight loss of 30 to 40 pounds over the past year unintentionally. Does not complain of pain after eating. Actually states that after eating his stomach feels better. Has been taking salt tablets since presenting to the ER earlier this month and being found to have hyponatremia. Denies fevers or night sweats. Started feeling weak and having abdominal pain. [facility] Disclaimer: The information contained in this section may have been updated after the patient was seen, as this information can be updated by other users. Medical History Infrarenal abdominal aortic aneurysm (AAA) without rupture Weight loss, unintentional No appetite Major depressive disorder Encounter for pre-operative cardiovascular clearance Dyspnea Atypical angina HLD (hyperlipidemia) HHD (hypertensive heart disease) CAD (coronary artery disease) AAA (abdominal aortic aneurysm) Surgical History H/O carotid endarterectomy Hx of cardiac cath S/P CABG x 2 History of cholecystectomy Family History Other No significant family history Social History Smoking Status: Former smoker alcohol intake: never substance use type: denies use current occupational status: retired Travel in the last 8 weeks?: None housing: other current occupational exposures/hazards: No caffeine: Yes Other Medical History Have you received the Flu Vaccine for this season: No Have you received the Pneumonia Vaccine: Yes Review of Systems Review of Systems Review of systems (narrative): 14 point review of systems performed, pertinent positives and negatives as per HPI Meds Home Medications and Allergies Home Medications ?Medication ?Instructions ?Recorded ?Confirmed ?Type aspirin 81 mg tablet 81 mg PO DAILY 03/27/24 04/13/25 History cholecalciferol (vitamin D3) 50 50 mcg PO DAILY 03/27/24 04/13/25 History mcg (2,000 unit) tablet coenzyme Q10 400 mg capsule 400 mg PO DAILY 03/27/24 04/13/25 History multivitamin 1 tab PO DAILY 11/17/24 04/13/25 History rosuvastatin 20 mg tablet 20 mg PO DAILY #90 tabs 01/23/25 04/13/25 Rx lisinopril 10 mg tablet 10 mg PO HS 01/27/25 04/13/25 History lisinopril 20 1 tab PO DAILY 01/27/25 04/13/25 History mg-hydrochlorothiazide 12.5 mg tablet carvedilol 6.25 mg tablet 6.25 mg PO BID 03/31/25 04/13/25 History clopidogrel 75 mg tablet 75 mg PO DAILY 04/13/25 04/13/25 History omeprazole 40 mg capsule,delayed 40 mg PO DAILY 04/13/25 04/13/25 History release ondansetron 4 mg disintegrating 4 mg PO Q6HP PRN Nausea And 04/13/25 04/13/25 History tablet Vomiting New Prescriptions to Start Prescriptions: Allergies Allergy/AdvReac Type Severity Reaction Status Date / Time prednisone Allergy Intermediate I-RASH Verified 04/13/25 08:40 azithromycin (AZITHROMYCIN) Allergy Unknown Rash Verified 04/13/25 08:40 NSAIDS (Non-Steroidal Allergy Unknown Rash Verified 04/13/25 08:40 Anti-Inflamma (NSAIDS (NON-STEROIDAL ANTI-INFLAMMA) nabumetone AdvReac Intermediate IRREGULAR Verified 04/13/25 08:40 HEART BEAT indomethacin AdvReac Mild DIZZINESS Verified 04/13/25 08:40 Exam Data for Last 24 hours Vital signs and Labs for Last 24 Hours: Temp Pulse Resp BP Pulse Ox O2 Del Method 97.9 F 61 18 171/83 H 100 Room Air 04/13/25 08:34 04/13/25 09:40 04/13/25 09:40 04/13/25 09:40 04/13/25 09:40 04/13/25 08:34 Laboratory Results - last 24 hr 04/13/25 08:40: WBC 6.7, RBC 4.08 L, Hgb 12.7 L, Hct 35.0 L, MCV 85.8, MCH 31.1, MCHC 36.3 H, RDW 11.9, Plt Count 223, MPV 8.4, Neut % (Auto) 47.1, Lymph % (Auto) 35.3, [place] % (Auto) 9.3, Eos % (Auto) 6.9, Baso % (Auto) 1.0, Neut # (Auto) 3.1, Lymph # (Auto) 2.4, [place] # (Auto) 0.6, Eos # (Auto) 0.5 H, Baso # (Auto) 0.1, Sodium 125 L, Potassium 3.9, Chloride 86 L, Carbon Dioxide 31 H, Anion Gap 11.9, BUN 10, Creatinine 1.00, Estimated Creat Clear 64, Estimated GFR 72, Est GFR ( Amer) 87, Glucose 144 H, Calcium 9.4, Total Bilirubin 0.5, AST 39, ALT 18, Alkaline Phosphatase 50, Troponin I < 0.01, Total Protein 7.6, Albumin 4.5, Globulin 3.1, Albumin/Globulin Ratio 1.5, Lipase 223 04/13/25 09:36: Urine Color Yellow, Urine Appearance Clear, Urine pH 6.5, Ur Specific [place] <= 1.005, Urine Protein Negative, Urine Glucose (UA) Negative, Urine Ketones Negative, Urine Blood Negative, Urine Nitrate Negative, Urine Bilirubin Negative, Urine Urobilinogen 0.2, Ur Leukocyte Esterase Negative, Urine RBC None, Urine WBC Occasional, Ur Squamous Epith Cells None, Urine Bacteria Trace I & O for Last 24 hours: Intake & Output 04/10/25 04/11/25 04/12/25 04/13/25 23:59 23:59 23:59 23:59 Output Total 400 / 400 Balance -400 / -400 Weight 75.296 kg Constitutional Constitutional: no acute distress, average body habitus, chronically ill appearing and cooperative *Routine HEENT Exam Head: Present normocephalic Eye: Present EOMI and PERRL ENT: Present mucous membranes moist *Routine Neck Exam Neck: Present supple *Routine Respiratory Exam Respiratory: Present CTA bilaterally; Absent rhonchi, wheezes or crackles *Routine Cardiovascular Exam Cardiovascular: Present RRR *Routine Abdominal Exam Abdominal: Present soft, normoactive bowel sounds and tenderness (Epigastric and right upper quadrant); Absent distended or rebound *Routine Rectal Exam Rectal:: deferred *Routine Genitalia Exam Genitalia:: deferred *Routine Extremities Exam Extremities: Absent cyanosis, clubbing or edema *Routine Skin Exam Skin: Present intact and warm; Absent rash *Routine Neurological Exam Neurological: Present alert, oriented X3 and moving all extremities; Absent altered mental status Assessment and Plan *Assessment and plan (1) Hyponatremia: Status: Acute Category: Medical Code(s): E87.1 - Hypo-osmolality and hyponatremia (2) Chronic constipation: Status: Acute Category: Medical Code(s): K59.09 - Other constipation (3) Elevated lipase: Status: Acute Category: Medical Code(s): R74.8 - Abnormal levels of other serum enzymes (4) Weight loss, unintentional: Status: Acute Category: Medical Code(s): R63.4 - Abnormal weight loss (5) Decreased appetite: Status: Acute Category: Medical Code(s): R63.0 - Anorexia (6) Nausea and vomiting: Status: Acute Category: Medical Code(s): R11.2 - Nausea with vomiting, unspecified (7) Generalized abdominal pain: Status: Acute Category: Medical Code(s): R10.84 - Generalized abdominal pain (8) Portal vein thrombosis: Status: Acute Category: Medical Code(s): I81 - Portal vein thrombosis (9) Adult failure to thrive: Status: Acute Category: Medical Code(s): R62.7 - Adult failure to thrive (10) Adjustment disorder with other symptoms: Status: Acute Category: Medical Code(s): F43.29 - Adjustment disorder with other symptoms (11) CAD (coronary artery disease): Status: Chronic Qualifiers: Associated angina: without angina Coronary Disease-Associated Artery/Lesion type: [place] artery [place] vs. transplanted heart: [place] heart Qualified Code(s): I25.10 - Atherosclerotic heart disease of [place] coronary artery without angina pectoris Category: Medical Code(s): I25.10 - Atherosclerotic heart disease of [place] coronary artery without angina pectoris (12) HHD (hypertensive heart disease): Status: Chronic Qualifiers: Heart failure presence: without heart failure Qualified Code(s): I11.9 - Hypertensive heart disease without heart failure Category: Medical Code(s): I11.9 - Hypertensive heart disease without heart failure Plan 80-year-old male who has had progressive weight loss over the past year that is unintentional. Has been following with GI as an outpatient and continues to have significant abdominal symptoms, chronic constipation, intermittent elevation of his lipase and significant abdominal pain. Presented to the ER today and was found to have hyponatremia and abdominal pain. Medicine consulted for admission. Discussed case with ER physician, request admission for treatment of hyponatremia and further workup with GI. I decided to admit for treatment of his hyponatremia and further evaluation of his unintentional weight loss and abdominal pain. Hemodynamically stable. GI consulted to assist with care, problems addressed as follows: Unintentional weight loss Abdominal pain Chronic constipation Portal vein thrombosis -CT of abdomen shows constipation even in light of recent bowel movements. 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 Lipase normal at 223. -Portal vein thrombosis does not show signs of occlusion. LFTs are normal. Low concern for significance at this time. -GI consulted to assist with management. Recommend MRCP/MRI of pancreas. Will evaluate further for pathology of upper abdomen -Initiate bowel regimen with docusate senna twice daily, MiraLAX 17 g once daily. - Discussed case with GI surgery, they also have concern for porphyria. Urine porphobilinogen's and serum porphyrins ordered due to the intermittent nature of patient's symptoms - Continue pantoprazole 40 mg daily Hypertension CAD - Continue carvedilol 6.25 mg twice daily, Plavix 75 mg daily - Hold lisinopril and aspirin with abdominal pain and normotensive state. Holding diuretic with hyponatremia - Holding Crestor in the setting of abdominal pain Hyponatremia: Sodium 125, up from 121 earlier this week. Chloride 86. Potassium 3.9. Kidney function normal BUN 10, creatinine 1.0. Suspect secondary to his diuretics. Urine sodium pending -Serial sodium levels monitored every 8 hours. BMP ordered for 7:30 PM. Will repeat labs in the morning with CBC, CMP, magnesium. Correction rate of 8 to 10 mEq per 24 hours. Full code Regular diet, n.p.o. midnight prophylactic Lovenox
--- NOTE | 2025-04-13 11:35 | PC.NURSE ---
Report called to SONALI Cortez RN @ [phone]
[2025-04-13] MEDS: SODIUM CHLORIDE 0.9% 500ML BAG 500 ML IV (11:39)
--- NOTE | 2025-04-13 11:55 | PC.NURSE ---
arrived by w/c from ED
--- NOTE | 2025-04-13 12:48 | HMH.PHAINT1 ---
Pharmacy Intervention Comments: MEDICATION RECONCILIATION COMPLETED ON PATIENT USING EXTERNAL FILL HISTORY FROM PHARMACY AND LISTS FROM PCP/CARDIOLOGY OFFICES. -DOMINICK KINGD
--- NOTE | 2025-04-13 12:59 | EXP.GE.CONS ---
History of Present Illness *Admission Date: 04/13/25 *History of present illness: This is a pleasant 80-year-old male with past medical history of previously elevated lipase, chronic back pain pending implantable device, diabetes, hypertension, infrarenal AAA who presented to the emergency department for evaluation of vomiting. This gentleman is known to our office. Last year, the patient had been struggling with loss of appetite, nausea and a 30 pound weight loss that was unintentional. He had a corresponding loss of energy. By this year, he felt like he got his appetite back and was able to eat more normally. He denies any further weight loss. He had been struggling with intermittent episodes of constipation. He had imaging at the end of 2023 that showed some retained stool. He has had intermittent elevations of lipase on multiple occasions. At one point, lipase was over 500 and most recently a couple of weeks ago he had a lipase of 887 with an amylase of 119. He had a CT abdomen pelvis on 03/31 that showed no evidence of acute pancreatitis. It did show a filling defect in portal vein consistent with a tiny nonocclusive clot. No evidence of cirrhosis. He was seen in our office and have reported resolution of the nausea and the vomiting the abdominal pain. He was on MiraLAX and fiber every day and having a bowel movement every day and felt that the constipation was resolved as well. He had seen Dr. Cee for EGD back in December of this year which showed only functional dyspepsia, mild chronic gastric atrophy and a small hiatal hernia. The patient has been to the ER multiple times recently for that nausea vomiting and generalized abdominal discomfort. He has been hyponatremic on multiple occasions. The patient reports that he had a bowel movement this morning and then developed nausea and dry heaving which he sometimes does when he has a bowel movement. He presented to the ER with the same symptoms. While in the ER he was found to be hyponatremic again with a sodium of 125. He had a normal lipase today of 223. He did have normal liver enzymes and has had on multiple lab draws. 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 The patient reports that while in the ER he had a very large bowel movement on top of the normal when he had this morning. His nausea and vomiting has resolved. His abdominal discomfort has resolved. He gets a very low level generalized abdominal discomfort intermittently as well. He denies any melena hematochezia or mucus in his stool. He denies any family history of colon cancer or other GI cancers, inflammatory bowel disease or celiac disease. He did have a colonoscopy with Dr. Cee in 2017 and he reports 6 polyps. He had a repeat in 2021 at [place] and reports no polyps were found. He was told he would need any further colonoscopies. GI was consulted for his ongoing symptoms. Patient was scheduled for MRI of the pancreas and MRCP either today or upcoming. [facility] Disclaimer: The information contained in this section may have been updated after the patient was seen, as this information can be updated by other users. Medical History Infrarenal abdominal aortic aneurysm (AAA) without rupture Weight loss, unintentional No appetite Major depressive disorder Encounter for pre-operative cardiovascular clearance Dyspnea Atypical angina HLD (hyperlipidemia) HHD (hypertensive heart disease) CAD (coronary artery disease) AAA (abdominal aortic aneurysm) Surgical History H/O carotid endarterectomy Hx of cardiac cath S/P CABG x 2 History of cholecystectomy Family History Other No significant family history Social History (Updated 04/13/25 @ 12:23 by aJney Morrow RN) Smoking Status: Former smoker alcohol intake: never substance use type: denies use current occupational status: retired Travel in the last 8 weeks?: None housing: other current occupational exposures/hazards: No caffeine: Yes Have you lived/traveled outside [place] in past 30 days?: No Contact w/someone who lives/traveled outside [place] past 30 days?: No Exposure to someone with infectious disease in past 14 days?: No Do you have a fever (greater than 100.4 F or 38 C)?: No Have you tested positive for COVID-19?: No Exposed to someone with COVID-19 in past 14 days?: No Do you have a sore throat?: No Do you have a cough?: No Do you have any weakness?: Yes Are you experiencing any nausea/vomitting?: Yes Do you have any diarrhea?: No Are you experiencing any unusual bleeding?: No Do you have any muscle aches/pain?: Yes Do you have any abdominal pain?: No Are you experiencing loss of taste or smell?: No Review of Systems Review of Systems Review of systems:: pertinent systems reviewed and negative unless documented below Constitutional Constitutional: Reports system reviewed and no additional complaints, except as documented Eyes Eyes: Reports system reviewed and no additional complaints, except as documented ENT Ears, Nose, Mouth, and Throat: Reports system reviewed and no additional complaints, except as documented *Cardiovascular Cardiovascular: Reports system reviewed and no additional complaints, except as documented *Respiratory Respiratory: Reports system reviewed and no additional complaints, except as documented *Gastrointestinal Gastrointestinal: Reports abdominal pain, Reports constipation, Reports nausea and Reports vomiting (Often dry heaving) *Genitourinary Genitourinary: Reports system reviewed and no additional complaints, except as documented *Musculoskeletal Musculoskeletal: Reports system reviewed and no additional complaints, except as documented *Neurologic Neurologic: Reports system reviewed and no additional complaints, except as documented Meds Home Medications and Allergies Home Medications ?Medication ?Instructions ?Recorded ?Confirmed ?Type aspirin 81 mg tablet 81 mg PO DAILY 03/27/24 04/13/25 History cholecalciferol (vitamin D3) 50 50 mcg PO DAILY 03/27/24 04/13/25 History mcg (2,000 unit) tablet coenzyme Q10 400 mg capsule 400 mg PO DAILY 03/27/24 04/13/25 History multivitamin 1 tab PO DAILY 11/17/24 04/13/25 History rosuvastatin 20 mg tablet 20 mg PO DAILY #90 tabs 01/23/25 04/13/25 Rx lisinopril 10 mg tablet 10 mg PO HS 01/27/25 04/13/25 History lisinopril 20 1 tab PO DAILY 01/27/25 04/13/25 History mg-hydrochlorothiazide 12.5 mg tablet carvedilol 6.25 mg tablet 6.25 mg PO BID 03/31/25 04/13/25 History clopidogrel 75 mg tablet 75 mg PO DAILY 04/13/25 04/13/25 History omeprazole 40 mg capsule,delayed 40 mg PO DAILY 04/13/25 04/13/25 History release ondansetron 4 mg disintegrating 4 mg PO Q6HP PRN Nausea And 04/13/25 04/13/25 History tablet Vomiting New Prescriptions to Start Prescriptions: Allergies Allergy/AdvReac Type Severity Reaction Status Date / Time prednisone Allergy Intermediate I-RASH Verified 04/13/25 08:40 azithromycin (AZITHROMYCIN) Allergy Unknown Rash Verified 04/13/25 08:40 NSAIDS (Non-Steroidal Allergy Unknown Rash Verified 04/13/25 08:40 Anti-Inflamma (NSAIDS (NON-STEROIDAL ANTI-INFLAMMA) nabumetone AdvReac Intermediate IRREGULAR Verified 04/13/25 08:40 HEART BEAT indomethacin AdvReac Mild DIZZINESS Verified 04/13/25 08:40 Exam (Inpt) Vital signs and Labs for Last 24 Hours: Temp Pulse Resp BP Pulse Ox O2 Del Method 98.0 F 62 17 160/89 H 96 Room Air 04/13/25 12:00 04/13/25 12:00 04/13/25 12:00 04/13/25 12:00 04/13/25 12:00 04/13/25 12:40 Laboratory Results - last 24 hr 04/13/25 08:40: WBC 6.7, RBC 4.08 L, Hgb 12.7 L, Hct 35.0 L, MCV 85.8, MCH 31.1, MCHC 36.3 H, RDW 11.9, Plt Count 223, MPV 8.4, Neut % (Auto) 47.1, Lymph % (Auto) 35.3, [place] % (Auto) 9.3, Eos % (Auto) 6.9, Baso % (Auto) 1.0, Neut # (Auto) 3.1, Lymph # (Auto) 2.4, [place] # (Auto) 0.6, Eos # (Auto) 0.5 H, Baso # (Auto) 0.1, Sodium 125 L, Potassium 3.9, Chloride 86 L, Carbon Dioxide 31 H, Anion Gap 11.9, BUN 10, Creatinine 1.00, Estimated Creat Clear 64, Estimated GFR 72, Est GFR ( Amer) 87, Glucose 144 H, Calcium 9.4, Total Bilirubin 0.5, AST 39, ALT 18, Alkaline Phosphatase 50, Troponin I < 0.01, Total Protein 7.6, Albumin 4.5, Globulin 3.1, Albumin/Globulin Ratio 1.5, Lipase 223 04/13/25 09:36: Urine Color Yellow, Urine Appearance Clear, Urine pH 6.5, Ur Specific [place] <= 1.005, Urine Protein Negative, Urine Glucose (UA) Negative, Urine Ketones Negative, Urine Blood Negative, Urine Nitrate Negative, Urine Bilirubin Negative, Urine Urobilinogen 0.2, Ur Leukocyte Esterase Negative, Urine RBC None, Urine WBC Occasional, Ur Squamous Epith Cells None, Urine Bacteria Trace I & O for Labs for Last 24 Hours: Intake & Output 04/11/25 04/12/25 04/13/25 04/14/25 11:59 11:59 11:59 11:59 Output Total 400 Balance -400 Weight 75.296 kg 75.296 kg Constitutional: no acute distress Head: Present normocephalic and atraumatic Respiratory: Present CTA bilaterally Cardiac: Present Reg Rate and Rhythm GI: Present soft, distention (Mild distention with gas bloat) and normal bowel sounds Results Labs 04/13/25 08:40 04/13/25 08:40 Labs: Laboratory Results - last 24 hr 04/13/25 08:40: WBC 6.7, RBC 4.08 L, Hgb 12.7 L, Hct 35.0 L, MCV 85.8, MCH 31.1, MCHC 36.3 H, RDW 11.9, Plt Count 223, MPV 8.4, Neut % (Auto) 47.1, Lymph % (Auto) 35.3, [place] % (Auto) 9.3, Eos % (Auto) 6.9, Baso % (Auto) 1.0, Neut # (Auto) 3.1, Lymph # (Auto) 2.4, [place] # (Auto) 0.6, Eos # (Auto) 0.5 H, Baso # (Auto) 0.1, Sodium 125 L, Potassium 3.9, Chloride 86 L, Carbon Dioxide 31 H, Anion Gap 11.9, BUN 10, Creatinine 1.00, Estimated Creat Clear 64, Estimated GFR 72, Est GFR ( Amer) 87, Glucose 144 H, Calcium 9.4, Total Bilirubin 0.5, AST 39, ALT 18, Alkaline Phosphatase 50, Troponin I < 0.01, Total Protein 7.6, Albumin 4.5, Globulin 3.1, Albumin/Globulin Ratio 1.5, Lipase 223 04/13/25 09:36: Urine Color Yellow, Urine Appearance Clear, Urine pH 6.5, Ur Specific [place] <= 1.005, Urine Protein Negative, Urine Glucose (UA) Negative, Urine Ketones Negative, Urine Blood Negative, Urine Nitrate Negative, Urine Bilirubin Negative, Urine Urobilinogen 0.2, Ur Leukocyte Esterase Negative, Urine RBC None, Urine WBC Occasional, Ur Squamous Epith Cells None, Urine Bacteria Trace Assessment and Plan *Assessment and plan (1) Chronic constipation: Status: Acute Category: Medical Code(s): K59.09 - Other constipation (2) Elevated lipase: Status: Acute Category: Medical Code(s): R74.8 - Abnormal levels of other serum enzymes (3) Weight loss, unintentional: Status: Acute Category: Medical Code(s): R63.4 - Abnormal weight loss (4) Decreased appetite: Status: Acute Category: Medical Code(s): R63.0 - Anorexia (5) Nausea and vomiting: Status: Acute Category: Medical Code(s): R11.2 - Nausea with vomiting, unspecified (6) Generalized abdominal pain: Status: Acute Category: Medical Code(s): R10.84 - Generalized abdominal pain (7) Portal vein thrombosis: Status: Acute Category: Medical Code(s): I81 - Portal vein thrombosis Plan 1. portal vein thrombosis Unsure of significance. No evidence of occlusion. No evidence of cirrhosis. LFTs within normal limits. 2. Elevated lipase/unintentional weight loss/nausea and vomiting/abdominal pain/loss of appetite/chronic constipation Patient has a history of chronic constipation. He has had moderate amount of retained stool on imaging. Feels like he is having a full bowel movement on MiraLAX and fiber daily. However he had a normal bowel movement this morning, developed nausea and dry heaving again, came to the ER and then had a very large bowel movement while in the ER. His nausea and vomiting has resolved. I am unsure if all of this is functional or if there is more underlying. Given his intermittent elevations of lipase on multiple occasions, most recently 887 on the 17 of this month, he has never had imaging confirmation of acute pancreatitis during these episodes. I had planned to do MRCP and MRI pancreas as an outpatient but lets go ahead and do that now. Even though his current lipase is 223. After discussion with Dr. 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 Given the intermittent nature of symptoms and most testing has been inconclusive, would consider acute intermittent porphyria I would recommend a spot urine PBG and total porphyrins.
--- NOTE | 2025-04-13 13:15 | MR_ITS ---
FINAL REPORT CLINICAL HISTORY: elevated lipase N/V/abd pain EVAL PANCREAS MRCP PROTOCAL COMPARISON: 04/10/2025 FINDINGS: Multiplanar MR imaging of the abdomen was performed without and with contrast. There is localized signal abnormality in the medial segment of the left hepatic lobe measuring 1.8 cm in greatest dimension which on pre and postinfusion imaging demonstrates peripheral discontinuous enhancement. Findings are suggestive of hemangioma. There is no evidence of biliary ductal dilatation. The gallbladder has an unremarkable appearance. No other mass or adenopathy is identified. No abnormal fluid collection is seen. No abnormal contrast enhancement is seen on the postcontrast images. IMPRESSION: Benign-appearing cysts in the left lobe of the liver measuring 1.3 cm. Pancreatic duct normal in caliber without evidence of periosteal reaction. Reviewed, Interpreted and Dictated by Everton Berman MD Transcribed by Keira Vides Authenticated and [facility]
--- NOTE | 2025-04-13 13:29 | PC.NURSE ---
off the floor to MRI
[2025-04-13] MEDS: SODIUM CHLORIDE 0.9% 10ML SYR (RAD ONLY) 10 ML IV (14:26)
[2025-04-13] MEDS: 0.9 % SODIUM CHLORIDE 50 ML VIAL 10 ML IV (14:26)
[2025-04-13] MEDS: GADOTERIDOL INJ 20ML SYRINGE 16 ML IV (14:26)
--- NOTE | 2025-04-13 14:43 | PC.NURSE ---
back to floor from MRI
[2025-04-13] MEDS: ACETAMINOPHEN 325MG TAB 650 MG PO (16:09)
[2025-04-13 17:13] LABS: Thyroid Stimulating Hormone 1.82 uIU/mL (0.465-4.68)
--- NOTE | 2025-04-13 17:23 | PC.NURSE ---
PT IS RESTING IN BED. ALERT AND ORIENTED X4. PT HAS AMBULATED IN THE ROOM. LUNG SOUNDS CLEAR. ABDOMEN SOFT WITH ACTIVE BOWEL SOUNDS. EPIGASTRIC TENDERNESS NOTED. WILL CONTINUE TO MONITOR .
[2025-04-13] MEDS: POLYETHYLENE GLYCOL 3350 17 GM PACKET PO (19:51)
[2025-04-13 19:53] LABS: Chloride 87 mmol/L (98-107)
[2025-04-13 19:54] LABS: Potassium 3.9 mmoL/L (3.5-5.1); Sodium 127 mmol/L (136-145)
[2025-04-13 19:56] LABS: Blood Urea Nitrogen 9 mg/dl (9-20); Creatinine Clearance Estimated 65 mL/min (50-200); Creatinine,Serum 0.90 mg/dl (0.66-1.25); Estimated Glomerular Filt Rate 81 ml/min (>60); GFR (African American) 98 ML/MIN (>60)
[2025-04-13 19:57] LABS: Anion Gap 11.9 mEq/L (5-15); Calcium 9.1 mg/dl (8.4-10.2); Carbon Dioxide 32 mmol/L (22.0-30.0); Glucose 119 mg/dl (74-100)
[2025-04-13 20:16] LABS: Hemoglobin A1C 7.1 % (4.0-6.0)
[2025-04-13 21:39] LABS: Sodium,Urine Random 95.0 mmol/L (30-90)
[2025-04-13] MEDS: PANTOPRAZOLE 40MG TABLET 40 MG PO (21:55)
[2025-04-13] MEDS: SENNOSIDES 8.6MG/DOCUSATE 50MG TABLET 1 TAB PO (21:55)
[2025-04-14 04:00] VITALS: BP 112/60; PULSE 57; RESP 16; TEMP 36.8; O2SAT 94; BMI 26.4
--- NOTE | 2025-04-14 05:37 | PC.NURSE ---
v/s, ox4, RA. Pt is a possible d/c today. No acute events to report. Plan of care ongoing.
[2025-04-14 06:32] LABS: Hematocrit 34.2 % (42.0-52.0); Hemoglobin 12.1 g/dL (14.1-18.0); Immature Granulocytes % 0.2 %; Mean Corpuscular HGB Conc 35.4 g/dL (31.8-35.4); Mean Corpuscular Hemoglobin 30.4 pg (27.0-31.2); Mean Corpuscular Volume 85.9 fl (80-94); Nucleated Red Blood Cells % 0 %; Platelet Count 210 K/mm3 (142-424); Red Blood Count 3.98 M/mm3 (4.60-6.20); Red Cell Distribution Width-SD 37.6 fL; White Blood Count 6.3 K/mm3 (4.8-10.8)
[2025-04-14 06:42] LABS: Alanine Aminotransferase 15 U/L (12-78); Albumin Level 3.8 g/dl (3.5-5.0); Albumin/Globulin Ratio 1.5 (1.1-1.8); Alkaline Phosphatase 51 U/L (38-126); Anion Gap 9.4 mEq/L (5-15); Aspartate Amino Transferase 33 U/L (17-59); Bilirubin,Total 0.5 mg/dl (0.2-1.3); Blood Urea Nitrogen 12 mg/dl (9-20); Calcium 9.4 mg/dl (8.4-10.2); Carbon Dioxide 29 mmol/L (22.0-30.0); Chloride 88 mmol/L (98-107); Creatinine Clearance Estimated 65 mL/min (50-200); Creatinine,Serum 0.90 mg/dl (0.66-1.25); Estimated Glomerular Filt Rate 81 ml/min (>60); GFR (African American) 98 ML/MIN (>60); Globulin 2.5 g/dL (1.3-3.2); Glucose 113 mg/dl (74-100); Magnesium 1.6 mg/dl (1.6-2.3); Potassium 3.4 mmoL/L (3.5-5.1); Sodium 123 mmol/L (136-145); Total Protein,Serum 6.3 g/dl (6.3-8.2)
[2025-04-14 08:00] VITALS: BP 115/53; PULSE 56; RESP 18; TEMP 36.7; O2SAT 95
[2025-04-14] MEDS: CLOPIDOGREL 75MG TAB 75 MG PO (08:09)
[2025-04-14] MEDS: SENNOSIDES 8.6MG/DOCUSATE 50MG TABLET 1 TAB PO ×2 (08:09→20:58)
--- NOTE | 2025-04-14 12:35 | P.PN_ITS ---
Subjective *Date: 04/14/25 *Time: 12:35 Interval history: Patient doing well today and not having any abdominal pain. He has had some altered electrolytes. Exam Data for Last 24 hours Vital signs and Labs for Last 24 Hours: Temp Pulse Resp BP Pulse Ox O2 Del Method 98.1 F 56 L 18 115/53 L 95 Room Air 04/14/25 08:00 04/14/25 08:00 04/14/25 08:00 04/14/25 08:00 04/14/25 08:00 04/14/25 09:00 Laboratory Results - last 24 hr 04/13/25 16:19: Hemoglobin A1c 7.1 H, TSH 1.82 04/13/25 16:50: Urine Sodium 95.0 H 04/13/25 19:31: Sodium 127 L, Potassium 3.9, Chloride 87 L, Carbon Dioxide 32 H, Anion Gap 11.9, BUN 9, Creatinine 0.90, Estimated Creat Clear 65, Estimated GFR 81, Est GFR ( Amer) 98, Glucose 119 H, Calcium 9.1 04/14/25 05:55: WBC 6.3, RBC 3.98 L, Hgb 12.1 L, Hct 34.2 L, MCV 85.9, MCH 30.4, MCHC 35.4, RDW 12.0, Plt Count 210, MPV 8.6, Neut % (Auto) 44.0, Lymph % (Auto) 39.1, [place] % (Auto) 9.1, Eos % (Auto) 6.5, Baso % (Auto) 1.1, Neut # (Auto) 2.8, Lymph # (Auto) 2.5, [place] # (Auto) 0.6, Eos # (Auto) 0.4, Baso # (Auto) 0.1, Sodium 123 L, Potassium 3.4 L, Chloride 88 L, Carbon Dioxide 29, Anion Gap 9.4, BUN 12 D, Creatinine 0.90, Estimated Creat Clear 65, Estimated GFR 81, Est GFR ( Amer) 98, Glucose 113 H, Calcium 9.4, Magnesium 1.6, Total Bilirubin 0.5, AST 33, ALT 15, Alkaline Phosphatase 51, Total Protein 6.3, Albumin 3.8 D, Globulin 2.5, Albumin/Globulin Ratio 1.5 I & O for Last 24 hours: Intake & Output 04/11/25 04/12/25 04/13/25 04/14/25 23:59 23:59 23:59 23:59 Intake Total 360 / 360 Output Total 400 / 400 100 / 100 Balance -40 / -40 -100 / -100 Weight 169 lb 4.8 oz 168 lb 8 oz *Routine Abdominal Exam Abdominal: Present soft and normoactive bowel sounds Comments: Normoactive bowel sounds, soft, nondistended, benign abdomen Assessment and Plan *Assessment and plan (1) Hyponatremia: Status: Acute Category: Medical Code(s): E87.1 - Hypo-osmolality and hyponatremia (2) Portal vein thrombosis: Status: Acute Category: Medical Code(s): I81 - Portal vein thrombosis (3) Elevated lipase: Status: Acute Category: Medical Code(s): R74.8 - Abnormal levels of other serum enzymes Plan 1. Intermittent abdominal pain with intermittent elevation of lipase. Today his pain is resolved. The patient has had loss of appetite, nausea and weight loss. He has struggled with constipation and has had to manually disimpact. His EGD showed mild gastric atrophy and mild antral gastropathy but no other significant findings. 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 All of his imaging has not shown any evidence of acute or chronic pancreatitis and he also had normal MRCP yesterday. The formal definition of pancreatitis his lipase greater than 3 times the upper limit of normal and most of the time his lipase has been lower than that with no imaging findings within the pancreas. Elevated lipase levels are not solely indicative of pancreatitis and various other conditions can result in this including infection, medications, etc. Certainly bowel obstruction can cause this. He does not have any hepatobiliary disease. Celiac disease and peptic ulcer disease can result in elevated levels of lipase. I do feel that this is tied into his marked obstipation but also may have some relationship with his mesenteric vasculature. Certainly mesenteric ischemia and angina are generally seen with more than 80% occlusion of 2 out of 3 of the major mesenteric vessels (celiac artery, SMA and LISET). However, 60% occlusion in a person with low flow state/hypovolemia can lead to reduced mesenteric perfusion gradients and thus could cause abdominal pain and a spike in some chemistries including possibly lipase. This could occur in the setting of dehydration or hypotension. The patient has primarily been rehydrated with correction of electrolytes. At this point, I would not recommend further testing but treatment of his constipation and encouraging good hydration in these hot summer conditions.
[2025-04-14 16:00] VITALS: BP 103/58; PULSE 67; RESP 22; TEMP 36.6; O2SAT 95
--- NOTE | 2025-04-14 18:44 | EXP.ACUTE.PN ---
Subjective *Date: 04/14/25 *Time: 22:45 Interval history: Pain stable today. No bowel movement yet since admission. Stable on room air. Denies chest pain. Alert and oriented x 3 Medical Exam Vital signs and Labs for Last 24 Hours: Vital Signs Temp Pulse Resp BP Pulse Ox O2 Del Method 04/14/25 18:14 Room Air 04/14/25 17:00 Room Air 04/14/25 16:00 97.8 F 67 22 103/58 L 95 Room Air 04/14/25 15:00 Room Air 04/14/25 13:00 Room Air 04/14/25 11:00 Room Air 04/14/25 09:00 Room Air 04/14/25 08:00 Room Air 04/14/25 08:00 98.1 F 56 L 18 115/53 L 95 Room Air 04/14/25 06:12 Room Air 04/14/25 04:15 Room Air 04/14/25 04:00 98.2 F 57 L 16 112/60 94 L Room Air 04/14/25 03:00 Room Air 04/14/25 01:00 Room Air 04/13/25 22:42 Room Air 04/13/25 21:00 Room Air 04/13/25 20:00 Room Air 04/13/25 19:36 97.9 F 58 L 16 104/60 L 93 L Room Air Intake and Output 04/14/25 04/14/25 04/14/25 07:59 15:59 23:59 Intake Total 270 / 270 Output Total 100 / 1350 900 / 1350 350 / 1350 Balance -100 / -1080 -630 / -1080 -350 / -1080 Intake: Intake, Oral Amount 270 / 270 Output: Output, Urine Amount 100 / 1350 900 / 1350 350 / 1350 Other: Number of Unmeasured Voids 1 Number of Bowel Movements 1 1 Weight 76.43 kg Patient Weight 04/14/25 23:59 Weight 76.43 kg Laboratory Results - last 24 hr 04/13/25 16:19: Hemoglobin A1c 7.1 H 04/13/25 16:50: Urine Sodium 95.0 H 04/13/25 19:31: Sodium 127 L, Potassium 3.9, Chloride 87 L, Carbon Dioxide 32 H, Anion Gap 11.9, BUN 9, Creatinine 0.90, Estimated Creat Clear 65, Estimated GFR 81, Est GFR ( Amer) 98, Glucose 119 H, Calcium 9.1 04/14/25 05:55: WBC 6.3, RBC 3.98 L, Hgb 12.1 L, Hct 34.2 L, MCV 85.9, MCH 30.4, MCHC 35.4, RDW 12.0, Plt Count 210, MPV 8.6, Neut % (Auto) 44.0, Lymph % (Auto) 39.1, [place] % (Auto) 9.1, Eos % (Auto) 6.5, Baso % (Auto) 1.1, Neut # (Auto) 2.8, Lymph # (Auto) 2.5, [place] # (Auto) 0.6, Eos # (Auto) 0.4, Baso # (Auto) 0.1, Sodium 123 L, Potassium 3.4 L, Chloride 88 L, Carbon Dioxide 29, Anion Gap 9.4, BUN 12 D, Creatinine 0.90, Estimated Creat Clear 65, Estimated GFR 81, Est GFR ( Amer) 98, Glucose 113 H, Calcium 9.4, Magnesium 1.6, Total Bilirubin 0.5, AST 33, ALT 15, Alkaline Phosphatase 51, Total Protein 6.3, Albumin 3.8 D, Globulin 2.5, Albumin/Globulin Ratio 1.5 I & O for Labs for Last 24 Hours: Intake & Output 04/11/25 04/12/25 04/13/25 04/14/25 23:59 23:59 23:59 23:59 Intake Total 360 / 360 270 / 270 Output Total 400 / 400 1350 / 1350 Balance -40 / -40 -1080 / -1080 Weight 76.793 kg 76.43 kg Constitutional: Present no acute distress, average body habitus, chronically ill appearing and cooperative Head: Present atraumatic and normocephalic ENT: Present normal exam Neck: Present normal inspection Respiratory: Present normal respiratory effort; Absent rhonchi or wheezes Cardiac: Present Reg Rate and Rhythm GI: Present soft, tenderness (Mild, nonfocal) and normal bowel sounds; Absent distention Extremities: Present normal inspection and full ROM Skin: Present intact; Absent erythema Neuro: Present Grossly Intact, alert, awake, oriented x 3 and moves all extremities Assessment and Plan *Assessment and plan (1) Hyponatremia: Status: Acute Category: Medical Code(s): E87.1 - Hypo-osmolality and hyponatremia (2) Chronic constipation: Status: Acute Category: Medical Code(s): K59.09 - Other constipation (3) Elevated lipase: Status: Acute Category: Medical Code(s): R74.8 - Abnormal levels of other serum enzymes (4) Weight loss, unintentional: Status: Acute Category: Medical Code(s): R63.4 - Abnormal weight loss (5) Decreased appetite: Status: Acute Category: Medical Code(s): R63.0 - Anorexia (6) Nausea and vomiting: Status: Acute Category: Medical Code(s): R11.2 - Nausea with vomiting, unspecified (7) Generalized abdominal pain: Status: Acute Category: Medical Code(s): R10.84 - Generalized abdominal pain (8) Portal vein thrombosis: Status: Acute Category: Medical Code(s): I81 - Portal vein thrombosis (9) Adult failure to thrive: Status: Acute Category: Medical Code(s): R62.7 - Adult failure to thrive (10) Adjustment disorder with other symptoms: Status: Acute Category: Medical Code(s): F43.29 - Adjustment disorder with other symptoms (11) CAD (coronary artery disease): Status: Chronic Qualifiers: Coronary Disease-Associated Artery/Lesion type: [place] artery [place] vs. transplanted heart: [place] heart Associated angina: without angina Qualified Code(s): I25.10 - Atherosclerotic heart disease of [place] coronary artery without angina pectoris Category: Medical Code(s): I25.10 - Atherosclerotic heart disease of [place] coronary artery without angina pectoris (12) HHD (hypertensive heart disease): Status: Chronic Qualifiers: Heart failure presence: without heart failure Qualified Code(s): I11.9 - Hypertensive heart disease without heart failure Category: Medical Code(s): I11.9 - Hypertensive heart disease without heart failure Plan 80-year-old male who has had progressive weight loss over the past year that is unintentional. Has been following with GI as an outpatient and continues to have significant abdominal symptoms, chronic constipation, intermittent elevation of his lipase and significant abdominal pain. Presented to the ER today and was found to have hyponatremia and abdominal pain. Medicine consulted for admission. Discussed case with ER physician, request admission for treatment of hyponatremia and further workup with GI. I decided to admit for treatment of his hyponatremia and further evaluation of his unintentional weight loss and abdominal pain. Hemodynamically stable. GI consulted to assist with care, problems addressed as follows: Unintentional weight loss Abdominal pain Chronic constipation Portal vein thrombosis -CT of abdomen shows constipation even in light of recent bowel movements. 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 Lipase normal at 223. - MRI obtained showing liver cyst, pancreas otherwise normal. Symptoms concerning for bowel obstruction/severe constipation. Continue bowel regimen after discussion with GI today. Instead as tolerated. -Portal vein thrombosis does not show signs of occlusion. LFTs are normal. Low concern for significance at this time. - continue bowel regimen with docusate senna twice daily, MiraLAX 17 g once daily. - Urine porphobilinogen's and serum porphyrins ordered due to the intermittent nature of patient's symptoms - Continue pantoprazole 40 mg daily Hypertension CAD - Continue carvedilol 6.25 mg twice daily, Plavix 75 mg daily - Hold lisinopril and aspirin with abdominal pain and normotensive state. Holding diuretic with hyponatremia - Holding Crestor in the setting of abdominal pain Hyponatremia: -Down to 123 today. Chloride 88. Potassium 3.7 magnesium 1.6. Electrolyte protocol ordered. 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 - Fluid restrict 1500 cc today - Serial sodium every 12 hours, BMP ordered for this afternoon. Repeat CBC, CMP, magnesium ordered for the morning, Correction rate of 8 to 10 mEq per 24 hours. Full code Regular diet prophylactic Lovenox
[2025-04-14 19:25] LABS: Chloride 87 mmol/L (98-107); Potassium 3.6 mmoL/L (3.5-5.1); Sodium 126 mmol/L (136-145)
[2025-04-14 19:28] LABS: Anion Gap 10.6 mEq/L (5-15); Blood Urea Nitrogen 14 mg/dl (9-20); Calcium 8.5 mg/dl (8.4-10.2); Carbon Dioxide 32 mmol/L (22.0-30.0); Creatinine Clearance Estimated 65 mL/min (50-200); Creatinine,Serum 1.00 mg/dl (0.66-1.25); Estimated Glomerular Filt Rate 72 ml/min (>60); GFR (African American) 87 ML/MIN (>60); Glucose 96 mg/dl (74-100)
[2025-04-14 20:00] VITALS: BP 140/69; PULSE 60; RESP 18; TEMP 36.5; O2SAT 95
[2025-04-14] MEDS: PANTOPRAZOLE 40MG TABLET 40 MG PO (20:58)
[2025-04-15] VITALS: BP 109/62; PULSE 58; RESP 16; TEMP 36.3; O2SAT 98
[2025-04-15 04:00] VITALS: BP 135/67; PULSE 58; RESP 16; TEMP 36.4; O2SAT 95; BMI 26.4
--- NOTE | 2025-04-15 05:03 | PC.NURSE ---
v/s, ox4, RA. No acute events to report. plan of care ongoing.
[2025-04-15 06:42] LABS: Hematocrit 36.2 % (42.0-52.0); Hemoglobin 13.1 g/dL (14.1-18.0); Immature Granulocytes % 0.2 %; Mean Corpuscular HGB Conc 36.2 g/dL (31.8-35.4); Mean Corpuscular Hemoglobin 31.0 pg (27.0-31.2); Mean Corpuscular Volume 85.6 fl (80-94); Nucleated Red Blood Cells % 0 %; Platelet Count 214 K/mm3 (142-424); Red Blood Count 4.23 M/mm3 (4.60-6.20); Red Cell Distribution Width-SD 37.6 fL; White Blood Count 6.2 K/mm3 (4.8-10.8)
[2025-04-15 07:03] LABS: Alanine Aminotransferase 14 U/L (12-78); Albumin Level 4.0 g/dl (3.5-5.0); Albumin/Globulin Ratio 1.5 (1.1-1.8); Alkaline Phosphatase 46 U/L (38-126); Anion Gap 9.5 mEq/L (5-15); Aspartate Amino Transferase 37 U/L (17-59); Bilirubin,Total 0.7 mg/dl (0.2-1.3); Blood Urea Nitrogen 14 mg/dl (9-20); Calcium 8.5 mg/dl (8.4-10.2); Carbon Dioxide 28 mmol/L (22.0-30.0); Chloride 90 mmol/L (98-107); Creatinine Clearance Estimated 65 mL/min (50-200); Creatinine,Serum 0.90 mg/dl (0.66-1.25); Estimated Glomerular Filt Rate 81 ml/min (>60); GFR (African American) 98 ML/MIN (>60); Globulin 2.7 g/dL (1.3-3.2); Glucose 90 mg/dl (74-100); Magnesium 1.7 mg/dl (1.6-2.3); Potassium 3.5 mmoL/L (3.5-5.1); Sodium 124 mmol/L (136-145); Total Protein,Serum 6.7 g/dl (6.3-8.2)
[2025-04-15 08:00] VITALS: BP 109/58; PULSE 59; RESP 18; TEMP 36.6; O2SAT 97
[2025-04-15] MEDS: CLOPIDOGREL 75MG TAB 75 MG PO (08:20)
[2025-04-15] MEDS: SODIUM CHLORIDE 1,000MG TABLET 500 MG PO ×2 (08:20→12:53)
[2025-04-15] MEDS: POTASSIUM CHLORIDE 20MEQ TAB 40 MEQ PO ×2 (08:20→12:53)
[2025-04-15] MEDS: MAGNESIUM SULFATE IN WATER 2 GM/50 ML PIGGYBACK IV ×2 (08:21→09:23)
[2025-04-15 11:47] VITALS: BMI 26.4
--- NOTE | 2025-04-15 13:28 | EXP.MED.FU ---
Subjective *Date: 04/15/25 *Time: 16:26 Interval history: Patient sitting up in bed. Had excessive stooling after laxative yesterday. Reports multiple loose bowel movements all night and this morning. He feels significantly better. No nausea vomiting abdominal pain. He got resolution of his low back pain as well. He is requesting to go home as soon as able. Exam Data for Last 24 hours Vital signs and Labs for Last 24 Hours: Temp Pulse Resp BP Pulse Ox O2 Del Method 97.8 F 59 L 18 109/58 L 97 Room Air 04/15/25 08:00 04/15/25 08:00 04/15/25 08:00 04/15/25 08:00 04/15/25 08:00 04/15/25 13:00 Laboratory Results - last 24 hr 04/14/25 18:58: Sodium 126 L, Potassium 3.6, Chloride 87 L, Carbon Dioxide 32 H, Anion Gap 10.6, BUN 14, Creatinine 1.00, Estimated Creat Clear 65, Estimated GFR 72, Est GFR ( Amer) 87, Glucose 96, Calcium 8.5 04/15/25 06:11: WBC 6.2, RBC 4.23 L, Hgb 13.1 L, Hct 36.2 L, MCV 85.6, MCH 31.0, MCHC 36.2 H, RDW 12.1, Plt Count 214, MPV 8.7, Neut % (Auto) 44.0, Lymph % (Auto) 38.5, [place] % (Auto) 8.9, Eos % (Auto) 7.6, Baso % (Auto) 0.8, Neut # (Auto) 2.7, Lymph # (Auto) 2.4, [place] # (Auto) 0.6, Eos # (Auto) 0.5 H, Baso # (Auto) 0.1, Sodium 124 L, Potassium 3.5, Chloride 90 L, Carbon Dioxide 28, Anion Gap 9.5, BUN 14, Creatinine 0.90, Estimated Creat Clear 65, Estimated GFR 81, Est GFR ( Amer) 98, Glucose 90, Calcium 8.5, Magnesium 1.7, Total Bilirubin 0.7, AST 37, ALT 14, Alkaline Phosphatase 46, Total Protein 6.7, Albumin 4.0, Globulin 2.7, Albumin/Globulin Ratio 1.5 I & O for Last 24 hours: Intake & Output 04/13/25 04/14/25 04/15/25 04/16/25 11:59 11:59 11:59 11:59 Intake Total 360 630 440 Output Total 766 110 2668 250 Balance -400 60 -1670 190 Weight 75.296 kg 76.43 kg 76.249 kg Constitutional Constitutional: no acute distress *Routine HEENT Exam Head: Present normocephalic and atraumatic Eye: Present EOMI ENT: Present mucous membranes moist *Routine Neck Exam Neck: Present supple and full ROM *Routine Respiratory Exam Respiratory: Present CTA bilaterally *Routine Cardiovascular Exam Cardiovascular: Present RRR *Routine Abdominal Exam Abdominal: Present soft; Absent tenderness *Routine Extremities Exam Extremities: Absent edema *Routine Skin Exam Skin: Present intact *Routine Neurological Exam Neurological: Present alert and oriented X3 Assessment and Plan *Assessment and plan (1) Generalized abdominal pain: Status: Acute Category: Medical Code(s): R10.84 - Generalized abdominal pain (2) Portal vein thrombosis: Status: Acute Category: Medical Code(s): I81 - Portal vein thrombosis (3) Chronic constipation: Status: Acute Category: Medical Code(s): K59.09 - Other constipation (4) Elevated lipase: Status: Acute Category: Medical Code(s): R74.8 - Abnormal levels of other serum enzymes (5) Nausea and vomiting: Status: Acute Category: Medical Code(s): R11.2 - Nausea with vomiting, unspecified Plan Symptoms have resolved. Patient has improvement with his bowels are moving well and when he is hydrated well. Patient I discussed MiraLAX and fiber twice a day every day to keep his bowels moving and I will see him as an outpatient.
--- NOTE | 2025-04-15 13:48 | EXP.DC.SUM ---
General Admission date:: 04/13/25 Discharge date: 04/15/25 HPI HPI HPI: Mr. Stephens is a 80-year-old male with past history of elevated lipase, chronic back pain, chronic constipation, diabetes, CAD, infrarenal AAA. He has had unintentional weight loss over the past year. Being worked up by GI as an outpatient. Presented to the ER due to nausea and vomiting today after bowel movement. States he felt nauseous after having a small bowel movement this morning. Presented to the ER and had a large bowel movement that made his abdomen feel better. On workup in the ER found to have low sodium with level of 125. Kidney function normal. Lipase normal at 223. Given his pain, weight loss, hyponatremia, medicine consulted for evaluation and further management. Gastroenterology consulted to assist with care On evaluation after arriving to the floor, patient states he has been dealing with abdominal pain for quite some time. Has had EGDs performed with polyps in his stomach but no other abnormalities identified. Previous episodes of elevated lipase. Weight loss of 30 to 40 pounds over the past year unintentionally. Does not complain of pain after eating. Actually states that after eating his stomach feels better. Has been taking salt tablets since presenting to the ER earlier this month and being found to have hyponatremia. Denies fevers or night sweats. Started feeling weak and having abdominal pain. Hospital Course Hospital Course Hospital Course: 80-year-old male who has had progressive weight loss over the past year that is unintentional. Has been following with GI as an outpatient and continues to have significant abdominal symptoms, chronic constipation, intermittent elevation of his lipase and significant abdominal pain. Presented to the ER today and was found to have hyponatremia and abdominal pain. Medicine consulted for admission. Discussed case with ER physician, request admission for treatment of hyponatremia and further workup with GI. I decided to admit for treatment of his hyponatremia and further evaluation of his unintentional weight loss and abdominal pain. Hemodynamically stable. GI consulted to assist with care. Showed proven GI symptoms after having bowel movements. Continue bowel regimen at discharge. Sodium showing slow improvement. Discharged home to follow-up with PCP and GI as an outpatient. Problems addressed as follows: Unintentional weight loss Abdominal pain Chronic constipation Portal vein thrombosis -CT of abdomen shows constipation even in light of recent bowel movements. 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 Lipase normal at 223. MRI obtained showing liver cyst, pancreas otherwise normal. Symptoms concerning for bowel obstruction/severe constipation. Continue bowel regimen after discussion with GI during admission. Patient began having bowel movements. Feeling somewhat better after bowel movements. Did have a portal vein thrombosis on CT that shows no sign of occlusion. LFTs are normal. Low concern for significance at this time. Due to complexity of symptoms and intermittent nature of his symptoms, urine porphobilinogen's and serum porphyrins ordered, results still pending at discharge. Continue omeprazole 40 mg daily. Continue aggressive bowel regimen with docusate senna nightly, MiraLAX daily. Goal of 1-2 bowel movements a day Hypertension CAD - Continue carvedilol 6.25 mg twice daily, Plavix 75 mg daily. - Hold lisinopril and aspirin with abdominal pain and normotensive state. Holding diuretic with hyponatremia. Holding Crestor in the setting of abdominal pain Hyponatremia: - Dropped as low as 123 during admission. Urine sodium elevated at 90. Consistent with SIADH. Fluid restricted during admission. Sodium improved to 129 by day of discharge. Recommend continuing fluid restriction of 1500 to 2000 cc daily. Resume sodium tablets at discharge. Corrected within appropriate rate. Total time spent on discharge 32 minutes in counseling, documentation, chart review, and direct care with patient. Exam Data for Last 24 hours Vital signs and Labs for Last 24 Hours: Temp Pulse Resp BP Pulse Ox O2 Del Method 97.8 F 59 L 18 109/58 L 97 Room Air 04/15/25 08:00 04/15/25 08:00 04/15/25 08:00 04/15/25 08:00 04/15/25 08:00 04/15/25 13:00 Laboratory Results - last 24 hr 04/14/25 18:58: Sodium 126 L, Potassium 3.6, Chloride 87 L, Carbon Dioxide 32 H, Anion Gap 10.6, BUN 14, Creatinine 1.00, Estimated Creat Clear 65, Estimated GFR 72, Est GFR ( Amer) 87, Glucose 96, Calcium 8.5 04/15/25 06:11: WBC 6.2, RBC 4.23 L, Hgb 13.1 L, Hct 36.2 L, MCV 85.6, MCH 31.0, MCHC 36.2 H, RDW 12.1, Plt Count 214, MPV 8.7, Neut % (Auto) 44.0, Lymph % (Auto) 38.5, Ector % (Auto) 8.9, Eos % (Auto) 7.6, Baso % (Auto) 0.8, Neut # (Auto) 2.7, Lymph # (Auto) 2.4, Ector # (Auto) 0.6, Eos # (Auto) 0.5 H, Baso # (Auto) 0.1, Sodium 124 L, Potassium 3.5, Chloride 90 L, Carbon Dioxide 28, Anion Gap 9.5, BUN 14, Creatinine 0.90, Estimated Creat Clear 65, Estimated GFR 81, Est GFR ( Amer) 98, Glucose 90, Calcium 8.5, Magnesium 1.7, Total Bilirubin 0.7, AST 37, ALT 14, Alkaline Phosphatase 46, Total Protein 6.7, Albumin 4.0, Globulin 2.7, Albumin/Globulin Ratio 1.5 I & O for Last 24 hours: Intake & Output 04/12/25 04/13/25 04/14/25 04/15/25 23:59 23:59 23:59 23:59 Intake Total 360 / 360 270 / 390 800 / 800 Output Total 400 / 400 1350 / 1350 1500 / 1500 Balance -40 / -40 -1080 / -960 -700 / -700 Weight 76.793 kg 76.43 kg 76.249 kg Constitutional Constitutional: no acute distress, average body habitus, chronically ill appearing and cooperative *Routine HEENT Exam Head: Present normocephalic Eye: Present EOMI and PERRL ENT: Present mucous membranes moist *Routine Neck Exam Neck: Present supple; Absent lymphadenopathy *Routine Respiratory Exam Respiratory: Present CTA bilaterally; Absent accessory muscle use, rhonchi, wheezes or crackles *Routine Cardiovascular Exam Cardiovascular: Present RRR *Routine Abdominal Exam Abdominal: Present soft, normoactive bowel sounds and tenderness (Mild, nonfocal); Absent distended *Routine Rectal Exam Patient deferred: visual exam *Routine Exam Patient deferred: penile exam *Routine Extremities Exam Extremities: Absent cyanosis, clubbing or edema *Routine Skin Exam Skin: Present intact, pallor and warm; Absent rash *Routine Neurological Exam Neurological: Present alert, oriented X3 and moving all extremities; Absent altered mental status Results Data Completed and Pending Labs on day of discharge: Labs from last 24 hours 04/15/25 04/14/25 06:11 18:58 WBC 6.2 RBC 4.23 L Hgb 13.1 L Hct 36.2 L MCV 85.6 MCH 31.0 MCHC 36.2 H RDW 12.1 Plt Count 214 MPV 8.7 Neut % (Auto) 44.0 Lymph % (Auto) 38.5 Ector % (Auto) 8.9 Eos % (Auto) 7.6 Baso % (Auto) 0.8 Neut # (Auto) 2.7 Lymph # (Auto) 2.4 Ector # (Auto) 0.6 Eos # (Auto) 0.5 H Baso # (Auto) 0.1 Sodium 124 L 126 L Potassium 3.5 3.6 Chloride 90 L 87 L Carbon Dioxide 28 32 H Anion Gap 9.5 10.6 BUN 14 14 Creatinine 0.90 1.00 Estimated Creat Clear 65 65 Estimated GFR 81 72 Est GFR ( Amer) 98 87 Glucose 90 96 Calcium 8.5 8.5 Magnesium 1.7 Total Bilirubin 0.7 AST 37 ALT 14 Alkaline Phosphatase 46 Total Protein 6.7 Albumin 4.0 Globulin 2.7 Albumin/Globulin Ratio 1.5 DS: Diagnosis Discharge Diagnosis (1) Generalized abdominal pain: Status: Acute Code(s): R10.84 - Generalized abdominal pain (2) Portal vein thrombosis: Status: Acute Code(s): I81 - Portal vein thrombosis (3) Chronic constipation: Status: Acute Code(s): K59.09 - Other constipation (4) Elevated lipase: Status: Acute Code(s): R74.8 - Abnormal levels of other serum enzymes (5) Nausea and vomiting: Status: Acute Code(s): R11.2 - Nausea with vomiting, unspecified Meds Home Medications and Allergies Home Medications ?Medication ?Instructions ?Recorded ?Confirmed ?Type aspirin 81 mg tablet 81 mg PO DAILY 03/27/24 04/13/25 History cholecalciferol (vitamin D3) 50 50 mcg PO DAILY 03/27/24 04/13/25 History mcg (2,000 unit) tablet coenzyme Q10 400 mg capsule 400 mg PO DAILY 03/27/24 04/13/25 History multivitamin 1 tab PO DAILY 11/17/24 04/13/25 History rosuvastatin 20 mg tablet 20 mg PO DAILY #90 tabs 01/23/25 04/13/25 Rx lisinopril 10 mg tablet 10 mg PO HS 01/27/25 04/13/25 History Held on 04/15/25. Instructions: Pending follow-up with PCP lisinopril 20 1 tab PO DAILY 01/27/25 04/13/25 History mg-hydrochlorothiazide 12.5 mg tablet Held on 04/15/25. Instructions: Pending follow-up with PCP carvedilol 6.25 mg tablet 6.25 mg PO BID 03/31/25 04/13/25 History clopidogrel 75 mg tablet 75 mg PO DAILY 04/13/25 04/13/25 History omeprazole 40 mg capsule,delayed 40 mg PO DAILY 04/13/25 04/13/25 History release ondansetron 4 mg disintegrating 4 mg PO Q6HP PRN Nausea And 04/13/25 04/13/25 History tablet Vomiting sennosides 8.6 mg-docusate sodium 1 tab PO HS 30 days #30 tabs 04/15/25 Rx 50 mg tablet (Stimulant Laxative Plus) sodium chloride 1,000 mg soluble 1,000 mg PO BID 30 days #60 tabs 04/15/25 Rx tablet New Prescriptions to Start Prescriptions: sennosides-docusate sodium [Stimulant Laxative Plus] Shashank Levine sodium chloride Shashank Levine Allergies Allergy/AdvReac Type Severity Reaction Status Date / Time prednisone Allergy Intermediate I-RASH Verified 04/13/25 08:40 azithromycin (AZITHROMYCIN) Allergy Unknown Rash Verified 04/13/25 08:40 NSAIDS (Non-Steroidal Allergy Unknown Rash Verified 04/13/25 08:40 Anti-Inflamma (NSAIDS (NON-STEROIDAL ANTI-INFLAMMA) nabumetone AdvReac Intermediate IRREGULAR Verified 04/13/25 08:40 HEART BEAT indomethacin AdvReac Mild DIZZINESS Verified 04/13/25 08:40 Discharge Plan Disposition Patient Disposition: Home, Self-Care Condition: Fair Discharge Order Discharge Orders: Discharge Order (Routine); Ordered 04/15/25 Ordered By: Shashank Levine Follow up Plan Follow up with: Mark Cee II, MD [Staff Physician, Gastroenterology] - 05/14/25 11:30 am Jeanette Au APRN [Primary Care Provider, Medical] - 04/22/25 10:00 am Prescriptions/Medication Reconciliation: New sennosides-docusate sodium [Stimulant Laxative Plus] 8.6-50 mg Tablet 1 tab PO HS 30 Days Qty: 30 0RF sodium chloride 1,000 mg Tablet,Soluble 1,000 mg PO BID 30 Days Qty: 60 0RF Continued multivitamin Tablet 1 tab PO DAILY rosuvastatin 20 mg tablet 20 mg PO DAILY Qty: 90 3RF carvedilol 6.25 mg tablet 6.25 mg PO BID omeprazole 40 mg Capsule,Delayed Release(Dr/Ec) 40 mg PO DAILY clopidogrel 75 mg tablet 75 mg PO DAILY ondansetron 4 mg tablet,disintegrating 4 mg PO Q6HP PRN (Reason: Nausea And Vomiting) aspirin 81 mg Tablet 81 mg PO DAILY cholecalciferol (vitamin D3) 50 mcg (2,000 unit) Tablet 50 mcg PO DAILY coenzyme Q10 400 mg Capsule 400 mg PO DAILY Held lisinopril-hydrochlorothiazide 20-12.5 mg tablet 1 tab PO DAILY Hold Instructions: Pending follow-up with PCP lisinopril 10 mg tablet 10 mg PO HS Hold Instructions: Pending follow-up with PCP Problem Reconciliation Problems Reviewed?: Yes Patient Discharge Instructions ACTIVITY: Continue current activity DIET: continue same diet Patient Instructions: DI for Abdominal Pain-Adult, Hyponatremia-Adult, Esophageal Dysphagia Print Language: Slovak Providers Primary Care Provider: Jeanette Au Admit Provider: Shashank Levine Attending Provider: Shashank Levine
[2025-04-15 14:31] LABS: Chloride 89 mmol/L (98-107); Potassium 4.3 mmoL/L (3.5-5.1); Sodium 129 mmol/L (136-145)
[2025-04-15 14:34] LABS: Anion Gap 11.3 mEq/L (5-15); Blood Urea Nitrogen 12 mg/dl (9-20); Calcium 9.4 mg/dl (8.4-10.2); Carbon Dioxide 33 mmol/L (22.0-30.0); Creatinine Clearance Estimated 59 mL/min (50-200); Creatinine,Serum 1.10 mg/dl (0.66-1.25); Estimated Glomerular Filt Rate 65 ml/min (>60); GFR (African American) 78 ML/MIN (>60); Glucose 104 mg/dl (74-100)
--- NOTE | 2025-04-20 12:02 | SW/DCPLANNER ---
Spoke with patient on the phone. Patient stated that he is doing much better. Patient stated that he is aware of his upcoming appointments. Patient stated that he was able to get his new medicine picked up. Patient stated that he has no concerns or questions at this time. Abel Lowry
== END 2025-04-15 15:41 | disposition home or self-care (01) | DRG 643 ==
LOC: ER 11:05 → 2ND 11:17
PROVIDERS: Nurse Practitioner Family; Admitting Provider Internal Medicine Adolescent Medicine; Emergency Provider Emergency Medicine; PCP Nurse Practitioner Family; Visit Provider Internal Medicine Adolescent Medicine
DX: E22.2 Syndrome of inappropriate secretion of antidiuretic hormone (principal); I81 Portal vein thrombosis; K59.09 Other constipation; R74.8 Abnormal levels of other serum enzymes; R63.4 Abnormal weight loss; I25.10 Atherosclerotic heart disease of native coronary artery without angina pectoris; E11.9 Type 2 diabetes mellitus without complications; G89.29 Other chronic pain; M54.9 Dorsalgia, unspecified; F43.29 Adjustment disorder with other symptoms; R62.7 Adult failure to thrive; I11.9 Hypertensive heart disease without heart failure; I77.1 Stricture of artery; Z87.891 Personal history of nicotine dependence; Z79.82 Long term (current) use of aspirin; Z79.02 Long term (current) use of antithrombotics/antiplatelets; Z79.899 Other long term (current) drug therapy; Z88.6 Allergy status to analgesic agent; Z88.1 Allergy status to other antibiotic agents; Z88.8 Allergy status to other drugs, medicaments and biological substances
CPT/HCPCS: 36415; 74183; 76376; 80048; 80053; 81001; 83036; 83690; 83735; 84120; 84443; 84484; 84540; 85025; 93005; A9576; J1650; J2550; J3475; J7040; J7120

== ENCOUNTER 2025-04-22 14:22 | Outpatient (CLI) | payer MEDICARE, OTHER, SELFPAY ==
--- OUTSIDE RECORDS SUMMARY | 2025-04-22 14:24 | XMS_ITS | Clinical Summary ---
Author Organization Healthcare Address [address] [place] [address] Care Team Providers Care High [employer] Sports Coach Name Role Phone Duncan Eastman MD Primary Care Provider [phone] Jonah Cabello MD Unavailable [phone] Allergies Active Allergy Reactions Criticality Noted Date [...] 06/10/2021 Dyspnea on exertion 03/25/2021 04/14/20 21 AK (myocardial infarction) 03/25/2021 0 04/14/2021 Carcinoma of prostate 03/25/20212020 Prostate cancer 11/01/2017 04/14/2021 Immunizations Immunization Administration Dates Next Due Influenza, Unspecified 07/22/2020 Influenza, high-dose, quadrivalent 07/20/2016 Influenza, live, intranasal, quadrivalent 2016 Influenza, trivalent, adjuvanted 06/26/2017 Moderna COVID-19 Vaccine (Special Education Teacher) 12+ years 06/2021,10/26/2020 Pneumococcal, Unspecified 07/20/2016 Family [...] Date Last Done Comments [facility]-Depression Screening 1945 [facility]-Infant/Child/Adol SDOH Screenings 1945 [facility]- SDOH Screenings 1964 [facility]-Adult SDOH Screenings 1964 [facility]-DTaP,Tdap,and Td Vaccines (1 - Tdap) 1965 [facility]-Pneumococcal Vaccine: 50+ Years (1 of 1 - PCV) 1996 07/20/2016 [facility]-Zoster Vaccines (1 of 2) 1996 [facility]-RSV Vaccine: 60+ Years or (1 - 1-dose 75+ series) 2021 [facility]-PYWRW-19 Vaccine (3 - season) 2024 11/23/2020, 10/26/2020 [facility]-Influenza Vaccine (#1) 06/15/202507/22, 07/16/2017, 06/26/2017, Additional history exists HPV Vaccines [...] this topic Medical Devices Implanted Type Area [place] Mold Maker Device Identifier Shelf Expiration Date Model / Serial / Lot Patch Pericardial 1x10cm - [id number] Implanted:Qty: 1 on 03/29/2021 by Yves Vázquez MD at [facility] [employer] [id number] 12/12/2021 [id number]-[id number] [employer] - [id number] Implanted:Qty: 1 on 06/22/2021 by Mor Rogers MD at [facility] N/A: Vocal [employer]-[id number] 01/24/2023 08-015-04- V04 / / [id number] Description:Part Number: [id number] [facility] Voice - [id number] Implanted:Qty: 1 on 06/22/2021 by Mor Rogers MD at [facility] N/A: [employer]-[id number] 03/19/2023 08-015-04- V04 / / [id number] Description:Part Number: [id number] Insurance MEDICARE [facility] Advance Directives * Full Code (Latest Code Status on File) Date Activated Date Inactivated Comments 03/29/2021 11:59 AM 04/01/2021 4:54 PM Question Answer Comments Patient has decision-making capacity? Yes Care Teams High School Sports Coach Relationship Specialty Start Date End Date Duncan Eastman MD [address] [place] [id number] PCP - General 02/25/21 Jonah Cabello MD [address] [facility] [address] [place] [address] Referring Physician Cardiology 04/06/21
[2025-04-22 14:33] LABS: Albumin Level 4.8 g/dl (3.5-5.0); Chloride 98 mmol/L (98-107)
[2025-04-22 14:34] LABS: Potassium 5.2 mmoL/L (3.5-5.1); Sodium 137 mmol/L (136-145)
[2025-04-22 14:36] LABS: Alanine Aminotransferase 13 U/L (12-78); Alkaline Phosphatase 53 U/L (38-126); Aspartate Amino Transferase 31 U/L (17-59); Bilirubin,Total 0.6 mg/dl (0.2-1.3); Blood Urea Nitrogen 11 mg/dl (9-20); Creatinine,Serum 0.90 mg/dl (0.66-1.25); Estimated Glomerular Filt Rate 81 ml/min (>60); GFR (African American) 98 ML/MIN (>60)
[2025-04-22 14:37] LABS: Albumin/Globulin Ratio 1.6 (1.1-1.8); Anion Gap 14.2 mEq/L (5-15); Calcium 10.0 mg/dl (8.4-10.2); Carbon Dioxide 30 mmol/L (22.0-30.0); Globulin 3.0 g/dL (1.3-3.2); Glucose 104 mg/dl (74-100); Lipase 145 U/L (23-300); Total Protein,Serum 7.8 g/dl (6.3-8.2)
== END 2025-04-22 23:59 | disposition home or self-care (01) ==
LOC: LAB.DROPOF 14:22
PROVIDERS: PCP Nurse Practitioner Family; Visit Provider Nurse Practitioner Family
DX: E87.1 Hypo-osmolality and hyponatremia (principal); R10.84 Generalized abdominal pain; E87.8 Other disorders of electrolyte and fluid balance, not elsewhere classified; R74.8 Abnormal levels of other serum enzymes
CPT/HCPCS: 80053; 83690

== ENCOUNTER 2025-04-29 14:13 | Outpatient (POV) | payer MEDICARE, OTHER, SELFPAY ==
--- OUTSIDE RECORDS SUMMARY | 2025-04-29 14:16 | XMS_ITS ---
Laboratory report Created on: April 22, 2025 SHIVA PATEL : 1945 Sex: Male Author Organization Unknown PROBLEMS Problems List Code Description RESULTS Laboratory Orders Date Order Code Test 2025-04-13 [id number] PORPHYRINS, TOTA L PLASMA Laboratory Results Date LOINC Test Value Unit Reference Range Interpre tation 2025-04-13 [id number] PORPHYRINS <0.1 UG/DL 0.0-1.0
--- OUTSIDE RECORDS SUMMARY | 2025-04-29 14:16 | XMS_ITS | Clinical Summary ---
Author Organization [facility] Address [address] [place] [address] Care Team Providers Care [facility] Medical Biller Name Role Phone Duncan Eastman MD Primary Care Provider [phone] Jonah Cabello MD Unavailable [phone] Allergies Active Allergy Reactions Criticality Noted Date [...] Influenza, trivalent, adjuvanted 06/26/2017 Moderna COVID-19 Vaccine (Tentmaker) 12+ years 06/2021,10/26/2020 Pneumococcal, Unspecified 07/20/2016 Family [...] or (1 - 1-dose 75+ series) 2021 [id number]-63 Vaccine (3 - season) 2024 11/23/2020, 10/26/2020 [...] this topic Medical Devices Implanted Type Area Family Preservation Officer Device Identifier Shelf Expiration Date Model / Serial / Lot Patch Pericardial 1x10cm - [id number] Implanted:Qty: 1 on 03/29/2021 by Yves Vázquez MD at [facility] [employer] [id number] 12/12/2021 [id number]-014-6 [id number] [employer] - [id number] Implanted:Qty: 1 on 06/22/2021 by Mor Rogers MD at [facility] N/A: [employer]-[id number] 01/24/2023 08-015-04- V04 / / [id number] Description:Part Number: [id number] [facility] Voice - [id number] Implanted:Qty: 1 on 06/22/2021 by Mor Rogers MD at [facility] N/A: [employer]-[id number] 147 03/19/2023 08-015-04- V04 / / [id number] Description:Part Number: [id number] Insurance MEDICARE [facility] Advance Directives * Full Code (Latest Code Status on File) Date Activated Date Inactivated Comments 03/29/2021 11:59 AM 04/01/2021 4:54 PM Question Answer Comments Patient has decision-making capacity? Yes Care Teams Hospital Medical Biller Relationship Specialty Start Date End Date Duncan Eastman MD [address] [place] [id number] PCP - General 02/25/21 Jonah Cabello MD [address] [facility] [address] [place] [address] Referring Physician Cardiology 04/06/21
[2025-04-29 15:07] VITALS: BP 183/73; BP 183/83; RESP 14; O2SAT 98; BMI 25.8
--- NOTE | 2025-04-29 16:14 | EXP.PAIN.SOA ---
[facility] Disclaimer: The information contained in this section may have been updated after the patient was seen, as this information can be updated by other users. Medical History (Updated 04/28/25 @ 00:03 by Jeanette Au APRN) Personal history of gout TIA (transient ischemic attack) Infrarenal abdominal aortic aneurysm (AAA) without rupture Weight loss, unintentional No appetite Major depressive disorder Encounter for pre-operative cardiovascular clearance Dyspnea Atypical angina HLD (hyperlipidemia) HHD (hypertensive heart disease) CAD (coronary artery disease) AAA (abdominal aortic aneurysm) Surgical History H/O carotid endarterectomy Hx of cardiac cath S/P CABG x 2 History of cholecystectomy Family History Other No significant family history Social History Smoking Status: Former smoker alcohol intake: never substance use type: denies use current occupational status: other Travel in the last 8 weeks?: None housing: other current occupational exposures/hazards: No caffeine: Yes PM Subjective & Objective Subjective Subjective:: Patient is a very pleasant 80-year-old male who presents today for follow-up of his psychological evaluation. Today he rates his pain a 0 out of 10. Patient does state that he is actually had a lot going on from her last appointment. He states he ended up being hospitalized at the end of March and ended up being diagnosed with hyponatremia and constipation. Patient states that he was actually having bowel movements on a regular basis however he ended up getting a laxative on a couple different occasions and this past Sunday did actually have significant bowel movements throughout the day. Patient states that it really seem to make a difference on his overall back pain and he is not having the pain like what it was previously. Patient has been experiencing significant fatigue loss of appetite, nausea and vomiting and unexpected weight loss. Patient states it seems that as of right now all of that has improved. His Cody has been reviewed and is appropriate. Review of Systems: General: No recent weight changes, no fever, no sleep disturbances Respiratory: No cough, no shortness of air, no recurring pulmonary infections Cardiovascular/peripheral vascular: No chest pain, no palpitations, no edema, no shortness of breath Gastrointestinal: No new onset incontinence, normal bowel movements reported Genitourinary: No new onset incontinence Musculoskeletal: Chronic back pain Psychiatric: [Normal mood/affect] Neurological: [Denies weakness in extremities], [denies balance issues] Pain at rest (0-10 scale): 0 Objective Objective:: Physical Exam: General: Alert and oriented x3, no acute distress, pleasant and cooperative Lungs: Respirations even and unlabored, symmetrical chest expansion Eyes: PERRL Musculoskeletal: Flexion and extension of lumbar [spine] within normal limits Neurological: Speech clear, no gross sensory deficit Has patient had previous pain injection?: No Conservative treatment options previously tried: Home exercise plan Length of treatment: Longer than 12 weeks Meds Home Medications and Allergies Home Medications ?Medication ?Instructions ?Recorded ?Confirmed ?Type aspirin 81 mg tablet 81 mg PO DAILY 03/27/24 04/29/25 History cholecalciferol (vitamin D3) 50 50 mcg PO DAILY 03/27/24 04/29/25 History mcg (2,000 unit) tablet coenzyme Q10 400 mg capsule 400 mg PO DAILY 03/27/24 04/29/25 History multivitamin 1 tab PO DAILY 11/17/24 04/29/25 History rosuvastatin 20 mg tablet 20 mg PO DAILY #90 tabs 01/23/25 04/29/25 Rx lisinopril 10 mg tablet 10 mg PO HS 01/27/25 04/29/25 History Held on 04/15/25. Instructions: Pending follow-up with PCP lisinopril 20 1 tab PO DAILY 01/27/25 04/29/25 History mg-hydrochlorothiazide 12.5 mg tablet Held on 04/15/25. Instructions: Pending follow-up with PCP carvedilol 6.25 mg tablet 6.25 mg PO BID 03/31/25 04/29/25 History clopidogrel 75 mg tablet 75 mg PO DAILY 04/13/25 04/29/25 History omeprazole 40 mg capsule,delayed 40 mg PO DAILY 04/13/25 04/29/25 History release ondansetron 4 mg disintegrating 4 mg PO Q6HP PRN Nausea And 04/13/25 04/29/25 History tablet Vomiting sennosides 8.6 mg-docusate sodium 1 tab PO HS 30 days #30 tabs 04/15/25 04/29/25 Rx 50 mg tablet (Stimulant Laxative Plus) sodium chloride 1,000 mg soluble 1,000 mg PO BID 30 days #60 tabs 04/15/25 04/29/25 Rx tablet olopatadine 0.2 % eye drops 1 drp ophthalmic (eye) DAILY PRN 04/21/25 04/29/25 Rx itching #2.5 mL erythromycin 5 mg/gram (0.5 %) eye 0.5 inch ophthalmic (eye) Q4H 7 04/22/25 04/29/25 Rx ointment days #3.5 grams New Prescriptions to Start Prescriptions: Allergies Allergy/AdvReac Type Severity Reaction Status Date / Time prednisone Allergy Intermediate I-RASH Verified 04/22/25 10:10 azithromycin (AZITHROMYCIN) Allergy Unknown Rash Verified 04/22/25 10:10 NSAIDS (Non-Steroidal Allergy Unknown Rash Verified 04/22/25 10:10 Anti-Inflamma (NSAIDS (NON-STEROIDAL ANTI-INFLAMMA) nabumetone AdvReac Intermediate IRREGULAR Verified 04/22/25 10:10 HEART BEAT indomethacin AdvReac Mild DIZZINESS Verified 04/22/25 10:10 Assessment and Plan *Assessment and plan (1) Chronic back pain: Status: Acute Category: Medical Code(s): M54.9 - Dorsalgia, unspecified; G89.29 - Other chronic pain Plan I did discuss with the patient regarding his psychological evaluation that he was deemed an appropriate patient however due to no longer having the chronic pain that he was experiencing we have agreed that he does not need to proceed forward with the pump trial. We will continue to follow-up with him to verify that he is doing well and does not need any additional interventions. Patient will return to clinic in 2 months for reevaluation of symptoms and plan of care. Patient has been instructed to contact the clinic with any concerns before the next appointment. Dr. Couch has reviewed this note and agrees with this plan of care. This note was dictated using voice recognition software and make contain errors or omissions. All injections are used with Lidocaine, Bupivacaine and dexamethasone. Occasionally urine drug screen is needed to verify patient's compliance with our office pain contract. This is ordered based off specific treatments related to chronic pain with the potential to abuse certain medications.
== END 2025-04-29 23:59 | disposition home or self-care (01) ==
LOC: SC.PAIN 14:14
PROVIDERS: PCP Nurse Practitioner Family; Visit Provider Nurse Practitioner Family
DX: M54.9 Dorsalgia, unspecified (principal); G89.29 Other chronic pain
CPT/HCPCS: 99212; G0463

== ENCOUNTER 2025-06-09 06:02 | Outpatient (CLI) | payer MEDICARE, OTHER, SELFPAY ==
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
--- OUTSIDE RECORDS SUMMARY | 2025-06-09 06:05 | XMS_ITS | Clinical Summary ---
Author Organization [facility] Address [address] [place] [address] Care Team Providers Care Reel And Rewinder Operator Name Role Phone Jeanette Au APRN Primary Care Provider Allergies Active Allergy Reactions Criticality Noted Date Comments Azithromycin Hives 11/01/2017 Indomethacin Dizziness 11/01/2017 Nabumetone Palpitations Low 11/01/2017 Nsaids Other (See Comments) Low 11/26/2017 Blackouts Prednisone Hives 11/01/2017 Medications carvedilol (COREG) 12.5 MG tablet 08/29/2017 Active lisinopril-hydr ochlorothiazide (PRINZIDE,ZESTO RETIC) 20-12.5 MG per tablet 08/27/2017 Activ e omeprazole (priLOSEC) 20 MG capsule 07/27/2017 Active aspirin 81 MG EC tablet Take 1 tablet by mouth Daily. Active Multiple Vitamins-Minera ls (MULTIVITAMIN ADULT PO) Take 1 tablet/day by mouth. Active coenzyme Q10 100 MG capsule Take 3 capsules by mouth Daily. Active alfuzosin (UROXATRAL) 10 MG 24 hr tabletIndicatio ns:Prostate cancer Take 1 tablet by mouth Daily. 30 tablet 11 11/28/2017 Active clopidogrel (PLAVIX) 75 MG tablet Take 1 tablet by mouth Daily. Active rosuvastatin (CRESTOR) 20 MG tablet Take 1 tablet by mouth Daily. 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 Refer to NS Prostate cancer 11/01/2017 Cancer Staging:Clinical stage from 09/26/2017:Stage IIA(cT1c, cN0, cM0, PSA: 11.1, Grade Group: 1) - Signed by Maciej Juarez MD on 11/01/2017 Immunizations Immunization Administration Dates Next Due FluMist 2-49yrs 07/16/2017 Family History Medical History Relation Name Comments Kidney cancer Mother Relation Name Status Comments Father Mother Social History Tobacco Use Types Packs/Day Years Used Date Smoking Tobacco: Former Cigarettes Q uit: 1993 Passive Smoke Exposure: Past Smokeless Tobacco: Never Tobacco Cessation:Counseling Given: Not Answered Alcohol Use Standard Drinks/Week Comments No 0 (1 standard drink = 0.6 oz pur e alcohol) Sex and Gender Information Value Date Recorded Sex Assigned at Not on file Legal Sex Male 10:54 AM EDT Gender Identity Not on file Sexual Orientation Not on file Last Filed Vital Signs Vital Sign Reading Time Taken Comments Blood Pressure 138/90 03/24/2024 1:51 PM EDT Pulse 59 03/24/2024 1:51 PM EDT Temperature 36.2 C (97.2 F) 10/14/2024 11:12 AM EST Respiratory Rate 20 11/28/2017 8:15 AM EST Oxygen Saturation 98% 03/24/2024 1:51 PM EDT Inhaled Oxygen Concentration - - Weight 79.2 kg (174 lb 9.6 oz) 10/14/2024 11:12 AM EST Height 175.3 cm (5' 9.02 ) 10/14/2024 11:[address] Body Mass Index 25.77 10/14/2024 11:12 AM EST Plan of Treatment Upcoming Encounters Date Type Department Care Team (Late st Contact Info) Description 09/23/2025 10:00 AM EST Appointment [facility] MRI [address] [place] [id number] 09/23/2025 12:40 PM EST Office Visit [facility] NEUR[facility]ERY [address] [phone] Tato Sánchez MD [address] [address] Health Maintenance Due Date Last Done Comments DIABETIC EYE EXAM 1956 DIABETIC FOOT EXAM 1956 URINE MICROALBUMIN-CREATININ E RATIO (uACR) 1956 TDAP/TD VACCINES (1 - Tdap) 1965 COLOGUARD 1991 COLON CANCER SCREENING 5 YEA R SIGMOIDOSCOPY 1991 CT COLONOGRAPHY 1991 FECAL OCCULT BLOOD TEST 1991 FIT Testing (1 year) 1991 ZOSTER VACCINE (1 of 2) 1996 ANNUAL WELLNESS VISIT 11/01/2017 HEPATITIS C SCREENING 11/01/2017 RSV Vaccine - Adults (1 - 1- dose 75+ series) 2021 COVID-19 Vaccine ( - 2023-2 5 season) 2024 10/03/2021, 11/23/2020, 10/26/2020 HEMOGLOBIN A1C 12/03/2024 06/02/2024, 02/27/2023 INFLUENZA VACCINE 07/15/2025 07/30/2023, , 07/22/2020, Additional history exists COLONOSCOPY 05/16/2032 05/16/2022, 05/16/2022 COLORECTAL CANCER SCREENING 05/16/2032 Pneumococcal Vaccine 50+ Completed 01/31/2024, 03/[address] [place] [address] MEDICARE A & B Care Teams Reel And Rewinder Operator Relationship Specialty Start Date End Date Jeanette Au APRN [address] [place] [address] PCP - General Internal Medicine 10/04/23 Dr. Emeterio Arriaga Nephrology 11/01/17
--- OUTSIDE RECORDS SUMMARY | 2025-06-09 06:05 | XMS_ITS | Clinical Summary ---
Author Organization [facility] Address [address] [place] [address] Care Team Providers Care Patent Searcher Name Role Phone Duncan Eastman MD Primary Care Provider [phone] Jonah Cabello MD Unavailable Allergies Active Allergy Reactions Criticality Noted Date [...] 06/10/2021 Dyspnea on exertion 03/25/2021 04/14/20 21 [place] (myocardial infarction) 03/25/2021 0 04/14/2021 Carcinoma of prostate 03/25/20212020 Prostate cancer 11/01/2017 04/14/2021 Immunizations Immunization Administration Dates Next Due Influenza, Unspecified 07/22/2020 Influenza, high-dose, quadrivalent 07/20/2016 Influenza, live, intranasal, quadrivalent 2016 Influenza, trivalent, adjuvanted 06/26/2017 Moderna COVID-19 Vaccine (Control And Recovery Combat Rescue) 12+ years 06/2021,10/26/2020 Pneumococcal, Unspecified 07/20/2016 Family [...] or (1 - 1-dose 75+ series) 2021 [id number]-33 Vaccine (3 - season) 2024 11/23/2020, 10/26/2020 [...] this topic Medical Devices Implanted Type Area Automotive Technology Instructor Device Identifier Shelf Expiration Date Model / Serial / Lot Patch Pericardial 1x10cm - [id number] Implanted:Qty: 1 on 03/29/2021 by Yves Vázquez MD at [facility] [employer] [facility]-[id number] 12/12/2021 CMCV-014-6 [id number] [employer] - [id number] Implanted:Qty: 1 on 06/22/2021 by Mor Rogers MD at [facility] N/A: Vocal Cord [employer]-[id number] 01/24/2023 08-015-04- V04 / / [id number] Description:Part Number: [id number] [facility] Voice - [id number] Implanted:Qty: 1 on 06/22/2021 by Mor Rogers MD at [facility] N/A: Vocal Cord [employer]-[id number] 03/19/2023 08-015-04- V04 / / [id number] Description:Part Number: [id number] Insurance MEDICARE [facility] Advance Directives * Full Code (Latest Code Status on File) Date Activated Date Inactivated Comments 03/29/2021 11:59 AM 04/01/2021 4:54 PM Question Answer Comments Patient has decision-making capacity? Yes Care Teams Patent Searcher Relationship Specialty Start Date End Date Duncan Eastman MD [address] [place] [address] PCP - General 02/25/21 Jonah Cabello MD [address] [facility] [address] [place] [address] Referring Physician Cardiology 04/06/21
[2025-06-09 08:35] LABS: Thyroid Stimulating Hormone 1.67 uIU/mL (0.465-4.68)
[2025-06-09 09:27] LABS: Free T4 (Free Thyroxine) 0.60 ng/dl (0.78-2.19)
== END 2025-06-09 23:59 | disposition home or self-care (01) ==
PROVIDERS: PCP Nurse Practitioner Family; Visit Provider Student in an Organized Health Care Education/Training Program
DX: R53.82 Chronic fatigue, unspecified (principal)
CPT/HCPCS: 36415; 82533; 84402; 84403; 84439; 84443; 84480

== ENCOUNTER 2025-06-12 07:46 | Outpatient (CLI) | payer MEDICARE, OTHER, SELFPAY ==
--- OUTSIDE RECORDS SUMMARY | 2025-06-12 07:49 | XMS_ITS | Clinical Summary ---
Author Organization [facility] Address [address] [place] [address] Care Team Providers Care Conveyor Worker Name Role Phone Duncan Eastman MD Primary Care Provider [phone] Jonah Cabello MD Unavailable [phone] Allergies Active Allergy Reactions Criticality Noted Date [...] 06/10/2021 Dyspnea on exertion 03/25/2021 04/14/20 21 [place] (myocardial infarction) 03/25/2021 0 04/14/2021 Carcinoma of prostate 03/25/20212020 Prostate cancer 11/01/2017 04/14/2021 Immunizations Immunization Administration Dates Next Due Influenza, Unspecified 07/22/2020 Influenza, high-dose, quadrivalent 07/20/2016 Influenza, live, intranasal, quadrivalent 2016 Influenza, trivalent, adjuvanted 06/26/2017 Moderna COVID-19 Vaccine (Adjusto Writer Operator) 12+ years 06/2021,10/26/2020 Pneumococcal, Unspecified 07/20/2016 Family [...] or (1 - 1-dose 75+ series) 2021 [id number] Vaccine (3 - season) 2024 11/23/2020, 10/26/2020 [...] this topic Medical Devices Implanted Type Area Transport Operations Inspector Device Identifier Shelf Expiration Date Model / Serial / Lot Patch Pericardial 1x10cm - [id number] Implanted:Qty: 1 on 03/29/2021 by Yves Vázquez MD at [facility] [employer] [facility]-[id number] 12/12/2021 CMCV-014-6 [id number] [employer] - [id number] Implanted:Qty: 1 on 06/22/2021 by Mor Rogers MD at [facility] N/A: Vocal Cord [employer]-[id number] 147 01/24/2023 08-015-04- V04 / / [id number] Description:Part Number: [id number] [facility] Voice - [id number] Implanted:Qty: 1 on 06/22/2021 by Mor Rogers MD at [facility] N/A: Vocal Cord [employer]-[id number] 03/19/2023 08-015-04- V04 / / [id number] Description:Part Number: [id number] Insurance MEDICARE [facility] Advance Directives * Full Code (Latest Code Status on File) Date Activated Date Inactivated Comments 03/29/2021 11:59 AM 04/01/2021 4:54 PM Question Answer Comments Patient has decision-making capacity? Yes Care Teams Conveyor Worker Relationship Specialty Start Date End Date Duncan Eastman MD [address] [place] [address] PCP - General 02/25/21 Jonah Cabello MD [address] [facility] [address] [place] [address] Referring Physician Cardiology 04/06/21
--- OUTSIDE RECORDS SUMMARY | 2025-06-12 07:49 | XMS_ITS ---
Author Organization [facility] Address [address] [place] [id number] Care Team Providers Care Blowing Engineer Name Role Phone Jeanette Au APRN Primary Care Provider [phone] Active Problems Problem Noted Date Diagnosed Date [...] numbers Care Team Provider: Ricardo Ortega MD, ([phone]) Care Team Provider: Jonah Cabello MD, ([phone]) Care Team Provider: Mark Cee MD, ([phone]) Care Team Provider: Dr. Emeterio Arriaga, ([phone]) Care Team Provider: Maciej Juarez MD, ([phone]) Post Treatment Care Team Primary Care Physician Duncan Eastman MD [phone] [address] [facility] [address] Background Information Medical history Past Medical History: [...] doctors and nurses such as exercise andactivity. FDC effects of radiation therapy vary greatly depending [...] to you. General Cancer Support & Resources [facility] [address] [facility], [address] [place] [address] Med Onc: Soap Maker Onc: Lumber Loader: Carlita Mckeon - Psychiatric Nurse Practitioner: Saskia Nielsen APRN - Kick It! (A free smoking cessation program) Financial Counselor and Contact Information: Psychiatric Financial Counseling [phone] Secretary Administrative Assistant Contact Information: Tri Brown - Local Cancer Support Group and Contact Information: Juan Humphrey (Psychiatric) Yoga for Cancer Patients: Mondays and Wednesdays @ 10AM Juan offers a free 1 month membership to cancer patients Car Cancer Buddies: This support group is open to anyone that has been diagnosed with cancer of any type. Meets at 6:30pm on the last Sunday of each month. Location: [facility]; [address] [place] [address]. For more information call Julia Short @ [...] advice of a doctor or other health health care consultant. Please use these recommendations to talk with [...] of cancer in the general population. The [place] Cancer Society (ACS) recommends these screening guidelines for men: Recommendation Frequency Comments Colon and Rectal Cancer Screening For more information see the ACS document Colorectal Cancer: Early Detection. www.cancer.org/ssLINK/uvzuidcpre-jrvcif-wainj-detection-katlyn Options for colon cancer screening can be [...] see the ACS Document Testicular Cancer Detection: http://www.cancer.org/cancer/testicularcancer/detailedguide/drbpnxgnxz-nvypyg-tu tection Men of any age can develop [...] more information, visit http://www.nhlbi.nih.gov/health/public/heart/obesity/lose_wt/index.htm www.win.niddk.nih.gov Call the [place] Heart Association ?? Talk to your health [...] from plant sources. For more information, visit http://www.Markerlymyplate.gov/food-groups/ ?? Eat healthy, including plenty of fruits [...] Experts recommend at least 30 minutes of jlycaojn-fh-wzgrnjiy activity per day, five days a week. [...] you can call a national hotline at 6(924)-QUIT-NOW. Have regular check-ups by a healthcare professional. For more information about healthy screening tests for men visit the U.S. Department of Health and Human Services. http://www.womenshealth.gov/sryehgjwt-sdfhb-fnr-vaccines/hhxkfkxgf-feugv-hhq-men / For more information about adult vaccinations [...] forget dental and eye health! ?? The [place] Optometric Association recommends adults have their eyes examined every two years until age 60, then annually. People who wear glasses or corrective lenses or are at high risk for eye problems (i.e., diabetics, family history of eye disease) should be seen more frequently. ?? The [place] Dental Association recommends adults see their dentist at least once a year. [facility] [address] [facility] [id number]
--- OUTSIDE RECORDS SUMMARY | 2025-06-12 07:49 | XMS_ITS | Clinical Summary ---
Author Organization [facility] Address [address] [place] [address] Care Team Providers Care Seed Buyer Name Role Phone Jeanette Au APRN Primary Care Provider [phone] Allergies Active Allergy Reactions Criticality Noted Date [...] Info) Description 09/23/2025 10:00 AM EST Appointment [facility] MRI [address] [place] [phone] 09/23/2025 12:40 PM EST Office Visit [facility] NEUROSUR[facility]ERY [address] [phone] Tato Sánchez MD [address] [address] Health Maintenance Due Date Last Done Comments [...] Pneumococcal Vaccine 50+ Completed 01/31/2024, 03/[address] [place] [address] MEDICARE A & B Care Teams Seed Buyer Relationship Specialty Start Date End Date Jeanette Au APRN [address] [place] [address] PCP - General Internal Medicine 10/04/23 Dr. Emeterio Arriaga Nephrology 11/01/17
[2025-06-13 10:12] LABS: FSH 1.0 mIU/mL (1.5-12.4); LH 0.3 mIU/mL (1.7-8.6)
== END 2025-06-12 23:59 | disposition home or self-care (01) ==
LOC: LAB 07:48
PROVIDERS: PCP Nurse Practitioner Family; Visit Provider Student in an Organized Health Care Education/Training Program
DX: R79.89 Other specified abnormal findings of blood chemistry (principal)
CPT/HCPCS: 36415; 82024; 82533; 83001; 83002; 84146; 84305

== ENCOUNTER 2025-06-22 12:22 | Outpatient (CLI) | payer MEDICARE, OTHER, SELFPAY ==
--- NOTE | 2025-06-22 12:27 | XR_ITS ---
FINAL REPORT CLINICAL HISTORY: cervicalgia FINDINGS: 5 views of the cervical spine were obtained. There is no acute fracture or subluxation. Mild degenerative disease is seen, most pronounced at C5-6. Surgical clips are noted in the left neck. Soft tissue otherwise unremarkable. IMPRESSION: Degenerative change without acute bony abnormality. Reviewed, Interpreted and Dictated by Dunia Car MD Transcribed by Keira Vides Authenticated and [facility]
--- NOTE | 2025-06-22 12:27 | XR_ITS ---
FINAL REPORT CLINICAL HISTORY: Shortness of breath FINDINGS: 2 views of the chest were obtained . Patient is status post median sternotomy. The heart is normal in size. The mediastinum is within normal limits. The lungs are clear. There is no pneumothorax. Osseous structures are unremarkable. IMPRESSION: No acute cardiopulmonary process. Reviewed, Interpreted and Dictated by Dunia Car MD Transcribed by Keira Vides Authenticated and [facility]
--- NOTE | 2025-06-22 12:27 | XR_ITS ---
FINAL REPORT CLINICAL HISTORY: Bilateral shoulder pain COMPARISON: 11/20/2024 FINDINGS: LEFT SHOULDER 3 views of the left shoulder were obtained. There is no acute fracture or dislocation. Visualized joint spaces are normally aligned. There is degenerative joint disease, similar to prior exam. Soft tissues are unremarkable. IMPRESSION: No acute bony abnormality. Reviewed, Interpreted and Dictated by Dunia Car MD Transcribed by Keira Vides Authenticated and [facility]
--- NOTE | 2025-06-22 12:27 | XR_ITS ---
FINAL REPORT CLINICAL HISTORY: Bilateral shoulder pain COMPARISON: 11/20/2024 FINDINGS: 3 views of the right shoulder were obtained. There is no fracture or dislocation. There is degenerative joint disease of the acromioclavicular and glenohumeral joints. Soft tissues are unremarkable. IMPRESSION: No acute osseous abnormality of the right shoulder. Reviewed, Interpreted and Dictated by Dunia Car MD Transcribed by Keira Vides Authenticated and [facility]
--- OUTSIDE RECORDS SUMMARY | 2025-06-22 12:28 | XMS_ITS ---
Author Organization [facility] Address [address] [place] [id number] Care Team Providers Care Tractor Mechanic Helper Name Role Phone Jeanette Au APRN Primary Care Provider [phone] Active Problems Problem Noted Date Diagnosed Date [...] numbers Care Team Provider: Ricardo Ortega MD, ([phone]) Care Team Provider: oJnah Cabello MD, ([phone]) Care Team Provider: Mark Cee MD, ([phone]) Care Team Provider: Dr. Emeterio Arriaga, ([phone]) Care Team Provider: Maciej Juarez MD, ([phone]) Post Treatment Care Team Primary Care Physician Duncan Eastman MD [phone] [address] [facility] [address] Background Information Medical history Past Medical History: [...] doctors and nurses such as exercise andactivity. intermediate effects of radiation therapy vary greatly depending [...] to you. General Cancer Support & Resources [facility] [address] [facility], [address] [place] [address] Med Onc: Recruit Instructor Onc: Pullman Car Repairer: Carlita Mckeon - Psychiatric Nurse Practitioner: Saskia Nielsen APRN - Kick It! (A free smoking cessation program) Financial Counselor and Contact Information: [facility] Financial Counseling [phone] Bobbin Dumper Contact Information: Tri Brown - Local Cancer Support Group and Contact Information: Juan Humphrey ([facility]) Yoga for Cancer Patients: Mondays and Wednesdays @ 10AM Juan offers a free 1 month membership to cancer patients Car Cancer Buddies: This support group is open to anyone that has been diagnosed with cancer of any type. Meets at 6:30pm on the last Sunday of each month. Location: [facility]; [address] [place] [address]. For more information call Julia Short @ [...] advice of a doctor or other health pulmonary care nurse. Please use these recommendations to talk with [...] of cancer in the general population. The [place] Cancer Society (ACS) recommends these screening guidelines for men: Recommendation Frequency Comments Colon and Rectal Cancer Screening For more information see the ACS document Colorectal Cancer: Early Detection. www.cancer.org/ssLINK/ckebqlksbm-ehgmor-jqmdm-detection-katlyn Options for colon cancer screening can be [...] see the ACS Document Testicular Cancer Detection: http://www.cancer.org/cancer/testicularcancer/detailedguide/faculsvstz-ndkhlh-cs tection Men of any age can develop [...] more information, visit http://www.nhlbi.nih.gov/health/public/heart/obesity/lose_wt/index.htm www.win.niddk.nih.gov Call the [place] Heart Association ?? Talk to your health [...] from plant sources. For more information, visit http://www.NovaSommyplate.gov/food-groups/ ?? Eat healthy, including plenty of fruits [...] Experts recommend at least 30 minutes of wuxvhqhx-sc-vqkrunbj activity per day, five days a week. [...] you can call a national hotline at 2(098)-QUIT-NOW. Have regular check-ups by a healthcare professional. For more information about healthy screening tests for men visit the U.S. Department of Health and Human Services. http://www.womenshealth.gov/nzsuhihbv-wmwwc-gvs-vaccines/zrtgiuzew-bgehg-rfo-men / For more information about adult vaccinations [...] forget dental and eye health! ?? The [place] Optometric Association recommends adults have their eyes examined every two years until age 60, then annually. People who wear glasses or corrective lenses or are at high risk for eye problems (i.e., diabetics, family history of eye disease) should be seen more frequently. ?? The [place] Dental Association recommends adults see their dentist at least once a year. [facility] [address] [facility] [phone]
--- OUTSIDE RECORDS SUMMARY | 2025-06-22 12:28 | XMS_ITS | Clinical Summary ---
Author Organization [facility] Address [address] [place] [address] Care Team Providers Care Biostatistician Name Role Phone Jeanette Au APRN Primary [...] Info) Description 09/23/2025 10:00 AM EST Appointment [facility] MRI [address] [place] [phone] 09/23/2025 12:40 PM EST Office Visit [facility] NEUROS[facility]ERY [address] [phone] Tato Sánchez MD [address] [address] Health Maintenance Due Date Last Done Comments [...] (1 - 1- dose 75+ series) 2021 HEMOGLOBIN A1C 12/03/2024 06/02/2024, 02/27/2023 COVID-19 Vaccine (4 - 2024-2 6 season) 2025 10/03/2021, 11/23/2020, 10/26/2020 INFLUENZA VACCINE 07/15/2025 07/30/2023, , 07/22/2020, Additional history exists COLONOSCOPY 05/16/2032 05/16/2022, 05/16/2022 COLORECTAL CANCER SCREENING 05/16/2032 Pneumococcal Vaccine 50+ Completed 01/31/2024, 03/[address] [place] [address] [place] [address] MEDICARE A & B Care Teams Biostatistician Relationship Specialty Start Date End Date Jeanette Au APRN [address] [place] [address] PCP - General Internal Medicine 10/04/23 Dr. Emeterio Arriaga Nephrology 11/01/17
--- OUTSIDE RECORDS SUMMARY | 2025-06-22 12:28 | XMS_ITS | Clinical Summary ---
Author Organization [facility] Address [address] [place] [address] Care Team Providers Care Roundhouse Supervisor Name Role Phone Duncan Eastman MD Primary Care Provider [phone] Jonah Cabello MD Unavailable [phone] Allergies Active Allergy Reactions Criticality Noted Date [...] 06/10/2021 Dyspnea on exertion 03/25/2021 04/14/20 21 [place] (myocardial infarction) 03/25/2021 0 04/14/2021 Carcinoma of prostate 03/25/20212020 Prostate cancer 11/01/2017 04/14/2021 Immunizations Immunization Administration Dates Next Due Influenza, Unspecified 07/22/2020 Influenza, high-dose, quadrivalent 07/20/2016 Influenza, live, intranasal, quadrivalent 2016 Influenza, trivalent, adjuvanted 06/26/2017 Moderna COVID-19 Vaccine (Cover Mat Machine Operator) 12+ years 06/2021,10/26/2020 Pneumococcal, Unspecified 07/20/2016 [...] or (1 - 1-dose 75+ series) 2021 CTF-OZKID-16 Vaccine (3 - season) 2025 11/23/2020, 10/26/2020 UKY-Influenza Vaccine (#1) 06/15/202507/22, 07/16/2017, [...] this topic Medical Devices Implanted Type Area Portable Irrigation Operator Device Identifier Shelf Expiration Date Model / Serial / Lot Patch Pericardial 1x10cm - [id number] Implanted:Qty: 1 on 03/29/2021 by Yves Vázquez MD at [facility] [employer] [facility]-[id number] 12/12/2021 CMCV-014-6 [id number] [employer] - [id number] Implanted:Qty: 1 on 06/22/2021 by Mor Rogers MD at [facility] N/A: Vocal Cord [employer]-[id number] 01/24/2023 08-015-04- V04 / / [id number] Description:Part Number: [id number] [facility] Voice - [id number] Implanted:Qty: 1 on 06/22/2021 by Mor Rogers MD at [facility] N/A: [employer]ocal [employer]-[id number] 03/19/2023 08-015-04- V04 / / [id number] Description:Part Number: [id number] Insurance MEDICARE [facility] Advance Directives * Full Code (Latest Code Status on File) Date Activated Date Inactivated Comments 03/29/2021 11:59 AM 04/01/2021 4:54 PM Question Answer Comments Patient has decision-making capacity? Yes Care Teams Roundhouse Supervisor Relationship Specialty Start Date End Date Duncan Eastman MD [address] [place] [address] PCP - General 02/25/21 Jonah Cabello MD [address] [facility] [address] [place] [address] Referring Physician Cardiology 04/06/21
[2025-06-22 13:21] LABS: Hematocrit 36.5 % (42.0-52.0); Hemoglobin 13.1 g/dL (14.1-18.0); Immature Granulocytes % 0.3 %; Mean Corpuscular HGB Conc 35.9 g/dL (31.8-35.4); Mean Corpuscular Hemoglobin 31.5 pg (27.0-31.2); Mean Corpuscular Volume 87.7 fl (80-94); Nucleated Red Blood Cells % 0 %; Platelet Count 238 K/mm3 (142-424); Red Blood Count 4.16 M/mm3 (4.60-6.20); Red Cell Distribution Width-SD 38.9 fL; White Blood Count 6.7 K/mm3 (4.8-10.8)
[2025-06-22 13:30] LABS: D-Dimer 0.93 ug/mL (0.0-0.5)
[2025-06-22 13:45] LABS: Uric Acid 3.2 mg/dl (3.5-8.5)
[2025-06-22 13:52] LABS: NT Pro Brain Natriuretic Pep. 535 pg/mL (0-450)
[2025-06-22 14:02] LABS: 25-OH Vitamin D, Total 47.7 ng/mL (30-100)
[2025-06-22 14:25] LABS: Hemoglobin A1C 5.5 % (4.0-6.0)
[2025-06-23 08:14] LABS: RA Latex Turbid. <10.0 IU/mL (<14.0)
== END 2025-06-22 23:59 | disposition home or self-care (01) ==
LOC: LAB 12:24
PROVIDERS: PCP Nurse Practitioner Family; Visit Provider Nurse Practitioner Family
DX: M25.511 Pain in right shoulder (principal); M47.812 Spondylosis without myelopathy or radiculopathy, cervical region; M25.512 Pain in left shoulder; M25.50 Pain in unspecified joint; E11.9 Type 2 diabetes mellitus without complications; E55.9 Vitamin D deficiency, unspecified; R06.02 Shortness of breath
CPT/HCPCS: 36415; 71046; 72050; 73030; 82306; 83036; 83880; 84550; 85025; 85378; 85651; 86038; 86431

== ENCOUNTER 2025-06-23 12:49 | Outpatient (CLI) | payer MEDICARE, OTHER, SELFPAY ==
--- OUTSIDE RECORDS SUMMARY | 2025-06-23 12:53 | XMS_ITS ---
Laboratory report Created on: June 18, 2025 SHIVA PATEL : 1945 Sex: Male Author Organization Unknown PROBLEMS Problems List Code Description RESULTS Laboratory Orders Date Order Code Test 2025-06-12 420404 ACTH, PLASMA Laboratory Results Date LOINC Test Value Unit Reference Range Interpre tation 2025-06-12 2141-0 ACTH, PLASMA 30.3 PG/ML 7.2-63.3
--- OUTSIDE RECORDS SUMMARY | 2025-06-23 12:53 | XMS_ITS | Clinical Summary ---
Author Organization Healthcare Address [address] [place] [address] Care Team Providers Care Machine Rope Maker Name Role Phone Duncan Eastman MD Primary Care Provider [phone] Jonah Cabello MD Unavailable [phone] Allergies Active Allergy Reactions Criticality Noted Date [...] 06/10/2021 Dyspnea on exertion 03/25/2021 04/14/20 21 PR (myocardial infarction) 03/25/2021 0 04/14/2021 Carcinoma of prostate 03/25/20212020 Prostate cancer 11/01/2017 04/14/2021 Immunizations Immunization Administration Dates Next Due Influenza, Unspecified 07/22/2020 Influenza, high-dose, quadrivalent 07/20/2016 Influenza, live, intranasal, quadrivalent 2016 Influenza, trivalent, adjuvanted 06/26/2017 Moderna COVID-19 Vaccine (Refrigerating Technician) 12+ years 06/2021,10/26/2020 Pneumococcal, Unspecified 07/20/2016 Family [...] or (1 - 1-dose 75+ series) 2021 SNJ-NIEYM-10 Vaccine (3 - season) 2025 11/23/2020, 10/26/2020 [...] this topic Medical Devices Implanted Type Area Manager Of Customer Billing Device Identifier Shelf Expiration Date Model / Serial / Lot Patch Pericardial 1x10cm - [id number] Implanted:Qty: 1 on 03/29/2021 by Yves Vázquez MD at [facility] [employer] [facility]-[id number] 12/12/2021 CMCV-014-6 [id number] [employer] - [id number] Implanted:Qty: 1 on 06/22/2021 by Mor Rogers MD at [facility] N/A: Vocal Cord [employer]-[id number] 01/24/2023 08-015-04- V04 / / [id number] Description:Part Number: [id number] [facility] Voice - [id number] Implanted:Qty: 1 on 06/22/2021 by Mor Rogers MD at [facility] N/A: Vocal Cord [employer]-[id number] 03/19/2023 08-015-04- V04 / / [id number] Description:Part Number: [id number] Insurance MEDICARE [facility] Advance Directives * Full Code (Latest Code Status on File) Date Activated Date Inactivated Comments 03/29/2021 11:59 AM 04/01/2021 4:54 PM Question Answer Comments Patient has decision-making capacity? Yes Care Teams Machine Rope Maker Relationship Specialty Start Date End Date Duncan Eastman MD [address] [place] [address] PCP - General 02/25/21 Jonah Cabello MD [address] [facility] [address] [place] [address] Referring Physician Cardiology 04/06/21
--- OUTSIDE RECORDS SUMMARY | 2025-06-23 12:53 | XMS_ITS | Clinical Summary ---
Author Organization [facility] Address [address] [place] [address] Care Team Providers Care Reverse Engineer Name Role Phone Jeanette Au APRN Primary Care Provider [phone] Allergies Active Allergy Reactions Criticality Noted Date [...] Info) Description 09/23/2025 10:00 AM EST Appointment [facility] MRI [address] [place] [id number] 09/23/2025 12:40 PM EST Office Visit [facility] NEUROS[facility]GERY [address] [phone] Tato Sánchez MD [address] [address] Health Maintenance Due Date Last Done Comments [...] Pneumococcal Vaccine 50+ Completed 01/31/2024, 03/[address] [place] [place] [address] MEDICARE A & B Care Teams Reverse Engineer Relationship Specialty Start Date End Date Jeanette Au APRN [address] [place] [address] PCP - General Internal Medicine 10/04/23 Dr. Emeterio Arriaga Nephrology 11/01/17
--- OUTSIDE RECORDS SUMMARY | 2025-06-23 12:53 | XMS_ITS ---
Laboratory report Created on: June 12, 2025 SHIVA PATEL : 1945 Sex: Male Author Organization Unknown PROBLEMS Problems List Code Description RESULTS Laboratory Orders Date Order Code Test 2025-06-09 [id number] CORTISOL Laboratory Results Date LOINC Test Value Unit Reference Range [facility] tation 2025-06-09 2143-6 CORTISOL 3 UG/DL 6.2-19.4 L
--- OUTSIDE RECORDS SUMMARY | 2025-06-23 12:53 | XMS_ITS ---
Author Organization [facility] Address [address] [place] [id number] Care Team Providers Care Event Sales Manager Name Role Phone Jeanette Au APRN Primary Care Provider [phone] Active Problems Problem Noted Date Diagnosed Date [...] numbers Care Team Provider: Ricardo Ortega MD, ([phone]) Care Team Provider: Jonah Cabelol MD, ([phone]) Care Team Provider: Mark Cee MD, ([phone]) Care Team Provider: Dr. Emeterio Arriaga, ([phone]) Care Team Provider: Maciej Juarez MD, ([phone]) Post Treatment Care Team Primary Care Physician Duncan Eastman MD [phone] [address] [facility] [address] Background Information Medical history Past Medical History: [...] doctors and nurses such as exercise andactivity. half-way effects of radiation therapy vary greatly depending [...] to you. General Cancer Support & Resources [facility] [address] [facility], [address] [place] [address] Med Onc: Chief Clinical Dietitian Onc: Special Education Associate: Carlita Mckeon - Psychiatric Nurse Practitioner: Saskia Nielsen APRN - Kick It! (A free smoking cessation program) Financial Counselor and Contact Information: [facility] Financial Counseling [phone] Ice Seller Contact Information: Tri Brown - Local Cancer Support Group and Contact Information: Juan Humphrey ([facility]) Yoga for Cancer Patients: Mondays and Wednesdays @ 10AM Juan offers a free 1 month membership to cancer patients Car Cancer Buddies: This support group is open to anyone that has been diagnosed with cancer of any type. Meets at 6:30pm on the last Sunday of each month. Location: [facility]; [address] [place] [address]. For more information call Julia Short @ [...] advice of a doctor or other health pet care technician. Please use these recommendations to talk with [...] of cancer in the general population. The [place] Cancer Society (ACS) recommends these screening guidelines for men: Recommendation Frequency Comments Colon and Rectal Cancer Screening For more information see the ACS document Colorectal Cancer: Early Detection. www.cancer.org/ssLINK/afopjzwtmg-vbjdbo-jlwrk-detection-katlyn Options for colon cancer screening can be [...] see the ACS Document Testicular Cancer Detection: http://www.cancer.org/cancer/testicularcancer/detailedguide/qgzznczwym-iawrvh-nt tection Men of any age can develop [...] more information, visit http://www.nhlbi.nih.gov/health/public/heart/obesity/lose_wt/index.htm www.win.niddk.nih.gov Call the [place] Heart Association ?? Talk to your health [...] from plant sources. For more information, visit http://www.Enecsysmyplate.gov/food-groups/ ?? Eat healthy, including plenty of fruits [...] Experts recommend at least 30 minutes of ykojetja-wc-haomedng activity per day, five days a week. [...] you can call a national hotline at 1(871)-QUIT-NOW. Have regular check-ups by a healthcare professional. For more information about healthy screening tests for men visit the U.S. Department of Health and Human Services. http://www.womenshealth.gov/dndabrybl-bofwe-rrc-vaccines/sholpmdtx-jgqxw-bkn-men / For more information about adult vaccinations [...] forget dental and eye health! ?? The [place] Optometric Association recommends adults have their eyes examined every two years until age 60, then annually. People who wear glasses or corrective lenses or are at high risk for eye problems (i.e., diabetics, family history of eye disease) should be seen more frequently. ?? The [place] Dental Association recommends adults see their dentist at least once a year. [facility] [address] [facility] [address]
--- OUTSIDE RECORDS SUMMARY | 2025-06-23 12:53 | XMS_ITS ---
Laboratory report Created on: June 19, 2025 PATEL SHIVA : 1945 Sex: Male Author Organization Unknown PROBLEMS Problems List Code Description RESULTS Laboratory Orders Date Order Code Test 2025-06-12 [id number] IGF-1 WITH Z-SCO RE 2025-06-12 [id number] LUTEINIZING HORM ONE(LH) 2025-06-12 [id number] PROLACTIN 2025-06-12 [id number] FSH Laboratory Results Date LOINC Test Value Unit Reference Range Interpre tation 2025-06-12 [id number] INSULIN-LIKE ASHKAN WTH FACTOR I 18 NG/ML 45-207 L 2025-06-12 11840-2 IGF-1, Z SCORE -3.4 S.D. 2025-06-12 54330-6 LH .3 MIU/ML 1.7-8.6 L 2025-06-12 2842-3 PROLACTIN 21.7 NG/ML 3.6-25.2 2025-06-12 [id number] FSH 1 MIU/ML 1.5-12.4 L
--- OUTSIDE RECORDS SUMMARY | 2025-06-23 12:53 | XMS_ITS ---
Laboratory report Created on: June 16, 2025 SHIVA PATEL : 1945 Sex: Male Author Organization Unknown PROBLEMS Problems List Code Description RESULTS Laboratory Orders Date Order Code Test 2025-06-12 [id number] CORTISOL Laboratory Results Date LOINC Test Value Unit Reference Range Interpre tation 2025-06-12 2143-6 CORTISOL 7.3 UG/DL 6.2-19.4
--- OUTSIDE RECORDS SUMMARY | 2025-06-23 12:53 | XMS_ITS ---
Laboratory report Created on: June 19, 2025 PATEL SHIVA : 1945 Sex: Male Author Organization Unknown PROBLEMS Problems List Code Description RESULTS Laboratory Orders Date Order Code Test 2025-06-09 [id number] TESTOSTERONE, FR EE+TOTAL LC/MS Laboratory Results Date LOINC Test Value Unit Reference Range Interpre tation 2025-06-09 [id number] TESTOSTERONE, TO MAGY, LC/MS 3 NG/DL 264.0-916.0 L 2025-06-09 2991-8 FREE TESTOSTERONE(DIRECT) <0.2 PG/ML 6.6-18.1 L
--- NOTE | 2025-06-23 13:00 | CT_ITS ---
FINAL REPORT TECHNIQUE: Axial imaging of the chest is obtained after the administration of contrast. 3-D MIP reformatted images were also obtained and reviewed per PE protocol. CLINICAL HISTORY: Elevated D-dimer, shortness of breath COMPARISON: 03/31/2025 FINDINGS: The pulmonary arteries are well filled. There is no evidence of pulmonary embolus. There is no aortic dissection. Heart size is normal. There is no mediastinal, hilar, or axillary lymphadenopathy. The lungs are clear. There is no pleural or pericardial effusion. Limited evaluation of the upper abdomen is without acute abnormality. No acute osseous abnormality. IMPRESSION: No evidence of pulmonary embolism or aortic dissection. Reviewed, Interpreted and Dictated by Dunia Car MD Transcribed by Keira Vides Authenticated and [facility]
[2025-06-23 13:17] LABS: Blood Urea Nitrogen 11 mg/dl (9-20); Creatinine,Serum 0.90 mg/dl (0.66-1.25); Estimated Glomerular Filt Rate 81 ml/min (>60); GFR (African American) 98 ML/MIN (>60)
[2025-06-23] MEDS: IOPAMIDOL-370 (76%);100ML BOTTLE 85 ML IV (13:53)
[2025-06-23] MEDS: SODIUM CHLORIDE 0.9% 10ML SYR (RAD ONLY) 10 ML IV (13:53)
[2025-06-23] MEDS: 0.9 % SODIUM CHLORIDE 50 ML VIAL IV (13:53)
== END 2025-06-23 23:59 | disposition home or self-care (01) ==
LOC: RAD 12:50
PROVIDERS: PCP Nurse Practitioner Family; Visit Provider Nurse Practitioner Family
DX: R06.02 Shortness of breath (principal); R79.89 Other specified abnormal findings of blood chemistry
CPT/HCPCS: 36415; 71275; 82565; 84520; Q9967

== ENCOUNTER 2025-07-07 08:24 | Outpatient (CLI) | payer MEDICARE, OTHER, SELFPAY ==
--- OUTSIDE RECORDS SUMMARY | 2025-07-07 08:41 | XMS_ITS | Clinical Summary ---
Author Organization [facility] Address [address] [place] [address] Care Team Providers Care Cloud Engagement Partner Name Role Phone Jeanette Au APRN Primary [...] Info) Description 09/23/2025 10:00 AM EST Appointment [facility] MRI [address] [place] [phone] 09/23/2025 12:40 PM EST Office Visit [facility] NEUROSURGERY [address] [phone] Tato Sánchez MD [address] [address] Health Maintenance Due Date Last Done Comments [...] series) 2021 HEMOGLOBIN A1C 12/03/2024 06/02/2024, 02/27/2023 INFLUENZA VACCINE 05/15/2025 07/30/2023, , 07/22/2020, Additional history exists COVID-19 Vaccine ( - 2024-2 6 season) 2025 10/03/2021, 11/23/2020, 10/26/2020 COLONOSCOPY 05/16/2032 05/16/2022, 05/16/2022 COLORECTAL CANCER SCREENING 05/16/2032 Pneumococcal Vaccine 50+ Completed 01/31/2024, 03/[address] [place] [address] MEDICARE A & B Care Teams Cloud Engagement Partner Relationship Specialty Start Date End Date Jeanette Au APRN [address] [place] [address] PCP - General Internal Medicine 10/04/23 Dr. Emeterio Arriaga Nephrology 11/01/17
--- OUTSIDE RECORDS SUMMARY | 2025-07-07 08:41 | XMS_ITS ---
Author Organization [facility] Address [address] [place] [id number] Care Team Providers Care Speeder Machine Operator Name Role Phone Jeanette Au APRN Primary Care Provider [phone] Active Problems Problem Noted Date Diagnosed Date [...] numbers Care Team Provider: Ricardo Ortega MD, ([phone]) Care Team Provider: Jonah Cabello MD, ([phone]) Care Team Provider: Mark Cee MD, ([phone]) Care Team Provider: Dr. Emeterio Arriaga, ([phone]) Care Team Provider: Maciej Juarez MD, ([phone]) Post Treatment Care Team Primary Care Physician Duncan Eastman MD [phone] [address] [facility] [address] Background Information Medical history Past Medical History: [...] doctors and nurses such as exercise andactivity. correction effects of radiation therapy vary greatly depending [...] to you. General Cancer Support & Resources [facility] [address], [address] [place] [address] Med Onc: Traditional Chinese Herbalist Onc: Core Driller Helper: Carlita Mckeon - Psychiatric Nurse Practitioner: Saskia Nielsen APRN - Kick It! (A free smoking cessation program) Financial Counselor and Contact Information: [facility] Financial Counseling [phone] Auto Service Mechanic Contact Information: Tri Brown - Local Cancer Support Group and Contact Information: Juan Humphrey ([facility]) Yoga for Cancer Patients: Mondays and Wednesdays @ 10AM Juan offers a free 1 month membership to cancer patients Car Cancer Buddies: This support group is open to anyone that has been diagnosed with cancer of any type. Meets at 6:30pm on the last Sunday of each month. Location: [facility]; [address] [place] [address]. For more information call Julia Short @ [...] advice of a doctor or other health child care teacher. Please use these recommendations to talk with [...] of cancer in the general population. The [place] Cancer Society (ACS) recommends these screening guidelines for men: Recommendation Frequency Comments Colon and Rectal Cancer Screening For more information see the ACS document Colorectal Cancer: Early Detection. www.cancer.org/ssLINK/gxgrczjpyu-dgexqh-mklmm-detection-katlyn Options for colon cancer screening can be [...] see the ACS Document Testicular Cancer Detection: http://www.cancer.org/cancer/testicularcancer/detailedguide/hsmflsvccn-gveyna-rb tection Men of any age can develop [...] more information, visit http://www.nhlbi.nih.gov/health/public/heart/obesity/lose_wt/index.htm www.win.niddk.nih.gov Call the [place] Heart Association ?? Talk to your health [...] from plant sources. For more information, visit http://www.Victory Healthcaremyplate.gov/food-groups/ ?? Eat healthy, including plenty of fruits [...] Experts recommend at least 30 minutes of zjrmyoct-ga-kqdqiujv activity per day, five days a week. [...] you can call a national hotline at 6(968)-QUIT-NOW. Have regular check-ups by a healthcare professional. For more information about healthy screening tests for men visit the U.S. Department of Health and Human Services. http://www.womenshealth.gov/gipvlozyz-ixmkt-bqf-vaccines/dpiasyvmg-wtdcr-enp-men / For more information about adult vaccinations [...] forget dental and eye health! ?? The [place] Optometric Association recommends adults have their eyes examined every two years until age 60, then annually. People who wear glasses or corrective lenses or are at high risk for eye problems (i.e., diabetics, family history of eye disease) should be seen more frequently. ?? The [place] Dental Association recommends adults see their dentist at least once a year. [facility] [address] [facility] [address]
--- OUTSIDE RECORDS SUMMARY | 2025-07-07 08:41 | XMS_ITS | Clinical Summary ---
Author Organization Healthcare Address [address] [place] [address] Care Team Providers Care [place] Leverman Name Role Phone Duncan Eastman MD Primary Care Provider [phone] Jonah Cabello MD Unavailable [phone] Allergies Active Allergy Reactions Criticality Noted Date [...] (one) time each day. 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 Coronary artery disease 02/14/2021 GERD (gastroesophageal reflux disease) 1 Abdominal aortic aneurysm 02/14/2021 Carotid artery disease 02/14/2021 Hyperlipidemia 02/14/2021 Benign essential hypertension 12/24/2017 Resolved Problems Problem Noted Date Diagnosed Date Resolved Date CKD (chronic kidney disease) stage 3, GFR 30-59 ml/min 06/10/2021 06/10/2021 Persistent hoarseness 05/19/20212024 Dyspnea on exertion 03/25/2021 04/14/20 IL (myocardial infarction) 03/25/2021 0 04/14/2021 Carcinoma of prostate 03/25/20212020 Dysphonia 03/17/2021 07/05/2025 Overweight (BMI 25.0-29.9) 02/15/2021 0 07/05/2025 Prostate cancer 11/01/2017 04/14/2021 Immunizations Immunization Administration Dates Next Due Influenza, Unspecified 07/22/2020 Influenza, high-dose, quadrivalent 07/20/2016 Influenza, live, intranasal, quadrivalent 2016 Influenza, trivalent, adjuvanted 06/26/2017 Moderna COVID-19 Vaccine (Porcelain Finish Sprayer) 12+ years 06/2021,10/26/2020 Pneumococcal, Unspecified 07/20/2016 Family History Medical History Relation Name Comments Kidney cancer Mother Anesthesia problems Neg Hx Malig Hyperthermia Neg Hx Relation Name Status Comments Mother Social History Tobacco Use Types Packs/Day Years Used Date Smoking Tobacco: Former Cigarettes Q uit: 1993 Smokeless Tobacco: Never Alcohol Use Standard Drinks/Week [...] or (1 - 1-dose 75+ series) 2021 MWH-LHNGE-13 Vaccine (3 - 2024- season) 2025 11/23/2020, 10/26/2020 UKY-Influenza Vaccine (#1) [...] this topic Medical Devices Implanted Type Area Global Sales Manager Device Identifier Shelf Expiration Date Model / Serial / Lot Patch Pericardial 1x10cm - [id number] Implanted:Qty: 1 on 03/29/2021 by Yves Vázquez MD at [facility] [id number] 12/12/2021 CMCV-014-6 [id number] [employer] - [id number] Implanted:Qty: 1 on 06/22/2021 by Mor Rogers MD at [facility] N/A: Vocal Cord [employer]-[id number] 01/24/2023 08-015-04- V04 / / [id number] Description:Part Number: [id number] [employer] Voice - [id number] Implanted:Qty: 1 on 06/22/2021 by Mor Rogers MD at [facility] N/A: [employer]-[id number] 03/19/2023 08-015-04- V04 / / [id number] Description:Part Number: [id number] Insurance MEDICARE [facility] Advance Directives * Full Code (Latest Code Status on File) Date Activated Date Inactivated Comments 03/29/2021 11:59 AM 04/01/2021 4:54 PM Question Answer Comments Patient has decision-making capacity? Yes Care Teams [place] Relationship Specialty Start Date End Date Duncan Eastman MD [address] [place] [address] PCP - General 02/25/21 Jonah Cabello MD [address] [facility] [address] [place] [address] Referring Physician Cardiology 04/06/21
--- OUTSIDE RECORDS SUMMARY | 2025-07-07 08:41 | XMS_ITS ---
Laboratory report Created on: June 26, 2025 SHIVA PATEL : 1945 Sex: Male Author Organization Unknown PROBLEMS Problems List Code Description RESULTS Laboratory Orders Date Order Code Test 2025-06-22 [id number] RHEUMATOID FACTO R (RF) 2025-06-22 [id number] DARRIAN BY IFA RFX T ITER/PATTERN Laboratory Results Date LOINC Test Value Unit Reference Range Interpre tation 2025-06-22 [id number] RHEUMATOID FACTOR (RF) <10.0 IU/ML <14.0 2025-06-22 [id number] DARRIAN BY IFA RFX TITER/PATTERN P A 2025-06-22 [id number] SPECKLED PATTERN 1:1280 H
== END 2025-07-07 23:59 | disposition home or self-care (01) ==
LOC: LAB 08:25
PROVIDERS: PCP Nurse Practitioner Family; Visit Provider Physician Assistant
DX: R79.89 Other specified abnormal findings of blood chemistry (principal)
CPT/HCPCS: 36415; 84402; 84403

== ENCOUNTER 2025-07-13 06:47 | Outpatient (CLI) | payer MEDICARE, OTHER, SELFPAY ==
--- OUTSIDE RECORDS SUMMARY | 2025-07-13 06:50 | XMS_ITS ---
Author Organization [facility] Address [address] [place] [id number] Care Team Providers Care Biology Research Assistant Name Role Phone Jeanette Au APRN Primary Care Provider [phone] Active Problems Problem Noted Date Diagnosed Date [...] numbers Care Team Provider: Ricardo Ortega MD, ([phone]) Care Team Provider: Jonah Cabello MD, ([phone]) Care Team Provider: Mark Cee MD, ([phone]) Care Team Provider: Dr. Emeterio Arriaga, ([phone]) Care Team Provider: Maciej Juarez MD, ([phone]) Post Treatment Care Team Primary Care Physician Duncan Eastman MD [phone] [address] [facility] [address] Background Information Medical history Past Medical History: [...] to you. General Cancer Support & Resources [facility] [address] [facility], [address] [place] [address] Med Onc: Air Conditioning Specialist Onc: Recreation Programmer: Carlita Mckeon - Psychiatric Nurse Practitioner: Saskia Nielsen APRN - Kick It! (A free smoking cessation program) Financial Counselor and Contact Information: [facility] Financial Counseling [phone] Order Tracer Contact Information: Tri Brown - Local Cancer Support Group and Contact Information: Juan Humphrey ([facility]) Yoga for Cancer Patients: Mondays and Wednesdays @ 10AM Juan offers a free 1 month membership to cancer patients Car Cancer Buddies: This support group is open to anyone that has been diagnosed with cancer of any type. Meets at 6:30pm on the last Sunday of each month. Location: [facility]; [address] [place] [address]. For more information call Julia Short @ [...] advice of a doctor or other health neurocritical care physician. Please use these recommendations to talk with [...] of cancer in the general population. The [place] Cancer Society (ACS) recommends these screening guidelines for men: Recommendation Frequency Comments Colon and Rectal Cancer Screening For more information see the ACS document Colorectal Cancer: Early Detection. www.cancer.org/ssLINK/zejqsfhyqx-eykwgq-fafvu-detection-katlyn Options for colon cancer screening can be [...] see the ACS Document Testicular Cancer Detection: http://www.cancer.org/cancer/testicularcancer/detailedguide/thsavdgwsw-rejjbm-ed tection Men of any age can develop [...] more information, visit http://www.nhlbi.nih.gov/health/public/heart/obesity/lose_wt/index.htm www.win.niddk.nih.gov Call the [place] Heart Association ?? Talk to your health [...] from plant sources. For more information, visit http://www.Kaboozamyplate.gov/food-groups/ ?? Eat healthy, including plenty of fruits [...] Experts recommend at least 30 minutes of jtoikcox-ui-sghuvdbj activity per day, five days a week. [...] you can call a national hotline at 5(093)-QUIT-NOW. Have regular check-ups by a healthcare professional. For more information about healthy screening tests for men visit the U.S. Department of Health and Human Services. http://www.womenshealth.gov/tzumtliwb-cdden-qwe-vaccines/qagdhqsrk-qdctu-gbn-men / For more information about adult vaccinations [...] forget dental and eye health! ?? The [place] Optometric Association recommends adults have their eyes examined every two years until age 60, then annually. People who wear glasses or corrective lenses or are at high risk for eye problems (i.e., diabetics, family history of eye disease) should be seen more frequently. ?? The [place] Dental Association recommends adults see their dentist at least once a year. [facility] [address] [facility] [address]
--- OUTSIDE RECORDS SUMMARY | 2025-07-13 06:50 | XMS_ITS | Clinical Summary ---
Author Organization [facility] Address [address] [place] [address] Care Team Providers Care Filler Block Inserter Remover Name Role Phone Jeanette Au APRN Primary Care Provider [phone] Allergies Active Allergy Reactions Criticality Noted Date [...] Info) Description 09/23/2025 10:00 AM EST Appointment [facility] MRI [address] [place] [id number] 09/23/2025 12:40 PM EST Office Visit [facility] [id number] [id number] Tato Sánchez MD [address] [address] Health Maintenance Due Date Last Done Comments [...] Pneumococcal Vaccine 50+ Completed 01/31/2024, 03/[address] [place] [address] MEDICARE A & B Care Teams Filler Block Inserter Remover Relationship Specialty Start Date End Date Jeanette Au APRN [address] [place] [address] PCP - General Internal Medicine 10/04/23 Dr. Emeterio Arriaga Nephrology 11/01/17
--- OUTSIDE RECORDS SUMMARY | 2025-07-13 06:50 | XMS_ITS | Clinical Summary ---
Author Organization [facility] Address [address] [place] [address] Care Team Providers Care Systems Analyst Engineer Name Role Phone Duncan Eastman MD Primary Care Provider [phone] Jonah Cabello MD Unavailable Allergies Active Allergy [...] hoarseness 05/19/20212024 Dyspnea on exertion 03/25/2021 04/14/20 ND (myocardial infarction) 03/25/2021 0 04/14/2021 Carcinoma of prostate 03/25/20212020 Dysphonia 03/17/2021 07/05/2025 Overweight (BMI 25.0-29.9) 02/15/2021 0 07/05/2025 Prostate cancer 11/01/2017 04/14/2021 Immunizations Immunization Administration Dates Next Due Influenza, Unspecified 07/22/2020 Influenza, high-dose, quadrivalent 07/20/2016 Influenza, live, intranasal, quadrivalent 2016 Influenza, trivalent, adjuvanted 06/26/2017 Moderna COVID-19 Vaccine (Industrial Manufacturing Technician) 12+ years 06/2021,10/26/2020 Pneumococcal, Unspecified 07/20/2016 [...] or (1 - 1-dose 75+ series) 2021 TCQ-[id number]-15 Vaccine (3 - 2024- season) 2025 11/23/2020, [...] this topic Medical Devices Implanted Type Area Food And Beverage Server Device Identifier Shelf Expiration Date Model / Serial / Lot Patch Pericardial 1x10cm - [id number] Implanted:Qty: 1 on 03/29/2021 by Yves Vázquez MD at [facility] [employer]-[id number] 12/12/2021 [id number]-[id number] [employer] - [id number] Implanted:Qty: 1 on 06/22/2021 by Mor Rogers MD at [facility] N/A: [employer]-[id number] 01/24/2023 08-015-04- V04 / / [id number] Description:Part Number: [id number] [employer] - [id number] Implanted:Qty: 1 on 06/22/2021 by Mor Rogers MD at [facility] N/A: [employer]-[id number] 03/19/2023 08-015-04- V04 / / [id number] Description:Part Number: [id number] Insurance MEDICARE [facility] Advance Directives * Full Code (Latest Code Status on File) Date Activated Date Inactivated Comments 03/29/2021 11:59 AM 04/01/2021 4:54 PM Question Answer Comments Patient has decision-making capacity? Yes Care Teams Systems Analyst Engineer Relationship Specialty Start Date End Date Duncan Eastman MD [address] [place] [id number] PCP - General 02/25/21 Jonah Cabello MD [address] [facility] [address] [place] [address] Referring Physician Cardiology 04/06/21
--- NOTE | 2025-07-13 07:00 | CT_ITS ---
FINAL REPORT TECHNIQUE: Axial images were obtained of the cervical spine by computed tomography. Coronal and sagittal reconstruction process performed. This study was performed with techniques to keep radiation doses as low as reasonably achievable (ALARA). Individualized dose reduction techniques using automated exposure control or adjustment of mA and/or kV according to the patient''s size were employed. CLINICAL HISTORY: neck pain COMPARISON: 07/27/2022 FINDINGS: Moderate anterior osteophyte formation at C4-5 and C5-6 with minimal posterior osteophyte formation at C5-6. Cervical vertebrae show normal height. Disc spaces are well-preserved. There is no malalignment. The facets are properly aligned. Postoperative changes in the left mid neck. There is asymmetric facet hypertrophy on the right at C7-T1 consistent with osteoarthritis. IMPRESSION: Stable exam without acute findings. Reviewed, Interpreted and Dictated by Everton Berman MD Transcribed by Miroslava Vieyra Authenticated and [facility]
== END 2025-07-13 23:59 | disposition home or self-care (01) ==
LOC: RAD 06:48
PROVIDERS: PCP Nurse Practitioner Family; Visit Provider Nurse Practitioner Family
DX: M54.2 Cervicalgia (principal)
CPT/HCPCS: 72125

== ENCOUNTER 2025-08-28 08:46 | Outpatient (CLI) | payer MEDICARE, OTHER, SELFPAY ==
[2025-08-28 17:44] LABS: Hemoglobin A1C 5.6 % (4.0-6.0)
--- OUTSIDE RECORDS SUMMARY | 2025-08-29 08:50 | XMS_ITS | Data Portability ---
Author Organization [facility] MABEL WolfeS CEDAR CLOSED Address 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 Lab surgical pathology study 2022 023 [facility], [address] [place] [address], [phone], 10:35:49 Referral None recorded. Procedures None recorded. Surgeries None recorded. Imaging None recorded. Medication Orders fluorouraci l 5 % topical cream 2023 024 [facility] #[id number], [address], [phone], 4 12:05:08 triamcinolo ne acetonide 0.1 % topical cream 2022 023 [facility] #[id number], [address], [phone], 3 14:12:55 Patient TargetsNo targets recorded. Patient Instructions Encounter Date Encounter Id Patient Instructions Last Modified By Organization Details Last Modified Time 11/29/2022 [id number] If any lesions change, or if any other new or symptomatic lesions occur, patient understands to return to the clinic for further evaluation Discussed sun precautions; SPF 30+ [email or web address] Not available 11/29/2022 15:06:01 03/08/2023 [id number] If any lesions change, or if any other new or symptomatic lesions occur, patient understands to return to the clinic for further evaluation Discussed sun precautions; SPF 30+ Not available 03/08/2023 13:45:44 03/29/2023 [id number] If any lesions change, or if any other new or symptomatic lesions occur, patient understands to return to the clinic for further evaluation Discussed sun precautions; SPF 30+ [email or web address] Not available 03/29/2023 15:05:44 04/22/2024 [id number] If any lesions change, or if any other new or symptomatic lesions occur, patient understands to return to the clinic for further evaluation Discussed sun precautions; SPF 30+ Not available 04/21/2024 17:03:04 Reason for Referral None Reported. Results Created Date Observation Date Name Description Value Unit Range Abnormal Flag Note LastModifiedBy Organization Detail LastModifiedTime 11/13/19 23 11/13/2022 SURGI HUNTER surgical SEE BELOW Depar tment of Patho logy Surgi hunter Patho logy Repor t NAME: JURGEN MAYERS PATH. 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 B) Left nasal bridg e: Basal cell carci noma, nodul ar type; incom plete ly excis ed. SOURC E OF SPECI MEN: CYST, POSTE RIOR NECK SKIN BIOPS Y, LEFT NASAL BRIDG E CLINI HUNTER INFOR MATIO N: D48.5 A) EXCIS ION CYST - PUNCH B) R/O BCC Gross Descr iptio n: A) Recei payal in forma nick label ed with the patie nt's name and desig nated post erior neck is a 0.4 cm punch biops y of skin excis ed to a depth of 0.6 cm. The skin surfa ce is white and rough ened. The micah ns are inked blue. The speci men is bisec mirtha and entir nora submi tted in one casse tte. B) Recei payal in forma nick label ed with the patie nt's name and desig nated as left nasal bridg e is a shave biops y of skin (0.6 x 0.5 x 0.1 cm). The epide rmal surfa ce is white , rough ened and ulcer ated. The micah n is inked blue. The speci men is bisec mirtha and entir nora submi tted in one casse tte. MT 11/14 09:16 AM Micro scopi c Descr iptio n: A micro scopi c exami natio n has been perfo rmed and the resul t(s) are as noted above . APPLE PAVON M.D. Madyson d Out Date: 11/15 09:44 Page 1 of 1 Not Available [facility] [address] [place] [address], [phone], 11/15/2022 09:45:17 11/17/19 23 11/17/2022 SURGI HUNTER surgical SEE BELOW Depar tment of Patho logy Surgi hunter Patho logy Repor t NAME: JURGEN MAYERS PATH. :SC-2 3-013 [id number] Copy to: Diagn osis: Left nasal bridg e, excis ion: Resid ual basal cell carci noma with previ ous biops y site nichosl es. Tumor is prese nt at the 9 o'natalia ck perip heral micah n. All other perip heral and deep surgi hunter resec tion micah ns are negat ilia for tumor . Note: The orien ting sutur e was desig nated as the 12 o'natalia ck super ior tip. SOURC E OF SPECI MEN: SKIN BIOPS Y, LEFT NASAL BRIDG E CLINI HUNTER INFOR MATIO N: D48.5 BCC Gross Descr iptio n: Recei payal in forma nick label ed with the patie nt's name and desig nated left nasal bridg e is an excis ion of skin (1.7 x 0.7 x 0.2 cm). There is a surgi hunter sutur e at one tip of the speci men indic ating the super ior aspec t which is re-de signa mirtha as 12 o'natalia ck. The epide rmal surfa ce is notab le for a 0.7 x 0.6 cm biops y site which is 0.1 cm from the 3 o'natalia ck and 9 o'natalia ck micah ns. The speci men is seria lly secti oned perpe ndicu lar to the 12 o'natalia ck to 6 o'natalia ck axis and entir nora submi tted seque ntial ly in 2 block s. Ink code: Blue = 12 - 3 - 6 o'natalia ck Green = 6 - 9 - 12 o'natalia ck JAB 11/17 06:22 PM Micro scopi c Descr iptio n: A micro scopi c exami natio n has been perfo rmed and the resul t(s) are as noted above . APPLE PAVON M.D. Madyson d Out Date: 11/22 18:03 Page 1 of 1 Not Available [facility] [address] [place] [address], [place], [phone], 11/22/2022 18:04:48 11/29/19 23 11/29/2022 SURGI HUNTER surgical SEE BELOW Depar tment of Patho logy Surgi hunter Patho logy Repor t NAME: JURGEN MAYERS PATH. :SC-2 [id number] Copy to: Diagn osis: Left nasal bridg e, re-ex cisio n: Resid ual basal cell carci noma with previ ous biops y site nichols es. Note: No tumor is prese nt at the inked micah ns. SOURC E OF SPECI MEN: SKIN BIOPS Y, LEFT NASAL BRIDG E CLINI HUNTER INFOR MATIO N: D48.5 RE-EX CISIO N BCC TAGGE D INFER IOR MICAH N PRIOR CASES [id number] Gross Descr iptio n: Recei payal in forma nick label ed with the patie nt's name and desig nated left nasal bridg e is an excis ion of skin (1 x 0.4 x 0.1 cm). There is a surgi hunter sutur e at one tip of the speci men indic ating the infer ior micah n which is re-de signa mirtha as 12 o'natalia ck. The epide rmal surfa ce is remar kable for a 0.2 x 0.2 cm previ ous biops y scar which is 0.1 cm from the neare st micah n (9 o'natalia ck micah n). The speci men is seria lly secti oned perpe ndicu lar to the 12 o'natalia ck to 6 o'natalia ck axis and entir nora submi tted seque ntial ly in casse ttes A1-A2 . Recei payal separ ately in the speci men conta iner is a 0.4 x 0.1 x 0.1 cm skin shave . The appar ent micah n is inked blue. Entir nora submi tted en face in casse tte A3. Ink code: Blue = 12 - 3 - 6 o'natalia ck and addit ional skin shave Green = 6 - 9 - 12 o'natalia ck MT 11/30 11:20 AM Micro scopi c Descr iptio n: A micro scopi c exami natio n has been perfo rmed and the resul t(s) are as noted above . APPLE PAVON M.D. Madyson d Out Date: 12/01 11:09 Page 1 of 1 Not Available [facility] [address] [place] [address], [place], [phone], 12/01/2022 11:10:32 03/08/20 23 03/08/2023 SURGI HUNTER surgical SEE BELOW abnormal Depar tment of Patho logy Surgi hunter Patho logy Repor t NAME: JURGEN MAYERS PATH. 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 SOURC E OF SPECI MEN: SKIN BIOPS Y, LEFT VENTR AL FOREA RM CLINI HUNTER INFOR MATIO N: D48.5 SPECI MEN COLLE CTION NOTES : R/O SCCIS Gross Descr iptio n: Recei payal in forma nick label ed with the patie nt's name and desig nated as left ventr al forea rm is a shave biops y of skin (0.9 x 0.7 x 0.1 cm). The epide rmal surfa ce is white and rough ened. The micah n is inked blue. The speci men is trise cted and entir nora submi tted in one casse tte. JAB 03/09 11:23 AM Micro scopi c Descr iptio n: A micro scopi c exami natio n has been perfo rmed and the resul t(s) are as noted above . APPLE PAVON M.D. Madyson d Out Date: 03/13 10:35 Page 1 of 1 Not Available [facility] [address] [place] [address], [phone], 03/13/2023 10:35:49 Result Notes None recorded. 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 Procedures Surgical History Date Name Laterality Status Provider Name and Address Organization Details Recorded Time 04/22/20 24 Destruction Premalignant Lesion(s) completed [facility] 04/22/2024 10:47:52 04/22/20 24 Destruction BN Lesions completed [facility] 04/22/2024 10:45:56 03/29/20 23 Destruction MN Lesion; trunk, arm, leg completed GINO LEE, DO [address] [place], [address], [facility] 03/29/2023 19:50:25 03/08/20 23 Biopsy Skin Lesion; Tangential completed Alie Mcdowell [facility] 03/08/2023 14:09:43 03/08/20 23 Destruction Premalignant Lesion(s) completed Alie Mcdowell [facility] 03/08/2023 14:11:36 11/29/19 23 Wound Repair; Intermediate completed Lashonda [facility] 11/29/2022 15:05:21 11/29/19 23 Excision MN Lesion; face, ear, eyelid, nose, lip, muc memb completed GINO LEE, DO [address] [place], [address], [facility] 11/29/2022 17:08:26 11/17/19 23 Wound Repair; Intermediate completed Leta [facility] 11/17/2022 11:24:43 11/17/19 23 Excision MN Lesion; face, ear, eyelid, nose, lip, muc memb completed GINO LEE, DO [address] [place], [address], [facility] 11/17/2022 14:53:17 11/13/19 23 Biopsy Skin Lesion; Tangential [facility]13[facility] 14:12:35 11/13/19 23 Destruction Premalignant Lesion(s) [facility] 11/13/2022 14:14:06 11/13/19 23 Excision BN lesion; trunk, arms or legs completed GINO LEE, DO [address] [place], [address], [facility] 11/13/2022 17:03:45 08/08/20 Destruction Premalignant Lesion(s) [facility]/08/[facility]22 15:46:59 08/08/20 Destruction BN Lesions completed Lashonda [facility] 08/08/2022 15:41:10 02/07/20 Destruction MN Lesion; trunk, arm, leg completed GINO LEE, DO [address] [place], [address], [facility] 02/06/2022 13:43:35 02/01/20 22 [facility] 14:57:39 02/01/20 Destruction Premalignant Lesion(s) completed Lashonda [facility] 01/31/2022 15:00:53 07/27/20 21 Biopsy Skin Lesion; Tangential completed [facility] 07/27/2021 13:47:00 07/27/20 21 Destruction Premalignant Lesion(s) completed [facility] 07/27/2021 13:50:58 02/04/20 Destruction MN Lesion; face, ear, eyelid, nose, lip completed GINO LEE, DO [address] [place], [address], [facility] 02/03/2021 17:05:10 01/26/20 21 Biopsy Skin Lesion; Tangential completed GINO LEE, DO [address] [place], [address], [facility] 01/25/2021 20:33:25 01/26/20 Destruction Premalignant Lesion(s) completed Michelle Do [facility] 01/25/2021 10:42:27 01/26/20 21 Destruction BN Lesions completed GINO LEE, DO [address] [place], [address], [facility] 01/25/2021 20:36:34 05/25/20 20 Biopsy Skin Lesion; Punch completed GINO LEE DO [address] [place], [address], [facility] 05/25/2020 17:01:17 05/25/20 20 Destruction Premalignant Lesion(s) completed [facility] 05/25/2020 15:29:15 11/18/19 20 Destruction Premalignant Lesion(s) completed [facility] 11/18/2019 14:24:16 09/02/20 19 Destruction Premalignant Lesion(s) completed [facility] 09/02/2019 11:53:46 06/23/20 19 Wound Repair; Intermediate completed [facility] 06/23/2019 14:10:20 06/23/20 19 Destruction Premalignant Lesion(s) completed GINO LEE, DO [address] [place], [address], [facility] 06/23/2019 19:31:21 06/23/20 19 Excision BN lesion; trunk, arms or legs completed [facility] 06/23/2019 14:09:57 02/21/20 19 Destruction Premalignant Lesion(s) completed [facility] 02/20/2019 10:13:35 10/30/19 19 Destruction MN Lesion; face, ear, eyelid, nose, lip completed GINO LEE, DO [address] [place], [address], [facility] 10/30/2018 17:10:07 10/30/19 19 Destruction Premalignant Lesion(s) completed GINO LEE DO [address] [place], [address], [facility] 10/30/2018 17:09:46 10/24/19 19 Biopsy Ear Lesion completed [facility] 10/24/2018 10:23:09 10/24/19 19 Destruction Premalignant Lesion(s) completed [facility] 10/24/2018 10:23:16 10/24/19 19 Destruction BN Lesions completed [facility] 10/24/2018 10:24:15 08/02/20 18 Destruction BN Lesions completed Calvin Apodaca [facility] 08/02/2018 12:06:52 07/08/20 18 Wound Repair; Intermediate completed GINO LEE DO [address] [place], [address], [facility] 07/08/2018 16:09:07 07/08/20 18 Excision MN Lesion; face, ear, eyelid, nose, lip, muc memb completed GINO LEE DO [address] [place], [address], [facility] 07/08/2018 16:12:25 06/26/20 18 Destruction MN Lesion; face, ear, eyelid, nose, lip completed [facility] 06/26/2018 08:35:54 06/26/20 18 Destruction Premalignant Lesion(s) completed [facility] 06/26/2018 08:42:46 05/10/20 18 Destruction MN Lesion; trunk, arm, leg completed Christa Freire [facility] 05/10/2018 11:22:14 01/24/20 18 Injection - Intralesional completed [facility] 01/23/2018 09:18:57 01/24/20 18 Destruction Premalignant Lesion(s) completed [facility] 01/23/2018 09:16:18 06/27/20 17 Destruction Premalignant Lesion(s) completed MARY DOMINGUEZ APRN [address] [place], [address], [facility] 06/27/2017 10:33:37 06/27/20 17 Destruction BN Lesions completed MARY DOMINGUEZ APRN [address] [place], [address], [facility] 06/27/2017 10:34:54 12/23/19 17 Wound Repair; Intermediate completed GINO LEE DO [address] [place], [address], [facility] 12/22/2016 14:23:37 12/23/19 17 Excision MN Lesion; face, ear, eyelid, nose, lip, muc memb completed GINO LEE, DO [address] [place], [address], [facility] 12/22/2016 14:23:23 12/20/19 17 Biopsy Skin completed MARY DOMINGUEZ, [employer]OC[employer] [address] [place], [address], [facility] 12/19/2016 14:04:02 12/20/19 17 Destruction Premalignant Lesion(s) completed MARY THAO ALBERTO, SEASONAL CUST[employer]ER SERVICE ASSOCIATE [address] [place], [address], [facility] 12/19/2016 13:57:57 12/20/19 17 Destruction BN Lesions completed MARY THAO ALBERTO, SEASON[employer] CUST[employer]ER SERVICE ASSOCIATE [address] [place], [address], [facility] 12/19/2016 13:58:40 Imaging Results None recorded. Procedure Notes None recorded. Medical Equipment None Reported. Allergies Allergen ID Allergen Name Allergen Category Reaction Reaction Severity Criticality Documentation Date Start Date Code Code System Note Provider Name and Address Organization Details Recorded Time 327508 prednison e medicatio n rash severe Not available 09/07/20162014 8640 RxNorm React ion: RASH; Sever ity: Sever e; Comme nt: Creat ed By: Mirela lee;Cr eated Date: 2014 11:05 :25 AM; Not Available [facility] 6 10:41:21 900804 Indocin medicatio n dizziness Not available Not available 09/08/2016201436 5 RxNorm React ion: DIZZI NESS\ LIGHT HEADE D; Comme nt: Creat ed By: Mirela Rosenberg ca;Cr eated Date: 2014 11:05 :45 AM; Not Available [facility] 6 03:20:18 [id number] nabumeton e medicatio n Not available Not available Not available 09/08/20162013 10803 RxNorm Comme nt: Creat ed By: Kalia irby;Cre ated Date: 2013 3:36: 45 PM; Not Available [facility] 6 05:59:51 800194 azithromy holly medicatio n Not available Not available Not available 06/27/2017 58685 RxNorm maggie DOMINGUEZ, SE[employer]ON[employer] C[employer] SERV[employer]OCIATE [address] [place], [address], [facility] 7 10:18:00 Medications Name Sig Start Date Stop Date Status Note LastModified by Organization Details LastModified Time amoxicill in 500 mg capsule TAKE 1 CAPSULE BY MOUTH THREE TIMES DAILY FOR 10 DAYS active Not Available Not Available No t Available fluconazo le 100 mg tablet active Not Available Not Available Not Available promethaz ine-DM 6.25 mg-15 mg/5 mL oral syrup 01/23 completed Not Available Not Available Not Available doxycycli ne hyclate 100 mg capsule Take 1 capsule twice a day by oral route. 08/02 completed Not Available Not Available Not Available carvedilo l 12.5 mg tablet TAKE 1 TABLET BY MOUTH TWICE DAILY FOR HIGH BLOOD PRESSURE active Not Available Not Available No t Available lisinopri l 20 mg-hydroc hlorothia zide 12.5 mg tablet TAKE 1 TABLET BY MOUTH TWICE DAILY active Not Available Not Available No t Available azithromy holly 250 mg tablet 12/19 completed Not Available Not Available Not Available minocycli ne 100 mg capsule Take 1 capsule twice a day by oral route for 10 days. 10/24 completed Not Available Not Available Not Available lisinopri l 20 mg tablet Bedtime 01/23 completed Duration : 30 days;Josep quency: hs;Medic ation Descript ion: lisinopr il; Dosage:1 ; Route:or al; refills: 5; Quantity :30 tablet Not Available Not Available Not Available prednison e 20 mg tablet TAKE 1 TABLET BY MOUTH DAILY WITH FOOD active Not Available Not Available No t Available fluoroura cil 5 % topical cream apply to affected area of both rims of ears, right earlobe and right cheek twice a day for two weeks active Not Available Not Available No t Available clobetaso l 0.05 % topical cream APPLY TO THE AFFECTED AREA ONCE DAILY active Not Available Not Available No t Available potassium chloride ER 10 mEq tablet,ex tended release active Not Available Not Available Not Available clopidogr el 75 mg tablet TAKE 1 TABLET BY MOUTH DAILY active Not Available Not Available No t Available omeprazol e 40 mg capsule,d elayed release TAKE 1 CAPSULE BY MOUTH EVERY DAY active Not Available Not Available No t Available triamcino lone acetonide 0.1 % topical cream APPLY A THIN LAYER TO AFFECTED AREA RASH/ITC SHALA ON THE LOWER LEGS 3 TIMES A WEEK IF NEEDED active Not Available Not Available No t Available lidocaine -prilocai ne 2.5 %-2.5 % topical cream 06/27 completed Not Available Not Available Not Available triamcino lone acetonide 0.1 % dental paste APPLY ONE APPLICAT ION TO DENTAL AREA TWICE DAILY FOR 14 DAYS. USE AFTER FOOD OR DRINK OR ORAL HYGIENE active Not Available Not Available No t Available tamsulosi n 0.4 mg capsule 01/23 completed Not Available Not Available Not Available imiquimod 5 % topical cream packet APPLY OVER SURGICAL SITE ON NOSE ONCE A DAY FOR 5 DAYS A WEEK FOR A TOTAL OF 6 WEEKS active Not Available Not Available No t Available doxycycli ne monohydra te 100 mg capsule Take 1 capsule twice a day by oral route for 30 days. 01/23 completed Not Available Not Available Not Available erythromy holly 5 mg/gram (0.5 %) eye ointment APPLY SMALL AMOUNT INTO THE LOWER EYELID OF THE AFFECTED EYE 4 TIMES A DAY FOR 10 DAYS active Not Available Not Available No t Available clotrimaz ole-betam ethasone 1 %-0.05 % topical cream APPLY TOPICALL Y TO THE AFFECTED AREA TWICE DAILY active Not Available Not Available No t Available lisinopri l 10 mg tablet TAKE 1 TABLET BY MOUTH EVERY NIGHT AT BEDTIME active Not Available Not Available No t Available betametha sone dipropion ate 0.05 % topical cream As Directed 06/27 completed Instruct ions: Apply to the affected areas of itching twice a day for up to 2 weeks, then 2-3 times a week, as needed.; Frequenc y: as direct.; Medicati on Descript ion: betameth asone topical; Dosage:a s directed ; Route:to pical; refills: 2; Quantity :60 cream Not Available Not Available Not Available omeprazol e 20 mg capsule,d elayed release TAKE 2 CAPSULES BY MOUTH DAILY FOR GERD active Not Available Not Available No t Available monteluka st 10 mg tablet active Not Available Not Available Not Available aspirin 81 mg tablet Daily active Duration : 30 days;Josep quency: daily;Me dication Descript ion: aspirin; Dosage:1 ; Route:or al; refills: 0; Quantity :30 tablet Not Available Not Available Not Available gabapenti n 100 mg capsule TAKE 1 CAPSULE BY MOUTH EVERY 6 HOURS active Not Available Not Available No t Available ergocalci ferol (vitamin D2) 1,250 mcg (50,000 unit) capsule TAKE 1 CAPSULE BY MOUTH 2 TIMES EVERY WEEK FOR 42 DAYS active Not Available Not Available No t Available lisinopri l 10 mg-hydroc hlorothia zide 12.5 mg tablet TAKE 1 TABLET BY MOUTH EVERY DAY active Not Available Not Available No t Available levofloxa holly 500 mg tablet Take 1 tablet every 24 hours by oral route as directed for 6 days. 01/23 completed Not Available Not Available Not Available fluocinon conrad 0.05 % topical cream Apply to the areas of grovers rash on the chest and upper abdomen twice a day for 2 weeks, then 2-3 times a week, as needed. 08/14 completed Not Available Not Available Not Available cefdinir 300 mg capsule 01/23 completed Not Available Not Available Not Available fluticaso ne propionat e 50 mcg/actua tion nasal spray,tisha pension active Not Available Not Available Not Available clotrimaz ole 1 % topical cream 05/25 completed Not Available Not Available Not Available loratadin e 10 mg tablet 01/23 completed Not Available Not Available Not Available escitalop ajith 10 mg tablet TAKE 1 TABLET BY MOUTH EVERY DAY active Not Available Not Available No t Available rosuvasta tin 20 mg tablet TAKE 1 TABLET BY MOUTH DAILY active Not Available Not Available No t Available Prilosec OTC 20 mg tablet,de layed release Daily 05/25 completed Frequenc y: daily;Me dication Descript ion: omeprazo le; Dosage:1 ; Route:or al; refills: 0 Not Available Not Available Not Available alfuzosin ER 10 mg tablet,ex tended release 24 hr active Not Available Not Available Not Available ezetimibe 10 mg-simvas tatin 40 mg tablet Daily active Not Available Not Available No t Available sildenafi l (pulmonar y hypertens ion) 20 mg tablet active Not Available Not Available No t Available Nasacort Two times a day 2014 active Duration : 90 days;Ins truction s: 1-2 sprays in each nostril daily, angling the tip of the applicat or out towards the tip of the ear;Freq uency: bid;Medi cation Descript ion: triamcin olone; Dosage:1 -2; Route:na radha; refills: 3; Quantity :1 spray Not Available Not Available Not Available CoQ10 active Not Available Not Availa ble Not Available multivita min Daily 01/23 completed Duration : 30 days;Josep quency: daily;Me dication Descript ion: multivit bacon; Dosage:1 ; Route:or al; refills: 3; Quantity :100 tablet Not Available Not Available Not Available hydrochlo rothiazid e 12.5 mg tablet TAKE 1 TABLET BY MOUTH DAILY active Not Available Not Available No t Available Effient 10 mg tablet Daily 06/27 completed Not Available Not Available Not Available Suprep Bowel Prep Kit 17.5 gram-3.13 gram-1.6 gram oral solution 06/27 completed Not Available Not Available Not Available Fluad 65yr up(PF)45 mcg(15 mcgx3)/0. 5 mL intramusc ular syringe 01/23 completed Not Available Not Available Not Available vitamin D3 2,000 unit-foli c acid 1 mg tablet Take by oral route. active Not Available Not Available No t Available Plenvu 140 gram-9 gram-5.2 gram powder packs MIX AND DRINK DIRECTED active Not Available Not Available No t Available Fluad Quad (65yr up)(PF) 60 mcg (15 mcg x 4)/0.5mL IM syringe ADM 0.5ML IM UTD active Not Available Not Available No t Available Vitals None Recorded Social History Question Answer Notes LastModified by Organizat ion Details LastModified Time Tobacco Smoking Status Former Smoker MARY DOMINGUEZ, [employer] [address] [place], [address], [place] [facility] 12/19/2016 13:24:43 How Much Tobacco Do You Chew? None [email or web address] Information not available 02/16/2020 What Was The Date Of Your Most Recent Tobacco Screening? 05/10/2018 Information n ot available 12/02/2019 How Much Tobacco Do You Smoke? No [email or web address] Information not available 02/16/2020 Sex: Unknown Functional Status Question Answer Note LastModified by Organization D etails LastModified Time What is your level of alcohol consumption? None [email or web address] Information not available 02/16/2021 Mental Status None recorded. Family History Nothing Reported Notes:No family h/o skin can cer or melanoma Medical History Condition Response Squamous Cell Carcinoma Y Basal Cell Carcinoma Y Past Encounters Encounter ID Performer Location Encounter Start Date Encounter Closed Date Diagnosis/Indication Diagnosis SNOMED-CT Code Diagnosis ICD10 Code Diagnosis IMO Codes Diagnosis Note [id number] JENNIFER PATEL, AUD [facility] [address] [place] [address] 12/06/2016 08:35:11 12/06/2016 12:11:31 [id number] GINO LEE DO [facility] [address] [place] [address] 12/19/2016 13:12:46 12/19/2016 14:49:39 History of malignant basal cell neoplasm of skin 218864348 Z85.828 Right lateral eyebrow scarpossib le recurring lesion x 2monthsrec ommend shave biopsyf/u pending results History of squamous cell carcinoma in situ 7389479000 9105 Z86.008 right antecubita lno recurrence Solar lentiginosis 81173 2006 L81.4 Benign Reassuranc e If any lesions change, or if any other new or symptomati c lesions occur, patient understand s to return to the clinic for further evaluation Discussed sun precaution s; SPF 30+ Senile hyperkeratosis 39 1556170 L82.1 Benign Reassuranc e Senile angioma 1990559 I 78.1 Benign Reassuranc e Actinic keratosis 770805 [address] x2 right helix, x1 left helix, x1 right sideburn, x3 left forehead, x1 R templewoun d care instructio n provided Inflamed s eborrheic keratosis 373453528 L82.0 midline upper backtreate d with LN at patients request Neoplasm o f uncertain behavior of skin 89112077 D48.5 Right lateral eyebrow scar possible recurring lesion x 2months recommend shave biopsy f/u pending results [id number] DO JUAN ANTONIO [facility] [place] [address] [place] [address] 12/22/2016 11:09:19 12/22/2016 12:42:25 Basal cell carcinoma of face 848754500 C44.310 right lateral eyebrowAn excision was recommende d. The risks, alternativ es, and benefits were discussed. An informed consent was discussed with patient and signed. The area was cleansed with alcohol/hi biclens solution, and then anesthetiz ed with 1% lidocaine with epinephrin e. A excision was preformed though adipose issue including 4.. mm peripheral margins. An intermedia te repair was performed, where the subcutaneo us tissue and dermis was closed with 5.-0 vicryl, and the epidermis was approximat ed using 5-0 fast absorbing ........ Hemostasis was achieved with cautery and sutures and polysporin and pressure bandage were applied. wound care instructio ns providedf/ u as scheduled for fse [id number] DO JUAN ANTONIO [facility] [place] [address] [place] [address] 01/22/2017 14:30:47 01/23/2017 11:19:10 History of malignant basal cell neoplasm of skin 753201846 Z85.828 Right lateral eyebrowno recurrence discussed with patientThe re was a focus of BCC which focally extended to near to (about 1 mm from) 9 o'clock peripheral margin. I favored treated with 5FU rather than reexcising . I doubt anything remained after excision, but treated with 5FU in the remote change any atypical cells remain.The 5FU was to help wipe out any atypical cells that could remain, as well as destroy the actinic damage around this site.The 5 FU treatment appeared to do what was expected. He should have good result.Rec ommend monitor for any signs of recurrence Follow up as scheduled. f/u as scheduled FSE [id number] DO JUAN ANTONIO [facility] [place] [address] [place] [address] 06/27/2017 10:02:53 06/28/2017 13:20:43 History of malignant basal cell neoplasm of skin 665797629 Z85.828 Right lateral eyebrow scarno recurrence good cosmesis History of squamous cell carcinoma in situ 6184275183 9105 Z86.008 right antecubita lno recurrence Solar lentiginosis 2006 L81.4 Benign Reassuranc e If any lesions change, or if any other new or symptomati c lesions occur, patient understand s to return to the clinic for further evaluation Discussed sun precaution s; SPF 30+ Senile hyperkeratosis 39 7703233 L82.1 Benign Reassuranc e Senile angioma 6579486 I 78.1 Benign Reassuranc e Actinic keratosis 286827 007 L57.0 treated with LNx1 right helix, x1 right cheek, x1 L nasal sidewall, x1 L zygomax1 L cheek, x1 right handpatien t tolerated wellwound care instructio n provided Inflamed s eborrheic keratosis 101997455 L82.[address] at patients requestx1 left lateral chestwound care instructio n provided [id number] JUVENTINO MARK MD SURGERY SCHEDULE [address] [place] [address] 09/26/2017 07:53:44 09/26/2017 07:55:41 [id number] JUVENTINO MARK MD SURGERY SCHEDULE [address] [place] [address] 11/21/2017 06:03:52 11/21/2017 06:05:51 [id number] GINO LEE DO [facility] [address] [place] [address] 01/23/2018 08:28:07 01/23/2018 13:34:55 History of malignant basal cell neoplasm of skin 613489087 Z85.828 Right lateral eyebrow scarno recurrence good cosmesis History of squamous cell carcinoma in situ 2991614800 9105 Z86.008 right antecubita lno recurrence Solar lentiginosis 2006 L81.4 Benign Reassuranc e If any lesions change, or if any other new or symptomati c lesions occur, patient understand s to return to the clinic for further evaluation Discussed sun precaution s; SPF 30+ Senile hyperkeratosis 39 6460525 L82.1 Benign Reassuranc e Senile angioma 5116164 I 78.1 Benign Reassuranc e Actinic keratosis 007 L57.0 Education, then cryodestru ction with liquid nitrogen (LN) x 5 Hypertrophic scar 077144 06 L91.0 IL kenalog 40mg/ml tender 0.2ml injected into scar upper mid back Skin sensa tion disturbance 16538478 R20.9 hypertroph ic scar - IL Kenalog Eczema 36261994 L30.9 continue triamcinol one cream as needed he will call if he needs an RX sent resolving with his RX [id number] AYDEE MCKEON MD [facility] [address] [place] [address] 05/10/2018 10:34:18 05/14/2018 15:07:52 History of malignant basal cell neoplasm of skin 246468870 Z85.828 Right lateral eyebrow scarno recurrence History of squamous cell carcinoma in situ 0876698412 9105 Z86.008 right antecubita lno recurrence Neoplasm o f uncertain behavior of skin 52342725 D48.5 Actinic keratosis 007 L57.0 will treat in June Basal cell carcinoma of upper extremity 581763964 C44.619 left lateral elbow - shave removal with EDC x 3 [id number] GINO LEE DO [facility] [address] [place] [address] 06/26/2018 08:20:25 06/26/2018 10:42:44 History of malignant basal cell neoplasm of skin 370537069 Z85.828 Right lateral eyebrow , L lateral elbow - no recurrence History of squamous cell carcinoma in situ 8434166104 9105 Z86.008 right antecubita l- no recurrence Actinic keratosis 007 L57.0 Education then treated with LN; R helix x1 , R earlobe x1 , posterior neck x4, L helix x1 , L cheek x1 , L zygoma x1 , R cheek x1, R malar x1 , R 3rd finger x1 , R hand x4, L hand x2 pt tolerated well advised pt what to expect with freezing 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 Leave the bandage on for 24 hrs. Clean the area daily with warm soapy water, and apply polysporin ointment and a bandaid once daily until healed. Call the office if any increase in redness, drainage, or pain. 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 recommend further excision SCC Discussed diagnosis recommend treatment with excision r/a/b of procedure discussed with patient informed consent signed see procedure note f/u as scheduled [id number] DO JUAN ANTONIO [facility] [address] [place] [address] 08/02/2018 10:56:56 08/02/2018 13:59:25 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 discussed diagnosis recommend dove soap avoid hot shower start Fluocinoni de cream as directed will likely have to use on and off over the winter call in a couple weeks if not resolved Inflamed s eborrheic keratosis 033242634 L82.[address] at patients requestx 3 left lateral trunkx 3 right lateral trunkwound care instructio n provided History of squamous cell carcinoma of skin 810769243 Z85.828 recent excision on ear healed well spitting vicryl suture removed f/u as scheduled [id number] DO JUAN ANTONIO [facility] [address] [place] [address] 08/14/2018 15:30:43 08/15/2018 08:38:00 Transient acantholytic dermatosis 05960072 L11.1 discussed diagnosis very inflamed secondary to using 5FU discussed not to use the precancer cream on anything unless he calls me first possibly impetigini zed cultured today start minocyclin e as directed culture performed today advised pt to use aquaphor as directed on the area f/u if not better in 2 weeks will call him with culture results considered giving him an Kenalog shot, to reduce inflammati on, but had prednisone allergy - so held off Impetigo 17278896 L01.00 as above [id number] GINO LEE, DO [facility] [address] [place] [address] 10/24/2018 09:22:14 10/24/2018 12:56:33 History of squamous cell carcinoma of skin 942224015 Z85.828 R ear helix (not area biopsied today) , R antecubita l - no recurrence History of malignant basal cell neoplasm of skin 451712238 Z85.828 Right lateral eyebrow , L lateral elbow - no recurrence Neoplasm o f uncertain behavior of skin 47023022 D48.5 A.) R anterior helix & B.) R posterior helix shave biopsy sent for path r/o A.)BCC & B.)SCC Wound care discussed with patient. Leave the bandage on for 24 hrs. Clean the area daily with warm soapy water, and apply polysporin ointment and a bandaid once daily until healed. Call the office if any increase in redness, drainage, or pain. Actinic keratosis L57.0 Education then treated with LN; L earlobe x1, L neck x1, L lower forehead x1 , R dorsal hand x2, R thumb x2 , L thumb x3, L hand x1 pt tolerated well advised pt what to expect with freezing Inflamed s eborrheic keratosis 762990638 L82.[address] per patients request: L upper back x1, R knee x1, L inner leg x1 ,L rodriguez x1 pt tolerated well advised pt what to expect with freezing Senile hyperkeratosis 39 9211212 L82.1 Benign Reassuranc e Solar lentiginosis 26937 2006 L81.4 Benign Reassuranc e Skin sensa tion disturbance 53451193 R20.9 ISK , skin tags , irritated Skin tag 762681243 L91.[address] per patients request: R axilla x5 , L axilla x1 pt tolerated well advised pt what to expect with freezing [id number] GINO LEE DO [facility] [address] [place] [address] 10/30/2018 14:38:21 10/31/2018 08:01:37 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 334768794 C44.212 right anterior ear helix bcc Discussed diagnosis recommend treatment with ED&C r/a/b of procedure discussed with patient informed consent signed see procedure note f/u as scheduled Squamous c ell carcinoma of auricle of ear 758020461 C44.222 right posterior ear helix scc in situ Discussed diagnosis recommend treatment with ED&C r/a/b of procedure discussed with patient informed consent signed see procedure note f/u as scheduled Actinic keratosis L57.0 Education, then cryo destructio n with liquid nitrogen (LN) x 1 [id number] GINO LEE DO [facility] [address] [place] [address] 02/20/2019 09:42:11 02/20/2019 11:57:31 History of squamous cell carcinoma of skin 390527517 Z85.828 R ear helix x2 , R antecubita l - no recurrence History of malignant basal cell neoplasm of skin 392815711 Z85.828 Right lateral eyebrow , L lateral elbow, R post helix - no recurrence Senile hyperkeratosis 39 6595647 L82.[address] x 1 left lateral cheek Solar lentiginosis 26879 2006 L81.4 Benign Reassuranc e Actinic keratosis L57.0 Education, then cryo destructio n with liquid nitrogen (LN) x 12 Epidermoid cyst 21540054 6 L72.0 bothersome schedule excision Skin tag 087922255 L91.8 Benign Appearance [id number] GINO LEE DO [facility] [address] [place] [address] 06/23/2019 13:22:55 06/24/2019 08:09:25 Epidermoid cyst 170081904 L72.0 upper mid back Discussed diagnosis recommend treatment with excision r/a/b of procedure discussed with patient informed consent signed see procedure note will remove sutures in 2 weeks Actinic keratosis L57.0 Education, then cryo destructio n with liquid nitrogen (LN) L posterior neck x1, R earlobe x1, R forehead x1, R zygoma x1 , R cheek x1, R neck x1, L nasal bridge x1 , L forehead x1 Skin sensa tion disturbance 60548859 R20.9 cyst [id number] GINO LEE DO [facility] [address] [place] [address] 09/02/2019 11:12:08 09/03/2019 08:08:19 Actinic keratosis L57.0 Education then treated with LN; R zygoma x1, R sideburn x1 pt tolerated well advised pt what to expect with freezing Scar 330653518 L90.5 hypertroph ic scar on R posterior helix no recurrence noted monitor for changes offered LN kenalog, pt declined, not than bothersome if becomes larger, changes, symptoms persist return to clinic otherwise f/u in Nov as scheduled History of malignant basal cell neoplasm of skin 847063885 Z85.828 Right lateral eyebrow , L lateral elbow, R post helix - no recurrence Epidermoid cyst 18406085 6 L72.0 upper mid back previously removed healed well no recurrence [id number] GINO LEE DO [facility] [address] [place] [address] 11/18/2019 13:57:28 11/19/2019 07:47:59 History of squamous cell carcinoma of skin 374445955 Z85.828 R ear helix x2 , R antecubita l - no recurrence History of malignant basal cell neoplasm of skin 646150391 Z85.828 Right lateral eyebrow , L lateral elbow, R post helix - no recurrence Solar lentiginosis 80171 2006 L81.4 Benign Reassuranc e Actinic keratosis L57.0 Education, then cryo destructio n with liquid nitrogen (LN) right neck x1, right helix x3, left helix x4, left malar x1, left zygoma x1, left hand x5 , right forehead x1, left wrist x1, Hypertrophic scar 424934 06 L91.0 Benign Appearance the bottom portion of excision scar is hypertroph ic no change since last visit no recurrence noted clinically or dermatosco piclly not symptomati c, he just feels the thickness offered IK kenalog, pt declined [place] kenalog image taken monitor for changes Raised damian orrheic keratosis 7589423095 75184 L82.1 Benign Appearance Education, then cryodestru ction with liquid nitrogen (LN) right post auricular ear x1, right bicep x1, left bicep x1, left forearm x1, at pt request Transient acantholytic dermatosis 78754398 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 [id number] GINO LEE DO [facility] [address] [place] [address] 05/25/2020 14:56:38 05/25/2020 15:35:49 History of squamous cell carcinoma of skin 044315490 Z85.828 R ear helix x2 , R antecubita l - no recurrence History of malignant basal cell neoplasm of skin 027817173 Z85.828 Right lateral eyebrow , L lateral elbow, R post helix - no recurrence Raised damian orrheic keratosis 2183165514 84353 L82.1 Benign Appearance Solar lentiginosis 65180 2006 L81.4 Benign Reassuranc e Actinic keratosis 626034 007 L57.0 Education, then cryo destructio n with liquid nitrogen (LN) 1 Hypertrophic scar 263039 06 L91.0 stable new area at lower portion, see below- scar or bcc? Stucco keratosis 1242099 01 D23.9 Benign Appearance Neoplasm o f uncertain behavior of skin 86231673 D48.5 right posterior ear- r/o hypertroph ic scar vs bcc right ear lobe- r/o bcc 3mm punch biopsy see procedure note wound care instructio ns provided patient consents for procedure and photo monitoring [id number] MD [facility] [address] [place] [address] 08/18/2020 12:26:49 08/18/2020 13:37:58 History of malignant neoplasm of prostate 093038869 Z85.46 continue alfuzosin follow-up 6 months with PSA Primary er ectile dysfunction 857579679 N52.9 continues sildenafil [id number] GINO LEE DO [facility] [address] [place] [address] 01/25/2021 09:43:19 01/25/2021 10:52:18 History of squamous cell carcinoma of skin 053554102 Z85.828 R ear helix x2, R antecubita l - no recurrence History of malignant basal cell neoplasm of skin 534375622 Z85.828 Right lateral eyebrow, L lateral elbow, R post helix - no recurrence Raised damian orrheic keratosis 9416147427 06793 L82.1 Benign Reassuranc e Solar lentiginosis 05063 2007 L81.4 Benign Reassuranc e Actinic keratosis 889888 007 L57.0 Education, then cryo destructio n with liquid nitrogen (LN); R helix x1, R antihelix x2 , L neck x2, R neck x1, R cheek x3, R lateral forehead x1, L prea u ricular x1, L zygoma x1 , L hand x3, L forearm x1, R forearm x1 Pt tolerated well Advised Pt what to expect with freezing Recommende d to use Aquaphor on the areas to help with the healing process Hypertrophic scar 683377 06 L91.0 stable Eczema 22821001 L30.9 lower abdomen favor contact dermatitis chronic, intermitte nt, with acute exacerbati on Start triamcinol one cream BID for up to 2 weeks call if no resolution , or recurrence Inflamed s eborrheic keratosis 299849466 L82.0 [address] with LN per patients request; R posterior ear lobe x1 pt tolerated well advised pt what to expect with freezing Neoplasm o f uncertain behavior of skin 87000600 D48.5 left medial cheek r/o SCC shave biopsy see procedure note wound care instructio ns provided patient consents for procedure and photo monitoring Skin sensa tion disturbance 85408317 R20.9 isk [id number] GINO LEE DO [facility] [address] [place] [address] 02/03/2021 14:28:05 02/03/2021 15:12:35 Squamous cell carcinoma in situ of skin 852081658 D04.30 left medial cheek Discussed diagnosis SCC in situ recommend treatment with ED&C r/a/b of procedure discussed with patient informed consent signed see procedure note f/u as scheduled wound care discussed [id number] MD [facility] [address] [place] [address] 02/16/2021 12:23:02 02/16/2021 13:19:51 Malignant neoplasm of prostate 822795694 C61 he will follow-up in 6 months with PSA. Malaise and fatigue 2717 56569 R53.83 Primary er ectile dysfunction 635198524 N52.9 continues sildenafil [id number] GINO LEE DO [facility] [address] [place] [address] 07/27/2021 13:10:32 07/27/2021 14:00:14 History of squamous cell carcinoma of skin 771160411 Z85.828 R ear helix x2, R antecubita l - no recurrence History of malignant basal cell neoplasm of skin 283741269 Z85.828 Right lateral eyebrow, L lateral elbow, R post helix - no recurrence Raised damian orrheic keratosis 5100434029 46784 L82.1 Benign Reassuranc e Solar lentiginosis 85109 2006 L81.4 Benign Reassuranc e Actinic keratosis 409433 007 L57.0 Education, then cryo destructio n with liquid nitrogen (LN); x8 Pt tolerated well Advised Pt what to expect with freezing Recommende d to use Aquaphor on the areas to help with the healing process Hypertrophic scar 785630 06 L91.0 stable Neoplasm o f uncertain behavior of skin 75179706 D48.5 left base of thumbr/o SCC shave biopsy see procedure note wound care instructio ns provided patient consents for procedure and photo monitoring [id number] MD [facility] [address] [place] [address] 09/07/2021 12:18:19 09/07/2021 13:24:48 History of malignant neoplasm of prostate 642718157 Z85.46 continue alfuzosin follow-up 6 months with PSA [id number] GINO LEE DO [facility] [address] [place] [address] 01/31/2022 14:05:21 01/31/2022 15:45:44 History of squamous cell carcinoma of skin 731653527 Z85.828 R ear helix x2, R antecubita l - no recurrence History of malignant basal cell neoplasm of skin 742476012 Z85.828 Right lateral eyebrow, L lateral elbow, R post helix - no recurrence Raised damian orrheic keratosis 0710001661 42278 L82.1 Benign Reassuranc e Solar lentiginosis 06531 2007 L81.4 Benign Reassuranc e Actinic keratosis 135514 007 L57.0 Education then treated with LN; R helix x2, R thumb x1, R ventral forearm x1, R hand x2, L forearm x1, L dorsal hand x1Pt tolerated well Advised Pt what to expect with freezing Recommende d to use Aquaphor on the areas to help with the healing process Hypertrophic scar 901010 06 L91.0 stable Neoplasm o f uncertain behavior of skin 51131833 D48.5 a.) R wrist - r/o SCCb.) L lateral forehead - r/o BCCshave biopsyWoun d care discussed with patient. Leave the bandage on for 24 hrs. Clean the area daily with warm soapy water, and apply polysporin ointment and a bandaid once daily until healed. Call the office if any increase in redness, drainage, or pain. Epidermoid cyst of skin 251921109 L72.3 posterior neckpt doesnt want to remove it at this time, will call if it becomes bothersome Stasis dermatitis 881077 05 I87.2 Benign Reassuranc econtinue TAC as directedhe has this at home [id number] GINO LEE DO [facility] [address] [place] [address] 08/08/2022 14:50:45 08/08/2022 15:58:00 History of squamous cell carcinoma of skin 673274130 Z85.828 R ear helix x2, R antecubita l - no recurrence History of malignant basal cell neoplasm of skin 430695064 Z85.828 Right lateral eyebrow, L lateral elbow, R post helix - no recurrence Raised damian orrheic keratosis [id number] 23643 L82.1 Benign Reassuranc e Solar lentiginosis 70061 2006 L81.4 Benign Reassuranc e Actinic keratosis L57.0 Education then treated with LN; L lower cheek x1 , L helix x2 , L earlobe x1 , R earlobe x1, R helix x2, R lateral eyebrow x1 , L anabaptism x1, R cheek x1, L nasal bridge x1, L nasal ala x1, L cheek x2, L wrist x1, L hand x1Pt tolerated well Advised Pt what to expect with freezing Recommende d to use Aquaphor on the areas to help with the healing process Hypertrophic scar 281041 06 L91.0 stable Epidermoid cyst of skin 264862820 L72.3 posterior neckpt wants to schedule excision for next time he comes in Stasis dermatitis 490566 05 I87.2 Benign Reassuranc emild flaring on feetmild edema 1+start TAC as directeddi scussed compressio n socks, but not really severe enough to wear if difficult for him Transient acantholytic dermatosis 18580622 L11.1 Brady'sudheer ronicseaso nal flarestart TAC cream, as directed Inflamed s eborrheic keratosis 674916755 L82.[address] per patients request; R pot auricular x 3hit glasses pt tolerated well advised pt what to expect with freezing Tenderness of skin 45241 9000 R20.8 itchbother some [id number] GINO LEE, [facility]MAT[facility]O [facility] [address] [place] [address] 02/06/2022 13:03:29 02/06/2022 13:58:29 Squamous cell carcinoma of upper extremity 300064035 C44.622 right wristDiscu ssed diagnosis SCC in situ recommend treatment with ED&Cr/a/b of procedure discussed with patientinf ormed consent signedsee procedure note f/u 4-6 months for FSEWound care discussed with patient. Leave the bandage on for 24 hrs. Clean the area daily with warm soapy water, and apply polysporin ointment and a bandaid once daily until healed. Call the office if any increase in redness, drainage, or pain. Basal cell carcinoma of face 397027467 C44.310 infiltrati ve bccschedul ed for mohs [id number] GINO LEE DO [facility] [address] [place] [address] 11/13/2022 13:51:16 11/13/2022 14:24:33 History of squamous cell carcinoma of skin 129208465 Z85.828 R ear helix x2, R antecubita l - no recurrence History of malignant basal cell neoplasm of skin 683737596 Z85.828 Right lateral eyebrow, L lateral elbow, R post helix - no recurrence Epidermoid cyst of skin 996494871 L72.3 posterior neckDiscus sed diagnosisr ecommend treatment with punch excisionr/ a/b of procedure discussed with patientinf ormed consent signedsee procedure note Wound care discussed with patient. Leave the bandage on for 24 hrs. Clean the area daily with warm soapy water, and apply polysporin ointment and a bandaid once daily until healed. Call the office if any increase in redness, drainage, or pain. Actinic keratosis 871289 007 L57.0 Education then treated with LN; R earlobe x1, L helix x1, R zygoma x1Pt tolerated well Advised Pt what to expect with freezing Recommende d to use Aquaphor on the areas to help with the healing process Neoplasm o f uncertain behavior of skin 26028068 D48.5 L nasal bridgeshav e biopsysent for pathr/o BCCWound care discussed with patient. Leave the bandage on for 24 hrs. Clean the area daily with warm soapy water, and apply polysporin ointment and a bandaid once daily until healed. Call the office if any increase in redness, drainage, or pain. 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 Hitchins'sudheer ronicstabl eTAC cream, prn, flares [id number] GINO LEE DO [facility] [address] [place] [address] 03/08/2023 13:38:20 03/08/2023 14:29:41 History of squamous cell carcinoma of skin 594040306 Z85.828 R ear helix x2, R antecubita l - no recurrence History of malignant basal cell neoplasm of skin 370985936 Z85.828 Right lateral eyebrow, L lateral elbow, R post helix- no recurrence sleft nasal bridge - no recurrence healed very well, great cosmesis Actinic keratosis 099546 007 L57.0 Education then treated with LN; R upper earlobe x1, right cheek x 1Pt tolerated well Advised Pt what to expect with freezing Recommende d to use Aquaphor on the areas to help with the healing process Raised damian orrheic keratosis 5921128716 26688 L82.1 Benign Reassuranc e Solar lentiginosis 81185 2006 L81.4 Benign Reassuranc e recommende d sun protective clothing and a mineral based sunscreen 30 SPF or higher lotion OTC daily Multiple b enign melanocytic nevi 596085272 D22.9 Benign Reassuranc e Neoplasm o f uncertain behavior of skin 84338862 D48.5 left ventral forearmsha ve biopsysent for pathr/o SCCisWound care discussed with patient. Leave the bandage on for 24 hrs. Clean the area daily with warm soapy water, and apply polysporin ointment and a bandaid once daily until healed. Call the office if any increase in redness, drainage, or pain. Stasis dermatitis 375013 05 I87.2 mild todayminim al edema start TAC as directeddi scussed compressio n socks, but not really severe enough to wear if difficult for him [id number] GINO LEE DO [facility] [address] [place] [address] 11/17/2022 09:45:57 11/17/2022 11:52:33 Basal cell carcinoma of nose 841137823 C44.311 left nasal bridgeDisc ussed diagnosis BCCsmall lesion recommend treatment with excisionr/ a/b of procedure discussed with patientinf ormed consent signedsee procedure note Wound care discussed with patient. Leave the bandage on for 24 hrs. Clean the area daily with warm soapy water, and apply polysporin ointment and a bandaid once daily until healed. Call the office if any increase in redness, drainage, or pain. [id number] GINO LEE DO [facility] [address] [place] [address] 11/29/2022 13:43:17 11/29/2022 15:13:10 Basal cell carcinoma of nose 123400217 C44.311 left nasal bridgeDisc ussed diagnosis BCCsmall area of bcc at 9 o'clock margin pt elected for reexcision did not like imiquimod cream side effect, face/eye burning sensationH e requested further excision r/a/b of procedure discussed with patientinf ormed consent signedsee procedure noteWound care discussed with patient. Leave the bandage on for 24 hrs. Clean the area daily with warm soapy water, and apply polysporin ointment and a bandaid once daily until healed. Call the office if any increase in redness, drainage, or pain. [id number] DO JUAN ANTONIO [facility] [address] [place] [address] 03/29/2023 14:01:45 03/29/2023 15:06:30 Squamous cell carcinoma of upper extremity 451287992 C44.629 left ventral forearmDis cussed diagnosis SCC in siturecomm end treatment with ED&Cr/a/b of procedure discussed with patientinf ormed consent signedsee procedure notef/u 4-6 months for FSEWound care discussed with patient. Leave the bandage on for 24 hrs. Clean the area daily with warm soapy water, and apply polysporin ointment and a bandaid once daily until healed. Call the office if any increase in redness, drainage, or pain. [id number] GINO LEE DO [facility] [address] [place] [address] 04/22/2024 09:17:01 04/22/2024 10:52:56 History of squamous cell carcinoma of skin 917834282 Z85.828 R ear helix x2, R antecubita l - no recurrence The right ear had scar tissue/ski n graft from MOH earlier this yearsome hypertroph ic scarringno sign of any residual or recurrent SCC History of malignant basal cell neoplasm of skin 544417532 Z85.828 Right lateral eyebrow, L lateral elbow, R post helix- no recurrence sleft nasal bridge - no recurrence healed very well, great cosmesis Skin tag 862450594 L91.8 Benign Appearance Education then treated with LN; left neck X2per patient request pt tolerated well advised pt what to expect with freezing Actinic keratosis 007 L57.0 chronicexa cerbationr ims of both ears, right upper earlobe, right cheekdiscu ssed topical txstart fluorourac il - twice a day for two weeksAdvis ed patient that areas will become red, scabby, and crusty Education then treated with LN; right forearm X1pt tolerated welladvise d pt what to expect with freezing Inflamed s eborrheic keratosis 562996492 L82.0 Education then treated with LN; right shoulder X1, right mid back X1pt tolerated welladvise d pt what to expect with freezing Tenderness of skin 79109 9000 R20.8 ISK, Skin tags ; bothersome Health Concerns Section Related Observation LastModified by Organization Detai ls LastModified Time None Recorded Concern Status LastModified by Organization Details LastModified Time None Recorded Advance Directives Directive None Recorded Payers Insurance Date Sequence Insurance Name Policy Number Policy Wagner Covered Member ID Wagner Member ID Guarantor Name 07/22/2024 2 FOR LIFE ( - MEDICARE SUPPLEMENT) Jurgen Stephens [id number] Jurgen Stephens 07/20/2024 1 [place] Jurgen Stephens [id number] Jurgen Stephens 07/27/2021 2 [employer] [facility] [facility] EXTRA Jurgen Stephens [id number] Jurgen Stephens 07/21/2024 FOR LIFE ( - MEDICARE SUPPLEMENT) Jurgen Giovanni Stephens [id number] Jurgen Giovanni Stephens 07/27/2021 2 FOR LIFE ( - MEDICARE SUPPLEMENT) Jurgen Davila Angelo [id number] Jurgen Davila Angelo Notes Date Note Type Note Provider Name and Address Organization Details Recorded Time 11/17/2022 text/html Established PatientPatient presents today for an excision of a bcc on left nasal bridgeno new, changing, bleeding, or symptomatic lesions to report GINO LEE DO [address] [place], [address], [facility] 11/17/2022 14:53:49 11/29/2022 text/html Established Patient Patient presents today for an excision of a residual bcc, focal at peripheral 9 o clock marginHe tried imiquimod but made his eyes and skin feel like they were burning.prefers to have excised. no new, changing, bleeding, or symptomatic lesions to report [place], [address], [facility] 11/29/2022 17:09:40 03/08/2023 text/html ROS as noted in the HPI Established Patient Presents for recheck of bcc on left nasal bridge that was treated with excision. Patient would like to do a waist up exam. Eval itchy places on legs and lesion on posterior neck. Hx of SCC, BCC Denies any other new or changing lesions. Feels well today. Denies family history of malignant melanoma. [place], [address], [facility] 03/08/2023 20:54:48 03/29/2023 text/html ROS as noted in the HPI Established Patient Patient presents today for an ed&c of a scc on left ventral forearm no new, changing, bleeding, or symptomatic lesions to report GINO LEE DO [address] [place], [address], [facility] 03/29/2023 19:51:14 04/22/2024 text/html ROS as noted in the HPI Established Patient Presents for lesions on right ear. Patient states he noticed the lesions on his ear about 2 months ago. There is one lesion on the outer part of the ear, and also a smaller one on the inner part of the ear Patient also states that he has a few skin tags that he would like to have looked at. h/o scch/o bcc Denies any other new or changing lesions. Feels well today. Denies family history of malignant melanoma. GINO LEE, DO [address] [place], [address], [facility] 04/22/2024 17:57:26
--- OUTSIDE RECORDS SUMMARY | 2025-08-29 08:50 | XMS_ITS ---
Author Organization [facility] Address [address] [place] [id number] Care Team Providers Care Publications Editor Name Role Phone Jeanette Au APRN Primary Care Provider [phone] Active Problems Problem Noted Date Diagnosed Date [...] numbers Care Team Provider: Ricardo Ortega MD, ([phone]) Care Team Provider: Jonah Cabello MD, ([phone]) Care Team Provider: Mark Cee MD, ([phone]) Care Team Provider: Dr. Emeterio Arriaga, ([phone]) Care Team Provider: Maciej Juarez MD, ([phone]) Post Treatment Care Team Primary Care Physician Duncan Eastman MD [phone] [address] [facility] [address] Background Information Medical history Past Medical History: [...] doctors and nurses such as exercise andactivity. USP effects of radiation therapy vary greatly depending [...] you. General Cancer Support & Resources [facility] [address], [address] [place] [address] Med Onc: Program Instructor Onc: Rn Gynecology: Carlita Mckeon - Psychiatric Nurse Practitioner: Saskia Nielsen APRN - Kick It! (A free smoking cessation program) Financial Counselor and Contact Information: [facility] Financial Counseling [phone] [employer] Contact Information: Tri Brown - Local Cancer Support Group and Contact Information: Juan Humphrey ([facility]) Yoga for Cancer Patients: Mondays and Wednesdays @ 10AM Juan offers a free 1 month membership to cancer patients Car Cancer Buddies: This support group is open to anyone that has been diagnosed with cancer of any type. Meets at 6:30pm on the last Sunday of each month. Location: [facility]; [address] [place] [address]. For more information call Julia Short @ [...] advice of a doctor or other health customer care associate. Please use these recommendations to talk with [...] of cancer in the general population. The [place] [employer] (ACS) recommends these screening guidelines for men: Recommendation Frequency Comments Colon and Rectal Cancer Screening For more information see the ACS document Colorectal Cancer: Early Detection. www.cancer.org/ssLINK/dtewujklvn-jxzwye-ojgws-detection-katlyn Options for colon cancer screening can be [...] see the ACS Document Testicular Cancer Detection: http://www.cancer.org/cancer/testicularcancer/detailedguide/duedzejdmd-vduaqn-ub tection Men of any age can develop [...] more information, visit http://www.nhlbi.nih.gov/health/public/heart/obesity/lose_wt/index.htm www.win.niddk.nih.gov Call the [place] [employer] ?? Talk to your health [...] from plant sources. For more information, visit http://www.Telljamyplate.gov/food-groups/ ?? Eat healthy, including plenty of fruits [...] Experts recommend at least 30 minutes of inhzbobl-at-zantdbvu activity per day, five days a week. [...] you can call a national hotline at 8(601)-QUIT-NOW. Have regular check-ups by a healthcare professional. For more information about healthy screening tests for men visit the U.S. Department of Health and Human Services. http://www.womenshealth.gov/rfrfelqaa-njlrl-lyv-vaccines/jxldfzynf-llata-exf-men / For more information about adult vaccinations [...] forget dental and eye health! ?? The [place] [employer] recommends adults have their eyes examined every two years until age 60, then annually. People who wear glasses or corrective lenses or are at high risk for eye problems (i.e., diabetics, family history of eye disease) should be seen more frequently. ?? The [place] [employer] recommends adults see their dentist at least once a year. [facility] [address] [facility] [address]
--- OUTSIDE RECORDS SUMMARY | 2025-08-29 08:51 | XMS_ITS | Clinical Summary ---
Author Organization [facility] Address [address] [place] [address] Care Team Providers Care Producer Director Name Role Phone Jeanette Au APRN Primary [...] Info) Description 09/23/2025 10:00 AM EST Appointment [facility] [address] [place] [id number] 09/23/2025 12:40 PM EST Office Visit [facility] [address] [phone] Tato Sánchez MD [address] [address] Health Maintenance Due Date Last Done Comments [...] 1- dose 75+ series) 2021 COVID-19 Vaccine (3 - Modern a risk series) 10/31/2021 10/03/2021, 11/23/2020, 10/26/2020 HEMOGLOBIN A1C 12/03/2024 06/02/2024, 02/27/2023 INFLUENZA VACCINE 05/15/2025 07/30/2023, , 07/22/2020, Additional history exists COLONOSCOPY 05/16/2032 05/16/2022, 05/16/2022 COLORECTAL CANCER SCREENING 05/16/2032 Pneumococcal Vaccine 50+ Completed 01/31/2024, 03/[address] [place] [place] [address] MEDICARE A & B Care Teams Producer Director Relationship Specialty Start Date End Date Jeanette Au APRN [address] [place] [address] PCP - General Internal Medicine 10/04/23 Dr. Emeterio Arriaga Nephrology 11/01/17
[2025-08-31 11:12] LABS: Testosterone,Total 529 ng/dL (264-916)
== END 2025-08-28 23:59 | disposition home or self-care (01) ==
LOC: LAB.DROPOF 08-29 08:48
PROVIDERS: PCP Nurse Practitioner Family; Visit Provider Nurse Practitioner Family
DX: R79.89 Other specified abnormal findings of blood chemistry (principal); E11.9 Type 2 diabetes mellitus without complications; Z12.5 Encounter for screening for malignant neoplasm of prostate
CPT/HCPCS: 83036; 84402; 84403; G0103